=== PATIENT | male | born 1955 | race Caucasian/White ===

== ENCOUNTER 2016-08-09 17:07 | Emergency (ER) | payer OTHER ==
[~2016-08-09] VITALS: Ht 185.4 cm; Wt 161.0 kg
[~2016-08-09 17:07] MED LIST: ASPI1TAB83 PO; B-COTAB18; CLC100X PO; COEN100C2 PO; FERR1TAB23 PO; GLUC10007 PO; MAGN400T24 PO; METO50TA7 PO; MULTTAB PO; POTA99TA PO; PRLSR20 PO; TAMS0.4C59 PO; TRAM-10 PO; WARF-246 PO; WARF-281 PO
[2016-08-09] MEDS ORDERED: SODIUM CHLORIDE 0.9% 1000ML 1,000 ML IV ONE (17:34)
[2016-08-09 17:41] VITALS: Ht 185.4 cm; Wt 161.0 kg
--- NOTE | 2016-08-09 17:43 | EMERGENCY ROOM VISIT NOTE ---
History Report prepared by Eva: Maritza Palmer Under the Supervision of: Dr. Gabriele Mosquera D.O. First contact with patient: 17:23 Chief Complaint: REFERRED BY DOCTOR Stated Complaint: ABNORMAL EKG History of Present Illness The patient is a 61 year old male who presents to the Emergency Room with complaints of persistent fever starting 2 days [place]. The patient states that he has also been feeling chills and sweats and has been feeling very fatigued and body aches. The patient states that he has also had a cough but denies any chest pain, rash, or SOB. The patient states that he has noticed he has had increased urination but states he has been trying to drink more fluids recently. The patient states he went to the [facility] this morning and they did an EKG and told him to come to the ED for an abnormal EKG. The patient states that he has a history of atrial fibrillation for the past 8 years and takes Coumadin and Lopressor. The patient states that over the past 2 days he has been taking ibuprofen due to his fever. Source of History: patient Onset: 2 days [place]EL[place] Position: other (global) Timing: other (persistent) Associated Symptoms: + chills, + cough, + fatigue, + fevers, No chest pain, No rash Note: Associated symptoms: body aches. Review of Systems See HPI for pertinent positives & negatives. A total of 10 systems reviewed and were otherwise negative. Past Medical & Surgical Medical Problems: (1) Atrial fibrillation (2) Diabetes (3) Hypertension Family History Patient reports no known family medical history. Social History Smoking Status: Never Smoker Drug Use: none Marital Status: Occupation Status: employed Current/Historical Medications Scheduled Aspirin (Aspirin), 1 TAB PO DAILY B-Complex Vitamins (Vitamin B Complex), 1 TAB DAILY Coenzyme Q10 (Ubidecarenone) (Coenzyme Q-10), 1 TAB PO BID Docusate Sodium (Colace), 1 CAP PO BID Ferrous Sulfate (Iron), 1 TAB PO DAILY Glucosamine Sulfate (Glucosamine), 2,000 MG PO DAILY Magnesium (Chelated Magnesium), 100 MG PO BID Metoprolol Succ (Toprol Xl) (Toprol-Xl), 50 MG PO DAILY Multivitamins/Minerals (Mvi With Minerals), 1 TAB PO DAILY Omeprazole (Prilosec), 20 MG PO DAILY Oseltamivir (Tamiflu), 75 MG PO BID Potassium (Potassium), 99 MG PO DAILY Tamsulosin HCl (Tamsulosin HCl), 0.4 MG PO HS Warfarin Sodium (Warfarin Sodium), 10 MG PO MWF Warfarin Sodium (Warfarin Sodium), 10 MG PO [id number] Allergies Coded Allergies: Escitalopram (Verified Allergy, Unknown, RASH, 01/09/15) Finasteride (Verified Allergy, Unknown, rash, 01/09/15) Physical Exam Vital Signs Date Time Temp Pulse Resp B/P Pulse Ox O2 Delivery O2 Flow Rate FiO2 08/09/16 18:52 39.0 83 20 102/58 91 Room Air 08/09/16 17:36 94 08/09/16 17:13 37.7 101 24 122/75 95 Room Air Physical Exam GENERAL: Patient is awake, alert, somewhat listless appearing and febrile, not in pain or uncomfortable. EYES: The conjunctivae are clear. The pupils are round and reactive. EARS, NOSE, MOUTH AND THROAT: The nose is without any evidence of any deformity. Mucous membranes are moist tongue is midline NECK: The neck is nontender and supple. RESPIRATORY: Lung sounds diminished at the left base. Rales noted in the right base. Mild conversational dyspnea noted. CARDIOVASCULAR: Tachycardic and irregular rhythm to auscultation. No definite murmur noted. No rubs or gallops normal S1 normal S2 GASTROINTESTINAL: The abdomen is soft. Bowel sounds are present in all quadrants. Abdomen is nontender MUSCULOSKELETAL/EXTREMITIES: There is no evidence of gross deformity full range of motion is noted in the hips and shoulders SKIN: There is no obvious evidence of any rash. There are no petechiae, pallor or cyanosis noted. Pedal edema bilaterally. NEUROLOGIC: Patient is awake alert and oriented x3. Medical Decision & Procedures ER Provider Diagnostic Interpretation: X-ray results as stated below per interpretation by me and the radiologist. CHEST ONE VIEW PORTABLE CLINICAL HISTORY: Sepsis. Abnormal EKG. COMPARISON STUDY: Chest radiograph June 26, 2008. FINDINGS: This exam is compromised by suboptimal penetration and motion artifact. There is pulmonary vascular congestion without overt pulmonary edema. Moderate enlargement of the cardiac silhouette is noted. There is no lobar consolidation. IMPRESSION: 1. Moderate enlargement of the cardiac silhouette. Pulmonary vascular congestion. 2. Study compromised by suboptimal penetration and motion artifact. No lobar consolidation. Electronically signed by: Scaha Le M.D. 08/09/2016 6:33 PM Dictated Date/Time: 08/09/2016 6:31 PM Laboratory Results 08/09/16 18:10 Red Blood Count 4.67, Mean Corpuscular Volume 88.7, Mean Corpuscular Hemoglobin 28.9, Mean Corpuscular Hemoglobin Concent 32.6, Mean Platelet Volume 9.6, Neutrophils (%) (Auto) 81.8, Lymphocytes (%) (Auto) 9.8, Monocytes (%) (Auto) 7.8, Eosinophils (%) (Auto) 0.2, Basophils (%) (Auto) 0.2, Neutrophils # (Auto) 5.32, Lymphocytes # (Auto) 0.64, Monocytes # (Auto) 0.51, Eosinophils # (Auto) 0.01, Basophils # (Auto) 0.01 08/09/16 18:10 Test 08/09/16 17:38 08/09/16 17:40 08/09/16 18:10 08/09/16 18:13 Urine Color YELLOW Urine Appearance CLEAR (CLEAR) Urine pH 5.0 (4.5-7.5) Urine Specific [place] 1.019 (1.000-1.030) Urine Protein NEG (NEG) Urine Glucose (UA) NEG (NEG) Urine Ketones NEG (NEG) Urine Occult Blood NEG (NEG) Urine Nitrite NEG (NEG) Urine Bilirubin NEG (NEG) Urine Urobilinogen NEG (NEG) Urine Leukocyte Esterase NEG (NEG) Urine WBC (Auto) 1-5 /hpf (0-5) Urine RBC (Auto) 0-4 /hpf (0-4) Urine Hyaline Casts (Auto) 0 /lpf (0-5) Urine Epithelial Cells (Auto) 5-10 /lpf (0-5) Urine Bacteria (Auto) NEG (NEG) Influenza Type A Antigen POS for Influ A (NEG) Influenza Type B Antigen Neg for Influ B (NEG) White Blood Count 6.50 K/uL (4.8-10.8) Red Blood Count 4.67 M/uL (4.7-6.1) Hemoglobin 13.5 g/dL (14.0-18.0) Hematocrit 41.4 % (42-52) Mean Corpuscular Volume 88.7 fL (80-100) Mean Corpuscular Hemoglobin 28.9 pg (25-34) Mean Corpuscular Hemoglobin Concent 32.6 g/dl (32-36) Platelet Count 140 K/uL (130-400) Mean Platelet Volume 9.6 fL (7.4-10.4) Neutrophils (%) (Auto) 81.8 % Lymphocytes (%) (Auto) 9.8 % Monocytes (%) (Auto) 7.8 % Eosinophils (%) (Auto) 0.2 % Basophils (%) (Auto) 0.2 % Neutrophils # (Auto) 5.32 K/uL (1.4-6.5) Lymphocytes # (Auto) 0.64 K/uL (1.2-3.4) Monocytes # (Auto) 0.51 K/uL (0.11-0.59) Eosinophils # (Auto) 0.01 K/uL (0-0.5) Basophils # (Auto) 0.01 K/uL (0-0.2) RDW Standard Deviation 48.0 fL (36.4-46.3) RDW Coefficient of Variation 14.9 % (11.5-14.5) Immature Granulocyte % (Auto) 0.2 % Immature Granulocyte # (Auto) 0.01 K/uL (0.00-0.02) Erythrocyte Sedimentation Rate 27 mm/hr (0-14) Prothrombin Time 19.4 SECONDS (9.0-12.0) Prothromb Time International Ratio 1.8 (0.9-1.1) Activated Partial Thromboplast Time 39.4 SECONDS (21.0-31.0) Partial Thromboplastin Ratio 1.5 Anion Gap 7.0 mmol/L (3-11) Est Creatinine Clear Calc Drug Dose 143.5 ml/min Estimated GFR () 108.7 Estimated GFR (Non- 93.8 BUN/Creatinine Ratio 19.7 (10-20) Calcium Level 8.3 mg/dl (8.5-10.1) Phosphorus Level 2.0 mg/dl (2.5-4.9) Magnesium Level 1.6 mg/dl (1.8-2.4) Total Bilirubin 0.4 mg/dl (0.2-1) Aspartate Amino Transf (AST/SGOT) 31 U/L (15-37) Alanine Aminotransferase (ALT/SGPT) 32 U/L (12-78) Alkaline Phosphatase 90 U/L (45-117) Total Creatine Kinase 101 U/L (39-308) Creatine Kinase MB 0.6 ng/ml (0.5-3.6) Creatine Kinase MB Ratio 0.6 (0-3.0) Troponin I 0.026 ng/ml (0-0.045) C-Reactive Protein 2.27 mg/dl (0-0.29) Pro-B-Type Natriuretic Peptide 1695 pg/ml (0-900) Total Protein 6.9 gm/dl (6.4-8.2) Albumin 3.2 gm/dl (3.4-5.0) Globulin 3.7 gm/dl (2.5-4.0) Albumin/Globulin Ratio 0.9 (0.9-2) Lipase 161 U/L (73-393) Bedside Lactic Acid Venous 0.95 mmol/L (0.90-1.70) Laboratory results per my review. Medications Administered Medications (Trade) Dose Ordered Sig/Radha Route Start Time Stop Time Status Last Admin Dose Admin Sodium Chloride (Nss 1000ml) 1,000 ml @ 999 mls/hr Q1H1M ONCE IV 08/09/16 17:34 08/09/16 18:34 DC 08/09/16 18:11 999 MLS/HR Acetaminophen (Tylenol Tab) 650 mg ONE ONCE PO 08/09/16 17:45 08/09/16 17:46 DC 08/09/16 17:45 650 MG Magnesium Sulfate (Magnesium Sulfate) 1 gm NOW STAT IV 08/09/16 18:42 08/09/16 18:43 DC 08/09/16 18:58 1 GM Oseltamivir Phosphate (Tamiflu Cap) 75 mg NOW STAT PO 08/09/16 18:54 08/09/16 18:55 DC 08/09/16 19:03 75 MG Ibuprofen (Motrin Tab) 600 mg STK-MED ONCE .ROUTE 08/09/16 18:58 08/09/16 19:02 DC 08/09/16 19:04 600 MG Tramadol HCl (Ultram Home Pack) 1 homepack UD ONCE PO 08/09/16 20:00 08/09/16 20:01 DC 08/09/16 20:30 1 HOMEPACK ECG Indication: other (abnormal EKG) Rate (beats per minute): 90 Rhythm: atrial fibrillation Findings: PVC, other (LVH noted by voltage criteria.) Comparison ECG Date: June 25, 2008 Change: no significant change (Atrial fibrillation is new compared to old EKG.) ED Course 1728: The patient was evaluated in room C7. A complete history and physical examination were performed. 173: Ordered NSS 1,000 ml @ 999 mls/hr IV. 1745: Ordered Tylenol Tab 650 mg PO. 184: Ordered Magnesium sulfate 1gm IV. 1853: Ordered Tamiflu Cap 75 mg PO. 1857: Ordered Motrin Tab 600 mg PO. 1919: I discussed the case with Dr. Camacho [facility] Hospitalist so he could help facilitate outpatient follow-up. 1924: Upon reevaluation, the patient is resting comfortably. I discussed the results and treatment plan with him. He verbalized agreement of the treatment plan. The patient was discharged home. 1999: Ordered Tramadol HCl 1 homepack PO. Medical Decision Differential diagnosis: Etiologies such as viral syndrome, otitis, pharyngitis, pneumonia, influenza, meningitis, urinary tract infection, sepsis, bacteremia, as well as others were entertained. Nursing notes reviewed. The patient's previous electronic medical records were reviewed. The patient is a 61-year-old male who presented to the emergency department for an evaluation of fever and difficulty breathing. The patient was seen at the [facility] weekend clinic and was sent to the emergency department for an evaluation of new onset atrial fibrillation. The patient states that he has a history of chronic atrial fibrillation with Coumadin use and is already taking metoprolol. The patient was treated with antipyretics in the emergency department. He was given a small fluid bolus. He was also started on Tamiflu and his magnesium was replaced. I discussed the patient's laboratory radiographic studies with him. The patient's documentation from the weekend clinic stated that he needed to be evaluated for possible inpatient management. At this time I do not feel the patient wishes to stay in the hospital and I think he could be managed as an outpatient for this acute febrile illness. I discussed the patient's condition with the on-call [facility] hospitalist group in order to expedite the patient's follow-up with the primary care physician. The patient was encouraged to schedule a follow-up appointment this week. The patient was also encouraged to return to the emergency department immediately if symptoms change worsen or the need arises. Impression Primary Impression: Fever Additional Impressions: Influenza Atrial fibrillation Hypermagnesemia Scribe Attestation The scribe's documentation has been prepared under my direction and personally reviewed by me in its entirety. I confirm that the note above accurately reflects all work, treatment, procedures, and medical decision making performed by me. Departure Information Dispostion Home / Self-Care Prescriptions Oseltamivir (Tamiflu) 75 Mg Cap 75 MG PO BID, #10 CAP Prov: Gabriele Mosquera, DO 08/09/16 Referrals Mateus Sanders D.O. (PCP) Forms HOME CARE DOCUMENTATION FORM, IMPORTANT VISIT INFORMATION, WORK / SCHOOL INSTRUCTIONS Patient Instructions My [facility] Additional Instructions Call your family in the morning to schedule a follow-up appointment. Continue all medications as prescribed. Drink plenty of liquids. Continue using Motrin and Tylenol as directed for fever and body aches. Problem Qualifiers Primary Impression: Fever Fever type: unspecified Qualified Codes: R50.9 - Fever, unspecified Additional Impressions: Atrial fibrillation Atrial fibrillation type: chronic Qualified Codes: I48.2 - Chronic atrial fibrillation
[2016-08-09] MEDS ORDERED: ACETAMINOPHEN 325 MG TAB PO ONE (17:45)
[2016-08-09] MEDS ORDERED: MAGN1TAB16 PO (17:49)
[2016-08-09] MEDS ORDERED: FLM4 PO (17:49)
[2016-08-09] MEDS ORDERED: DOCU-94 PO (17:49)
[2016-08-09 18:20] LABS: HEMATOCRIT 41.4 % (42-52); MEAN CELL VOLUME 88.7 fL (80-100); MEAN CORPUSCULAR HEMOGLOBIN 28.9 pg (25-34); MEAN CORPUSCULAR HGB CONC 32.6 g/dl (32-36); MEAN PLATELET VOLUME 9.6 fL (7.4-10.4); PLATELET COUNT 140 K/uL (130-400); RED BLOOD COUNT 4.67 M/uL (4.7-6.1)
[2016-08-09 18:31] LABS: INR 1.8 (0.9-1.1); PARTIAL THROMBOPLASTIN RATIO 1.5; PROTHROMBIN TIME (PATIENT) 19.4 SECONDS (9.0-12.0)
--- NOTE | 2016-08-09 18:34 | DIAGNOSTIC IMAGING REPORT ---
CHEST ONE VIEW PORTABLE CLINICAL HISTORY: Sepsis. Abnormal EKG. COMPARISON STUDY: Chest radiograph June 26, 2008. FINDINGS: This exam is compromised by suboptimal penetration and motion artifact. There is pulmonary vascular congestion without overt pulmonary edema. Moderate enlargement of the cardiac silhouette is noted. There is no lobar consolidation. IMPRESSION: 1. Moderate enlargement of the cardiac silhouette. Pulmonary vascular congestion. 2. Study compromised by suboptimal penetration and motion artifact. No lobar consolidation. Electronically signed by: Sacha Le M.D. 08/09/2016 6:33 PM Dictated Date/Time: 08/09/2016 6:31 PM
[2016-08-09 18:36] LABS: BUN/CREATININE RATIO 19.7 (10-20); C-REACTIVE PROTEIN 2.27 mg/dl (0-0.29); CALCIUM 8.3 mg/dl (8.5-10.1); CREATININE 0.87 mg/dl (0.60-1.40); MAGNESIUM 1.6 mg/dl (1.8-2.4); POTASSIUM 4.1 mmol/L (3.5-5.1)
[2016-08-09 18:41] LABS: ALB/GLOB RATIO 0.9 (0.9-2); CKMB/CK RATIO 0.6 (0-3.0)
[2016-08-09] MEDS ORDERED: MAGNESIUM SULFATE 1GM / D5W 1 GM BAG IV STA (18:42)
[2016-08-09 18:44] LABS: URINE APPEARANCE CLEAR (CLEAR); URINE BILIRUBIN NEG (NEG); URINE COLOR YELLOW; URINE NITRITE NEG (NEG); URINE SPECIFIC GRAVITY 1.019 (1.000-1.030); UROBILINOGEN NEG (NEG); ZZUR CULT IF INDIC CLEAN CATCH NO
[2016-08-09 18:54] LABS: MANUAL MICROSCOPIC REQUIRED? NO; REVIEW REQ? NO
[2016-08-09] MEDS ORDERED: OSELTAMIVIR PHOSPHATE 75 MG CAP PO STA (18:54)
[2016-08-09] MEDS ORDERED: IBUPROFEN 600 MG TAB ONE (18:58)
[2016-08-09 19:01] LABS: BASO % 0.2 %; BASO ABS # 0.01 K/uL (0-0.2); COMPLETE YES; EOS % 0.2 %; IG% 0.2 %; LYMPH % 9.8 %; LYMPH ABS # 0.64 K/uL (1.2-3.4); MONO % 7.8 %; NEUT % 81.8 %
[2016-08-09] MEDS ORDERED: OSEL75CA12 PO (19:47)
[2016-08-09] MEDS ORDERED: TRAMADOL HCL 50 MG HOME PACK PO ONE (20:00)
[2016-08-09 20:36] VITALS: BP 109/60; PULSE 78; TEMP 37.3; O2SAT 93
[2017-02-12] MEDS ORDERED: PRED10TA PO (10:24)
[2017-02-12] MEDS ORDERED: BND25 PO (10:24)
== END 2016-08-09 20:37 | disposition home or self-care (01) ==
LOC: C.EDB 17:10 → C.EDC 20:37
DX: I48.91 Unspecified atrial fibrillation (principal); J11.1 Influenza due to unidentified influenza virus with other respiratory manifestations; E83.42 Hypomagnesemia; E11.9 Type 2 diabetes mellitus without complications; I10 Essential (primary) hypertension; Z79.01 Long term (current) use of anticoagulants; Z79.82 Long term (current) use of aspirin; Z79.84 Long term (current) use of oral hypoglycemic drugs; Z79.899 Other long term (current) drug therapy; Z88.8 Allergy status to other drugs, medicaments and biological substances

== ENCOUNTER 2017-02-02 06:26 | Observation (INO) | payer OTHER ==
[~2017-02-02] VITALS: Ht 185.4 cm; Wt 138.1 kg
[2017-02-02] VITALS (7 sets, daily range): BP systolic 99–111; BP diastolic 65–73; PULSE 50–70; TEMP 36.5–37; O2SAT 95–98; Ht 185.4 cm; Wt 138.1 kg
[~2017-02-02 06:26] MED LIST changes: +CEFAZOLIN 1000MG/55 ML D5W IV SCH; +CEFAZOLIN 3000 MG/65 ML D5W 65 ML IV SCH; -CLC100X PO; +DOCU-94 PO; +FLM4 PO; +LACTATED RINGER'S 1000ML 1,000 ML IV SCH; +MAGN1TAB16 PO; -MAGN400T24 PO; +OSEL75CA12 PO; -TAMS0.4C59 PO; -TRAM-10 PO
[2017-02-02] MEDS ORDERED: CYAN10005 PO (06:59)
[2017-02-02] MEDS ORDERED: LISI-729 PO (06:59)
[2017-02-02] MEDS ORDERED: MAGN400T6 PO (07:03)
[2017-02-02] MEDS ORDERED: TRAM-10 PO (07:04)
[2017-02-02] MEDS ORDERED: LIDOCAINE HCL 1% 20 ML VIAL ONE (07:09)
[2017-02-02] MEDS ORDERED: BUPIVACAINE 0.5 % 5 MG/1 ML MPF 30ML VIAL ONE (07:10)
[2017-02-02] MEDS ORDERED: BACITRACIN 50000 UNIT VIAL ONE (07:10)
--- NOTE | 2017-02-02 08:15 | History & Physical Bridge Note ---
H&P Re-Evaluation Bridge Note: I have examined the patient, reviewed the History & Physical and in the interval since the performance of the History & Physical I have noted the following changes of clinical significance: No changes noted
--- NOTE | 2017-02-02 08:16 | Procedure Note ---
Pre-Mod Sedation Assessment General Date of Moderate Sedation: Feb 02, 2017. Vital Signs: Vital Signs Past 12 Hours Date Time Temp Pulse Resp B/P (MAP) Pulse Ox O2 Delivery O2 Flow Rate FiO2 02/02/17 06:50 36.7 70 20 104/69 (81) 98 Room Air Review Cardiovascular: regular rate, rhythm Abdomen: soft Lungs: lungs clear Airway Class: III Pre-Sedation Airway Assessment Oral Cavity: Dental Abnormalities Short Thick Neck: Yes Hx of Sleep Apnea: Yes Smoking Status: Never Smoker Mallampati Classification: Class III ASA Classification: Class III Procedure Planning Contraindications-for Mod Sed: None Yes Notes The planned sedation has been discussed with the patient and consent obtained. I have identified the patient, determined the appropriateness of sedation and have assessed the patient immediately prior to the procedure. All medicine(s) and interventions are by my order.
[2017-02-02] MEDS ORDERED: FENTANYL CITRATE INJ 50 MCG/1 ML 2 ML VIAL ONE ×2 (08:32→09:09)
[2017-02-02] MEDS ORDERED: MIDAZOLAM HCL 5 MG/ML 1 ML VIAL ONE (08:32)
--- NOTE | 2017-02-02 09:38 | Procedure Note ---
Post-Mod Sedation Assessment General Date of Moderate Sedation Feb 02, 2017. Vital Signs: Vital Signs Past 12 Hours Date Time Temp Pulse Resp B/P (MAP) Pulse Ox O2 Delivery O2 Flow Rate FiO2 02/02/17 09:30 52 20 103/69 (80) 99 Mask 3 02/02/17 06:50 36.7 70 20 104/69 (81) 98 Room Air Review - Discharge Criteria Vital Signs Stable: Yes Alert/Oriented/Conversant: Yes Returned to Baseline Mental St: Yes Nausea Absent/Minimal: Yes Pain/Discomfort/Absent/Minimal: Yes Normal/Baseline Respirations: Yes Active Bleeding?: No Pt Received D/C Instructions: N/A Prescriptions Given: None Specific Proced. D/C Criteria Distal Pulses Present (Cardiac: N/A Groin site assessed-Card Cath: N/A Voided Prior To Discharge: N/A Discharged Patients Adult Escort/Transportation: N/A
--- NOTE | 2017-02-02 09:38 | [facility] Post Operative Brief Note ---
Immediate Operative Summary Operative Date Feb 02, 2017. Pre-Operative Diagnosis nicm Post-Operative Diagnosis same Procedure(s) Performed single chamber rate responsive ICD under fluroscopic guidance Surgeon mehul batista Superintendent Institution Surgeon(s) none Estimated Blood Loss <5cc Findings see official report Fluids (cc crystalloids) 250cc Specimens none Drains none Anesthesia 5mg versed and 125mcg fentatnyl Complication(s) None Disposition PCU
--- NOTE | 2017-02-02 09:40 | Discharge Instructions ---
Discharge Instructions Date of Service Feb 02, 2017. Admission Reason for Admission: Non-Ischemic Cardiomyopathy Discharge Discharge Diagnosis / Problem: nicm Discharge Goals Goal(s): Improve function Activity Recommendations Activity Limitations: as noted below Lifting Limitations: no more than 10 pounds (do not lift more than 10 pounds with right arm for 2 weeks and do not lift the right elbow over the right shoulder for 1 month) Shower/Bathe: tomorrow Driving or Machine Use: resume 1 day after discharge . Instructions / Follow-Up Instructions / Follow-Up ACTIVITY RECOMMENDATIONS: * Do not raise affected arm over head for 4 weeks. SPECIAL CARE INSTRUCTIONS: * If bleeding occurs, apply direct pressure to area for 5 minutes. * Call your doctor if you have severe pain, fever, drainage or bleeding at site. * Keep dry for 24 hours. * Keep any scheduled doctor's appointment. * Implant Card - hand held device with website information given. SKIN IRRITATION: * You may experience some redness and/or swelling in the area where radiation was administered. If any skin irritation occurs, please contact your family physician. FOLLOW UP VISIT: Keep any scheduled doctor appointments. Current Hospital Diet Patient's current hospital diet: AHA Diet (Heart Healthy), Low Sodium Diet (2gm Na) Discharge Diet Recommended Diet: AHA Diet (Heart Healthy), Low Sodium Diet (2gm Na) Fluid Restriction: 2000 ml (8 cups) Procedures Procedures Performed: single chamber rate responsive ICD under fluroscopic guidance Pending Studies Studies pending at discharge: no Medical Emergencies . Who to Call and When: Medical Emergencies: If at any time you feel your situation is an emergency, please call 911 immediately. . Non-Emergent Contact Non-Emergency issues call your: Field Applications Specialist . . "Provider Documentation" section prepared by Helen Rubio. . VTE Core Measure Inpt VTE Proph given/why not?: Warfarin (Coumadin)
--- NOTE | 2017-02-02 09:44 | Discharge Summary ---
Discharge Summary Date of Service Feb 02, 2017. Discharge Summary Admission Date: Discharge Date: Feb 03, 2017 Discharge Disposition: Home Principal Diagnosis: NICM EF 30% Secondary Diagnoses/Problems: Permanent AF on coumadin NSVT previously on amiodarone Pulmonary HTN H/o PE and DVT CAD non-obstructive disease by cath in 2010 Varicose veins RAH non-compliant with CPAP GERD BPH Iron deficiency anemia Procedures: single chamber rate responsive ICD under fluoroscopy with peripheral venogram Medication Reconciliation Continued Medications: Aspirin (Aspirin) 81 Mg Tab 1 TAB PO DAILY Coenzyme Q10 (Ubidecarenone) (Coenzyme Q-10) 100 Mg Cap 1 TAB PO BID Cyanocobalamin (Vitamin B-12) 1,000 Mcg Tab 1000 MCG PO DAILY, TAB Docusate Sodium (Colace) 100 Mg Cap 1 CAP PO BID for 30 Days, #60 CAP Ferrous Sulfate (Iron) 325 Mg Tab 1 TAB PO DAILY Glucosamine Sulfate (Glucosamine) 1,000 Mg Tab 2000 MG PO DAILY, TAB Lisinopril (Prinivil) 5 Mg Tab 5 MG PO DAILY, TAB Magnesium Oxide (Mag-Ox) 400 Mg Tab 400 MG PO BID, TAB Metoprolol Succ (Toprol Xl) (Toprol-Xl) 50 Mg Tabcr 50 MG PO DAILY, #30 TAB Multivitamins/Minerals (Mvi With Minerals) Tab 1 TAB PO DAILY, TAB Omeprazole (Prilosec) 20 Mg Capcr 20 MG PO BID PRN for Dyspepsia, CAP Tamsulosin HCl (Tamsulosin HCl) 0.4 Mg Cap 0.4 MG PO HS, #30 Tramadol (Ultram) 50 Mg Tab 50 MG PO Q8H PRN for Pain, TAB Warfarin Sodium (Warfarin Sodium) 5 Mg Tab 2.5 MG PO DAILY Admission Information Physical Exam (per Admitting): aaox3, NAD NC/AT, EOMI Supple, No JVD Irregular S1/S2, no murmur CTA b/l No w/r/r soft NT/ND No edema No focal deficits Skin intact Hospital Course Pt admitted for elective ICD implant due to NICM. Pt underwent procedure without any complications; monitored overnight. Discharged home following day. Total time spent on discharge = 30 minutes This includes examination of the patient, discharge planning, medication reconciliation, and communication with other providers. Discharge Instructions ACTIVITY RECOMMENDATIONS: * Do not raise affected arm over head for 4 weeks. SPECIAL CARE INSTRUCTIONS: * If bleeding occurs, apply direct pressure to area for 5 minutes. * Call your doctor if you have severe pain, fever, drainage or bleeding at site. * Keep dry for 24 hours. * Keep any scheduled doctor's appointment. * Implant Card - hand held device with website information given. SKIN IRRITATION: * You may experience some redness and/or swelling in the area where radiation was administered. If any skin irritation occurs, please contact your family physician. FOLLOW UP VISIT: Keep any scheduled doctor appointments.
[2017-02-02] MEDS ORDERED: OXYCODONE/ACETAMINOPHEN 5-325 TAB PO PRN (09:45)
[2017-02-02] MEDS ORDERED: TRAMADOL HCL 50 MG TAB PO PRN (09:45)
[2017-02-02] MEDS ORDERED: ACETAMINOPHEN 325 MG TAB PO PRN (09:45)
[2017-02-02 11:13] LABS: INR 1.6 (0.9-1.1); PROTHROMBIN TIME (PATIENT) 17.3 SECONDS (9.0-12.0)
[2017-02-02] MEDS ORDERED: IV FLUIDS COMPLETED PRN (11:45)
--- NOTE | 2017-02-02 19:27 | OPERATIVE REPORT ---
DATE OF OPERATION: 02/02/2017 PROCEDURE: Single chamber rate responsive implantable cardiac defibrillator implant under fluoroscopic guidance along with a peripheral venogram. PREOPERATIVE DIAGNOSES: Nonischemic cardiomyopathy. POSTOPERATIVE DIAGNOSIS: Same SURGEON: Helen Rubio DO. EMERY WHEEL WORKER: None. ANESTHESIA: Monitored conscious sedation was administered under my supervision. ADMINISTERING NURSE: Francesco Huang. Start time 8:39. End time 9:30. A total of 5 mg of Versed and 125 mcg of fentanyl. INTRAVENOUS FLUIDS: 250 mL ESTIMATED BLOOD LOSS: Less than 5 mL. CONTRAST: 10 mL. URINE OUTPUT: Not applicable. SPECIMENS: None. FINDINGS: See below. INDICATIONS: This is a 62-year-old gentleman who has a past medical history for nonischemic cardiomyopathy, ejection fraction of 30-35%, thought to be secondary due to pulmonary hypertension and possibly also permanent atrial fibrillation and nonsustained VT. He was previously on amiodarone, but is now off it. A history of pulmonary emboli and DVT. He is on Coumadin. Coronary artery disease with nonobstructive by cath in 2010. History of varicose veins with right vein stripping in the past. Obstructive sleep apnea, noncompliant with CPAP, BPH, GERD and iron deficiency anemia. Due to his nonischemic cardiomyopathy, the patient was recommended to a single chamber defibrillator. CONSENT: Consent was obtained prior to the patient going into the electrophysiology lab. The patient was informed of risks, benefits, and alternatives to the procedure. Risks include, but not limited to sudden cardiac , cardiac arrhythmias, cerebrovascular accident, myocardial infarction, injury to the blood vessels, chamber of the heart, lungs, bleeding and infection. The patient understood these risks and agreed to the procedure as planned. Informed consent was obtained. DESCRIPTION OF THE PROCEDURE: The patient was brought into the electrophysiology lab in a fasting state. He was connected to continuous cardiac monitoring. A timeout was performed to ensure the patient's identity and procedure correctly. The patient was prepped and draped over the right infraclavicular space in normal standard fashion. Monitored conscious sedation was given throughout the procedure for the patient's comfort level under my supervision. He received prophylactic antibiotics prior to incision. [place] precautions were maintained throughout the procedure. 15 mL of 1% lidocaine, bupivacaine mixture were given in the right deltopectoral groove. Incision was made in the right deltopectoral groove, where initially blunt dissection was performed to try to identify the cephalic vein; however, due to the patient's body habitus, it was really hard to find one. So I did a peripheral venogram using 10 mL of IV contrast diluted in 10 mL of saline followed by 20 mL flush to identify the axillary vein. Venous access was obtained through an axillary venous stick without any complications. The guidewire was inserted without any resistance. The 9.5-Mosotho sheath was then inserted over the guidewire without any resistance. The guidewire and dilator were removed. The right ventricular defibrillator lead was then advanced into the right ventricle and positioned into the right ventricular apex under fluoroscopic guidance. There was adequate pacing and sensing thresholds and no diaphragmatic stimulation with high output pacing. The 9.5-Mosotho sheath was peeled away and the lead was fixated to the pectoralis muscle using 0 silk suture. An additional 5 mL of 1% lidocaine, bupivacaine mixture were given in the pectoralis fascia and then using blunt dissection within the fascia over the pectoralis muscle, a defibrillator pocket was created. The pocket was flushed with copious amounts of bacitracin saline wash and inspected for hemostasis. The defibrillator was then attached to the lead making sure that the pins were in appropriate position, passed the set screws and the set screws were all tightened. The defibrillator was then placed in the pocket making sure that the leads were lying flat beneath the device. Rola stat was placed in the pocket as the patient is going back on Coumadin. The incision was then closed in 4-layer fashion using a 2-0 Vicryl interrupted suture followed by another 2-0 Vicryl interrupted suture, followed by a 3-0 Vicryl interrupted suture followed by a 4-0 Monocryl running stitch and Dermabond was applied. EQUIPMENT: 1. The generator is a [employer]- MRI VR SureScan, model number [id number], serial number [id number]. 2. Right ventricular lead is a Medtronic 6935M-62 cm, serial number [id number]. INTRAOPERATIVE TESTING: R-wave is 6.6 millivolts, impedance 480 ohms, threshold 0.4 volts at 0.7 milliamps. FINAL MEASUREMENTS THROUGH THE DEVICE: R-wave is 7.9 millivolts, impedance 380 ohms, threshold 0.5 volts at 0.4 milliseconds. The RV coil is 82 ohms. FINAL PARAMETERS: VVI 40, right ventricular amplitude 3.5 volts, pulse width 0.4 milliseconds, sensitivity 0.3 millivolts, a VF zone of 188 beats per minute, 30/40 detection intervals. A VT zone at 167 beats per minute, 16 detection intervals and a VT monitor zone 140 beats per minute, 32 detection intervals. IMPRESSION: Successful implantation of a single chamber right-sided implantable cardiac defibrillator under fluoroscopic guidance along with peripheral venogram opted to do no threshold defibrillator testing due to inability to completely sedate the patient. PLAN: Monitor the patient overnight, a 12-lead ECG, chest x-ray. He is not allowed to lift the right elbow over the right shoulder for 1 month and cannot lift more than 10 pounds with the right arm for 2 weeks. He can shower tomorrow, let water run over the incision, do not scrub it. He can restart his home medications including his Coumadin. 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 I attest to the content of the Intraoperative Record and any orders documented therein. Any exceptions are noted below. LOWELL
[2017-02-02] MEDS ORDERED: TAMSULOSIN HCL 0.4 MG CAP PO SCH (21:00)
[2017-02-02] MEDS ORDERED: COENZYME Q10 PO SCH (21:00)
[2017-02-02] MEDS: DOCUSATE SODIUM 100 MG CAP PO SCH (21:14)
[2017-02-02] MEDS: MAGNESIUM OXIDE 400 MG TAB PO SCH (21:15)
[2017-02-03 00:06] VITALS: BP 120/76; PULSE 73; TEMP 36.9; O2SAT 96
[2017-02-03 04:09] VITALS: BP 97/59; PULSE 71; TEMP 36.6; O2SAT 97
--- NOTE | 2017-02-03 06:56 | DIAGNOSTIC IMAGING REPORT ---
CHEST 2 VIEWS ROUTINE CLINICAL HISTORY: EXACT TIME ORDERED Evaluate for pneumothorax and lead placement COMPARISON STUDY: 07/20/2016 FINDINGS: Placement of a unipolar cardiac pacemaker/fibrillator. Lead is in good position. No evidence of pneumothorax. IMPRESSION: Pacemaker/fibrillator lead in good position. No evidence pneumothorax. The above report was generated using voice recognition software. It may contain grammatical, syntax or spelling errors. Electronically signed by: Jose A Tran M.D. 02/03/2017 6:55 AM Dictated Date/Time: 02/03/2017 6:55 AM
[2017-02-03 07:31] VITALS: BP 104/74; PULSE 67; TEMP 37; O2SAT 95
[2017-02-03] MEDS: MAGNESIUM OXIDE 400 MG TAB PO SCH (07:33)
[2017-02-03] MEDS: DOCUSATE SODIUM 100 MG CAP PO SCH (07:33)
[2017-02-03 07:37] LABS: INR 1.5 (0.9-1.1); PROTHROMBIN TIME (PATIENT) 16.3 SECONDS (9.0-12.0)
[2017-02-03 08:53] VITALS: BP 104/74; PULSE 67; TEMP 37; O2SAT 95
--- NOTE | 2017-02-03 08:57 | Cardiology Follow-Up ---
Subjective Subjective Date of Service: Feb 03, 2017. Pt evaluation today including: conversation w/ patient, physical exam, chart review, review of studies Pain: minimal at the incision site Problem List Medical Problems: (1) Atrial fibrillation Status: Chronic (2) Fever Status: Acute (3) Hypermagnesemia Status: Acute (4) Influenza Status: Acute Review of Systems Constitutional: No fatigue Respiratory: No shortness of breath, No dyspnea on exertion Cardiac: No chest pain, No edema, No palpitations Abdomen: No nausea Endo: No fatigue Objective Vital Signs Last Vital Signs Documentation Date Time Temp Pulse Resp B/P (MAP) Pulse Ox O2 Delivery O2 Flow Rate FiO2 02/03/17 08:00 Room Air 02/03/17 07:31 37.0 67 20 104/74 (84) 95 02/02/17 09:30 3 Physical Exam: General Appearance: WD/WN, no apparent distress Eyes: bilateral eyes PERRL, bilateral eyes EOMI Neck: supple, no JVD Respiratory/Chest: lungs clear, normal breath sounds Cardiovascular: no edema, no murmur, + irregularly irregular Abdomen: soft Neurologic/Psychiatric: no motor/sensory deficits, oriented x 3 Skin: warm/dry (right pectoral incision intact no hematoma and mild ecchymosis) Assessment and Plan Plan: 1. NICM EF 20% s/p VVI ICD 02/02/2017 2. Pulmonary HTN 3. NSVT 4. Permanent AF on Coumadin 5. H/O PE and DVT on Coumadin 6. CAD non-obstructive disease in 2010 7. RAH non-compliant CPAP 8. BPH 9. GERD 10. Iron deficiency anemia Plan: -Ok for discharge home today -Continue home medications -Do not lift the right elbow over the right shoulder for 1 month-do not lift more than 10 pounds with the right arm for 2 weeks -Device and wound check in 7-10 days in our [facility] [employer] [facility] office Discharge planning: home Medications: Medications Administered Medications (Trade) Dose Ordered Sig/Radha Route Start Time Stop Time Status Last Admin Dose Admin Lactated Ringer's 1,000 ml @ 15 mls/hr Q24H IV 02/02/17 06:00 02/02/17 18:00 DC 02/02/17 07:20 15 MLS/HR Cefazolin Sodium 65 ml @ 100 mls/hr PREOP IV 02/02/17 06:00 02/03/17 05:59 DC 02/02/17 08:22 100 MLS/HR Fentanyl Citrate (Fentanyl Inj) 100 mcg STK-MED ONCE .ROUTE 02/02/17 08:32 02/02/17 08:33 DC 02/02/17 08:32 100 MCG Midazolam HCl (Versed Inj) 5 mg STK-MED ONCE .ROUTE 02/02/17 08:32 02/02/17 08:33 DC 02/02/17 08:32 5 MG Fentanyl Citrate (Fentanyl Inj) 100 mcg STK-MED ONCE .ROUTE 02/02/17 09:09 02/02/17 09:10 DC 02/02/17 09:09 25 MCG Aspirin (Ecotrin Tab) 81 mg DAILY PO 02/03/17 09:00 03/05/17 08:59 02/03/17 07:33 81 MG Cyanocobalamin (Vitamin B-12 Tab) 1,000 mcg DAILY PO 02/03/17 09:00 03/05/17 08:59 02/03/17 07:32 1,000 MCG Docusate Sodium (coLACE CAP) 100 mg BID PO 02/02/17 21:00 03/04/17 20:59 02/03/17 07:33 100 MG Magnesium Oxide (Mag-Ox Tab) 400 mg BID PO 02/02/17 21:00 03/04/17 20:59 02/03/17 07:33 400 MG Multivitamins/ Minerals (Multivitamin W/ Minerals Tab) 1 tab DAILY PO 02/03/17 09:00 03/05/17 08:59 02/03/17 07:32 1 TAB Tamsulosin HCl (Flomax Cap) 0.4 mg HS PO 02/02/17 21:00 03/04/17 20:59 02/02/17 21:15 0.4 MG Ferrous Sulfate (Feosol Tab) 325 mg DAILY PO 02/03/17 09:00 03/05/17 08:59 02/03/17 07:33 325 MG Glucosamine Sulfate (Glucosamine Cap) 2,000 mg DAILY PO 02/03/17 09:00 03/05/17 08:59 02/03/17 07:33 2,000 MG Lab Results: Telemetry: AF with occasional STEAM FITTER ECG: AF with occasional STEAM FITTER CXR: No PTX RV lead in position PPM Interrogation Today: Stable lead testing and wnl since implant Last 24 Hours Test 02/02/17 10:55 02/03/17 07:19 Prothrombin Time 17.3 SECONDS 16.3 SECONDS Prothromb Time International Ratio 1.6 1.5
[2017-02-03] MEDS ORDERED: METOPROLOL SUCC 50MG EXT REL TAB PO SCH (09:00)
[2017-02-03] MEDS ORDERED: CYANOCOBALAMIN 500 MCG TAB (VIT B-12) PO SCH (09:00)
[2017-02-03] MEDS ORDERED: ASPIRIN 81 MG ECTAB PO SCH (09:00)
[2017-02-03] MEDS ORDERED: CEROVITE ADV FORMULA TAB PO SCH (09:00)
[2017-02-03] MEDS ORDERED: GLUCOSAMINE SULFATE 500 MG CAP PO SCH (09:00)
[2017-02-03] MEDS ORDERED: PANTOprazole SOD 40 MG TAB PO PRN (09:00)
[2017-02-03] MEDS ORDERED: LISINOPRIL 5 MG TAB PO SCH (09:00)
[2017-02-03] MEDS ORDERED: FERROUS SULFATE 325 MG TAB PO SCH (09:00)
[2017-02-03] MEDS ORDERED: WARFARIN SOD 2.5 MG TAB PO SCH (16:00)
[2017-02-12] MEDS ORDERED: BND25 PO (10:24)
[2017-02-12] MEDS ORDERED: PRED10TA PO (10:24)
[2017-02-24] MEDS ORDERED: PROC1TAB5 PO (09:26)
[2017-02-24] MEDS ORDERED: ONDA8TAB6 PO (09:26)
[2017-02-24] MEDS ORDERED: DXM/4 PO (09:26)
== END 2017-02-03 10:45 | disposition home or self-care (01) ==
LOC: C.ACU 06:26 → C.MED 09:36 → ENRESERV 09:56
PROVIDERS: ADMIT Internal Medicine; ATTEND Internal Medicine
DX: I42.9 Cardiomyopathy, unspecified (principal); I25.10 Atherosclerotic heart disease of native coronary artery without angina pectoris; I48.2 Chronic atrial fibrillation; I27.2 Other secondary pulmonary hypertension; I87.2 Venous insufficiency (chronic) (peripheral); N40.0 Benign prostatic hyperplasia without lower urinary tract symptoms; K21.9 Gastro-esophageal reflux disease without esophagitis; G47.33 Obstructive sleep apnea (adult) (pediatric); E53.8 Deficiency of other specified B group vitamins; I50.22 Chronic systolic (congestive) heart failure; Z79.899 Other long term (current) drug therapy; Z79.01 Long term (current) use of anticoagulants; Z79.82 Long term (current) use of aspirin

== ENCOUNTER 2017-02-05 22:07 | Inpatient (IN) | payer OTHER ==
[~2017-02-05] VITALS: Ht 185.4 cm; Wt 140.5 kg
[~2017-02-05 22:07] MED LIST changes: -B-COTAB18; -CEFAZOLIN 1000MG/55 ML D5W IV SCH; -CEFAZOLIN 3000 MG/65 ML D5W 65 ML IV SCH; +CYAN10005 PO; -LACTATED RINGER'S 1000ML 1,000 ML IV SCH; +LISI-729 PO; -MAGN1TAB16 PO; +MAGN400T6 PO; -OSEL75CA12 PO; -POTA99TA PO; +TRAM-10 PO; -WARF-281 PO
[2017-02-05] MEDS ORDERED: OPTIRAY 320 IV PRN (22:45)
--- NOTE | 2017-02-05 22:55 | EMERGENCY ROOM VISIT NOTE ---
History Report prepared by Eva: Dalton Conrad Under the Supervision of: Joel AgustinO. First contact with patient: 22:14 Chief Complaint: RASH Stated Complaint: RASH ON LEGS AND INCISION History of Present Illness The patient is a 62 year old male who presents to the Emergency Room with complaints of a worsening rash on both lower legs starting last night. The patient states that he had a pacemaker and defibrillator put in three days ago for arrhythmia, and he thinks that he has a blood infection. He states that he tried to shower last night, and he noticed the rash. He additionally states that he was put on Coumadin two days ago. He had stopped it for the procedure. The patient states that he has been having a fever, and he denies any nausea or chest pain. No SOB. The patient additionally states that he has a filter in his groin for a history of blood clots. Pt states hx of low blood pressure, being followed by cardiology. Review of the EMR reveals that the patient had an ICD placement for a history of an EF of 20%, A-Fib, and on the his INR was 1.5. The patient got pre-op cefazolin. Source of History: patient Onset: last night Position: leg (bilateral) Quality: other (rash) Timing: worsening Associated Symptoms: + fevers, No nausea Review of Systems See HPI for pertinent positives & negatives. A total of 10 systems reviewed and were otherwise negative. Past Medical & Surgical Medical Problems: (1) Anticoagulated on warfarin (2) Atrial fibrillation (3) BPH (benign prostatic hypertrophy) (4) Cardiomyopathy, nonischemic (5) Chronic atrial fibrillation (6) Coronary artery disease (7) Diabetes (8) Diabetes mellitus, type 2 (9) GERD (gastroesophageal reflux disease) (10) History of pulmonary embolism (11) Hypertension (12) Obesity (BMI 30-39.9) (13) Paroxysmal ventricular tachycardia (14) Pulmonary hypertension (15) Sleep apnea (16) Venous insufficiency Surgical Problems: (1) History of exploratory laparotomy (2) Status post appendectomy (3) Status post implantation of automatic cardioverter/defibrillator (AICD) (4) Status post insertion of inferior vena caval filter Family History Patient reports no known family medical history. Social History Smoking Status: Never Smoker Drug Use: none Marital Status: Occupation Status: employed Current/Historical Medications Scheduled Aspirin (Aspirin), 1 TAB PO DAILY Coenzyme Q10 (Ubidecarenone) (Coenzyme Q-10), 1 TAB PO BID Cyanocobalamin (Vitamin B-12), 1,000 MCG PO DAILY Docusate Sodium (Colace), 100 MG PO BID Ferrous Sulfate (Iron), 1 TAB PO DAILY Glucosamine Sulfate (Glucosamine), 2,000 MG PO DAILY Lisinopril (Prinivil), 5 MG PO DAILY Magnesium Oxide (Mag-Ox), 400 MG PO BID Metoprolol Succ (Toprol Xl) (Toprol-Xl), 50 MG PO DAILY Multivitamins/Minerals (Mvi With Minerals), 1 TAB PO DAILY Tamsulosin HCl (Tamsulosin HCl), 0.4 MG PO HS Warfarin Sodium (Warfarin Sodium), 2.5 MG PO DAILY Scheduled PRN Omeprazole (Prilosec), 20 MG PO BID PRN for Dyspepsia Tramadol (Ultram), 50 MG PO Q8H PRN for Pain Allergies Coded Allergies: Escitalopram (Verified Allergy, Unknown, RASH, 02/05/17) Finasteride (Verified Allergy, Unknown, rash, 02/05/17) Physical Exam Vital Signs Date Time Temp Pulse Resp B/P (MAP) Pulse Ox O2 Delivery O2 Flow Rate FiO2 02/06/17 01:41 36.8 53 18 117/70 98 Room Air 02/06/17 00:27 56 18 90/63 98 Room Air 02/05/17 22:11 36.9 82 20 141/82 96 Room Air Physical Exam GENERAL: Morbidly obese. Alert, well appearing, well nourished, no distress, non -toxic EYE EXAM: normal conjunctiva, PERRL and EOM's grossly intact OROPHARYNX: no exudate, no erythema, lips, buccal mucosa, and tongue normal and mucous membranes are moist NECK: supple, no nuchal rigidity, no adenopathy, non-tender LUNGS: Lung sounds diminished. No wheezes rhonchi or rales HEART: Irregular heart beat CHEST: Fresh appearing incision in the right anterior superior chest wall consistent with recent ICD placement. Steri strips intact. Mild surrounding erythema. ABDOMEN: abdomen soft, non-tender, normo-active bowel sounds, no masses, no rebound or guarding. BACK: Back is symmetrical on inspection and there is no deformity, no midline tenderness, no CVA tenderness. SKIN: Appearance or yeast-like rash under bilateral axilla and bilateral inferior aspect of breasts. UPPER EXTREMITIES: upper extremities are grossly normal. LOWER EXTREMITIES: Venous stasis changes bilateral anterior distal lower extremity. Surrounding erythema blanches and confluent. No petechia. No vesicles. Non-tender to palpation. Slightly increased warmth. Normal pulses. No other distal edema. NEURO EXAM: Normal sensorium, cranial nerves II-XII grossly intact, normal speech, no gross weakness of arms, no gross weakness of legs. Gross sensation intact. Medical Decision & Procedures Laboratory Results Test 02/05/17 23:00 02/05/17 23:04 Total Bilirubin 0.4 mg/dl (0.2-1) Aspartate Amino Transf (AST/SGOT) 18 U/L (15-37) Alanine Aminotransferase (ALT/SGPT) 27 U/L (12-78) Alkaline Phosphatase 92 U/L (45-117) Total Protein 6.6 gm/dl (6.4-8.2) Albumin 2.8 gm/dl (3.4-5.0) Globulin 3.8 gm/dl (2.5-4.0) Albumin/Globulin Ratio 0.7 (0.9-2) Bedside Lactic Acid Venous 1.40 mmol/L (0.90-1.70) Laboratory results per my review. Medications Administered Medications (Trade) Dose Ordered Sig/Radha Route Start Time Stop Time Status Last Admin Dose Admin Cefazolin Sodium (Ancef 1000mg/55 ml D5W) 1,000 mg NOW STAT IV 02/05/17 23:59 02/06/17 00:00 DC 02/06/17 00:22 1,000 MG Warfarin Sodium (Coumadin Tab) 5 mg STK-MED ONCE .ROUTE 02/06/17 02:21 02/06/17 02:22 DC 02/06/17 02:24 2.5 MG ECG Indication: other (rash) Rate (beats per minute): 73 Rhythm: atrial fibrillation Findings: no acute ischemic change, other (Normal QRS and QTc. Normal [place]) ED Course 2224: The patient was evaluated in room B9. A complete history and physical exam was performed. 2359: Cefazolin Sodium 1000mg IV 0046: I reevaluated the patient, and there has been no change. 0136: Awaiting CT read. Discussed with Dr. Camacho. He will wait on CT read and then evaluate the patient at bedside. Pt to be signed out to Dr. Freeman to follow-up recommendations by Dr. Camacho. Medical Decision Differential diagnosis: Etiologies such as cellulitis, abscess, MRSA infection, DVT, necrotizing fasciitis, dermatitis, drug eruption, as well as others were entertained. Despite reassuring labs, concern for evolving cellulitis around patient's incision of the chest as well as bilateral extremities. Patient with no history of MRSA, although he is a diabetic. Patient has resumed his Coumadin although he is not yet therapeutic today, however doubt lower extremity DVT. Patient with no other chest pain or shortness of breath to suggest a proximal thrombus. Patient with borderline to low blood pressure, which she states is chronic and he feels related to his "weak heart". Cultures drawn with initial labs, and I asked medicine to evaluate the patient given concern for his appearance as well as potential risks in this patient despite reassuring labs. No evidence for nec fasc, doubt bacteremia/sepsis. Patient initially given IV Ancef here in the emergency room, and discussed additional antibiotics with hospitalist, they will evaluate first and decide on additional antibiotic coverage. Patient was signed out to follow-up CT report and re-discuss with medicine. Medication Reconcilliation Current Medication List: was personally reviewed by me Impression Primary Impression: Cellulitis Additional Impressions: Cardiomyopathy, nonischemic Status post implantation of automatic cardioverter/defibrillator (AICD) Scribe Attestation The scribe's documentation has been prepared under my direction and personally reviewed by me in its entirety. I confirm that the note above accurately reflects all work, treatment, procedures, and medical decision making performed by me. Departure Information Referrals Mateus Sanders D.O. (PCP) Patient Instructions My [facility] Problem Qualifiers Primary Impression: Cellulitis Site of cellulitis: extremity Site of cellulitis of extremity: lower extremity Laterality: unspecified laterality Qualified Codes: L03.119 - Cellulitis of unspecified part of limb
[2017-02-05 23:23] LABS: BASO % 0.1 %; BASO ABS # 0.01 K/uL (0-0.2); COMPLETE YES; EOS % 6.7 %; HEMATOCRIT 36.3 % (42-52); IG% 0.3 %; LYMPH % 9.8 %; LYMPH ABS # 0.75 K/uL (1.2-3.4); MEAN CELL VOLUME 86.2 fL (80-100); MEAN CORPUSCULAR HEMOGLOBIN 25.9 pg (25-34); MEAN PLATELET VOLUME 9.8 fL (7.4-10.4); MONO % 9.8 %; NEUT % 73.3 %; PLATELET COUNT 252 K/uL (130-400); RED BLOOD COUNT 4.21 M/uL (4.7-6.1); WHITE BLOOD COUNT 7.62 K/uL (4.8-10.8)
[2017-02-05 23:32] LABS: INR 1.6 (0.9-1.1); PROTHROMBIN TIME (PATIENT) 17.1 SECONDS (9.0-12.0)
[2017-02-05] MEDS ORDERED: CEFAZOLIN SOD 1000MG/55 ML D5W IV STA (23:59)
[2017-02-06] VITALS (8 sets, daily range): BP systolic 96–126; BP diastolic 57–70; PULSE 57–123; TEMP 36.4–38.2; O2SAT 95–98; Ht 185.4 cm; Wt 140.5 kg
[2017-02-06 00:20] LABS: BUN/CREATININE RATIO 20.4 (10-20); CALCIUM 8.4 mg/dl (8.5-10.1); CREATININE 0.81 mg/dl (0.60-1.40)
[2017-02-06 00:22] LABS: ALB/GLOB RATIO 0.7 (0.9-2)
[2017-02-06] MEDS ORDERED: CEPH500C PO (01:47)
[2017-02-06] MEDS ORDERED: WARFARIN SOD 2.5 MG TAB PO STA (01:50)
[2017-02-06] MEDS ORDERED: WARFARIN SOD 5 MG TAB ONE (02:21)
--- NOTE | 2017-02-06 03:07 | History and Physical ---
History & Physical Date & Time of Service: Feb 06, 2017 at 03:07 . Chief Complaint: redness around defibrillator site and legs . Primary Care Physician: Mateus Sanders D.O. . History of Present Illness Source: patient, clinic records, hospital records 62 YO male followed by Dr. Sanders for Internal Medicine. History of nonischemic cardiomyopathy, chronic atrial fibrillation, and other problems noted below. ICD placed by Dr. Rubio on 02/02/17. Warfarin was held for the procedure. Patient noted some erythema around ICD site about 24 hours prior to admission. No drainage from the incision. Also noted new erythema of both lower extremities. He has chronic venous stasis changes, but erythema is definitely new. Experienced sweats and possible low grade temp. Cardiac status is stable. No discharges of ICD. . Past Medical/Surgical History Chronic and Resolved Medical Problems: (1) Anticoagulated on warfarin Status: Chronic (2) Atrial fibrillation Status: Chronic (3) BPH (benign prostatic hypertrophy) Status: Chronic (4) Cardiomyopathy, nonischemic Status: Chronic (5) Chronic atrial fibrillation Status: Chronic (6) Coronary artery disease Status: Chronic (8) Diabetes mellitus, type 2 Permanent Comment: diet controlled Status: Chronic (9) GERD (gastroesophageal reflux disease) Status: Chronic (10) History of pulmonary embolism Status: Chronic (11) Hypertension Status: Chronic (12) Obesity (BMI 30-39.9) Status: Chronic (13) Paroxysmal ventricular tachycardia Status: Chronic (14) Pulmonary hypertension Status: Chronic (15) Sleep apnea Status: Chronic (16) Venous insufficiency Status: Chronic Surgical Problems: (1) History of exploratory laparotomy Permanent Comment: 2008 Status: Chronic (2) Status post appendectomy Status: Chronic (3) Status post implantation of automatic cardioverter/defibrillator (AICD) Permanent Comment: 02/02/17 Dr. Rubio [facility] Status: Chronic (4) Status post insertion of inferior vena caval filter Permanent Comment: 2008 Status: Chronic . Family History FATHER Prostate cancer Hypertension MOTHER Diabetes mellitus SISTER Stroke Social History Smoking Status: Never Smoker Smokeless Tobacco Use: Yes Alcohol Use: none Drug Use: none Marital Status: Occupational Status: employed Immunizations History of Influenza Vaccine: Yes History of Tetanus Vaccine?: AUGUST 2003 History of Pneumococcal: Yes History of Hepatitis B Vaccine: No Multi-Drug Resistant Organisms History of MDRO: No Allergies Coded Allergies: Escitalopram (Verified Allergy, Unknown, RASH, 02/05/17) Finasteride (Verified Allergy, Unknown, rash, 02/05/17) Home Medications Scheduled Aspirin (Aspirin), 1 TAB PO DAILY Coenzyme Q10 (Ubidecarenone) (Coenzyme Q-10), 1 TAB PO BID Cyanocobalamin (Vitamin B-12), 1,000 MCG PO DAILY Docusate Sodium (Colace), 100 MG PO BID Ferrous Sulfate (Iron), 1 TAB PO DAILY Glucosamine Sulfate (Glucosamine), 2,000 MG PO DAILY Lisinopril (Prinivil), 5 MG PO DAILY Magnesium Oxide (Mag-Ox), 400 MG PO BID Metoprolol Succ (Toprol Xl) (Toprol-Xl), 50 MG PO DAILY Multivitamins/Minerals (Mvi With Minerals), 1 TAB PO DAILY Tamsulosin HCl (Tamsulosin HCl), 0.4 MG PO HS Warfarin Sodium (Warfarin Sodium), 2.5 MG PO DAILY Scheduled PRN Omeprazole (Prilosec), 20 MG PO BID PRN for Dyspepsia Tramadol (Ultram), 50 MG PO Q8H PRN for Pain Review of Systems Constitutional: + fever, + weight loss (65 lb wt loss over last 6 months) Eyes: No worsening of vision, No diplopia ENT: No nasal symptoms, No sore throat Respiratory: + cough (occasional, chronic), + dyspnea on exertion (chronic) Cardiovascular: No chest pain Abdomen: + problem reported (reflux symptoms, occasional dysphagia to solids), No pain, No vomiting, No GI bleeding Musculoskeletal: + joint pain Genitourinary - Male: No hematuria, No dysuria Neurologic: + problem reported (headache last week- resolved) Endocrine: + fatigue, No excessive thirst, No excessive urination Hematologic / Lymphatic: + abnormal bleeding/bruising Integumentary: + problem reported (as per HPI) Physical Exam Vital Signs Date Time Temp Pulse Resp B/P (MAP) Pulse Ox O2 Delivery O2 Flow Rate FiO2 02/06/17 01:41 36.8 53 18 117/70 98 Room Air 02/06/17 00:27 56 18 90/63 98 Room Air 02/05/17 22:11 36.9 82 20 141/82 96 Room Air General Appearance: no apparent distress, + obese Head: normocephalic, atraumatic Eyes: normal inspection, PERRL, EOMI, sclerae normal, + pertinent finding ( conjunctivae pink) ENT: hearing grossly normal, pharynx normal Neck: supple, no adenopathy, thyroid normal, trachea midline Respiratory/Chest: lungs clear, no respiratory distress, no accessory muscle use Cardiovascular: no gallop, no murmur, + irregularly irregular, + pertinent finding (ACD site right upper thorax with some erythema surrounding incision, no drainage; + JVD; trace pretibial edema) Abdomen/GI: normal bowel sounds, non tender, soft, no organomegaly, no pulsatile mass, + pertinent finding (obese) Extremities/Musculoskelatal: no calf tenderness, normal capillary refill (2 sec ), + pertinent finding (venous insufficiency, trace pretibial and pedal edema) 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 (PERRL, EOMI, no facial palsy, no dysarthria), no motor/sensory deficits (motor strength grossly intact), alert, normal mood/affect, normal reflexes, oriented x 3 Skin: warm/dry, + pertinent finding (chronic venous stasis changes bilateral lower extremities; intense erythema and warmth bilat legs proximal to venous stasis changes) Diagnostics Laboratory Results Results Past 24 Hours Test 02/05/17 23:00 02/05/17 23:04 Range/Units White Blood Count 7.62 4.8-10.8 K/uL Red Blood Count 4.21 4.7-6.1 M/uL Hemoglobin 10.9 14.0-18.0 g/dL Hematocrit 36.3 42-52 % Mean Corpuscular Volume 86.2 80-100 fL Mean Corpuscular Hemoglobin 25.9 25-34 pg Mean Corpuscular Hemoglobin Concent 30.0 32-36 g/dl Platelet Count 252 130-400 K/uL Mean Platelet Volume 9.8 7.4-10.4 fL Neutrophils (%) (Auto) 73.3 % Lymphocytes (%) (Auto) 9.8 % Monocytes (%) (Auto) 9.8 % Eosinophils (%) (Auto) 6.7 % Basophils (%) (Auto) 0.1 % Neutrophils # (Auto) 5.58 1.4-6.5 K/uL Lymphocytes # (Auto) 0.75 1.2-3.4 K/uL Monocytes # (Auto) 0.75 0.11-0.59 K/uL Eosinophils # (Auto) 0.51 0-0.5 K/uL Basophils # (Auto) 0.01 0-0.2 K/uL RDW Standard Deviation 49.3 36.4-46.3 fL RDW Coefficient of Variation 15.7 11.5-14.5 % Immature Granulocyte % (Auto) 0.3 % Immature Granulocyte # (Auto) 0.02 0.00-0.02 K/uL Prothrombin Time 17.1 9.0-12.0 SECONDS Prothromb Time International Ratio 1.6 0.9-1.1 Sodium Level 138 136-145 mmol/L Potassium Level 4.0 3.5-5.1 mmol/L Chloride Level 105 98-107 mmol/L Carbon Dioxide Level 27 21-32 mmol/L Anion Gap 6.0 3-11 mmol/L Blood Urea Nitrogen 17 7-18 mg/dl Creatinine 0.81 0.60-1.40 mg/dl Est Creatinine Clear Calc Drug Dose 141.3 ml/min Estimated GFR () 111.2 Estimated GFR (Non- 95.9 BUN/Creatinine Ratio 20.4 10-20 Random Glucose 145 70-99 mg/dl Calcium Level 8.4 8.5-10.1 mg/dl Total Bilirubin 0.4 0.2-1 mg/dl Aspartate Amino Transf (AST/SGOT) 18 15-37 U/L Alanine Aminotransferase (ALT/SGPT) 27 12-78 U/L Alkaline Phosphatase 92 45-117 U/L Total Protein 6.6 6.4-8.2 gm/dl Albumin 2.8 3.4-5.0 gm/dl Globulin 3.8 2.5-4.0 gm/dl Albumin/Globulin Ratio 0.7 0.9-2 Bedside Lactic Acid Venous 1.40 0.90-1.70 mmol/L Microbiology Results 02/05/17 Blood Culture, Received Pending 02/05/17 Blood Culture, Received Pending Diagnostic Radiology CHEST CT WITH CONTRAST FINDINGS: There is a right-sided single lead pacemaker. Mild fat stranding surrounding the pacemaker. However, no loculated fluid collections to suggest an abscess. No pneumothorax. No pleural effusions. No focal lung consolidations to suggest pneumonia. No mediastinal or hilar lymphadenopathy. Normal caliber thoracic aorta. The central pulmonary arteries are patent. Moderate hiatus hernia. There is thickening at the hernia sac. The visualized liver, spleen, and adrenal glands are unremarkable. Questionable enlarged lymph node within the left upper abdomen on image 66. This is only partially visualized on this study. This measures 2.5 cm. There may also be an enlarged upper right abdominal lymph node measuring 1.2 cm. IMPRESSION: 1. No evidence for chest wall abscess. 2. Mild fat stranding surrounding the right-sided pacemaker. 3. Moderate hiatus hernia with thickening of the hernia sac. Endoscopy is recommended for further evaluation to exclude a mass. 4. Possible upper abdominal lymphadenopathy. This is only partially visualized on this study. Follow-up abdominal CT can be used for confirmation. Electronically signed by: Jacob Cook M.D. 02/06/2017 6:32 AM Dictated Date/Time: 02/06/2017 6:25 AM . EKG EKG performed at 22:44 reviewed and demonstrated AF at 70 / minute, PVC's, lateral T-wave flattening. . Impression Assessment and Plan ERYTHEMA ACD SITE CT did not show evidence of abscess, but did show some fat stranding around the device. ? low grade temps and sweats at home, afebrile in ED. WBC normal. Check ESR and CRP. Blood cultures obtained in ED. Rx with IV vancomycin and ceftriaxone pending culture results and further consultation. Consult ID. Discuss with Cardiology. ERYTHEMA BILATERAL LEGS Chronic venous stasis changes, but new onset erythema and warmth over past 24 hours. ID management as discussed above. STATUS POST ACD IMPLANTATION No discharges. NONISCHEMIC CARDIOMYOPATHY Compensated. Continue lisinopril. CORONARY ARTERY DISEASE No anginal symptoms. Continue metoprolol. Hold ASA due to GI symptoms and possible EGD. CHRONIC AF Rate controlled on metoprolol. Warfarin held for ACD placement, then restarted. INR 1.6. Will hold warfarin in case EGD is performed during this hospital stay. WEIGHT LOSS Patient reports 65 pound weight loss over past 6 months which he attributes to GI symptoms (anorexia, indigestion, dysphagia to solids). CT demonstrates thickening of distal esophagus and possible upper abdominal adenopathy. Further evaluation warranted, perhaps EGD. Continue PPI. Consult GI. DM TYPE 2 Recently diet-controlled. Hgb A1C 6.0 in clinic on 11/03/16. Follow. BPH Continue tamsulosin. VTE PROPHYLAXIS History pulmonary embolism. Usually takes warfarin for chronic AF. Holding warfarin for possible EGD. SQ heparin- hold prior to EGD or other invasive procedures. Ambulate. RESUSCITATION STATUS Discussed with patient. He has a living will. He would like resuscitation attempted in the event of a cardiopulmonary arrest if there is a reasonable chance of a meaningful recovery, but does not want prolonged extraordinary measures if prognosis is poor. Therefore, code status = "Level 1" (full resuscitation). DISPOSITION Admit to Med-Surg Unit. Expected discharge to home. Internal Medicine follow-up with Dr. Sanders. Cardiology follow-up with Dr. Mendez. . VTE Prophylaxis Given or contraindicated: Unfractionated heparin SQ Additional Copies To Gideon Mendez, DO; Helen Rubio D.O.
[2017-02-06] MEDS ORDERED: VANCOMYCIN INJ 2,750 MG in SODIUM CHLORIDE 0.9% 500ML 500 ML IV SCH (03:30)
[2017-02-06] MEDS ORDERED: VANCOMYCIN INJ 2,500 MG in SODIUM CHLORIDE 0.9% 500ML 500 ML IV SCH (04:30)
[2017-02-06] MEDS ORDERED: VANCOMYCIN CONSULT ACTIVE PRN (04:30)
[2017-02-06] MEDS ORDERED: INFLUENZA ADMINISTRATION CHARGE ONE (05:45)
[2017-02-06] MEDS ORDERED: INFLUENZA VIRUS QUAD VACCINE 0.5 ML SYR IM. ONE (05:45)
[2017-02-06] MEDS ORDERED: CEFTRIAXONE SOD INJ 2,000 MG in DEXTROSE 5% 50ML 50 ML IV SCH ×2 (06:00→08:00)
--- NOTE | 2017-02-06 06:34 | DIAGNOSTIC IMAGING REPORT ---
CHEST CT WITH CONTRAST CT DOSE: 1158.79 mGy.cm HISTORY: recent device placement, ?abscess. Redness at incision site. TECHNIQUE: Multiaxial CT images of the chest were performed following the intravenous administration of contrast. A dose lowering technique was utilized adhering to the principles of ALARA. COMPARISON: Chest CT 06/19/2008. FINDINGS: There is a right-sided single lead pacemaker. Mild fat stranding surrounding the pacemaker. However, no loculated fluid collections to suggest an abscess. No pneumothorax. No pleural effusions. No focal lung consolidations to suggest pneumonia. No mediastinal or hilar lymphadenopathy. Normal caliber thoracic aorta. The central pulmonary arteries are patent. Moderate hiatus hernia. There is thickening at the hernia sac. The visualized liver, spleen, and adrenal glands are unremarkable. Questionable enlarged lymph node within the left upper abdomen on image 66. This is only partially visualized on this study. This measures 2.5 cm. There may also be an enlarged upper right abdominal lymph node measuring 1.2 cm. IMPRESSION: 1. No evidence for chest wall abscess. 2. Mild fat stranding surrounding the right-sided pacemaker. 3. Moderate hiatus hernia with thickening of the hernia sac. Endoscopy is recommended for further evaluation to exclude a mass. 4. Possible upper abdominal lymphadenopathy. This is only partially visualized on this study. Follow-up abdominal CT can be used for confirmation. Electronically signed by: Jacob Cook M.D. 02/06/2017 6:32 AM Dictated Date/Time: 02/06/2017 6:25 AM
[2017-02-06 08:42] LABS: INR 1.5 (0.9-1.1); PROTHROMBIN TIME (PATIENT) 16.6 SECONDS (9.0-12.0)
[2017-02-06 08:50] LABS: BUN/CREATININE RATIO 17.1 (10-20); C-REACTIVE PROTEIN 2.97 mg/dl (0-0.29); CALCIUM 8.8 mg/dl (8.5-10.1); CREATININE 0.72 mg/dl (0.60-1.40)
[2017-02-06] MEDS ORDERED: ASPIRIN 81 MG ECTAB PO ONE (09:24)
[2017-02-06] MEDS ORDERED: TRAMADOL HCL 50 MG TAB PO PRN (09:30)
[2017-02-06] MEDS: ACETAMINOPHEN 325 MG TAB PO PRN ×2 (10:04→15:54)
[2017-02-06] MEDS ORDERED: LISINOPRIL 5 MG TAB PO ONE (10:30)
[2017-02-06] MEDS ORDERED: PANTOprazole SOD 40 MG TAB PO ONE (10:30)
[2017-02-06] MEDS ORDERED: METOPROLOL SUCC 50MG EXT REL TAB PO ONE (10:30)
[2017-02-06] MEDS ORDERED: MAGNESIUM OXIDE 400 MG TAB PO ONE (10:30)
[2017-02-06] MEDS: VANCOMYCIN INJ 1,500 MG in SODIUM CHLORIDE 0.9% 500ML 500 ML IV SCH ×2 (11:51→20:19)
[2017-02-06] MEDS ORDERED: PIPERACILL/TAZOBAC IV 3.375 GM in DEXTROSE 5% 100ML 100 ML IV SCH (12:00)
[2017-02-06] MEDS ORDERED: PIPERACILL/TAZOBAC IV 4.5 GM in DEXTROSE 5% 100ML IV ONE (12:45)
[2017-02-06] MEDS ORDERED: PIPERACILL/TAZOBAC CONSULT ACTIVE PRN (12:45)
--- NOTE | 2017-02-06 12:45 | Pharmacy Progress Note ---
Pharmacy Antibiotic Consult Date of Service: Feb 06, 2017. Pharmacy Dosing Scope Pharmacy is consulted to initiate vancomycin and zosyn IV dosing therapy, order appropriate labs and adjust drug dose/frequency. Subjective The patient is a 62 year old male admitted on Feb 06, 2017 at 03:08. Objective Height (Feet): 6 Height (Inches): 1.00 Weight (Kilograms): 136.700 Lab Results (24hrs): Test 02/05/17 23:00 02/05/17 23:04 02/06/17 07:39 White Blood Count 7.62 K/uL (4.8-10.8) Red Blood Count 4.21 M/uL (4.7-6.1) Hemoglobin 10.9 g/dL (14.0-18.0) Hematocrit 36.3 % (42-52) Mean Corpuscular Volume 86.2 fL (80-100) Mean Corpuscular Hemoglobin 25.9 pg (25-34) Mean Corpuscular Hemoglobin Concent 30.0 g/dl (32-36) Platelet Count 252 K/uL (130-400) Mean Platelet Volume 9.8 fL (7.4-10.4) Neutrophils (%) (Auto) 73.3 % Lymphocytes (%) (Auto) 9.8 % Monocytes (%) (Auto) 9.8 % Eosinophils (%) (Auto) 6.7 % Basophils (%) (Auto) 0.1 % Neutrophils # (Auto) 5.58 K/uL (1.4-6.5) Lymphocytes # (Auto) 0.75 K/uL (1.2-3.4) Monocytes # (Auto) 0.75 K/uL (0.11-0.59) Eosinophils # (Auto) 0.51 K/uL (0-0.5) Basophils # (Auto) 0.01 K/uL (0-0.2) RDW Standard Deviation 49.3 fL (36.4-46.3) RDW Coefficient of Variation 15.7 % (11.5-14.5) Immature Granulocyte % (Auto) 0.3 % Immature Granulocyte # (Auto) 0.02 K/uL (0.00-0.02) Prothrombin Time 17.1 SECONDS (9.0-12.0) 16.6 SECONDS (9.0-12.0) Prothromb Time International Ratio 1.6 (0.9-1.1) 1.5 (0.9-1.1) Sodium Level 138 mmol/L (136-145) 139 mmol/L (136-145) Potassium Level 4.0 mmol/L (3.5-5.1) 4.0 mmol/L (3.5-5.1) Chloride Level 105 mmol/L (98-107) 104 mmol/L (98-107) Carbon Dioxide Level 27 mmol/L (21-32) 27 mmol/L (21-32) Anion Gap 6.0 mmol/L (3-11) 8.0 mmol/L (3-11) Blood Urea Nitrogen 17 mg/dl (7-18) 12 mg/dl (7-18) Creatinine 0.81 mg/dl (0.60-1.40) 0.72 mg/dl (0.60-1.40) Est Creatinine Clear Calc Drug Dose 141.3 ml/min 156.4 ml/min Estimated GFR () 111.2 116.7 Estimated GFR (Non- 95.9 100.7 BUN/Creatinine Ratio 20.4 (10-20) 17.1 (10-20) Random Glucose 145 mg/dl (70-99) 105 mg/dl (70-99) Calcium Level 8.4 mg/dl (8.5-10.1) 8.8 mg/dl (8.5-10.1) Total Bilirubin 0.4 mg/dl (0.2-1) Aspartate Amino Transf (AST/SGOT) 18 U/L (15-37) Alanine Aminotransferase (ALT/SGPT) 27 U/L (12-78) Alkaline Phosphatase 92 U/L (45-117) Total Protein 6.6 gm/dl (6.4-8.2) Albumin 2.8 gm/dl (3.4-5.0) Globulin 3.8 gm/dl (2.5-4.0) Albumin/Globulin Ratio 0.7 (0.9-2) Bedside Lactic Acid Venous 1.40 mmol/L (0.90-1.70) Erythrocyte Sedimentation Rate 40 mm/hr (0-14) C-Reactive Protein 2.97 mg/dl (0-0.29) Procalcitonin < 0.05 ng/ml (0-0.5) Micro Results: Item Value Date Time Blood Culture Received 02/05/172307 Blood Pending Blood Culture Received 02/05/172299 Blood Pending Assessment & Plan Patient started on vancomycin and zosyn after presenting with erythema around ICD site that was recently placed. ID is consulted Vancomycin: * Pt received LD of vancomycin 2300 mg (~18 mg/kg) x 1 this am * Started MD of vancomycin 1500 mg (11 mg/kg) iv q 8 hrs to achieve an estimated trough ~15-20 mcg/ml; was less aggressive with dose (mg/kg) due to elevated BMI >35 kg/m2 and risk of drug accumulation * Estimated kinetics: ke~0.1 hr-1, t1/2~7 hrs, CrCl >100 ml/min (kinetics based upon estimated CrCl ~120 ml/min) * Will obtain a trough prior to the 1200 dose on 02/07 to ensure therapeutic Zosyn: 4.5 gm iv q 8 hrs (appropriate for CrCl >20,BMI>35 kg/m2); no change Pharmacy will continue to follow and will adjust dose/frequency as necessary. Thank you
[2017-02-06] MEDS: HEPARIN SOD 5000 UNIT/0.5 ML CARP SQ SCH ×2 (13:31→20:26)
[2017-02-06] MEDS ORDERED: ALUMINUM/MAGNESIUM/SIMETH (MAALOX MAX) 30 ML UDC PO PRN (16:30)
--- NOTE | 2017-02-06 17:10 | GASTROINTESTINAL CONSULTATION ---
DATE OF CONSULTATION: 02/06/2017 REFERRED BY: Dr. Camacho. HISTORY OF PRESENT ILLNESS: I was asked by Dr. Camacho to consult on this gentleman for evaluation of weight loss and abnormal upper GI imaging. The patient is a 62-year-old who presents with cellulitis and redness around his defibrillator site. However, he describes weight loss. He describes chronic regurgitation, heartburn and on imaging of his chest, he was seen to have a hiatal hernia and questioning thickening of the distal esophagus. He does get some occasional heartburn. He denies any true food sticking but he states that he gets some regurgitation, gas and bloating. He denies ever having an upper endoscopy. He does chew tobacco as well. He has not had any significant vomiting. PAST MEDICAL HISTORY: I reviewed his medical records and past medical history and his past medical history is significant for atrial fibrillation, BPH, cardiomyopathy, on chronic anticoagulation, AFib, coronary artery disease, diabetes, hypertension, obesity, pulmonary hypertension, sleep apnea. PAST SURGICAL HISTORY: Significant for having a bowel resection which sounds like a small intestinal resection about 10 years ago for what he describes as "a twisted bowel." FAMILY HISTORY: Negative for gastrointestinal disease. SOCIAL HISTORY: Significant for being a user of chewing tobacco but no significant alcohol use. DRUG ALLERGIES: INCLUDE ESCITALOPRAM AND FINASTERIDE. OUTPATIENT MEDICATIONS: Include aspirin, Colace, iron, Prinivil, warfarin, Toprol, and Prilosec. REVIEW OF SYSTEMS: As above, otherwise he denies any change in vision or hearing. He has had a cough but this is not productive. He does have dyspnea on exertion and has very limited exercise reserves. He denies any seizure activity. He denies any jaundice, pruritus or icterus. He denies any dysuria. He has had some bruising but this has been felt related to his Coumadin use. He is fatigued and this is chronic. He does have some chronic joint pains, but no new joint pains. He denies any excessive thirst or heat or cold intolerance. PHYSICAL EXAMINATION: GENERAL: Reveals a gentleman lying in bed. VITAL SIGNS: Most recent temperature is 38.2. Pulse is 57, blood pressure is 103/70. SKIN: Anicteric. HEENT: Eyes show anicteric sclerae. Mouth is clear of lesions. NECK: Supple. CHEST: There is redness at his defibrillator site in his chest. He has some scattered rhonchi. HEART: Regular. ABDOMEN: Soft, benign. There are no masses or rebound tenderness. He does have a large midline scar from his prior surgery that is well healed. EXTREMITIES: Warm with fair distal pulses and he has obvious redness concerning for lower extremity cellulitis. NEUROLOGIC: He is alert and oriented x3 and neurologically grossly intact. Imaging again is as above. LABORATORY DATA: Show a hemoglobin of 10.9, a platelet count of 252,000 and normal liver enzymes. IMPRESSION: A 62-year-old gentleman with multiple medical problems but from a GI perspective, some heartburn symptoms, hiatal hernia, regurgitation and abnormal imaging. Certainly this warrants an upper endoscopy; however, given his comorbid disease, he is at high risk and also he is actively infected. I think I would continue to treat his cellulitis and he could be reevaluated in a few days to determine if he is an appropriate candidate for endoscopy. I do not think this is emergent by any means, but certainly needs to be investigated. I would keep him on a PPI daily. I have discussed this with him and he is agreeable with this plan. LOWELL
[2017-02-06] MEDS: PIPERACILL/TAZOBAC IV 4.5 GM in DEXTROSE 5% 100ML IV SCH (17:54)
--- NOTE | 2017-02-06 18:34 | Progress Note ---
Progress Note Date of Service Feb 06, 2017. Progress Note Pt admitted earlier today please see H&P for detail 62 yo recently had AICD placement on 02/02/17 discharged home re admission due to fever and chills , bilateral lower ext cellulitis CT chest shows -concerned for fat stranding around AICD -possible infection ? blood culture ordered on broad spectrum Abx with Vancomycin and Zosyn ID eval requested
[2017-02-06] MEDS: DOCUSATE SODIUM 100 MG CAP PO SCH (20:20)
[2017-02-06] MEDS: TAMSULOSIN HCL 0.4 MG CAP PO SCH (20:21)
[2017-02-06] MEDS: MAGNESIUM OXIDE 400 MG TAB PO SCH (20:22)
[2017-02-06] MEDS: PANTOprazole SOD 40 MG TAB PO SCH (20:23)
[2017-02-07] VITALS (7 sets, daily range): BP systolic 90–116; BP diastolic 51–63; PULSE 64–96; TEMP 36.8–38.4; O2SAT 94–98
[2017-02-07] MEDS: ACETAMINOPHEN 325 MG TAB PO PRN ×2 (00:45→19:52)
[2017-02-07] MEDS: PIPERACILL/TAZOBAC IV 4.5 GM in DEXTROSE 5% 100ML IV SCH ×3 (01:34→17:45)
[2017-02-07] MEDS: VANCOMYCIN INJ 1,500 MG in SODIUM CHLORIDE 0.9% 500ML 500 ML IV SCH ×2 (03:33→11:53)
[2017-02-07] MEDS: HEPARIN SOD 5000 UNIT/0.5 ML CARP SQ SCH (05:35)
[2017-02-07 07:32] LABS: INR 2.3 (0.9-1.1)
[2017-02-07] MEDS: MAGNESIUM OXIDE 400 MG TAB PO SCH ×2 (07:45→21:27)
[2017-02-07] MEDS: PANTOprazole SOD 40 MG TAB PO SCH ×2 (07:45→21:27)
[2017-02-07] MEDS: METOPROLOL SUCC 50MG EXT REL TAB PO SCH (07:45)
[2017-02-07] MEDS: CEROVITE ADV FORMULA TAB PO SCH (07:45)
[2017-02-07] MEDS: DOCUSATE SODIUM 100 MG CAP PO SCH ×2 (07:45→21:26)
[2017-02-07] MEDS: CYANOCOBALAMIN 500 MCG TAB (VIT B-12) PO SCH (07:45)
[2017-02-07 07:51] LABS: BUN/CREATININE RATIO 12.9 (10-20); CALCIUM 8.1 mg/dl (8.5-10.1); CREATININE 0.99 mg/dl (0.60-1.40); POTASSIUM 3.7 mmol/L (3.5-5.1)
[2017-02-07 08:18] LABS: BASO % 0.1 %; BASO ABS # 0.01 K/uL (0-0.2); EOS % 6.1 %; HEMATOCRIT 38.2 % (42-52); IG% 0.4 %; LYMPH % 4.2 %; LYMPH ABS # 0.46 K/uL (1.2-3.4); MEAN CELL VOLUME 85.3 fL (80-100); MEAN CORPUSCULAR HEMOGLOBIN 26.6 pg (25-34); MEAN PLATELET VOLUME 9.9 fL (7.4-10.4); MONO % 5.2 %; PLATELET COUNT 197 K/uL (130-400); RED BLOOD COUNT 4.48 M/uL (4.7-6.1); WHITE BLOOD COUNT 10.99 K/uL (4.8-10.8)
[2017-02-07 08:24] LABS: COMPLETE YES; MEAN CORPUSCULAR HGB CONC 31.2 g/dl (32-36)
[2017-02-07] MEDS ORDERED: ASPIRIN 81 MG ECTAB PO SCH (09:00)
[2017-02-07] MEDS ORDERED: LISINOPRIL 5 MG TAB PO SCH (09:00)
--- NOTE | 2017-02-07 11:12 | Progress Note ---
Progress Note Date of Service Feb 07, 2017. Progress Note ID Consult Dictated #[id number] A/P: 1. ACD Cellulitis 2. B/L LE cellultiis -Continue abx, follow cultures -surgery following as well -thank you
[2017-02-07] MEDS ORDERED: VANCOMYCIN TROUGH ONE (11:30)
--- NOTE | 2017-02-07 11:53 | INFECT. DISEASE CONSULTATION ---
DATE OF CONSULTATION: 02/07/2017 REQUESTING PHYSICIAN: Dr. De Oliveira. HISTORY OF PRESENT ILLNESS: This is a 62-year-old gentleman who recently had a pacemaker placed here on February 02. He states that immediately after his procedure, he noticed erythema around the pacemaker site. This worsened throughout the week and eventually he came to the hospital on Wednesday morning when he had subjective fevers and chills and bilateral lower extremity erythema as well. He states that the area around the pacemaker site is warm and itchy. He feels that the erythema is spreading. He denies any wound dehiscence. He denies any bleeding or drainage from the wound. He continues to have subjective fevers and chills. His T-max overnight was 38.4. He was placed empirically on vancomycin and Zosyn and he is tolerating his antibiotics well. He denies any nausea, vomiting, diarrhea or abdominal pain. He denies any chest pain, cough, shortness of breath. He does admit to pain and itching around the pacemaker site. He also has chronic vascular stasis changes of his lower extremities, but has noticed increasing warmth and erythema in both legs bilaterally. He denies any trauma to the area. He did have blood cultures in the Emergency Room and those are negative to date. His white blood cell count today is 10.9. His sed rate was slightly elevated at 40. He did undergo a CAT scan of the chest, which showed a fat stranding around the site, but no fluid collection. REVIEW OF SYSTEMS: All remaining review of systems was reviewed and is unremarkable except for noted. PAST MEDICAL HISTORY: Significant for aFib on Coumadin, BPH, cardiomyopathy, coronary artery disease, type 2 diabetes, GERD, hiatal hernia, history of PE, hypertension, obesity, pulmonary hypertension, sleep apnea, and venous insufficiency. PAST SURGICAL HISTORY: Significant for exploratory laparotomy, appendectomy, AICD placed on February 02 and an IVC filter. FAMILY HISTORY: Noncontributory. SOCIAL HISTORY: Negative for tobacco use, alcohol use or drug use. ALLERGIES: FINASTERIDE. CURRENT MEDICATIONS: Include vitamin B12, lisinopril, Toprol-XL, multivitamins, Colace, magnesium, Flomax, Protonix, Zosyn, Maalox, vancomycin, Ultram and Tylenol. PHYSICAL EXAMINATION: VITAL SIGNS: T-max is 38.4, current temperature is 36.8, pulse 96, respiratory rate 20, blood pressure 105/59, oxygen saturation is 94% on room air. GENERAL: He is awake, alert and oriented x3. He is in no acute distress. HEENT: Mucous membranes are moist. Extraocular muscles are intact. HEART: Regular. LUNGS: Clear bilaterally. ABDOMEN: Soft and nondistended. EXTREMITIES: There is significant lower extremity edema bilaterally which both legs are warm to touch to the mid calves. There is bilateral edema as well. Examination of the pacemaker site reveals significant erythema that is spreading into the axilla and all the proximal upper extremity. The incision itself is clean, dry and intact with no tenderness, purulence or bleeding. There is no wound dehiscence. This is warm and tender to palpation. LABORATORY STUDIES: CBC today reveals a white count of 10.9, hemoglobin 11.9, and platelets are 197. Sed rate was 40. Chemistry panel reveals a sodium of 135, potassium 3.7, chloride 102, bicarb 23, BUN 13, creatinine 0.9, glucose is 107. CRP was 2.9. Blood cultures are no growth to date from the 22nd x 2 sets. IMAGING DATA: A CAT scan of the chest is reviewed previously. ASSESSMENT AND PLAN: 1. Bilateral lower extremity cellulitis. 2. Cellulitis at pacer site without evidence of abscess on CAT scan, leukocytosis and fever. He will be continued on empiric antibiotics. We will follow the results of blood cultures. There is no purulent drainage from either of the lower extremities or the pacemaker site itself for culture. If he does have any dehiscence of the wound culture should be obtained. He may ultimately require device removal. We will follow his response to intravenous antibiotics. Thank you for this consultation.
--- NOTE | 2017-02-07 11:54 | CARDIOLOGY CONSULTATION ---
DATE OF CONSULTATION: 02/07/2017 REFERRING PHYSICIAN: Dr. Manisha De Oliveira. REASON FOR CONSULTATION: Possible ICD infection. HISTORY OF PRESENT ILLNESS: Mr. Babb is a 62-year-old gentleman who had ICD implanted by Dr. Rubio on 02/02/2017. After implantation, he returned home and was asymptomatic for approximately 3 days. On Wednesday, the patient began to notice an area of erythema around his ICD implantation site. He was noting some low grade temperatures as well. He was admitted for possible pocket infection. His lower extremities also demonstrate significant erythema. He has been treated with intravenous Zosyn and vancomycin overnight. He continues to smoke temperature of 38.[address] A chest CT was performed, negative for abscess with mild fat stranding surrounding the ICD. This morning, the patient continues to note worsening erythema of his ICD implant site extending into his right axilla. There is also erythema in his abdominal folds. His erythematous pretibial regions are somewhat more prominent bilaterally according to the patient. He denies chest pain or shortness of breath. No palpitations. He is currently not monitored on telemetry. Offers no other complaints at this time. REVIEW OF SYSTEMS: The pertinent positives noted above. A comprehensive 10-system review is otherwise negative. PAST MEDICAL HISTORY: 1. Nonobstructive coronary artery disease. 2. Nonischemic cardiomyopathy, status post recent ICD implantation. 3. Nonsustained ventricular tachycardia. 4. Chronic atrial fibrillation, on chronic anticoagulation. 5. Recurrent DVT, status post IVC filter placement. 6. Dyslipidemia. 7. Pulmonary hypertension. 8. Morbid obesity. 9. Obstructive sleep apnea with intolerance to CPAP. 10. GERD. 11. History of pulmonary embolus. PAST SURGICAL HISTORY: 1. Cardiac catheterization. 2. Appendectomy. 3. Exploratory laparotomy. 4. ICD implantation on 02/02/2017. 5. IVC filter implant in 2008. FAMILY HISTORY: Negative for premature CAD or sudden cardiac . SOCIAL HISTORY: Lifelong nonsmoker. ALLERGIES: ESCITALOPRAM AND FINASTERIDE. HOME MEDICATIONS: 1. Aspirin 81 mg daily. 2. Coenzyme Q10 daily. 3. Colace 100 mg twice daily. 4. Ferrous sulfate daily. 5. Lisinopril 5 mg daily. 6. Magnesium oxide 400 mg twice daily. 7. Toprol-XL 50 mg daily. 8. Flomax 0.4 mg at bedtime. 9. Coumadin 2.5 mg daily as directed by the anticoagulation clinic. 10. Omeprazole 20 mg twice daily as needed. 11. Tramadol 50 mg every 8 hours as needed. LABORATORY DATA: Blood cultures negative x24 hours. MRSA surveillance is negative. INR is 2.3. White blood cell count is 10.99, hemoglobin is 11.9, and platelet count is 197. Sodium 135, potassium 3.7, chloride 102, CO2 of 23, BUN is 13, and creatinine 0.99. PHYSICAL EXAMINATION: VITAL SIGNS: T-max overnight 38.4 degrees centigrade, current temperature is 36.8 degrees centigrade, pulse is 89 beats per minute and irregular, respiratory rate 20 breaths per minute, blood pressure 105/59 and SaO2 is 94% on room air. GENERAL: NAD, awake, alert and oriented x3. HEENT: His mucous membranes are moist. No scleral icterus. Conjunctivae are pink. NECK: Supple without JVD or HJR. No carotid bruits. HEART: Irregular with a normal S1 and S2. Heart sounds are distant. CHEST: The chest wall demonstrates erythema surrounding his right-sided ICD implant site. There is no drainage. The erythema extends to his right axilla. There is also erythema of his abdominal folds. ABDOMEN: Soft and nontender, obese. No rebound or guarding. LUNGS: Clear without rales, rhonchi or wheeze. EXTREMITIES: Erythematous bilaterally in the pretibial region. They are also warm to palpation. +1 edema. Left-sided varicosities noted. NEUROLOGIC: Demonstrates no focal motor deficit. FINAL IMPRESSION: 1. A 62-year-old male admitted with possible postoperative ICD pocket cellulitis vs. allergic skin reaction. No evidence of abscess on CT. 2. Bilateral lower extremity cellulitis. 3. Nonischemic cardiomyopathy with compensated systolic heart failure. 4. Chronic atrial fibrillation - rate controlled. INR is therapeutic. 5. History of recurrent deep venous thrombosis and pulmonary embolism, on chronic anticoagulation. PLAN AND RECOMMENDATIONS: Agree with continued broad spectrum antibiotics including IV vancomycin and Zosyn. Blood cultures negative x24 hours at this time. Consider infectious disease consultation. Hold warfarin at this time. Repeat INR in the a.m. Continue other cardiovascular medications as noted above. I will discuss the case further with electrophysiology. We will continue to follow closely during hospitalization. LOWELL
--- NOTE | 2017-02-07 16:25 | Pharmacy Progress Note ---
Pharmacy Antibiotic Prog Note Date of Service Feb 07, 2017. Subjective The patient is currently receiving vancomycin and zosyn The patient is currently on day # 2 of IV therapy Objective Height (Feet): 6 Height (Inches): 1.00 Weight (Kilograms): 136.700 Levels: Item Value Date Time Vancomycin Level Trough 20.2 mcg/ml 02/07/17 1133 Lab Results (24hrs): Test 02/07/17 07:06 02/07/17 07:09 02/07/17 11:33 Prothrombin Time 26.0 SECONDS (9.0-12.0) Prothromb Time International Ratio 2.3 (0.9-1.1) White Blood Count 10.99 K/uL (4.8-10.8) Red Blood Count 4.48 M/uL (4.7-6.1) Hemoglobin 11.9 g/dL (14.0-18.0) Hematocrit 38.2 % (42-52) Mean Corpuscular Volume 85.3 fL (80-100) Mean Corpuscular Hemoglobin 26.6 pg (25-34) Mean Corpuscular Hemoglobin Concent 31.2 g/dl (32-36) Platelet Count 197 K/uL (130-400) Mean Platelet Volume 9.9 fL (7.4-10.4) Neutrophils (%) (Auto) 84.0 % Lymphocytes (%) (Auto) 4.2 % Monocytes (%) (Auto) 5.2 % Eosinophils (%) (Auto) 6.1 % Basophils (%) (Auto) 0.1 % Neutrophils # (Auto) 9.24 K/uL (1.4-6.5) Lymphocytes # (Auto) 0.46 K/uL (1.2-3.4) Monocytes # (Auto) 0.57 K/uL (0.11-0.59) Eosinophils # (Auto) 0.67 K/uL (0-0.5) Basophils # (Auto) 0.01 K/uL (0-0.2) RDW Standard Deviation 49.4 fL (36.4-46.3) RDW Coefficient of Variation 15.8 % (11.5-14.5) Immature Granulocyte % (Auto) 0.4 % Immature Granulocyte # (Auto) 0.04 K/uL (0.00-0.02) Sodium Level 135 mmol/L (136-145) Potassium Level 3.7 mmol/L (3.5-5.1) Chloride Level 102 mmol/L (98-107) Carbon Dioxide Level 23 mmol/L (21-32) Anion Gap 10.0 mmol/L (3-11) Blood Urea Nitrogen 13 mg/dl (7-18) Creatinine 0.99 mg/dl (0.60-1.40) Est Creatinine Clear Calc Drug Dose 113.7 ml/min Estimated GFR () 94.9 Estimated GFR (Non- 81.9 BUN/Creatinine Ratio 12.9 (10-20) Random Glucose 107 mg/dl (70-99) Calcium Level 8.1 mg/dl (8.5-10.1) Vancomycin Level Trough 20.2 mcg/ml (SEE COMMENT) Assessment & Plan Patient started on vancomycin and zosyn after presenting with erythema around ICD site that was recently placed. ID is consulted Vancomycin: * Trough level this am was at higher end of therapeutic range at ~20 mcg/ml ( goal 15-20 mcg/ml) * Because of elevated BMI>35 kg/m2, expect patient to further accumulate medication * Will decrease the dose to vancomycin 1250 mg iv q 8 hrs * Cultures negative thus far, will follow and order any levels as needed Zosyn: 4.5 gm iv q 8 hrs (appropriate for CrCl >20,BMI>35 kg/m2); no change Pharmacy will continue to follow and will adjust dose/frequency as necessary. Thank you
--- NOTE | 2017-02-07 17:33 | Progress Note ---
Internal Med Progress Note Date of Service: Feb 07, 2017. Provider Documentation: SUBJECTIVE: having intermittent fever and chills increased erythema around the arm and torso OBJECTIVE: Vital Signs-as noted below Exam: General-pleasant , no apparent sign of distress Eyes-sclera non icteric ENT-NAD Neck-no JVD Lungs-CT A Heart-regular Abdomen-soft non tender Extremities-no lower ext edema Neuro-AAO x3, no focal deficit Lab data as noted below. ASSESSMENT & PLAN: CELLULITIS AT AICD SITE had recent AICD placed on 02/02/17 presented with fever and chills , leukocytosis CT chest was ordered as erythema noted at AICD insertion site : CT chest : 1. No evidence for chest wall abscess. 2. Mild fat stranding surrounding the right-sided pacemaker. ESR and CRP-mild elevated Blood cultures -no growth pt continued with broad spectrum IV ABX with Vancomycin /Zosyn pt continues to spike temp intermittently while on Abx associated with chills and rigor ID consult appreciated Consulted Cardiology , will need to D/W EP cardiology Dr Rubio tomorrow ordered for NPO Past midnight in case for possible procedure in AM BILATERAL LOWER EXT CELLULITIS Chronic venous stasis changes, but new onset erythema and warmth over past 24 hours. ID consulted on broad spectrum IV ABx as above . NONISCHEMIC CARDIOMYOPATHY Compensated. Continue lisinopril. CORONARY ARTERY DISEASE No anginal symptoms. Continue metoprolol. CHRONIC AF Rate controlled on metoprolol. Warfarin held for ACD placement, then restarted. INR 1.6. cont to hold Coumadin WEIGHT LOSS Patient reports 65 pound weight loss over past 6 months which he attributes to GI symptoms (anorexia, indigestion, dysphagia to solids). CT demonstrates thickening of distal esophagus and possible upper abdominal adenopathy. Further evaluation warranted, perhaps EGD. Continue PPI. consulted GI -appreciate input DM TYPE 2 Recently diet-controlled. Hgb A1C 6.0 in clinic on 11/03/16. Follow. BPH Continue tamsulosin. VTE PROPHYLAXIS History pulmonary embolism. Usually takes warfarin for chronic AF. Holding warfarin SQ heparin- Ambulate. RESUSCITATION STATUS Discussed with patient. . , code status = "Level 1" (full resuscitation). DISPOSITION cont to monitor in tele Expected discharge to home when medically stable Internal Medicine follow-up with Dr. Sanders. Cardiology follow-up with Dr. Mendez. . Vital Signs: Date Time Temp Pulse Resp B/P (MAP) Pulse Ox O2 Delivery O2 Flow Rate FiO2 02/07/17 19:48 37.8 82 22 116/51 (72) 94 Room Air 02/07/17 16:02 Room Air 02/07/17 15:46 37.1 64 22 90/63 (72) 98 Room Air 02/07/17 08:00 Room Air 02/07/17 07:24 36.8 96 20 105/59 (74) 94 Room Air 02/07/17 01:39 37.4 02/07/17 00:42 38.4 02/07/17 00:17 37.8 89 20 96/59 (71) 96 Room Air 02/07/17 00:00 Room Air 02/06/17 22:10 Room Air Lab Results: Results Past 24 Hours Test 02/07/17 07:06 02/07/17 07:09 02/07/17 11:33 Range/Units Prothrombin Time 26.0 9.0-12.0 SECONDS Prothromb Time International Ratio 2.3 0.9-1.1 White Blood Count 10.99 4.8-10.8 K/uL Red Blood Count 4.48 4.7-6.1 M/uL Hemoglobin 11.9 14.0-18.0 g/dL Hematocrit 38.2 42-52 % Mean Corpuscular Volume 85.3 80-100 fL Mean Corpuscular Hemoglobin 26.6 25-34 pg Mean Corpuscular Hemoglobin Concent 31.2 32-36 g/dl Platelet Count 197 130-400 K/uL Mean Platelet Volume 9.9 7.4-10.4 fL Neutrophils (%) (Auto) 84.0 % Lymphocytes (%) (Auto) 4.2 % Monocytes (%) (Auto) 5.2 % Eosinophils (%) (Auto) 6.1 % Basophils (%) (Auto) 0.1 % Neutrophils # (Auto) 9.24 1.4-6.5 K/uL Lymphocytes # (Auto) 0.46 1.2-3.4 K/uL Monocytes # (Auto) 0.57 0.11-0.59 K/uL Eosinophils # (Auto) 0.67 0-0.5 K/uL Basophils # (Auto) 0.01 0-0.2 K/uL RDW Standard Deviation 49.4 36.4-46.3 fL RDW Coefficient of Variation 15.8 11.5-14.5 % Immature Granulocyte % (Auto) 0.4 % Immature Granulocyte # (Auto) 0.04 0.00-0.02 K/uL Sodium Level 135 136-145 mmol/L Potassium Level 3.7 3.5-5.1 mmol/L Chloride Level 102 98-107 mmol/L Carbon Dioxide Level 23 21-32 mmol/L Anion Gap 10.0 3-11 mmol/L Blood Urea Nitrogen 13 7-18 mg/dl Creatinine 0.99 0.60-1.40 mg/dl Est Creatinine Clear Calc Drug Dose 113.7 ml/min Estimated GFR () 94.9 Estimated GFR (Non- 81.9 BUN/Creatinine Ratio 12.9 10-20 Random Glucose 107 70-99 mg/dl Calcium Level 8.1 8.5-10.1 mg/dl Vancomycin Level Trough 20.2 SEE COMMENT mcg/ml
[2017-02-07] MEDS: TAMSULOSIN HCL 0.4 MG CAP PO SCH (21:26)
[2017-02-07] MEDS ORDERED: DiphenhydrAMINE HCL 50 MG/ML VIAL IV STA (21:27)
--- NOTE | 2017-02-07 21:34 | Progress Note ---
Progress Note Date of Service Feb 07, 2017. Progress Note ADDENDUM : pt developed diffuse erythematous rash all over face and bilateral cheeks / torso/shoulder /abdomen /bilateral legs no itching concern for drug reaction -will D/C vancomycin /and Zosyn ( pt mentions he is allergic to amoxicillin -not listed as his allergy ) ordered for IV Solu Medrol /Benadryl and Pepcid change ABx to Daptomycin and Azactam will add Amoxicillin to his allergic list
[2017-02-07] MEDS ORDERED: METHYLPREDNISOLONE 40 MG in SYRINGE 0 ML IV STA (21:40)
[2017-02-07] MEDS ORDERED: VANCOMYCIN INJ 1,250 MG in SODIUM CHLORIDE 0.9% 250ML 250 ML IV SCH (22:00)
[2017-02-07] MEDS: DAPTOmycin IV 550 MG in SODIUM CHLORIDE 0.9% 50ML 50 ML IV SCH (22:22)
[2017-02-07] MEDS: FAMOTIDINE IV INJ 20 MG in DEXTROSE 5% 100ML 100 ML IV SCH (22:22)
[2017-02-08] VITALS (9 sets, daily range): BP systolic 94–124; BP diastolic 57–76; PULSE 61–84; TEMP 36.5–36.8; O2SAT 92–99
[2017-02-08 06:29] LABS: BASO % 0.2 %; BASO ABS # 0.02 K/uL (0-0.2); COMPLETE YES; EOS % 0.5 %; HEMATOCRIT 35.6 % (42-52); IG% 0.3 %; LYMPH % 5.3 %; LYMPH ABS # 0.47 K/uL (1.2-3.4); MEAN CELL VOLUME 84.4 fL (80-100); MEAN CORPUSCULAR HEMOGLOBIN 27.5 pg (25-34); MEAN CORPUSCULAR HGB CONC 32.6 g/dl (32-36); MEAN PLATELET VOLUME 9.7 fL (7.4-10.4); MONO % 3.4 %; NEUT % 90.3 %; PLATELET COUNT 159 K/uL (130-400); RED BLOOD COUNT 4.22 M/uL (4.7-6.1); WHITE BLOOD COUNT 8.81 K/uL (4.8-10.8)
[2017-02-08 06:37] LABS: PROTHROMBIN TIME (PATIENT) 21.8 SECONDS (9.0-12.0)
[2017-02-08 07:07] LABS: BUN/CREATININE RATIO 16.6 (10-20); CALCIUM 8.3 mg/dl (8.5-10.1); CREATININE 0.75 mg/dl (0.60-1.40)
[2017-02-08] MEDS: AZTREONAM IV 1,000 MG in DEXTROSE 5% 100ML 100 ML IV SCH ×5 (07:52→23:42)
[2017-02-08] MEDS: MAGNESIUM OXIDE 400 MG TAB PO SCH ×2 (08:53→21:27)
[2017-02-08] MEDS: DOCUSATE SODIUM 100 MG CAP PO SCH ×2 (08:53→21:25)
[2017-02-08] MEDS: CEROVITE ADV FORMULA TAB PO SCH (08:54)
[2017-02-08] MEDS: PANTOprazole SOD 40 MG TAB PO SCH ×2 (08:55→21:26)
[2017-02-08] MEDS: CYANOCOBALAMIN 500 MCG TAB (VIT B-12) PO SCH (08:55)
[2017-02-08] MEDS: LISINOPRIL 2.5 MG TAB PO SCH (08:56)
[2017-02-08] MEDS: METOPROLOL SUCC 50MG EXT REL TAB PO SCH (08:57)
[2017-02-08] MEDS: FAMOTIDINE IV INJ 20 MG in DEXTROSE 5% 100ML 100 ML IV SCH ×2 (09:54→22:02)
--- NOTE | 2017-02-08 10:24 | CARDIOLOGY PROGRESS NOTE ---
DATE: 02/08/2017 CARDIOLOGY FOLLOWUP/PROGRESS NOTE The patient is seen and examined at the bedside. He was transferred to telemetry overnight. Internal medicine evaluated the patient in the evening due to worsening erythematous rash spreading to his torso and face. He was treated with Benadryl, Solu-Medrol, and Pepcid. The patient's rash has improved over the past 12 hours. Denies any pruritus. Lower extremity erythema is unchanged; notes some worsening edema of his lower extremities. Fluid balance is positive nearly 4 liters since admission. Currently, patient is resting comfortably. Denies any discomfort near his ICD site. No orthopnea or PND. No chest discomfort. REVIEW OF SYSTEMS: The pertinent positives are noted above. Four-system review including cardiology, gastroenterologic, pulmonary, and endocrinologic systems otherwise negative. LABORATORY DATA: Sodium 137, potassium 4.0, chloride 107, CO2 is 24, BUN is 12, creatinine is 0.75. CRP 2.97 on 02/06. White blood cell count 8.81, hemoglobin is 11.6, platelet count is 159. INR is 2.0. PHYSICAL EXAMINATION: VITAL SIGNS: Temperature T-max last evening at 37.8 degrees centigrade, current temperature is 36.7 degrees centigrade, pulse is 80 beats per minute and regular, respiratory rate is 16 breaths per minute, blood pressure currently 94/57, intermittent hypotensive blood pressures noted since admission. GENERAL: NAD, obese, awake, alert and oriented x3, mild erythematous skin changes of his cheeks bilaterally. NECK: Supple without JVD or HJR. No carotid bruit. HEART: Irregular, normal S1, S2, distant heart sounds. No murmur appreciated. LUNGS: Clear without rales, rhonchi or wheeze. ABDOMEN: Obese and nontender. No rebound or guarding. EXTREMITIES: Demonstrate 2+ pretibial edema with bilateral pretibial erythema. Skin demonstrates erythematous skin changes throughout his torso, abdominal skin folds, and surrounding his ICD site. NEUROLOGIC: Demonstrates no focal deficit. FINAL IMPRESSION: 1. Diffuse rash concerning for drug reaction. Agree with discontinuation of amoxicillin, vancomycin at this time. 2. Lower extremity cellulitis with possible ICD pocket infection, nonischemic cardiomyopathy -- patient compensated with mild edema related to IV therapies. 3. Chronic rate controlled atrial fibrillation with therapeutic INR. Warfarin has been on hold. 4. History of deep venous thrombosis on chronic anticoagulation. PLAN/RECOMMENDATIONS: The patient will be given 20 mg of IV Lasix due to worsening edema, positive fluid balance related to IV therapies. Agree with broad-spectrum antibiotics with discontinuation of Zosyn at this time. The patient reports an allergy to amoxicillin, which was not previously documented. Continue current antibiotics. Follow cultures. Agree with corticosteroid therapy and Benadryl at this time as well. We will continue to follow during hospitalization.
[2017-02-08] MEDS ORDERED: FUROSEMIDE INJ 20 MG in SYRINGE 0 ML IV ONE (10:45)
--- NOTE | 2017-02-08 11:07 | Gastroenterology Progress Note ---
Progress Note Date of Service: Feb 08, 2017 Subjective Pt evaluation today including: conversation w/ patient, physical exam, chart review, lab review, review of inpatient medication list Pt developed worsening rash on torso and chest overnight, ? drug allergy towards Vancomycin, Zosyn. These meds DC'd, he was given Pepcid, Benadryl, Solumedrol. Currently on Daptomycin and Aztreonam for the cellulitis. He reports appetite is improving also noticed less regurgitation, belching, nausea. Denies any epigastric pain. Tolerating solid meals. Review of Systems Constitutional: No fever, No chills Respiratory: No cough, No shortness of breath Cardiac: No chest pain Abdomen: No pain, No nausea, No vomiting Skin: + see HPI, + rash Medications Current Inpatient Medications Medications (Trade) Dose Ordered Sig/Radha Route Start Time Stop Time Status Last Admin Dose Admin Ioversol (Optiray 320) 100 ml UD PRN IV 02/05/17 22:45 02/09/17 22:44 Acetaminophen (Tylenol Tab) 650 mg Q4H PRN PO 02/06/17 03:15 03/08/17 03:14 02/07/17 19:52 650 MG Cyanocobalamin (Vitamin B-12 Tab) 1,000 mcg DAILY PO 02/07/17 09:00 03/09/17 08:59 02/08/17 08:55 1,000 MCG Docusate Sodium (coLACE CAP) 100 mg BID PO 02/06/17 21:00 03/08/17 20:59 02/08/17 08:53 100 MG Magnesium Oxide (Mag-Ox Tab) 400 mg BID PO 02/06/17 21:00 03/08/17 20:59 02/08/17 08:53 400 MG Metoprolol Succinate (Toprol Xl Tab) 50 mg DAILY PO 02/07/17 09:00 03/09/17 08:59 02/07/17 07:45 50 MG Multivitamins/ Minerals (Multivitamin W/ Minerals Tab) 1 tab DAILY PO 02/07/17 09:00 03/09/17 08:59 02/08/17 08:54 1 TAB Tamsulosin HCl (Flomax Cap) 0.4 mg HS PO 02/06/17 21:00 03/08/17 20:59 02/07/17 21:26 0.4 MG Tramadol HCl (Ultram Tab) 50 mg Q8H PRN PO 02/06/17 09:30 03/08/17 09:29 Pantoprazole Sodium (Protonix Tab) 40 mg BID PO 02/06/17 21:00 03/08/17 20:59 02/08/17 08:55 40 MG Heparin Sodium (Porcine) (Heparin Sq 5000 Unit/0.5ml) 5,000 unit Q8 SQ 02/06/17 14:00 03/08/17 13:59 Future Hold 02/07/17 05:35 5,000 UNIT Al Hydrox/Mg Hydrox/Simethicone (Maalox Max Susp) 15 ml Q6H PRN PO 02/06/17 16:30 03/08/17 16:29 02/06/17 16:34 15 ML Famotidine 20 mg/ Dextrose 102 ml @ 200 mls/hr Q12H IV 02/07/17 22:00 03/09/17 21:59 02/08/17 09:54 200 MLS/HR Prednisone (PredniSONE TAB) 40 mg DAILY PO 02/08/17 09:00 03/10/17 08:59 02/08/17 08:54 40 MG Diphenhydramine HCl (Benadryl Cap) 25 mg Q8 PO 02/08/17 08:00 03/10/17 07:59 02/08/17 07:52 25 MG Daptomycin 550 mg/ Sodium Chloride 61 ml @ 100 mls/hr DAILY@2200 IV 02/07/17 22:00 02/17/17 21:59 02/07/17 22:22 100 MLS/HR Aztreonam 1000 mg/ Dextrose 110 ml @ 100 mls/hr Q8H IV 02/08/17 00:00 02/18/17 00:00 02/08/17 07:52 100 MLS/HR Lisinopril (Zestril Tab) 2.5 mg QAM PO 02/08/17 09:00 03/10/17 08:59 02/08/17 08:56 2.5 MG Objective Vital Signs Date Time Temp Pulse Resp B/P (MAP) Pulse Ox O2 Delivery O2 Flow Rate FiO2 02/08/17 09:32 Room Air 02/08/17 07:45 Room Air 02/08/17 07:22 36.7 80 16 94/57 (69) 94 Room Air 02/08/17 04:02 94 Room Air 02/08/17 04:00 36.6 61 22 110/62 (78) 97 Room Air 02/08/17 00:31 94 Room Air 02/08/17 00:24 36.8 77 22 104/63 (77) 96 Room Air 02/07/17 20:24 94 Room Air 02/07/17 19:48 37.8 82 22 116/51 (72) 94 Room Air 02/07/17 16:02 Room Air 02/07/17 15:46 37.1 64 22 90/63 (72) 98 Room Air Physical Exam General Appearance: WD/WN, no apparent distress, + obese Eyes: normal inspection, PERRL, EOMI Neck: supple, no JVD, trachea midline Respiratory/Chest: normal breath sounds, no respiratory distress, no accessory muscle use Cardiovascular: regular rate, rhythm, no gallop, no murmur Abdomen: normal bowel sounds, non tender, soft Extremities: + swelling Neurologic/Psych: alert, normal mood/affect, oriented x 3 Skin: + rash Laboratory Results Last 24 Hours Test 02/07/17 11:33 02/08/17 06:12 Vancomycin Level Trough 20.2 mcg/ml White Blood Count 8.81 K/uL Red Blood Count 4.22 M/uL Hemoglobin 11.6 g/dL Hematocrit 35.6 % Mean Corpuscular Volume 84.4 fL Mean Corpuscular Hemoglobin 27.5 pg Mean Corpuscular Hemoglobin Concent 32.6 g/dl Platelet Count 159 K/uL Mean Platelet Volume 9.7 fL Neutrophils (%) (Auto) 90.3 % Lymphocytes (%) (Auto) 5.3 % Monocytes (%) (Auto) 3.4 % Eosinophils (%) (Auto) 0.5 % Basophils (%) (Auto) 0.2 % Neutrophils # (Auto) 7.95 K/uL Lymphocytes # (Auto) 0.47 K/uL Monocytes # (Auto) 0.30 K/uL Eosinophils # (Auto) 0.04 K/uL Basophils # (Auto) 0.02 K/uL RDW Standard Deviation 48.3 fL RDW Coefficient of Variation 15.7 % Immature Granulocyte % (Auto) 0.3 % Immature Granulocyte # (Auto) 0.03 K/uL Prothrombin Time 21.8 SECONDS Prothromb Time International Ratio 2.0 Sodium Level 137 mmol/L Potassium Level 4.0 mmol/L Chloride Level 107 mmol/L Carbon Dioxide Level 24 mmol/L Anion Gap 6.0 mmol/L Blood Urea Nitrogen 12 mg/dl Creatinine 0.75 mg/dl Est Creatinine Clear Calc Drug Dose 131.6 ml/min Estimated GFR () 114.8 Estimated GFR (Non- 99.0 BUN/Creatinine Ratio 16.6 Random Glucose 160 mg/dl Calcium Level 8.3 mg/dl Assessment and Plan Pt is a 62 y/o male admitted for cellulitis after ICD placement on 02/02. He is seen for c/o regurgitation, belching, weight loss (65 lbs in [address] chest on admission showed moderate hiatus hernia w thickening of hernia sac. He chews tobacco. Pt reports his symptoms mainly the regurgitations are already improved since he increased his Prilosec to 20mg BID prior to his current admission. He denies any dysphagia, odynophagia. He is currently on Protonix 40mg BID, and eating solids well. He is leaning towards having EGD eval in outpt setting. - Defer cellulitis management to primary team. - Keep Protonix 40mg BID. - Plan for outpt EGD eval. Attg addendum: I interviewed and examined pt, reviewed chart and labs. Pt with improvement in symptoms. Plan EGD as inpt or outpt.
--- NOTE | 2017-02-08 11:13 | Progress Note ---
Subjective Date of Service: Feb 08, 2017. Subjective Pt evaluation today including: conversation w/ patient, physical exam, chart review, lab review pt with drug eruption overnight. has allergy to amox which was not previously disclosed, zosyn and vanco stopped. now with diffuse rash. itching resolved. no f/c. no pain at pacer site. blood cultures remain negative. denies drainage from wound. All remaining ros reveiwed and are negative. Problem List Medical Problems: (1) Atrial fibrillation Status: Chronic (2) Cellulitis Status: Acute (3) Fever Status: Acute (4) Hypermagnesemia Status: Acute (5) Influenza Status: Acute Objective Vital Signs Date Time Temp Pulse Resp B/P (MAP) Pulse Ox O2 Delivery O2 Flow Rate FiO2 02/08/17 09:32 Room Air 02/08/17 07:45 Room Air 02/08/17 07:22 36.7 80 16 94/57 (69) 94 Room Air 02/08/17 04:02 94 Room Air 02/08/17 04:00 36.6 61 22 110/62 (78) 97 Room Air 02/08/17 00:31 94 Room Air 02/08/17 00:24 36.8 77 22 104/63 (77) 96 Room Air 02/07/17 20:24 94 Room Air 02/07/17 19:48 37.8 82 22 116/51 (72) 94 Room Air 02/07/17 16:02 Room Air 02/07/17 15:46 37.1 64 22 90/63 (72) 98 Room Air Physical Exam General Appearance: WD/WN, no apparent distress Eyes: normal inspection, EOMI Neck: supple Respiratory/Chest: lungs clear, normal breath sounds, no respiratory distress Cardiovascular: regular rate, rhythm, no edema Abdomen: non tender, soft Extremities: non-tender, no pedal edema Neurologic/Psychiatric: alert, oriented x 3 Skin: + rash Comments: diffuse rash involving trunk and chest, new from yesterday pacer site with essentially unchanged erythema. no warmth, no drainage. le erythema unchanged Laboratory Results Item Value Date Time Blood Culture - Preliminary Resulted 02/05/17 2300 Blood NO GROWTH TO DATE. Blood Culture - Preliminary Resulted 02/05/17 2308 Blood NO GROWTH TO DATE. Last 24 Hours Test 02/07/17 11:33 9/25/17 06:12 Vancomycin Level Trough 20.2 mcg/ml White Blood Count 8.81 K/uL Red Blood Count 4.22 M/uL Hemoglobin 11.6 g/dL Hematocrit 35.6 % Mean Corpuscular Volume 84.4 fL Mean Corpuscular Hemoglobin 27.5 pg Mean Corpuscular Hemoglobin Concent 32.6 g/dl Platelet Count 159 K/uL Mean Platelet Volume 9.7 fL Neutrophils (%) (Auto) 90.3 % Lymphocytes (%) (Auto) 5.3 % Monocytes (%) (Auto) 3.4 % Eosinophils (%) (Auto) 0.5 % Basophils (%) (Auto) 0.2 % Neutrophils # (Auto) 7.95 K/uL Lymphocytes # (Auto) 0.47 K/uL Monocytes # (Auto) 0.30 K/uL Eosinophils # (Auto) 0.04 K/uL Basophils # (Auto) 0.02 K/uL RDW Standard Deviation 48.3 fL RDW Coefficient of Variation 15.7 % Immature Granulocyte % (Auto) 0.3 % Immature Granulocyte # (Auto) 0.03 K/uL Prothrombin Time 21.8 SECONDS Prothromb Time International Ratio 2.0 Sodium Level 137 mmol/L Potassium Level 4.0 mmol/L Chloride Level 107 mmol/L Carbon Dioxide Level 24 mmol/L Anion Gap 6.0 mmol/L Blood Urea Nitrogen 12 mg/dl Creatinine 0.75 mg/dl Est Creatinine Clear Calc Drug Dose 131.6 ml/min Estimated GFR () 114.8 Estimated GFR (Non- 99.0 BUN/Creatinine Ratio 16.6 Random Glucose 160 mg/dl Calcium Level 8.3 mg/dl Assessment and Plan (1) Cellulitis Assessment & Plan: continue abx, events noted. follow cultures (2) Drug eruption Problem Qualifiers (1) Cellulitis: Site of cellulitis: extremity Site of cellulitis of extremity: lower extremity Laterality: unspecified laterality Qualified Codes: L03.119 - Cellulitis of unspecified part of limb
--- NOTE | 2017-02-08 12:27 | Clinical Documentation Query ---
CLINICAL DOCUMENTATION QUERY 62-y/o male who states a 65lbs weight loss over last 6 months. In your clinical opinion is this patient being managed for: ( x ) Moderate protein-calorie malnutrition ( ) Severe protein-calorie malnutrition ( ) Not Agree ( ) Other explanation of clinical findings (Please Explain) ( ) Unable to determine (Please Define) ( ) Need to Discuss The medical record reflects the following clinical findings, treatment, and risk factors. Clinical Indicators: 53lbs weightloss over 6 months. >10% in 6 months. Treatment: RD consult, AHA diet Risk Factors: Age, GERD, hiatal hernia, Please clarify and document your clinical opinion in the progress notes and discharge summary. Terms such as "probable", "suspected", "likely", "questionable", "possible", or "still to be ruled out" are acceptable. IF IN AGREEMENT, YOU MUST DOCUMENT ABOVE DIAGNOSTIC STATEMENT IN DAILY PROGRESS NOTES AND DISCHARGE SUMMARY. This document is not part of the patient's record. Malnutrition Characteristics (2 of 6) in Acute Illness/Injury CHARACTERISTICS MODERATE MALNUTRITION SEVERE MALNUTRITION ENERGY INTAKE <75% of estimated energyrequirement for >7 days <50% of estimated energyrequirement for >5 days WEIGHT LOSS 1-2%/1 week 5%/1 month 7.5%/3 months >1-2%/1 week >5%/1 month >7.5%/3 months BODY FAT*loss of SQ fat from the orbits,triceps, or fat overlying the ribs MILD MODERATE MUSCLE MASS*muscle wasting at the temples,clavicles, shoulders, interosseousspaces,scapula, thigh, calf MILD MODERATE FLUID ACCUMULATION*localized or generalized edemaof the extremities, vulva, scrotumweight loss may be masked byedema MILD MODERATE-SEVERE WHITE GOODS APPLIANCE TECH STRENGTH N/A measurably decreased perthe device's standards Malnutrition Characteristics (2 of 6) in Chronic Illness CHARACTERISTICS MODERATE MALNUTRITION SEVERE MALNUTRITION ENERGY INTAKE <75% of estimated energyrequirement for >1 month <75% of estimated energyrequirement for >1 month WEIGHT LOSS 5%/1 month 7.5%/3 months 10%/6 months 20%/1 year > 5%/1 month >7.5%/3 months >10%/6 months >20%/1 year BODY FAT*loss of SQ fat from the orbits,triceps, or fat overlying the ribs MILD SEVERE MUSCLE MASS*muscle wasting at the temples,clavicles, shoulders, interosseousspaces,scapula, thigh, calf MILD SEVERE FLUID ACCUMULATION*localized or generalized edemaof the extremities, vulva, scrotumweight loss may be masked byedema MILD SEVERE WHITE GOODS APPLIANCE TECH STRENGTH N/A measurably decreased perthe device's standards Thank You, Dinesh Stinson, RN [phone]
--- NOTE | 2017-02-08 18:13 | Progress Note ---
Progress Note Date of Service Feb 08, 2017. Progress Note Pt scheduled for EGD tomorrow. Pt with multiple comorbidities including recent AICD placement due to non ischemic cardiomyopathy, chronic AFib. Risks/benefits explained to patient. All questions answered regarding the anesthesia plan. Consent obtained.
[2017-02-08] MEDS: TAMSULOSIN HCL 0.4 MG CAP PO SCH (22:02)
[2017-02-08] MEDS: DAPTOmycin IV 550 MG in SODIUM CHLORIDE 0.9% 50ML 50 ML IV SCH (22:02)
[2017-02-08] MEDS: FLUTICASONE PROPIONATE NA SPR 16 GM BTL SCH (22:30)
--- NOTE | 2017-02-08 22:44 | Progress Note ---
Internal Med Progress Note Date of Service: Feb 08, 2017. Provider Documentation: SUBJECTIVE: generalized rash has much improved worried that lower ext redness and swelling still the same afebrile no complain of chest pain or SOB scheduled to have EGD tomorrow by GI OBJECTIVE: Vital Signs-as noted below Exam: General-pleasant , no apparent sign of distress Eyes-sclera non icteric ENT-NAD Neck-no JVD Lungs-CT A Heart-regular Abdomen-soft non tender Extremities-bilateral lower marked erythema , chronic venosus stasis change, improved erythema of face and torso Neuro-AAO x3, no focal deficit Lab data as noted below. ASSESSMENT & PLAN: CELLULITIS AT AICD SITE had recent AICD placed on 02/02/17 presented with fever and chills , leukocytosis CT chest was ordered as erythema noted at AICD insertion site : CT chest : 1. No evidence for chest wall abscess. 2. Mild fat stranding surrounding the right-sided pacemaker. ESR and CRP-mild elevated Blood cultures -no growth Abx changed to Daptomycin and Azactum due to possible allergic reaction to vanco /Zosyn ID consult appreciated Consulted Cardiology -appreciate input BILATERAL LOWER EXT CELLULITIS Chronic venous stasis changes, but new onset erythema and warmth over past 24 hours. ID consulted on broad spectrum IV ABx as above . NONISCHEMIC CARDIOMYOPATHY Compensated. Continue lisinopril. CORONARY ARTERY DISEASE No anginal symptoms. Continue metoprolol. CHRONIC AF Rate controlled on metoprolol. Warfarin held for ACD placement, then restarted. INR 1.6. cont to hold Coumadin WEIGHT LOSS/MODERATE PROTEIN CALORIE MALNUTRITION : Patient reports 65 pound weight loss over past 6 months which he attributes to GI symptoms (anorexia, indigestion, dysphagia to solids). CT demonstrates thickening of distal esophagus and possible upper abdominal adenopathy. Further evaluation warranted, perhaps EGD. Continue PPI. consulted GI -appreciate input -scheduled to have EGD tomorrow DM TYPE 2 Recently diet-controlled. Hgb A1C 6.0 in clinic on 11/03/16. Follow. BPH Continue tamsulosin. VTE PROPHYLAXIS History pulmonary embolism. Usually takes warfarin for chronic AF. Holding warfarin for EGD in AM SQ heparin- Ambulate. RESUSCITATION STATUS Discussed with patient. . , code status = "Level 1" (full resuscitation). DISPOSITION cont to monitor in tele Expected discharge to home when medically stable Internal Medicine follow-up with Dr. Sanders. Cardiology follow-up with Dr. Mendez. . Vital Signs: Date Time Temp Pulse Resp B/P (MAP) Pulse Ox O2 Delivery O2 Flow Rate FiO2 02/08/17 23:50 36.7 72 22 95/58 (70) 99 Room Air 02/08/17 20:09 36.6 82 22 124/76 (92) 98 Room Air 02/08/17 16:00 Room Air 02/08/17 15:28 Room Air 02/08/17 15:22 36.5 82 22 107/64 (78) 92 Room Air 02/08/17 12:10 Room Air 02/08/17 11:20 36.8 84 16 116/69 (85) 97 Room Air 02/08/17 09:32 Room Air 02/08/17 07:45 Room Air 02/08/17 07:22 36.7 80 16 94/57 (69) 94 Room Air 02/08/17 04:02 94 Room Air 02/08/17 04:00 36.6 61 22 110/62 (78) 97 Room Air Lab Results: Results Past 24 Hours Test 02/08/17 06:12 Range/Units White Blood Count 8.81 4.8-10.8 K/uL Red Blood Count 4.22 4.7-6.1 M/uL Hemoglobin 11.6 14.0-18.0 g/dL Hematocrit 35.6 42-52 % Mean Corpuscular Volume 84.4 80-100 fL Mean Corpuscular Hemoglobin 27.5 25-34 pg Mean Corpuscular Hemoglobin Concent 32.6 32-36 g/dl Platelet Count 159 130-400 K/uL Mean Platelet Volume 9.7 7.4-10.4 fL Neutrophils (%) (Auto) 90.3 % Lymphocytes (%) (Auto) 5.3 % Monocytes (%) (Auto) 3.4 % Eosinophils (%) (Auto) 0.5 % Basophils (%) (Auto) 0.2 % Neutrophils # (Auto) 7.95 1.4-6.5 K/uL Lymphocytes # (Auto) 0.47 1.2-3.4 K/uL Monocytes # (Auto) 0.30 0.11-0.59 K/uL Eosinophils # (Auto) 0.04 0-0.5 K/uL Basophils # (Auto) 0.02 0-0.2 K/uL RDW Standard Deviation 48.3 36.4-46.3 fL RDW Coefficient of Variation 15.7 11.5-14.5 % Immature Granulocyte % (Auto) 0.3 % Immature Granulocyte # (Auto) 0.03 0.00-0.02 K/uL Prothrombin Time 21.8 9.0-12.0 SECONDS Prothromb Time International Ratio 2.0 0.9-1.1 Sodium Level 137 136-145 mmol/L Potassium Level 4.0 3.5-5.1 mmol/L Chloride Level 107 98-107 mmol/L Carbon Dioxide Level 24 21-32 mmol/L Anion Gap 6.0 3-11 mmol/L Blood Urea Nitrogen 12 7-18 mg/dl Creatinine 0.75 0.60-1.40 mg/dl Est Creatinine Clear Calc Drug Dose 131.6 ml/min Estimated GFR () 114.8 Estimated GFR (Non- 99.0 BUN/Creatinine Ratio 16.6 10-20 Random Glucose 160 70-99 mg/dl Calcium Level 8.3 8.5-10.1 mg/dl
[2017-02-09] VITALS (9 sets, daily range): BP systolic 90–137; BP diastolic 52–82; PULSE 64–101; TEMP 36.5–37; O2SAT 95–99
[2017-02-09 07:26] LABS: BASO % 0.2 %; BASO ABS # 0.02 K/uL (0-0.2); COMPLETE YES; EOS % 2.7 %; HEMATOCRIT 34.4 % (42-52); IG% 0.3 %; LYMPH % 7.8 %; LYMPH ABS # 0.77 K/uL (1.2-3.4); MEAN CELL VOLUME 84.1 fL (80-100); MEAN CORPUSCULAR HEMOGLOBIN 26.4 pg (25-34); MEAN CORPUSCULAR HGB CONC 31.4 g/dl (32-36); MEAN PLATELET VOLUME 9.5 fL (7.4-10.4); MONO % 6.7 %; NEUT % 82.3 %; PLATELET COUNT 191 K/uL (130-400); RED BLOOD COUNT 4.09 M/uL (4.7-6.1); WHITE BLOOD COUNT 9.84 K/uL (4.8-10.8)
[2017-02-09 07:34] LABS: INR 1.5 (0.9-1.1); PROTHROMBIN TIME (PATIENT) 16.7 SECONDS (9.0-12.0)
[2017-02-09 07:53] LABS: BUN/CREATININE RATIO 21.4 (10-20); CALCIUM 8.4 mg/dl (8.5-10.1); CREATININE 0.61 mg/dl (0.60-1.40); POTASSIUM 3.6 mmol/L (3.5-5.1)
[2017-02-09] MEDS: AZTREONAM IV 1,000 MG in DEXTROSE 5% 100ML 100 ML IV SCH ×2 (08:09→16:58)
[2017-02-09] MEDS: METOPROLOL SUCC 50MG EXT REL TAB PO SCH ×3 (08:09→10:01)
[2017-02-09] MEDS: LISINOPRIL 2.5 MG TAB PO SCH ×2 (08:09→08:20)
[2017-02-09] MEDS: CYANOCOBALAMIN 500 MCG TAB (VIT B-12) PO SCH (08:09)
[2017-02-09] MEDS: CEROVITE ADV FORMULA TAB PO SCH (08:09)
[2017-02-09] MEDS: DOCUSATE SODIUM 100 MG CAP PO SCH ×2 (08:10→20:56)
[2017-02-09] MEDS: PANTOprazole SOD 40 MG TAB PO SCH ×2 (08:10→20:57)
[2017-02-09] MEDS: FLUTICASONE PROPIONATE NA SPR 16 GM BTL SCH (08:10)
[2017-02-09] MEDS: MAGNESIUM OXIDE 400 MG TAB PO SCH ×2 (08:11→20:56)
--- NOTE | 2017-02-09 10:03 | Progress Note ---
Internal Med Progress Note Date of Service: Feb 09, 2017. Provider Documentation: SUBJECTIVE: Seen and examined at bedside Planned for EGD today Denies chest pain/SOB Worried about LE rash Generalized rash is slightly worse per staff Reports itching intermittently Offers no other complaints OBJECTIVE: Vital Signs-as noted below Physical Exam: General Appearance:Obese, no apparent distress Head: normocephalic, Atraumatic Eyes: normal inspection, EOMI, PERRL Neck: supple, Trachea midline Respiratory/Chest: Normal breath sounds, CTA Cardiovascular: Irregularly Irregular, No murmur Abdomen/GI:Soft, Non tender, Bowel sounds present Extremities/Musculoskelatal:normal inspection, Chronic LE edema, venous stasis Neurologic/Psych:grossly no focal neurological deficits Skin: Diffuse erythematous rash Lab data as noted below. ASSESSMENT & PLAN: CELLULITIS AT AICD SITE had recent AICD placed on 02/02/17 Patient presented with fever and chills, leukocytosis, erythema at AICD site CT chest :no evidence of chest wall abscess, mild fat stranding surrounding right sided pacemaker Blood cultures:-no growth Abx changed to Daptomycin and Azactam due to possible allergic reaction to vanco /Zosyn Appreciate ID/Cardiology Input On prednisone taper, Benadryl PRN B/L LE CELLULITIS Chronic venous stasis changes, but new onset erythema and warmth Continue IV antibiotics ID following NONISCHEMIC CARDIOMYOPATHY Compensated Continue lisinopril CORONARY ARTERY DISEASE No anginal symptoms. Continue metoprolol CHRONIC AF Rate controlled on metoprolol. Warfarin currently held for EGD INR 1.5 Plan to resume coumadin when able WEIGHT LOSS/MODERATE PROTEIN CALORIE MALNUTRITION : Patient reports 65 pound weight loss over past 6 months which he attributes to GI symptoms (anorexia, indigestion, dysphagia to solids). CT demonstrates thickening of distal esophagus and possible upper abdominal adenopathy. Planned for EGD today Continue PPI. Appreciate GI Input DM II Recently diet-controlled. Hgb A1C 6.0 in clinic on 11/03/16. Monitor BPH Continue tamsulosin. DVT Px: H/O PE. Usually takes warfarin for chronic AF. Holding warfarin for EGD today SQ heparin for now Ambulate. CODE STATUS: Full Code DISPOSITION cont to monitor in tele Expected discharge to home when medically stable Internal Medicine follow-up with Dr. Sanders. Cardiology follow-up with Dr. Mendez. Vital Signs: Date Time Temp Pulse Resp B/P (MAP) Pulse Ox O2 Delivery O2 Flow Rate FiO2 02/09/17 09:06 36.6 69 18 92/54 96 Room Air 02/09/17 08:29 Room Air 02/09/17 08:19 92/54 (67) 02/09/17 08:00 Room Air 02/09/17 07:45 36.6 69 20 110/82 (91) 96 Room Air 02/09/17 04:00 37.0 74 22 90/52 (65) 95 Room Air 02/09/17 04:00 Room Air 02/09/17 00:00 Room Air 02/08/17 23:50 36.7 72 22 95/58 (70) 99 Room Air 02/08/17 20:09 36.6 82 22 124/76 (92) 98 Room Air 02/08/17 20:00 Room Air 02/08/17 16:00 Room Air 02/08/17 15:28 Room Air 02/08/17 15:22 36.5 82 22 107/64 (78) 92 Room Air 02/08/17 12:10 Room Air 02/08/17 11:20 36.8 84 16 116/69 (85) 97 Room Air Lab Results: Results Past 24 Hours Test 02/09/17 07:05 Range/Units White Blood Count 9.84 4.8-10.8 K/uL Red Blood Count 4.09 4.7-6.1 M/uL Hemoglobin 10.8 14.0-18.0 g/dL Hematocrit 34.4 42-52 % Mean Corpuscular Volume 84.1 80-100 fL Mean Corpuscular Hemoglobin 26.4 25-34 pg Mean Corpuscular Hemoglobin Concent 31.4 32-36 g/dl Platelet Count 191 130-400 K/uL Mean Platelet Volume 9.5 7.4-10.4 fL Neutrophils (%) (Auto) 82.3 % Lymphocytes (%) (Auto) 7.8 % Monocytes (%) (Auto) 6.7 % Eosinophils (%) (Auto) 2.7 % Basophils (%) (Auto) 0.2 % Neutrophils # (Auto) 8.09 1.4-6.5 K/uL Lymphocytes # (Auto) 0.77 1.2-3.4 K/uL Monocytes # (Auto) 0.66 0.11-0.59 K/uL Eosinophils # (Auto) 0.27 0-0.5 K/uL Basophils # (Auto) 0.02 0-0.2 K/uL RDW Standard Deviation 48.5 36.4-46.3 fL RDW Coefficient of Variation 15.8 11.5-14.5 % Immature Granulocyte % (Auto) 0.3 % Immature Granulocyte # (Auto) 0.03 0.00-0.02 K/uL Prothrombin Time 16.7 9.0-12.0 SECONDS Prothromb Time International Ratio 1.5 0.9-1.1 Sodium Level 141 136-145 mmol/L Potassium Level 3.6 3.5-5.1 mmol/L Chloride Level 110 98-107 mmol/L Carbon Dioxide Level 25 21-32 mmol/L Anion Gap 6.0 3-11 mmol/L Blood Urea Nitrogen 13 7-18 mg/dl Creatinine 0.61 0.60-1.40 mg/dl Est Creatinine Clear Calc Drug Dose 186.5 ml/min Estimated GFR () 124.9 Estimated GFR (Non- 107.8 BUN/Creatinine Ratio 21.4 10-20 Random Glucose 100 70-99 mg/dl Calcium Level 8.4 8.5-10.1 mg/dl
--- NOTE | 2017-02-09 10:49 | Progress Note ---
Progress Note Date of Service Feb 09, 2017. Progress Note Pt is a 62 y/o male admitted for cellulitis after ICD placement on 02/02. He is seen for c/o regurgitation, belching, weight loss (65 lbs in [address] chest on admission showed moderate hiatus hernia w thickening of hernia sac. He chews tobacco. Pt reports his symptoms mainly the regurgitations are already improved since he increased his Prilosec to 20mg BID prior to his current admission. He denies any dysphagia, odynophagia. He is currently on Protonix 40mg BID, and eating solids well. Discussed EGD as inpt vs outpt at afternoon rounds again w pt; he is agreeable to inpt evaluation. VS, labs reviewed. No acute events overnight, afebrile. He is having worsening body rash ? drug reaction, primary team aware Exam: AAOx3, in NAD HR regular No signs of respiratory distress Abd soft, non tender. Flat, rashes over trunk, chest, legs. - EGD by Dr. Porfirio Jensen today, GI will give further recs after EGD completed.
[2017-02-09] MEDS ORDERED: PROPOFOL IV EMULSION 10 MG/ML 20 ML VIAL IV ONE ×2 (12:04→12:36)
[2017-02-09] MEDS ORDERED: LIDOCAINE HCL 2% 2 ML VIAL (20MG/ML) ONE ×2 (12:04→12:36)
[2017-02-09] MEDS ORDERED: PHENYLEPHRINE 100MCG/ML 5ML SYR ONE (12:37)
--- NOTE | 2017-02-09 12:42 | GI REPORT ---
Procedure Date: 02/09/2017 12:20 PM Procedure: Upper GI endoscopy Indications: Heartburn, Abnormal CT of the GI tract Medicines: See the Anesthesia note for documentation of the administered medications Complications: No immediate complications. Estimated Blood Loss: Estimated blood loss: none. Procedure: Pre-Anesthesia Assessment: - ASA Grade Assessment: IV - A patient with severe systemic disease that is a constant threat to life. After obtaining informed consent, the endoscope was passed under direct vision. Throughout the procedure, the patient's blood pressure, pulse, and oxygen saturations were monitored continuously. The scope was introduced through the mouth, and advanced to the second part of duodenum. The upper GI endoscopy was accomplished without difficulty. The patient tolerated the procedure well. 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 There was a fungating, friable ashia-circumferential, partial obstructing mass arising the segment of Cheng's, spanning from 35 to 40 cm. This mass was biopsied. This mass was not seen on retroflexion. There was a hiatal hernia. The stomach was normal. The duodenum was normal. Impression: -Distal esophageal cancer. Recommendation: - Discharge patient to floor. Plan for rich-CT, PET scans. Porfirio Jensen M.D. Porfirio Jensen MD 02/09/2017 12:41:33 PM This report has been signed electronically. Note Initiated On: 02/09/2017 12:20 PM I attest to the content of the Intraoperative Record and orders documented therein, exceptions below
--- NOTE | 2017-02-09 13:59 | Progress Note ---
Subjective Date of Service: Feb 09, 2017. Subjective pt at egd. remains on abx. afebrile. blood cultures remain negative. wbc nml. Problem List Medical Problems: (1) Atrial fibrillation Status: Chronic (2) Cellulitis Status: Acute (3) Fever Status: Acute (4) Hypermagnesemia Status: Acute (5) Influenza Status: Acute Medications Item Value Date Time Blood Culture - Preliminary Resulted 02/05/17 2300 Blood NO GROWTH TO DATE. Blood Culture - Preliminary Resulted 02/05/17 2308 Blood NO GROWTH TO DATE. Objective Vital Signs Date Time Temp Pulse Resp B/P (MAP) Pulse Ox O2 Delivery O2 Flow Rate FiO2 02/09/17 13:30 58 18 123/69 (87) 02/09/17 13:15 54 18 120/69 (86) 02/09/17 13:00 55 18 107/66 (80) 02/09/17 12:41 67 12 94/54 (67) 02/09/17 12:00 Room Air 02/09/17 11:42 36.5 58 20 115/62 (79) 02/09/17 11:00 36.6 101 20 112/71 (85) 99 02/09/17 09:06 36.6 69 18 92/54 96 Room Air 02/09/17 08:29 Room Air 02/09/17 08:19 92/54 (67) 02/09/17 08:00 Room Air 02/09/17 07:45 36.6 69 20 110/82 (91) 96 Room Air 02/09/17 04:00 37.0 74 22 90/52 (65) 95 Room Air 02/09/17 04:00 Room Air 02/09/17 00:00 Room Air 02/08/17 23:50 36.7 72 22 95/58 (70) 99 Room Air 02/08/17 20:09 36.6 82 22 124/76 (92) 98 Room Air 02/08/17 20:00 Room Air 02/08/17 16:00 Room Air 02/08/17 15:28 Room Air 02/08/17 15:22 36.5 82 22 107/64 (78) 92 Room Air Laboratory Results Last 24 Hours Test 02/09/17 07:05 White Blood Count 9.84 K/uL Red Blood Count 4.09 M/uL Hemoglobin 10.8 g/dL Hematocrit 34.4 % Mean Corpuscular Volume 84.1 fL Mean Corpuscular Hemoglobin 26.4 pg Mean Corpuscular Hemoglobin Concent 31.4 g/dl Platelet Count 191 K/uL Mean Platelet Volume 9.5 fL Neutrophils (%) (Auto) 82.3 % Lymphocytes (%) (Auto) 7.8 % Monocytes (%) (Auto) 6.7 % Eosinophils (%) (Auto) 2.7 % Basophils (%) (Auto) 0.2 % Neutrophils # (Auto) 8.09 K/uL Lymphocytes # (Auto) 0.77 K/uL Monocytes # (Auto) 0.66 K/uL Eosinophils # (Auto) 0.27 K/uL Basophils # (Auto) 0.02 K/uL RDW Standard Deviation 48.5 fL RDW Coefficient of Variation 15.8 % Immature Granulocyte % (Auto) 0.3 % Immature Granulocyte # (Auto) 0.03 K/uL Prothrombin Time 16.7 SECONDS Prothromb Time International Ratio 1.5 Sodium Level 141 mmol/L Potassium Level 3.6 mmol/L Chloride Level 110 mmol/L Carbon Dioxide Level 25 mmol/L Anion Gap 6.0 mmol/L Blood Urea Nitrogen 13 mg/dl Creatinine 0.61 mg/dl Est Creatinine Clear Calc Drug Dose 186.5 ml/min Estimated GFR () 124.9 Estimated GFR (Non- 107.8 BUN/Creatinine Ratio 21.4 Random Glucose 100 mg/dl Calcium Level 8.4 mg/dl Assessment and Plan (1) Cellulitis Assessment & Plan: continue abx, events noted. follow cultures (2) Drug eruption Problem Qualifiers (1) Cellulitis: Site of cellulitis: extremity Site of cellulitis of extremity: lower extremity Laterality: unspecified laterality Qualified Codes: L03.119 - Cellulitis of unspecified part of limb
--- NOTE | 2017-02-09 14:02 | Anesthesiology Progress Note ---
Anesthesia Post Op Note Date & Time Feb 09, 2017 at 14:02 Vital Signs Pain Intensity: 0 Vital Signs Past 12 Hours Date Time Temp Pulse Resp B/P (MAP) Pulse Ox O2 Delivery O2 Flow Rate FiO2 02/09/17 13:30 58 18 123/69 (87) 02/09/17 13:15 54 18 120/69 (86) 02/09/17 13:00 55 18 107/66 (80) 02/09/17 12:41 67 12 94/54 (67) 02/09/17 12:00 Room Air 02/09/17 11:42 36.5 58 20 115/62 (79) 02/09/17 11:00 36.6 101 20 112/71 (85) 99 02/09/17 09:06 36.6 69 18 92/54 96 Room Air 02/09/17 08:29 Room Air 02/09/17 08:19 92/54 (67) 02/09/17 08:00 Room Air 02/09/17 07:45 36.6 69 20 110/82 (91) 96 Room Air 02/09/17 04:00 37.0 74 22 90/52 (65) 95 Room Air 02/09/17 04:00 Room Air Notes Mental Status: alert / awake / arousable, participated in evaluation Pt Amnestic to Procedure: Yes Nausea / Vomiting: adequately controlled Pain: adequately controlled Airway Patency, RR, SpO2: stable & adequate BP & HR: stable & adequate Hydration State: stable & adequate Anesthetic Complications: no major complications apparent
[2017-02-09] MEDS ORDERED: OPTIRAY 320 IV PRN (14:15)
--- NOTE | 2017-02-09 15:13 | Cardiology Follow-Up ---
Subjective General Date of Service: Feb 09, 2017. Pt evaluation today including: conversation w/ patient, conversation w/ family , physical exam, chart review, lab review, review of studies, review of inpatient medication list History of Present Illness The patient is a 62 year old male seen in follow up. Torso and upper extremity rash has improved. Lower extremity cellulitis unchanged. Lower extremity edema unchanged. No fevers overnight. EGD completed today demonstrating esophageal mass. Pathology pending. Patient complains of bilateral lower extremity edema. Allergies Coded Allergies: Amoxicillin (Verified Allergy, Unknown, RASH, 02/08/17) developed diffuse rash while on Zosyn and vancomycin on 02/07/17 Escitalopram (Verified Allergy, Unknown, RASH, 02/05/17) Finasteride (Verified Allergy, Unknown, rash, 02/05/17) Piperacillin (Verified Allergy, Unknown, RASH, 02/08/17) developed diffuse rash while on vancomycin and Zosyn on 02/07/17 Tazobactam (Verified Allergy, Unknown, RASH, 02/08/17) developed diffuse rash while on vancomycin and Zosyn on 02/07/17 Vancomycin (Verified Allergy, Unknown, RASH, 02/08/17) developed diffuse rash while on vancomycin and zosyn Social History Smoking Status: Unknown if Ever Smoked Hx Tobacco Use In Past Year?: Yes Hx Alcohol Use - Type And Amou: No Hx Substance Use - Type And Am: No Problem List Medical Problems: (1) Atrial fibrillation Status: Chronic (2) Cellulitis Status: Acute (3) Fever Status: Acute (4) Hypermagnesemia Status: Acute (5) Influenza Status: Acute Review of Systems Respiratory: No cough, No sputum, No wheezing, No shortness of breath, No dyspnea on exertion, No dyspnea at rest, No hemoptysis Cardiac: No chest pain, No orthopnea, No edema, No palpitations Physical Exam Vital Signs Last Vital Signs Documentation Date Time Temp Pulse Resp B/P (MAP) Pulse Ox O2 Delivery O2 Flow Rate FiO2 02/09/17 14:40 36.5 18 137/79 (98) 02/09/17 13:30 58 02/09/17 12:00 Room Air 02/09/17 11:00 99 Physical Exam Head: normocephalic, atraumatic Lungs: Auscultation: no wheezing, no rales/crackles, no rhonchi Cardiovascular: Heart Auscultation: normal S1, normal S2, no murmurs, no rubs, no gallops, irregular rate rhythm Abdomen: Bowel Sounds: normal Inspection & Palpation: soft, non-distended, no tenderness, guarding & rebound Extremities: no cyanosis, edema (bilateral lower extremity pretibial edema and erythema), ulcers (superficial skin tear noted on right calf) Assessment and Plan Assessment and Plan FINAL IMPRESSION: 1. Diffuse rash - suspect related to drug reaction. - Improving with corticosteroid therapy 2. Lower extremity cellulitis with possible ICD pocket infection - Patient afebrile over the past 24 hours - Antibiotics adjusted due to possible drug reaction 3. Nonischemic cardiomyopathy -- patient compensated with mild edema related to IV therapies. 4. Chronic rate controlled atrial fibrillation with therapeutic INR. -Warfarin on hold. 5. Esophageal mass - pathology pending 6. History of deep venous thrombosis on chronic anticoagulation. PLAN/RECOMMENDATIONS: Nursing instructed to give dose of prednisone 1 now. I will add oral Lasix 20 mg daily. First dose to be given this afternoon. Other medications will be continued as previously ordered. Patient scheduled for CT of the abdomen and pelvis regarding further evaluation of esophageal mass. Laboratory Results Last 24 Hours Test 02/09/17 07:05 White Blood Count 9.84 K/uL Red Blood Count 4.09 M/uL Hemoglobin 10.8 g/dL Hematocrit 34.4 % Mean Corpuscular Volume 84.1 fL Mean Corpuscular Hemoglobin 26.4 pg Mean Corpuscular Hemoglobin Concent 31.4 g/dl Platelet Count 191 K/uL Mean Platelet Volume 9.5 fL Neutrophils (%) (Auto) 82.3 % Lymphocytes (%) (Auto) 7.8 % Monocytes (%) (Auto) 6.7 % Eosinophils (%) (Auto) 2.7 % Basophils (%) (Auto) 0.2 % Neutrophils # (Auto) 8.09 K/uL Lymphocytes # (Auto) 0.77 K/uL Monocytes # (Auto) 0.66 K/uL Eosinophils # (Auto) 0.27 K/uL Basophils # (Auto) 0.02 K/uL RDW Standard Deviation 48.5 fL RDW Coefficient of Variation 15.8 % Immature Granulocyte % (Auto) 0.3 % Immature Granulocyte # (Auto) 0.03 K/uL Prothrombin Time 16.7 SECONDS Prothromb Time International Ratio 1.5 Sodium Level 141 mmol/L Potassium Level 3.6 mmol/L Chloride Level 110 mmol/L Carbon Dioxide Level 25 mmol/L Anion Gap 6.0 mmol/L Blood Urea Nitrogen 13 mg/dl Creatinine 0.61 mg/dl Est Creatinine Clear Calc Drug Dose 186.5 ml/min Estimated GFR () 124.9 Estimated GFR (Non- 107.8 BUN/Creatinine Ratio 21.4 Random Glucose 100 mg/dl Calcium Level 8.4 mg/dl
[2017-02-09] MEDS ORDERED: FUROSEMIDE 20 MG TAB PO ONE (15:30)
--- NOTE | 2017-02-09 15:35 | Progress Note ---
Progress Note Date of Service Feb 09, 2017. Progress Note Informed pt about likely dx of esophageal cancer. Await staging CT's.
--- NOTE | 2017-02-09 16:49 | DIAGNOSTIC IMAGING REPORT ---
CT ABD/PELVIS IV AND ORAL CONT CLINICAL HISTORY: Esophageal cancer COMPARISON STUDY: 06/19/2008 TECHNIQUE: Following the IV administration of 120 mL of Optiray-320, CT scan of the abdomen and pelvis was performed from the lung bases to the proximal femurs. Images are reviewed in the axial, sagittal, and coronal planes. IV contrast was administered without complication. A dose lowering technique was utilized adhering to the principles of ALARA. CT DOSE: 1206.15 mGycm FINDINGS: Lower chest: The heart is normal in size and configuration, without pericardial effusion. The lung bases and pleural spaces are clear. Liver: The contrast-enhanced liver is normal in size, contour, and attenuation. There is no intrahepatic biliary ductal dilatation. The hepatic veins and portal veins are patent. Gallbladder: Multiple gallstones Spleen: Normal in size and attenuation. Pancreas: Unremarkable. Adrenal glands: Unremarkable. Kidneys: There is symmetric renal cortical enhancement. The kidneys are normal in size without hydronephrosis. Bowel: There are no transition zones indicate bowel obstruction. There is a large ventral hernia containing both colon and small bowel. Also contains a portion of the stomach. There is no current evidence of obstruction. There is no acute diverticulitis. There is no acute appendicitis. There is distal esophageal wall thickening. Peritoneum: There is no intraperitoneal free air or abdominal ascites. Vasculature: There is an indwelling IVC filter there is no evidence of abdominal aortic aneurysm. Adenopathy: There is a 13 mm lymph node in the gastrohepatic ligament. There are enlarged lymph nodes at the level of the celiac measuring 42 x 19 mm in aggregate. There are enlarged retroperitoneal Lymph nodes. The largest is located at the level of the left renal hilum measuring 27 mm. Iliac lymph nodes are the upper limits of normal in diameter. Pelvic viscera: The bladder, and pelvic viscera are unremarkable. Skeletal structures: No destructive osseous lesions are seen. There is heterotopic ossification superior to the greater trochanter the left hip. There is a metallic foreign body within the soft tissues of the left posterior pelvis. IMPRESSION: 1. Distal esophageal thickening. 2. Large ventral hernia containing stomach small bowel and colon 3. Adenopathy within the gastrohepatic ligament, at the level of the celiac axis, as well as within the para-aortic retroperitoneal region 4. No evidence of bowel obstruction. No evidence of free air. Electronically signed by: Reese Lux M.D. 02/09/2017 4:48 PM Dictated Date/Time: 02/09/2017 4:39 PM
[2017-02-09] MEDS: TAMSULOSIN HCL 0.4 MG CAP PO SCH (20:56)
[2017-02-09] MEDS: DAPTOmycin IV 550 MG in SODIUM CHLORIDE 0.9% 50ML 50 ML IV SCH (20:56)
[2017-02-10] VITALS (10 sets, daily range): BP systolic 93–112; BP diastolic 53–70; PULSE 57–77; TEMP 36.5–37; O2SAT 94–97
[2017-02-10] MEDS: AZTREONAM IV 1,000 MG in DEXTROSE 5% 100ML 100 ML IV SCH ×2 (00:27→09:19)
[2017-02-10 06:29] LABS: BASO % 0.4 %; BASO ABS # 0.03 K/uL (0-0.2); COMPLETE YES; EOS % 3.5 %; IG% 0.2 %; LYMPH % 9.5 %; LYMPH ABS # 0.76 K/uL (1.2-3.4); MEAN CELL VOLUME 85.8 fL (80-100); MEAN CORPUSCULAR HEMOGLOBIN 26.4 pg (25-34); MEAN CORPUSCULAR HGB CONC 30.8 g/dl (32-36); MEAN PLATELET VOLUME 9.7 fL (7.4-10.4); MONO % 8.2 %; NEUT % 78.2 %; PLATELET COUNT 185 K/uL (130-400); RED BLOOD COUNT 4.43 M/uL (4.7-6.1); WHITE BLOOD COUNT 8.04 K/uL (4.8-10.8)
[2017-02-10 06:36] LABS: INR 1.4 (0.9-1.1); PROTHROMBIN TIME (PATIENT) 14.9 SECONDS (9.0-12.0)
[2017-02-10 07:01] LABS: BUN/CREATININE RATIO 16.3 (10-20); CALCIUM 8.7 mg/dl (8.5-10.1); CREATININE 0.71 mg/dl (0.60-1.40); MAGNESIUM 1.9 mg/dl (1.8-2.4); POTASSIUM 3.9 mmol/L (3.5-5.1)
[2017-02-10] MEDS: METOPROLOL SUCC 50MG EXT REL TAB PO SCH (09:00)
[2017-02-10] MEDS: FLUTICASONE PROPIONATE NA SPR 16 GM BTL SCH ×2 (09:00→09:27)
[2017-02-10] MEDS: DOCUSATE SODIUM 100 MG CAP PO SCH ×2 (09:28→20:55)
[2017-02-10] MEDS: MAGNESIUM OXIDE 400 MG TAB PO SCH ×2 (09:29→20:57)
[2017-02-10] MEDS: FUROSEMIDE 20 MG TAB PO SCH (09:29)
[2017-02-10] MEDS: CEROVITE ADV FORMULA TAB PO SCH (09:30)
[2017-02-10] MEDS: PANTOprazole SOD 40 MG TAB PO SCH ×2 (09:31→20:55)
[2017-02-10] MEDS: CYANOCOBALAMIN 500 MCG TAB (VIT B-12) PO SCH (09:34)
[2017-02-10] MEDS: LISINOPRIL 2.5 MG TAB PO SCH (09:35)
[2017-02-10] MEDS: FAMOTIDINE IV INJ 20 MG in DEXTROSE 5% 100ML 100 ML IV SCH (10:24)
--- NOTE | 2017-02-10 10:35 | Progress Note ---
Subjective Date of Service: Feb 10, 2017. Subjective Pt evaluation today including: conversation w/ patient, conversation w/ family , physical exam, chart review, lab review pt with worsening rash on trunk and thighs. just received benadryl as rash is itchy and remains on prednisone. would like to stop abx as cultures are negative and rash worse after zosyn. Blood cultures remain negative. afebrile. wbc nml. remain afebrile, clinically stable. no pain at pacer site. no drainage , wound remains closed. states he has tolerated keflex in past. unsure what periop abx he received at time of pacer placement but rash started around 48 hours after. all remaining ros reviewed and are negative. Problem List Medical Problems: (1) Atrial fibrillation Status: Chronic (2) Cellulitis Status: Acute (3) Fever Status: Acute (4) Hypermagnesemia Status: Acute (5) Influenza Status: Acute Objective Vital Signs Date Time Temp Pulse Resp B/P (MAP) Pulse Ox O2 Delivery O2 Flow Rate FiO2 02/10/17 08:06 36.5 101/70 (80) 97 Room Air 02/10/17 07:59 36.5 66 18 95/56 (69) 95 02/10/17 07:30 Room Air 02/10/17 04:32 36.7 57 18 93/53 (66) 96 Room Air 02/10/17 04:15 95 Room Air 02/10/17 00:15 95 Room Air 02/09/17 23:07 36.6 64 19 104/58 (73) 95 Room Air 02/09/17 20:15 99 Room Air 02/09/17 19:29 36.5 74 18 115/55 (75) 99 Room Air 02/09/17 16:00 Room Air 02/09/17 14:40 36.5 18 137/79 (98) 02/09/17 13:30 58 18 123/69 (87) 02/09/17 13:15 54 18 120/69 (86) 02/09/17 13:00 55 18 107/66 (80) 02/09/17 12:41 67 12 94/54 (67) 02/09/17 12:00 Room Air 02/09/17 11:42 36.5 58 20 115/62 (79) 02/09/17 11:00 36.6 101 20 112/71 (10) 99 Physical Exam General Appearance: WD/WN, no apparent distress Eyes: normal inspection, EOMI Neck: supple Respiratory/Chest: lungs clear Cardiovascular: regular rate, rhythm, no edema Abdomen: soft Extremities: non-tender, no pedal edema Neurologic/Psychiatric: alert, oriented x 3 Skin: + rash Comments: diffuse erythema, involving, b/l le, abd, trunck, back, face. itchy and consistent with drug eruption. pacer site c/d/i, no warmth, non tender, no drainage Laboratory Results Item Value Date Time Blood Culture - Preliminary Resulted 02/05/172307 Blood NO GROWTH TO DATE. Blood Culture - Preliminary Resulted 02/05/172299 Blood NO GROWTH TO DATE. Last 24 Hours Test 02/10/17 05:47 White Blood Count 8.04 K/uL Red Blood Count 4.43 M/uL Hemoglobin 11.7 g/dL Hematocrit 38.0 % Mean Corpuscular Volume 85.8 fL Mean Corpuscular Hemoglobin 26.4 pg Mean Corpuscular Hemoglobin Concent 30.8 g/dl Platelet Count 185 K/uL Mean Platelet Volume 9.7 fL Neutrophils (%) (Auto) 78.2 % Lymphocytes (%) (Auto) 9.5 % Monocytes (%) (Auto) 8.2 % Eosinophils (%) (Auto) 3.5 % Basophils (%) (Auto) 0.4 % Neutrophils # (Auto) 6.29 K/uL Lymphocytes # (Auto) 0.76 K/uL Monocytes # (Auto) 0.66 K/uL Eosinophils # (Auto) 0.28 K/uL Basophils # (Auto) 0.03 K/uL RDW Standard Deviation 49.8 fL RDW Coefficient of Variation 15.9 % Immature Granulocyte % (Auto) 0.2 % Immature Granulocyte # (Auto) 0.02 K/uL Prothrombin Time 14.9 SECONDS Prothromb Time International Ratio 1.4 Sodium Level 140 mmol/L Potassium Level 3.9 mmol/L Chloride Level 106 mmol/L Carbon Dioxide Level 25 mmol/L Anion Gap 9.0 mmol/L Blood Urea Nitrogen 12 mg/dl Creatinine 0.71 mg/dl Est Creatinine Clear Calc Drug Dose 161.9 ml/min Estimated GFR () 117.4 Estimated GFR (Non- 101.3 BUN/Creatinine Ratio 16.3 Random Glucose 101 mg/dl Calcium Level 8.7 mg/dl Magnesium Level 1.9 mg/dl Assessment and Plan (1) Drug eruption Assessment & Plan: ? if initial erythema was not due to abx allergy, unsure what he received at time of pacer insertion. He does have a pcn allergy which he did not disclose until after receiving zosyn and having worsening skin findings. cultures are negative and site looks improved. Discussed with pt, he would like to stop all abx at this time and continue meds for drug allergy only. abx infusing at the time of my exam. spoke with nursing, will complete bag hanging and then stop abx. will follow. (2) Cellulitis Problem Qualifiers (1) Cellulitis: Site of cellulitis: extremity Site of cellulitis of extremity: lower extremity Laterality: unspecified laterality Qualified Codes: L03.119 - Cellulitis of unspecified part of limb
[2017-02-10] MEDS ORDERED: ENOXAPARIN 40 MG/0.4 ML SYR SQ ONE (10:45)
--- NOTE | 2017-02-10 10:45 | Progress Note ---
Internal Med Progress Note Date of Service: Feb 10, 2017. Provider Documentation: SUBJECTIVE: Seen and examined at bedside States rash is worse and has itching as well Got EGD yesterday Denies chest pain/SOB Offers no other complaints Eager to get discharged OBJECTIVE: Vital Signs-as noted below Physical Exam: General Appearance:Obese, no apparent distress Head: normocephalic, Atraumatic Eyes: normal inspection, EOMI, PERRL Neck: supple, Trachea midline Respiratory/Chest: Normal breath sounds, CTA Cardiovascular: Irregularly Irregular, No murmur Abdomen/GI:Soft, Non tender, Bowel sounds present Extremities/Musculoskelatal:normal inspection, Chronic LE edema, venous stasis Neurologic/Psych:grossly no focal neurological deficits Skin: Diffuse erythematous rash Lab data as noted below. ASSESSMENT & PLAN: CELLULITIS AT AICD SITE had recent AICD placed on 02/02/17 Patient presented with fever and chills, leukocytosis, erythema at AICD site CT chest :no evidence of chest wall abscess, mild fat stranding surrounding right sided pacemaker Blood cultures:-no growth Abx changed to Daptomycin and Azactam due to possible allergic reaction to vanco /Zosyn Plan to discontinue all ABx for now secondary to worsening rash and also as cultures are negative Appreciate ID/Cardiology Input On prednisone taper, Famotidine, Benadryl PRN B/L LE CELLULITIS Chronic venous stasis changes, but new onset erythema and warmth IV antibiotics discontinued as above ID following NONISCHEMIC CARDIOMYOPATHY Compensated Continue lisinopril CORONARY ARTERY DISEASE No anginal symptoms. Continue metoprolol CHRONIC AF Rate controlled on metoprolol. Warfarin initially held for EGD INR 1.4 Resume coumadin LIKELY ESOPHAGEAL CANCER WEIGHT LOSS/MODERATE PROTEIN CALORIE MALNUTRITION : Patient reports 65 pound weight loss over past 6 months which he attributes to GI symptoms (anorexia, indigestion, dysphagia to solids). CT demonstrates thickening of distal esophagus and possible upper abdominal adenopathy. EGD: evidence of Cheng's esophagus and Esophageal mass Pathology: pending Continue PPI. Appreciate GI Input DM II Recently diet-controlled. Hgb A1C 6.0 in clinic on 11/03/16. Monitor BPH Continue tamsulosin. DVT Px: H/O PE. Usually takes warfarin for chronic AF. Ambulate. CODE STATUS: Full Code DISPOSITION cont to monitor in tele Expected discharge to home when medically stable Internal Medicine follow-up with Dr. Sanders. Cardiology follow-up with Dr. Mendez. Vital Signs: Date Time Temp Pulse Resp B/P (MAP) Pulse Ox O2 Delivery O2 Flow Rate FiO2 02/10/17 08:06 36.5 101/70 (80) 97 Room Air 02/10/17 07:59 36.5 66 18 95/56 (69) 95 02/10/17 07:30 Room Air 02/10/17 04:32 36.7 57 18 93/53 (66) 96 Room Air 02/10/17 04:15 95 Room Air 02/10/17 00:15 95 Room Air 02/09/17 23:07 36.6 64 19 104/58 (73) 95 Room Air 02/09/17 20:15 99 Room Air 02/09/17 19:29 36.5 74 18 115/55 (75) 99 Room Air 02/09/17 16:00 Room Air 02/09/17 14:40 36.5 18 137/79 (98) 02/09/17 13:30 58 18 123/69 (87) 02/09/17 13:15 54 18 120/69 (86) 02/09/17 13:00 55 18 107/66 (80) 02/09/17 12:41 67 12 94/54 (67) 02/09/17 12:00 Room Air 02/09/17 11:42 36.5 58 20 115/62 (79) 02/09/17 11:00 36.6 101 20 112/71 (85) 99 Lab Results: Results Past 24 Hours Test 02/10/17 05:47 Range/Units White Blood Count 8.04 4.8-10.8 K/uL Red Blood Count 4.43 4.7-6.1 M/uL Hemoglobin 11.7 14.0-18.0 g/dL Hematocrit 38.0 42-52 % Mean Corpuscular Volume 85.8 80-100 fL Mean Corpuscular Hemoglobin 26.4 25-34 pg Mean Corpuscular Hemoglobin Concent 30.8 32-36 g/dl Platelet Count 185 130-400 K/uL Mean Platelet Volume 9.7 7.4-10.4 fL Neutrophils (%) (Auto) 78.2 % Lymphocytes (%) (Auto) 9.5 % Monocytes (%) (Auto) 8.2 % Eosinophils (%) (Auto) 3.5 % Basophils (%) (Auto) 0.4 % Neutrophils # (Auto) 6.29 1.4-6.5 K/uL Lymphocytes # (Auto) 0.76 1.2-3.4 K/uL Monocytes # (Auto) 0.66 0.11-0.59 K/uL Eosinophils # (Auto) 0.28 0-0.5 K/uL Basophils # (Auto) 0.03 0-0.2 K/uL RDW Standard Deviation 49.8 36.4-46.3 fL RDW Coefficient of Variation 15.9 11.5-14.5 % Immature Granulocyte % (Auto) 0.2 % Immature Granulocyte # (Auto) 0.02 0.00-0.02 K/uL Prothrombin Time 14.9 9.0-12.0 SECONDS Prothromb Time International Ratio 1.4 0.9-1.1 Sodium Level 140 136-145 mmol/L Potassium Level 3.9 3.5-5.1 mmol/L Chloride Level 106 98-107 mmol/L Carbon Dioxide Level 25 21-32 mmol/L Anion Gap 9.0 3-11 mmol/L Blood Urea Nitrogen 12 7-18 mg/dl Creatinine 0.71 0.60-1.40 mg/dl Est Creatinine Clear Calc Drug Dose 161.9 ml/min Estimated GFR () 117.4 Estimated GFR (Non- 101.3 BUN/Creatinine Ratio 16.3 10-20 Random Glucose 101 70-99 mg/dl Calcium Level 8.7 8.5-10.1 mg/dl Magnesium Level 1.9 1.8-2.4 mg/dl
--- NOTE | 2017-02-10 12:26 | Cardiology Follow-Up ---
Subjective General Date of Service: Feb 10, 2017. Pt evaluation today including: conversation w/ patient, physical exam, chart review, lab review, review of studies, conversation w/ salesforce consultant, review of inpatient medication list History of Present Illness The patient is a 62 year old male seen in follow-up. Pathology of esophageal masses pending although appears to be malignancy. ID notes reviewed. Antibiotics have been discontinued. Currently being treated with steroid taper. Edema improved. No chest discomfort or unusual shortness of breath. Offers no new complaints this time. Allergies Coded Allergies: Amoxicillin (Verified Allergy, Unknown, RASH, 02/08/17) developed diffuse rash while on Zosyn and vancomycin on 02/07/17 Escitalopram (Verified Allergy, Unknown, RASH, 02/05/17) Finasteride (Verified Allergy, Unknown, rash, 02/05/17) Piperacillin (Verified Allergy, Unknown, RASH, 02/08/17) developed diffuse rash while on vancomycin and Zosyn on 02/07/17 Tazobactam (Verified Allergy, Unknown, RASH, 02/08/17) developed diffuse rash while on vancomycin and Zosyn on 02/07/17 Vancomycin (Verified Allergy, Unknown, RASH, 02/08/17) developed diffuse rash while on vancomycin and zosyn Social History Smoking Status: Unknown if Ever Smoked Hx Tobacco Use In Past Year?: Yes Hx Alcohol Use - Type And Amou: No Hx Substance Use - Type And Am: No Problem List Medical Problems: (1) Atrial fibrillation Status: Chronic (2) Cellulitis Status: Acute (3) Fever Status: Acute (4) Hypermagnesemia Status: Acute (5) Influenza Status: Acute Review of Systems Respiratory: + dyspnea on exertion, No cough, No sputum, No wheezing, No shortness of breath, No dyspnea at rest, No hemoptysis Cardiac: + edema, No chest pain, No orthopnea, No PND, No claudication Physical Exam Vital Signs Last Vital Signs Documentation Date Time Temp Pulse Resp B/P (MAP) Pulse Ox O2 Delivery O2 Flow Rate FiO2 02/10/17 11:25 Room Air 02/10/17 11:22 94 02/10/17 11:00 37.0 77 19 104/53 (70) Physical Exam Head: normocephalic, atraumatic Neck: supple, trachea midline Lungs: Auscultation: no wheezing, no rales/crackles, no rhonchi Cardiovascular: Heart Auscultation: normal S1, normal S2, no murmurs, no rubs, no gallops, irregular rate rhythm Abdomen: Bowel Sounds: normal Inspection & Palpation: soft, non-distended, no tenderness, guarding & rebound Extremities: no cyanosis, no edema (patient wearing compression stockings), ulcers (superficial skin tear noted on right calf) Neurologic: Gait & Station: pertinent finding (no focal motor deficit) Cranial Nerves: grossly intact Assessment and Plan Assessment and Plan FINAL IMPRESSION: 1. Diffuse rash - suspect drug reaction. - Improving with corticosteroid therapy 2. Lower extremity cellulitis - Patient afebrile over the past 24 hours - Negative blood cultures - Antibiotics discontinued by infectious disease specialist 3. Nonischemic cardiomyopathy - patient compensated - Edema improved with low-dose diuretic therapy 4. Chronic rate controlled atrial fibrillation with subtherapeutic INR. 5. 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 History of deep venous thrombosis on chronic anticoagulation. PLAN/RECOMMENDATIONS: Restart Coumadin. Continue low dose Lasix 20 mg daily. Antibiotics placed on hold per ID. Continue prednisone taper. Laboratory Results Last 24 Hours Test 02/10/17 05:47 White Blood Count 8.04 K/uL Red Blood Count 4.43 M/uL Hemoglobin 11.7 g/dL Hematocrit 38.0 % Mean Corpuscular Volume 85.8 fL Mean Corpuscular Hemoglobin 26.4 pg Mean Corpuscular Hemoglobin Concent 30.8 g/dl Platelet Count 185 K/uL Mean Platelet Volume 9.7 fL Neutrophils (%) (Auto) 78.2 % Lymphocytes (%) (Auto) 9.5 % Monocytes (%) (Auto) 8.2 % Eosinophils (%) (Auto) 3.5 % Basophils (%) (Auto) 0.4 % Neutrophils # (Auto) 6.29 K/uL Lymphocytes # (Auto) 0.76 K/uL Monocytes # (Auto) 0.66 K/uL Eosinophils # (Auto) 0.28 K/uL Basophils # (Auto) 0.03 K/uL RDW Standard Deviation 49.8 fL RDW Coefficient of Variation 15.9 % Immature Granulocyte % (Auto) 0.2 % Immature Granulocyte # (Auto) 0.02 K/uL Prothrombin Time 14.9 SECONDS Prothromb Time International Ratio 1.4 Sodium Level 140 mmol/L Potassium Level 3.9 mmol/L Chloride Level 106 mmol/L Carbon Dioxide Level 25 mmol/L Anion Gap 9.0 mmol/L Blood Urea Nitrogen 12 mg/dl Creatinine 0.71 mg/dl Est Creatinine Clear Calc Drug Dose 161.9 ml/min Estimated GFR () 117.4 Estimated GFR (Non- 101.3 BUN/Creatinine Ratio 16.3 Random Glucose 101 mg/dl Calcium Level 8.7 mg/dl Magnesium Level 1.9 mg/dl
--- NOTE | 2017-02-10 13:33 | Progress Note ---
Progress Note Date of Service Feb 10, 2017. (Janae Urias CRNP) Progress Note GI quick note: Reviewed CT abd/pelvis results w pt: 1. Distal esophageal thickening. 2. Large ventral hernia containing stomach small bowel and colon 3. Adenopathy within the gastrohepatic ligament, at the level of the celiac axis, as well as within the para-aortic retroperitoneal region 4. No evidence of bowel obstruction. No evidence of free air. VS, Labs reviewed. He is tolerating solids well, w/o n/v, abd pain. He's concerned about his ongoing rash, but wants to go home. No new GI plans at this time, just awaiting EGD bx results before referring him to Heme/Onc for esophageal ca treatment options. PCP also made aware of EGD findings yesterday, will likely need PET scan once DC'd and f/u w Heme/Onc. (Janae Urias CRNP) Attg addendum: I interviewed and examined pt, reviewed chart and labs. pt feels well and reports an improvement in his swallowing compared to yesterday. CT reviewed - he appears to have lcoregional nodes. Would ask primary service to please arrange for PET and oncology apptment; pleease notify us on d/c so we can arrange EUS. WIll sign off. (Porfirio Jensen M.D.)
[2017-02-10] MEDS ORDERED: WARFARIN SOD 5 MG TAB PO SCH (16:00)
[2017-02-10] MEDS: TAMSULOSIN HCL 0.4 MG CAP PO SCH (20:56)
[2017-02-11] VITALS (8 sets, daily range): BP systolic 90–127; BP diastolic 57–86; PULSE 51–91; TEMP 36.4–37; O2SAT 91–99
[2017-02-11 06:28] LABS: INR 1.5 (0.9-1.1)
[2017-02-11 06:42] LABS: BUN/CREATININE RATIO 15.6 (10-20); CALCIUM 8.4 mg/dl (8.5-10.1); CREATININE 0.66 mg/dl (0.60-1.40); POTASSIUM 3.8 mmol/L (3.5-5.1)
--- NOTE | 2017-02-11 08:49 | Progress Note ---
Internal Med Progress Note Date of Service: Feb 11, 2017. Provider Documentation: SUBJECTIVE: Seen and examined at bedside States rash is worse Itching better Got EGD yesterday Denies chest pain/SOB Offers no other complaints Eager to get discharged OBJECTIVE: Vital Signs-as noted below Physical Exam: General Appearance:Obese, no apparent distress Head: normocephalic, Atraumatic Eyes: normal inspection, EOMI, PERRL Neck: supple, Trachea midline Respiratory/Chest: Normal breath sounds, CTA Cardiovascular: Irregularly Irregular, No murmur Abdomen/GI:Soft, Non tender, Bowel sounds present Extremities/Musculoskelatal:normal inspection, Chronic LE edema, venous stasis Neurologic/Psych:grossly no focal neurological deficits Skin: Diffuse erythematous rash Lab data as noted below. ASSESSMENT & PLAN: CELLULITIS AT AICD SITE had recent AICD placed on 02/02/17 Patient presented with fever and chills, leukocytosis, erythema at AICD site CT chest :no evidence of chest wall abscess, mild fat stranding surrounding right sided pacemaker Blood cultures:-no growth Abx changed to Daptomycin and Azactam due to possible allergic reaction to vanco /Zosyn Plan to discontinue all ABx for now secondary to worsening rash and also as cultures are negative Appreciate ID/Cardiology Input DIFFUSE ERYTHEMATOUS RASH ? drug reaction Does have penicillin allergy which he did not disclose until after receiving Zosyn Abx changed to Daptomycin and Azactam due to possible allergic reaction to vanco /Zosyn and later discontinued all antibiotics On prednisone taper, Famotidine, Benadryl PRN Will consult dermatology B/L LE CELLULITIS Chronic venous stasis changes, but new onset erythema and warmth IV antibiotics discontinued as above ID following NONISCHEMIC CARDIOMYOPATHY Compensated Continue lisinopril, Lasix CORONARY ARTERY DISEASE No anginal symptoms. Continue metoprolol CHRONIC AF Rate controlled on metoprolol. Warfarin initially held for EGD Monitor INR: 1.5 Continue Coumadin LIKELY ESOPHAGEAL CANCER WEIGHT LOSS/MODERATE PROTEIN CALORIE MALNUTRITION : Patient reports 65 pound weight loss over past 6 months which he attributes to GI symptoms (anorexia, indigestion, dysphagia to solids). CT demonstrates thickening of distal esophagus and possible upper abdominal adenopathy. EGD: evidence of Cheng's esophagus and Esophageal mass Pathology: pending Continue PPI. Appreciate GI Input Needs EUS, PET scan Heme Onch follow up as outpatient Also needs follow up with GI upon discharge DM II Recently diet-controlled. Hgb A1C 6.0 in clinic on 11/03/16. Monitor BPH Continue tamsulosin. DVT Px: H/O PE. on warfarin for chronic AF, PE. Ambulate. CODE STATUS: Full Code DISPOSITION cont to monitor in tele Expected discharge to home when medically stable Internal Medicine follow-up with Dr. Sanders. Cardiology follow-up with Dr. Mendez. Vital Signs: Date Time Temp Pulse Resp B/P (MAP) Pulse Ox O2 Delivery O2 Flow Rate FiO2 02/11/17 08:32 36.8 80 15 104/69 (81) 95 Room Air 02/11/17 07:30 Room Air 02/11/17 04:05 37.0 51 20 96/59 (71) 99 Room Air 02/11/17 04:00 Room Air 02/11/17 00:03 36.4 61 20 92/64 (73) 96 Room Air 02/10/17 23:59 Room Air 02/10/17 20:07 94 Room Air 02/10/17 19:24 36.5 66 18 112/61 (78) 94 Room Air 02/10/17 16:10 37.0 66 18 107/66 (80) 97 Room Air 02/10/17 16:00 Room Air 02/10/17 11:25 Room Air 02/10/17 11:22 94 Room Air 02/10/17 11:00 37.0 77 19 104/53 (70) 94 Room Air Lab Results: Results Past 24 Hours Test 02/11/17 05:46 Range/Units Prothrombin Time 16.0 9.0-12.0 SECONDS Prothromb Time International Ratio 1.5 0.9-1.1 Sodium Level 142 136-145 mmol/L Potassium Level 3.8 3.5-5.1 mmol/L Chloride Level 108 98-107 mmol/L Carbon Dioxide Level 28 21-32 mmol/L Anion Gap 6.0 3-11 mmol/L Blood Urea Nitrogen 10 7-18 mg/dl Creatinine 0.66 0.60-1.40 mg/dl Est Creatinine Clear Calc Drug Dose 172.8 ml/min Estimated GFR () 120.9 Estimated GFR (Non- 104.3 BUN/Creatinine Ratio 15.6 10-20 Random Glucose 85 70-99 mg/dl Calcium Level 8.4 8.5-10.1 mg/dl
[2017-02-11] MEDS: LISINOPRIL 2.5 MG TAB PO SCH (09:00)
[2017-02-11] MEDS: CYANOCOBALAMIN 500 MCG TAB (VIT B-12) PO SCH (09:00)
[2017-02-11] MEDS: FLUTICASONE PROPIONATE NA SPR 16 GM BTL SCH (09:30)
[2017-02-11] MEDS: DOCUSATE SODIUM 100 MG CAP PO SCH ×2 (09:31→20:57)
[2017-02-11] MEDS: FUROSEMIDE 20 MG TAB PO SCH (09:32)
[2017-02-11] MEDS: CEROVITE ADV FORMULA TAB PO SCH (09:33)
[2017-02-11] MEDS: MAGNESIUM OXIDE 400 MG TAB PO SCH ×2 (09:33→20:55)
[2017-02-11] MEDS: PANTOprazole SOD 40 MG TAB PO SCH ×2 (09:35→20:56)
[2017-02-11] MEDS: METOPROLOL SUCC 50MG EXT REL TAB PO SCH (09:36)
[2017-02-11] MEDS: FAMOTIDINE IV INJ 20 MG in DEXTROSE 5% 100ML 100 ML IV SCH ×2 (09:39→20:58)
--- NOTE | 2017-02-11 14:20 | Progress Note ---
Subjective Date of Service: Feb 11, 2017. Subjective still with rash, still itching. abx stopped. cultures remain negative. afebrile. stable overnight. wbc nml. Problem List Medical Problems: (1) Atrial fibrillation Status: Chronic (2) Cellulitis Status: Acute (3) Fever Status: Acute (4) Hypermagnesemia Status: Acute (5) Influenza Status: Acute Objective Vital Signs Date Time Temp Pulse Resp B/P (MAP) Pulse Ox O2 Delivery O2 Flow Rate FiO2 02/11/17 11:30 Room Air 02/11/17 11:07 36.6 75 16 106/60 (75) 97 Room Air 02/11/17 10:02 Room Air 02/11/17 08:32 36.8 80 15 104/69 (81) 95 Room Air 02/11/17 07:30 Room Air 02/11/17 04:05 37.0 51 20 96/59 (71) 99 Room Air 02/11/17 04:00 Room Air 02/11/17 00:03 36.4 61 20 92/64 (73) 96 Room Air 02/10/17 23:59 Room Air 02/10/17 20:07 94 Room Air 02/10/17 19:24 36.5 66 18 112/61 (78) 94 Room Air 02/10/17 16:10 37.0 66 18 107/66 (80) 97 Room Air 02/10/17 16:00 Room Air Physical Exam General Appearance: WD/WN, no apparent distress Eyes: EOMI Neck: supple Respiratory/Chest: normal breath sounds, no respiratory distress Neurologic/Psychiatric: alert, oriented x 3 Skin: + rash Laboratory Results Item Value Date Time Blood Culture - Final Complete 02/05/172299 Blood NO GROWTH Blood Culture - Final Complete 02/05/172307 Blood NO GROWTH Last 24 Hours Test 02/11/17 05:46 Prothrombin Time 16.0 SECONDS Prothromb Time International Ratio 1.5 Sodium Level 142 mmol/L Potassium Level 3.8 mmol/L Chloride Level 108 mmol/L Carbon Dioxide Level 28 mmol/L Anion Gap 6.0 mmol/L Blood Urea Nitrogen 10 mg/dl Creatinine 0.66 mg/dl Est Creatinine Clear Calc Drug Dose 172.8 ml/min Estimated GFR () 120.9 Estimated GFR (Non- 104.3 BUN/Creatinine Ratio 15.6 Random Glucose 85 mg/dl Calcium Level 8.4 mg/dl Assessment and Plan (1) Drug eruption Assessment & Plan: will continue to follow off of abx, cultures negative. no new ID recs. (2) Cellulitis Problem Qualifiers (1) Cellulitis: Site of cellulitis: extremity Site of cellulitis of extremity: lower extremity Laterality: unspecified laterality Qualified Codes: L03.119 - Cellulitis of unspecified part of limb
--- NOTE | 2017-02-11 14:42 | Cardiology Follow-Up ---
Subjective General Date of Service: Feb 11, 2017. Pt evaluation today including: conversation w/ patient, physical exam, chart review, lab review, review of studies, review of inpatient medication list History of Present Illness The patient is a 62 year old male seen in follow-up. Antibiotics discontinued. No recurrent fevers. Reports intermittent flushing. Rash has improved. Denies chest pain or shortness of breath. Lower extremity edema has resolved. Allergies Coded Allergies: Amoxicillin (Verified Allergy, Unknown, RASH, 02/08/17) developed diffuse rash while on Zosyn and vancomycin on 02/07/17 Escitalopram (Verified Allergy, Unknown, RASH, 02/05/17) Finasteride (Verified Allergy, Unknown, rash, 02/05/17) Piperacillin (Verified Allergy, Unknown, RASH, 02/08/17) developed diffuse rash while on vancomycin and Zosyn on 02/07/17 Tazobactam (Verified Allergy, Unknown, RASH, 02/08/17) developed diffuse rash while on vancomycin and Zosyn on 02/07/17 Vancomycin (Verified Allergy, Unknown, RASH, 02/08/17) developed diffuse rash while on vancomycin and zosyn Social History Smoking Status: Unknown if Ever Smoked Hx Tobacco Use In Past Year?: Yes Hx Alcohol Use - Type And Amou: No Hx Substance Use - Type And Am: No Problem List Medical Problems: (1) Atrial fibrillation Status: Chronic (2) Cellulitis Status: Acute (3) Fever Status: Acute (4) Hypermagnesemia Status: Acute (5) Influenza Status: Acute Review of Systems Respiratory: No cough, No sputum, No wheezing, No shortness of breath, No dyspnea on exertion, No dyspnea at rest, No hemoptysis Cardiac: No chest pain, No orthopnea, No PND, No edema, No claudication Physical Exam Vital Signs Last Vital Signs Documentation Date Time Temp Pulse Resp B/P (MAP) Pulse Ox O2 Delivery O2 Flow Rate FiO2 02/11/17 14:22 96 Room Air 02/11/17 11:07 36.6 75 16 106/60 (75) Physical Exam Head: normocephalic, atraumatic Neck: supple, trachea midline Lungs: Auscultation: no wheezing, no rales/crackles, no rhonchi Cardiovascular: Heart Auscultation: normal S1, normal S2, no murmurs, no rubs, no gallops, irregular rate rhythm Abdomen: Bowel Sounds: normal Inspection & Palpation: soft, non-distended, no tenderness, guarding & rebound Extremities: no cyanosis, no edema (patient wearing compression stockings) Neurologic: Gait & Station: pertinent finding (no focal motor deficit) Cranial Nerves: grossly intact Assessment and Plan Assessment and Plan FINAL IMPRESSION: 1. Diffuse rash - suspect drug reaction. -Resolving with corticosteroid and antihistamine therapy 2. Lower extremity cellulitis - Erythema resolving - Negative blood cultures - Antibiotics discontinued by infectious disease specialist 3. Nonischemic cardiomyopathy - patient compensated; previously noted edema has resolved 4. Chronic rate controlled atrial fibrillation with subtherapeutic INR. 5. Esophageal mass -pathology confirms adenocarcinoma 6. History of deep venous thrombosis on chronic anticoagulation. PLAN/RECOMMENDATIONS: Continue Coumadin for goal INR of 2.0-3.0. Discontinue Lasix. Patient may utilize medication on an as-needed basis in the outpatient setting. Continue prednisone taper. No further testing from a cardiovascular perspective. Laboratory Results Last 24 Hours Test 02/11/17 05:46 Prothrombin Time 16.0 SECONDS Prothromb Time International Ratio 1.5 Sodium Level 142 mmol/L Potassium Level 3.8 mmol/L Chloride Level 108 mmol/L Carbon Dioxide Level 28 mmol/L Anion Gap 6.0 mmol/L Blood Urea Nitrogen 10 mg/dl Creatinine 0.66 mg/dl Est Creatinine Clear Calc Drug Dose 172.8 ml/min Estimated GFR () 120.9 Estimated GFR (Non- 104.3 BUN/Creatinine Ratio 15.6 Random Glucose 85 mg/dl Calcium Level 8.4 mg/dl
[2017-02-11] MEDS ORDERED: WARFARIN SOD 2.5 MG TAB PO SCH (16:00)
[2017-02-11] MEDS: TAMSULOSIN HCL 0.4 MG CAP PO SCH (20:56)
[2017-02-12 00:15] VITALS: BP 86/54; PULSE 49; TEMP 36.7; O2SAT 100
[2017-02-12 04:10] VITALS: BP 101/56; PULSE 57; TEMP 37; O2SAT 95
[2017-02-12 07:15] LABS: HEMATOCRIT 36.8 % (42-52); MEAN CELL VOLUME 84.6 fL (80-100); MEAN CORPUSCULAR HEMOGLOBIN 26.4 pg (25-34); MEAN CORPUSCULAR HGB CONC 31.3 g/dl (32-36); MEAN PLATELET VOLUME 9.8 fL (7.4-10.4); PLATELET COUNT 212 K/uL (130-400); RED BLOOD COUNT 4.35 M/uL (4.7-6.1); WHITE BLOOD COUNT 9.25 K/uL (4.8-10.8)
[2017-02-12 07:25] LABS: INR 1.6 (0.9-1.1); PROTHROMBIN TIME (PATIENT) 16.9 SECONDS (9.0-12.0)
[2017-02-12 07:53] VITALS: BP 109/77; PULSE 88; TEMP 36.9; O2SAT 94
[2017-02-12] MEDS: FLUTICASONE PROPIONATE NA SPR 16 GM BTL SCH (08:50)
[2017-02-12] MEDS: DOCUSATE SODIUM 100 MG CAP PO SCH (08:50)
[2017-02-12] MEDS: CYANOCOBALAMIN 500 MCG TAB (VIT B-12) PO SCH (08:50)
[2017-02-12] MEDS: PANTOprazole SOD 40 MG TAB PO SCH (08:51)
[2017-02-12] MEDS: CEROVITE ADV FORMULA TAB PO SCH (08:51)
[2017-02-12] MEDS: MAGNESIUM OXIDE 400 MG TAB PO SCH (08:51)
[2017-02-12] MEDS: METOPROLOL SUCC 50MG EXT REL TAB PO SCH (08:51)
[2017-02-12] MEDS: LISINOPRIL 2.5 MG TAB PO SCH (08:52)
--- NOTE | 2017-02-12 08:57 | Dermatology Progress Note ---
Dermatology Progress Note Date of Service Feb 12, 2017. Subjective 62 y/o male admitted 02/06 after bilateral leg edema and erythema on the upper body, particularly on axillae and around new ICD placed 02/02, associated low grade fever and sweats at home by hx. Pt trt as inpatient/ICU, given Abx vancomycin and zosyn, then switched to daptomycin and azactam when pt became more red with rash over the trunk. Pt very pruritic now, dermatology was consulted to R/O SJS. Currently also on prednisone, Benadryl, and famotidine; he thinks that tonight, his skin is improving, and he is feeling well. No mucosal symptoms. No evidence of bacteremia. Objective Vital Signs Date Time Temp Pulse Resp B/P (MAP) Pulse Ox O2 Delivery O2 Flow Rate FiO2 02/12/17 07:53 36.9 88 18 109/77 (88) 94 Room Air 02/12/17 04:10 37.0 57 18 101/56 (71) 95 Room Air 02/12/17 04:00 Room Air 02/12/17 00:15 36.7 49 18 86/54 (65) 100 Room Air 02/12/17 00:00 Room Air 02/11/17 20:32 91 Room Air 02/11/17 20:21 36.9 62 18 90/57 (68) 91 Room Air 02/11/17 16:00 Room Air 02/11/17 15:41 36.6 91 20 127/86 (100) 91 Room Air 02/11/17 14:22 96 Room Air 02/11/17 11:30 Room Air 02/11/17 11:07 36.6 75 16 106/60 (75) 97 Room Air 02/11/17 10:02 Room Air Physical Exam Notes: Pt is well-appearing, sitting in bed but quite mobile. Whole body excluding face has fine erythematous pink patches and confluent papules, legs have compression hose, no appreciable pain, no ulceration, or any mucosal findings. Laboratory Results Last 24 Hours Test 02/12/17 06:55 White Blood Count 9.25 K/uL Red Blood Count 4.35 M/uL Hemoglobin 11.5 g/dL Hematocrit 36.8 % Mean Corpuscular Volume 84.6 fL Mean Corpuscular Hemoglobin 26.4 pg Mean Corpuscular Hemoglobin Concent 31.3 g/dl RDW Standard Deviation 49.3 fL RDW Coefficient of Variation 16.0 % Platelet Count 212 K/uL Mean Platelet Volume 9.8 fL Prothrombin Time 16.9 SECONDS Prothromb Time International Ratio 1.6 Assessment and Plan Pt has drug reaction, likely skin was worsening b/c of allergy to one of the antibiotics on admission. His legs were likely a stasis flare, there is not evidence of active infection, so antibiotics will likely not further be necessary, at least for his skin findings. Pt can leave on 60 mg taper of prednisone over 2 weeks, benadryl 25-50 mg as need every 4-6 hours (no need for famotidine), vaseline to skin, Dove sensitive cleanser. Stasis measures, continue compression hose daily. If any worsening rash or musocal symptoms, we will re-evaluate. No evidence of Dobson Marcel Thank you for involving me in his care. Malaika Bowser MD [phone] [facility] Dermatology
[2017-02-12] MEDS: FAMOTIDINE IV INJ 20 MG in DEXTROSE 5% 100ML 100 ML IV SCH (08:58)
--- NOTE | 2017-02-12 09:52 | Progress Note ---
Internal Med Progress Note Date of Service: Feb 12, 2017. Provider Documentation: SUBJECTIVE: Seen and examined at bedside Feels well today Rash is clearing Itching better Denies chest pain/SOB/Dysphagia Offers no other complaints Eager to get discharged Prefers to follow up with Oncology as outpatient OBJECTIVE: Vital Signs-as noted below Physical Exam: General Appearance:Obese, no apparent distress Head: normocephalic, Atraumatic Eyes: normal inspection, EOMI, PERRL Neck: supple, Trachea midline Respiratory/Chest: Normal breath sounds, CTA Cardiovascular: Irregularly Irregular, No murmur Abdomen/GI:Soft, Non tender, Bowel sounds present Extremities/Musculoskelatal:normal inspection, Chronic LE edema, venous stasis Neurologic/Psych:grossly no focal neurological deficits Skin: Diffuse erythematous rash improving Lab data as noted below. ASSESSMENT & PLAN: CELLULITIS AT AICD SITE had recent AICD placed on 02/02/17 Patient presented with fever and chills, leukocytosis, erythema at AICD site CT chest :no evidence of chest wall abscess, mild fat stranding surrounding right sided pacemaker Blood cultures:-no growth Abx changed to Daptomycin and Azactam due to possible allergic reaction to vanco /Zosyn Discontinued all ABx secondary to worsening rash for drug reaction and also as cultures are negative Appreciate ID/Cardiology Input DIFFUSE ERYTHEMATOUS RASH Likely drug reaction Rash improving Does have penicillin allergy which he did not disclose until after receiving Zosyn Abx changed to Daptomycin and Azactam due to possible allergic reaction to vanco /Zosyn and later discontinued all antibiotics On prednisone taper, Famotidine, Benadryl PRN Appreciate Dermatology Input B/L LE CELLULITIS: Unlikely Likely Venous stasis Chronic venous stasis changes, but new onset erythema and warmth IV antibiotics discontinued as above Appreciate ID Input Continue compression stockings NONISCHEMIC CARDIOMYOPATHY Compensated Continue lisinopril Lasix discontinued CORONARY ARTERY DISEASE No anginal symptoms. Continue metoprolol CHRONIC AF Rate controlled on metoprolol. Warfarin initially held for EGD Monitor INR: 1.6 Continue Coumadin LIKELY ESOPHAGEAL CANCER WEIGHT LOSS/MODERATE PROTEIN CALORIE MALNUTRITION : Patient reports 65 pound weight loss over past 6 months which he attributes to GI symptoms (anorexia, indigestion, dysphagia to solids). CT demonstrates thickening of distal esophagus and possible upper abdominal adenopathy. EGD: evidence of Cheng's esophagus and Esophageal mass Pathology: MODERATELY DIFFERENTIATED ADENOCARCINOMA Continue PPI. Appreciate GI Input Needs EUS, PET scan Heme Onch follow up as outpatient Also needs follow up with GI upon discharge Patient prefers to follow up with Oncology as outpatient. Informed about patient. DM II Recently diet-controlled. Hgb A1C 6.0 in clinic on 11/03/16. Monitor BPH Continue tamsulosin. DVT Px: H/O PE. on warfarin for chronic AF, PE. Ambulate. 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 [employer] [facility] in 2 weeks as advised (Office will call for your appointment) Follow up with your [employer] Production Technician as advised Follow up for your Pacemaker check on 02/16/17 at 10:30AM Follow up with your coumadin clinic for INR monitoring and coumadin dosing Complete the prednisone taper course as prescribed Start taking 40mg for 3 days, then 30mg for 3 days, 20mg for 3 days, 10mg for 3 days and stop Seek immediate medical attention if your symptoms reoccur or worsen Vital Signs: Date Time Temp Pulse Resp B/P (MAP) Pulse Ox O2 Delivery O2 Flow Rate FiO2 02/12/17 07:53 36.9 88 18 109/77 (88) 94 Room Air 02/12/17 04:10 37.0 57 18 101/56 (71) 95 Room Air 02/12/17 04:00 Room Air 02/12/17 00:15 36.7 49 18 86/54 (65) 100 Room Air 02/12/17 00:00 Room Air 02/11/17 20:32 91 Room Air 02/11/17 20:21 36.9 62 18 90/57 (68) 91 Room Air 02/11/17 16:00 Room Air 02/11/17 15:41 36.6 91 20 127/86 (100) 91 Room Air 02/11/17 14:22 96 Room Air 02/11/17 11:30 Room Air 02/11/17 11:07 36.6 75 16 106/60 (75) 97 Room Air Lab Results: Results Past 24 Hours Test 02/12/17 06:55 Range/Units White Blood Count 9.25 4.8-10.8 K/uL Red Blood Count 4.35 4.7-6.1 M/uL Hemoglobin 11.5 14.0-18.0 g/dL Hematocrit 36.8 42-52 % Mean Corpuscular Volume 84.6 80-100 fL Mean Corpuscular Hemoglobin 26.4 25-34 pg Mean Corpuscular Hemoglobin Concent 31.3 32-36 g/dl RDW Standard Deviation 49.3 36.4-46.3 fL RDW Coefficient of Variation 16.0 11.5-14.5 % Platelet Count 212 130-400 K/uL Mean Platelet Volume 9.8 7.4-10.4 fL Prothrombin Time 16.9 9.0-12.0 SECONDS Prothromb Time International Ratio 1.6 0.9-1.1
--- NOTE | 2017-02-12 10:22 | Progress Note ---
Subjective Date of Service: Feb 12, 2017. Subjective Pt evaluation today including: conversation w/ patient, physical exam, chart review, lab review pt feeling much better, remains stable off of abx. rash resolving. no itching, no f/c. no drainage from pacer site. states he is being /c today. no complaints. all remaining ros reviewed and are negative. Problem List Medical Problems: (1) Atrial fibrillation Status: Chronic (2) Cellulitis Status: Acute (3) Fever Status: Acute (4) Hypermagnesemia Status: Acute (5) Influenza Status: Acute Objective Vital Signs Date Time Temp Pulse Resp B/P (MAP) Pulse Ox O2 Delivery O2 Flow Rate FiO2 02/12/17 07:53 36.9 88 18 109/77 (88) 94 Room Air 02/12/17 04:10 37.0 57 18 101/56 (71) 95 Room Air 02/12/17 04:00 Room Air 02/12/17 00:15 36.7 49 18 86/54 (65) 100 Room Air 02/12/17 00:00 Room Air 02/11/17 20:32 91 Room Air 02/11/17 20:21 36.9 62 18 90/57 (68) 91 Room Air 02/11/17 16:00 Room Air 02/11/17 15:41 36.6 91 20 127/86 (100) 91 Room Air 02/11/17 14:22 96 Room Air 02/11/17 11:30 Room Air 02/11/17 11:07 36.6 75 16 106/60 (75) 97 Room Air Physical Exam General Appearance: WD/WN, no apparent distress Eyes: normal inspection, EOMI Neck: supple Respiratory/Chest: normal breath sounds, no respiratory distress Cardiovascular: no edema Abdomen: soft Extremities: non-tender, normal inspection Neurologic/Psychiatric: alert, oriented x 3 Skin: normal color, + rash Comments: significantly improved rash Laboratory Results Item Value Date Time Blood Culture - Final Complete 02/05/172307 Blood NO GROWTH Blood Culture - Final Complete 02/05/172299 Blood NO GROWTH Last 24 Hours Test 02/12/17 06:55 White Blood Count 9.25 K/uL Red Blood Count 4.35 M/uL Hemoglobin 11.5 g/dL Hematocrit 36.8 % Mean Corpuscular Volume 84.6 fL Mean Corpuscular Hemoglobin 26.4 pg Mean Corpuscular Hemoglobin Concent 31.3 g/dl RDW Standard Deviation 49.3 fL RDW Coefficient of Variation 16.0 % Platelet Count 212 K/uL Mean Platelet Volume 9.8 fL Prothrombin Time 16.9 SECONDS Prothromb Time International Ratio 1.6 Assessment and Plan (1) Drug eruption Assessment & Plan: will continue to follow off of abx, cultures negative. no new ID recs. (2) Cellulitis Problem Qualifiers (1) Cellulitis: Site of cellulitis: extremity Site of cellulitis of extremity: lower extremity Laterality: unspecified laterality Qualified Codes: L03.119 - Cellulitis of unspecified part of limb
[2017-02-12] MEDS ORDERED: BND25 PO (10:24)
[2017-02-12] MEDS ORDERED: PRED10TA PO (10:24)
--- NOTE | 2017-02-12 10:26 | Discharge Summary ---
Discharge Summary Date of Service Feb 12, 2017. Discharge Summary Admission Date: Feb 06, 2017 at 03:08 Discharge Date: Feb 12, 2017 Discharge Disposition: Home Principal Diagnosis: Esophageal Cancer, Drug reaction Procedures: CT ABD: 1. Distal esophageal thickening. 2. Large ventral hernia containing stomach small bowel and colon 3. Adenopathy within the gastrohepatic ligament, at the level of the celiac axis, as well as within the para-aortic retroperitoneal region 4. No evidence of bowel obstruction. No evidence of free air. CT chest: 1. No evidence for chest wall abscess. 2. Mild fat stranding surrounding the right-sided pacemaker. 3. Moderate hiatus hernia with thickening of the hernia sac. Endoscopy is recommended for further evaluation to exclude a mass. 4. Possible upper abdominal lymphadenopathy. This is only partially visualized on this study. Follow-up abdominal CT can be used for confirmation. 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 There was a fungating, friable ashia-circumferential, partial obstructing mass arising the segment of Cheng's, spanning from 35 to 40 cm. This mass was biopsied. This mass was not seen on retroflexion. There was a hiatal hernia. The stomach was normal. The duodenum was normal. Impression: -Distal esophageal cancer. Recommendation: - Discharge patient to floor. Plan for rich-CT, PET scans. Consultations: ID, GI, Dermatology, Cardiology Pending Studies/Follow-Up: Follow up with your PCP on 02/17/17 at 11:00AM Follow up with Oncology Dr.Nilesh Jordan in 1 week as advised (Please call [phone] for appointment if you do not hear from 's Office) Follow up with your Test Engineering Technician in 2 weeks as advised (Office will call for your appointment) Follow up with your Circular Gang Saw Operator as advised Follow up for your Pacemaker check on 02/16/17 at 10:30AM Follow up with your coumadin clinic for INR monitoring and coumadin dosing Complete the prednisone taper course as prescribed Start taking 40mg for 3 days, then 30mg for 3 days, 20mg for 3 days, 10mg for 3 days and stop Seek immediate medical attention if your symptoms reoccur or worsen Medication Reconciliation New Medications: Prednisone Tab (Prednisone) 10 Mg Tab 10 MG PO UD for 12 Days, #30 TAB Start taking 40mg for 3 days, then 30mg for 3 days, 20mg for 3 days, 10mg for 3 days and stop Diphenhydramine Hcl (Benadryl) 25 Mg Cap 25 MG PO Q6 PRN for Itching for 7 Days, #28 CAP Continued Medications: Aspirin (Aspirin) 81 Mg Tab 1 TAB PO DAILY Coenzyme Q10 (Ubidecarenone) (Coenzyme Q-10) 100 Mg Cap 1 TAB PO BID Cyanocobalamin (Vitamin B-12) 1,000 Mcg Tab 1000 MCG PO DAILY, TAB Docusate Sodium (Colace) 100 Mg Cap 100 MG PO BID Ferrous Sulfate (Iron) 325 Mg Tab 1 TAB PO DAILY Glucosamine Sulfate (Glucosamine) 1,000 Mg Tab 2000 MG PO DAILY, TAB Lisinopril (Prinivil) 5 Mg Tab 5 MG PO DAILY, TAB Magnesium Oxide (Mag-Ox) 400 Mg Tab 400 MG PO BID, TAB Metoprolol Succ (Toprol Xl) (Toprol-Xl) 50 Mg Tabcr 50 MG PO DAILY Multivitamins/Minerals (Mvi With Minerals) Tab 1 TAB PO DAILY, TAB Omeprazole (Prilosec) 20 Mg Capcr 20 MG PO BID PRN for Dyspepsia Tamsulosin HCl (Tamsulosin HCl) 0.4 Mg Cap 0.4 MG PO HS Tramadol (Ultram) 50 Mg Tab 50 MG PO Q8H PRN for Pain, TAB Warfarin Sodium (Warfarin Sodium) 5 Mg Tab 2.5 MG PO DAILY Admission Information HPI (per Admitting provider): 62 YO male followed by Dr. Sanders for Internal Medicine. History of nonischemic cardiomyopathy, chronic atrial fibrillation, and other problems noted below. ICD placed by Dr. Rubio on 02/02/17. Warfarin was held for the procedure. Patient noted some erythema around ICD site about 24 hours prior to admission. No drainage from the incision. Also noted new erythema of both lower extremities. He has chronic venous stasis changes, but erythema is definitely new. Experienced sweats and possible low grade temp. Cardiac status is stable. No discharges of ICD. . Physical Exam (per Admitting): General Appearance: no apparent distress, + obese Head: normocephalic, atraumatic Eyes: normal inspection, PERRL, EOMI, sclerae normal, + pertinent finding ( conjunctivae pink) ENT: hearing grossly normal, pharynx normal Neck: supple, no adenopathy, thyroid normal, trachea midline Respiratory/Chest: lungs clear, no respiratory distress, no accessory muscle use Cardiovascular: no gallop, no murmur, + irregularly irregular, + pertinent finding (ACD site right upper thorax with some erythema surrounding incision, no drainage; + JVD; trace pretibial edema) Abdomen/GI: normal bowel sounds, non tender, soft, no organomegaly, no pulsatile mass, + pertinent finding (obese) Extremities/Musculoskelatal: no calf tenderness, normal capillary refill (2 sec), + pertinent finding (venous insufficiency, trace pretibial and pedal edema ) Neurologic/Psych: aligner barrel and receiver II-XII nml as tested (PERRL, EOMI, no facial palsy, no dysarthria), no motor/sensory deficits (motor strength grossly intact), alert , normal mood/affect, normal reflexes, oriented x 3 Skin: warm/dry, + pertinent finding (chronic venous stasis changes bilateral lower extremities; intense erythema and warmth bilat legs proximal to venous stasis changes) Hospital Course CELLULITIS AT AICD SITE had recent AICD placed on 02/02/17 Patient presented with fever and chills, leukocytosis, erythema at AICD site CT chest :no evidence of chest wall abscess, mild fat stranding surrounding right sided pacemaker Blood cultures:-no growth Abx changed to Daptomycin and Azactam due to possible allergic reaction to vanco /Zosyn Discontinued all ABx secondary to worsening rash for drug reaction and also as cultures are negative Appreciate ID/Cardiology Input DIFFUSE ERYTHEMATOUS RASH Likely drug reaction Rash improving Does have penicillin allergy which he did not disclose until after receiving Zosyn Abx changed to Daptomycin and Azactam due to possible allergic reaction to vanco /Zosyn and later discontinued all antibiotics On prednisone taper, Famotidine, Benadryl PRN Appreciate Dermatology Input B/L LE CELLULITIS: Unlikely Likely Venous stasis Chronic venous stasis changes, but new onset erythema and warmth IV antibiotics discontinued as above Appreciate ID Input Continue compression stockings NONISCHEMIC CARDIOMYOPATHY Compensated Continue lisinopril Lasix discontinued CORONARY ARTERY DISEASE No anginal symptoms. Continue metoprolol CHRONIC AF Rate controlled on metoprolol. Warfarin initially held for EGD Monitor INR: 1.6 Continue Coumadin LIKELY ESOPHAGEAL CANCER WEIGHT LOSS/MODERATE PROTEIN CALORIE MALNUTRITION : Patient reports 65 pound weight loss over past 6 months which he attributes to GI symptoms (anorexia, indigestion, dysphagia to solids). CT demonstrates thickening of distal esophagus and possible upper abdominal adenopathy. EGD: evidence of Cheng's esophagus and Esophageal mass Pathology: MODERATELY DIFFERENTIATED ADENOCARCINOMA Continue PPI. Appreciate GI Input Needs EUS, PET scan Heme Onch follow up as outpatient Also needs follow up with GI upon discharge Patient prefers to follow up with Oncology as outpatient. Informed about patient. DM II Recently diet-controlled. Hgb A1C 6.0 in clinic on 11/03/16. Monitor BPH Continue tamsulosin. DVT Px: H/O PE. on warfarin for chronic AF, PE. Ambulate. CODE STATUS: Full Code DISPOSITION Plan to discharge home today Follow up with your PCP on 02/17/17 at 11:00AM Follow up with Oncology Dr.Nilesh oJrdan in 1 week as advised (Please call [phone] for appointment if you do not hear from 's Office) Follow up with your Test Engineering Technician in 2 weeks as advised (Office will call for your appointment) Follow up with your Circular Gang Saw Operator as advised Follow up for your Pacemaker check on 02/16/17 at 10:30AM Follow up with your coumadin clinic for INR monitoring and coumadin dosing Complete the prednisone taper course as prescribed Start taking 40mg for 3 days, then 30mg for 3 days, 20mg for 3 days, 10mg for 3 days and stop Seek immediate medical attention if your symptoms reoccur or worsen Total time spent on discharge = 35 minutes This includes examination of the patient, discharge planning, medication reconciliation, and communication with other providers. Discharge Instructions Discharge Instructions Date of Service Feb 12, 2017. Admission Reason for Admission: Cellulitis Discharge Discharge Diagnosis / Problem: Esophageal Cancer, Drug reaction Discharge Goals Goal(s): Decrease discomfort, Improve function Activity Recommendations Activity Limitations: resume your previous activity Exercise/Sports Limitations: as tolerated . Instructions / Follow-Up Instructions / Follow-Up Follow up with your PCP on 02/17/17 at 11:00AM Follow up with Oncology Dr.Nilesh Jordan in 1 week as advised (Please call [phone] for appointment if you do not hear from 's Office) Follow up with your Test Engineering Technician in 2 weeks as advised (Office will call for your appointment) Follow up with your Circular Gang Saw Operator as advised Follow up for your Pacemaker check on 02/16/17 at 10:30AM Follow up with your coumadin clinic for INR monitoring and coumadin dosing Complete the prednisone taper course as prescribed Start taking 40mg for 3 days, then 30mg for 3 days, 20mg for 3 days, 10mg for 3 days and stop Seek immediate medical attention if your symptoms reoccur or worsen Current Hospital Diet Patient's current hospital diet: AHA Diet (Heart Healthy) Discharge Diet Recommended Diet: AHA Diet (Heart Healthy) Procedures Procedures Performed: BX EG JUNCTION Pending Studies Studies pending at discharge: no Medical Emergencies . Who to Call and When: Medical Emergencies: If at any time you feel your situation is an emergency, please call 911 immediately. . Non-Emergent Contact Non-Emergency issues call your: Primary Care Provider, Test Engineering Technician, Oncologist Call Non-Emergent contact if: you have a fever, your pain is not controlled, your pain is worsening, your pain is unusual for you, your pain is concerning you, you have any medication questions . . "Provider Documentation" section prepared by Junaid Hagan. . VTE Core Measure Inpt VTE Proph given/why not?: Unfractionated heparin SQ
[2017-02-12 11:03] VITALS: BP 109/77; PULSE 88; TEMP 36.9; O2SAT 94
== END 2017-02-12 11:55 | disposition home or self-care (01) | DRG 603 ==
LOC: C.EDB 22:09 → C.MED 02-06 03:08 → EDBEDREQTM 02-06 03:23 → EDBEDREQSVC 02-06 03:23 → ENRESERV 02-06 03:28 → C.2E 02-07 13:36
PROVIDERS: ADMIT Hospitalist; ATTEND Internal Medicine
PROC: 0DB48ZX Excision of Esophagogastric Junction, Via Natural or Artificial Opening Endoscopic, Diagnostic (ICD-10-PCS; principal; 2017-02-09 11:39)
DX: L03.313 Cellulitis of chest wall (principal); I42.9 Cardiomyopathy, unspecified; L03.115 Cellulitis of right lower limb; I50.20 Unspecified systolic (congestive) heart failure; E44.0 Moderate protein-calorie malnutrition; C15.9 Malignant neoplasm of esophagus, unspecified; L03.116 Cellulitis of left lower limb; I87.8 Other specified disorders of veins; I48.2 Chronic atrial fibrillation; N40.0 Benign prostatic hyperplasia without lower urinary tract symptoms; E11.9 Type 2 diabetes mellitus without complications; I25.10 Atherosclerotic heart disease of native coronary artery without angina pectoris; K21.9 Gastro-esophageal reflux disease without esophagitis; I11.0 Hypertensive heart disease with heart failure; R21 Rash and other nonspecific skin eruption; T36.0X5A Adverse effect of penicillins, initial encounter; K44.9 Diaphragmatic hernia without obstruction or gangrene; G47.33 Obstructive sleep apnea (adult) (pediatric); E66.01 Morbid (severe) obesity due to excess calories; Z79.01 Long term (current) use of anticoagulants; Z79.82 Long term (current) use of aspirin; Z79.899 Other long term (current) drug therapy; Z95.810 Presence of automatic (implantable) cardiac defibrillator; Z86.718 Personal history of other venous thrombosis and embolism; Z86.711 Personal history of pulmonary embolism; F17.220 Nicotine dependence, chewing tobacco, uncomplicated; Z88.0 Allergy status to penicillin

== ENCOUNTER → 2017-02-24 | Outpatient (CLI) | payer OTHER ==
[~2017-02-24] MED LIST changes: +BND25 PO; +DXM/4 PO; +ONDA8TAB6 PO; +PRED10TA PO; +PROC1TAB5 PO
--- NOTE | 2017-02-24 10:28 | DIAGNOSTIC IMAGING REPORT ---
PET/CT SKULL-THIGH CLINICAL HISTORY: 62 years-old Male presenting with ESOPHAGEAL CANCER, distal esophageal thickening, upper abdominal lymphadenopathy. TECHNIQUE: PET/CT was performed from the base of the skull through the proximal thighs following the intravenous administration of 12.354 mCi of F18-FDG. Blood glucose level 109 mg/dL. The injection was performed at 6:53 AM and imaging began at 7:[address] was performed for attenuation correction purposes and anatomic localization. COMPARISON: Chest CT from 02/06/[address] of the abdomen and pelvis from 02/09/2017. CT DOSE (mGy.cm): The estimated cumulative dose is 1156.30. FINDINGS: Head and neck: No FDG avid lymphadenopathy in the cervical region. Mild mucosal thickening in the maxillary sinuses. Limited intracranial evaluation within normal limits. Chest: Mild FDG avidity noted associated with the right abdominal wall pacer could be artifactual secondary to limitations in attenuation correction. No fluid collection associated with the pacer. Focal FDG avidity at the site of entry of the lead into the right subclavian vein, likely reactive change/granulation tissue. Single lead pacer with the lead terminating at the right ventricular apex. Atherosclerosis of the aortic arch. Multichamber enlargement of the heart. No FDG avid or enlarged mediastinal lymph nodes. FDG avid distal esophageal mass with associated esophageal wall thickening (max SUV 12.0). Abdomen and pelvis: FDG avid upper abdominal and retroperitoneal lymph nodes extensively noted at the gastrohepatic region (max SUV 8.1) as well as left periaortic (max SUV 8.8) and aortocaval regions (max SUV 6.4). Otherwise expected distribution of radiotracer within the viscera and excretion into the urinary collecting system. Large ventral hernia containing small and large bowel. No bowel obstruction. IVC filter noted. Musculoskeletal: Degenerative changes of the spine. No focal destructive or FDG avid osseous lesion. IMPRESSION: 1. Initial PET/CT demonstrates FDG avid primary distal esophageal mass with upper abdominal and retroperitoneal metabolically active lymphadenopathy. No other sites of metastatic disease. 2. Cardiomegaly. Electronically signed by: Garth Dukes M.D. 02/24/2017 10:27 AM Dictated Date/Time: 02/24/2017 9:13 AM
== END | disposition home or self-care (01) ==
LOC: C.PET 06:25
PROVIDERS: ATTEND Internal Medicine Hematology
DX: C15.5 Malignant neoplasm of lower third of esophagus (principal); I51.7 Cardiomegaly

== ENCOUNTER 2017-03-12 05:10 | Day surgery (SDC) | payer OTHER ==
[2017-03-10 08:58] VITALS: BMI 41.0
--- NOTE | 2017-03-10 09:31 | PAT Medication Instructions ---
Service Date Mar 10, 2017. Current Home Medication List Ascorbic Acid (Vitamin C), 1,000 MG PO TID Aspirin (Aspirin), 1 TAB PO QAM Coenzyme Q10 (Ubidecarenone) (Coenzyme Q-10), 1 TAB PO BID Cyanocobalamin (Vitamin B-12), 2,000 MCG PO QAM Docusate Sodium (Colace), 100 MG PO BID Enoxaparin (Lovenox), 150 MG SQ Q12H Ferrous Sulfate (Iron), 1 TAB PO QAM Lisinopril (Prinivil), 5 MG PO QAM Magnesium Oxide (Mag-Ox), 400 MG PO BID Metoprolol Succ (Toprol Xl) (Toprol-Xl), 50 MG PO HS Multivitamins/Minerals (Mvi With Minerals), 1 TAB PO QAM Omeprazole (Prilosec), 20 MG PO TIDM Ondansetron Hcl (Zofran), 8 MG PO TID PRN for Nausea Prochlorperazine Maleate (Compazine), 1 TAB PO Q6 PRN for PRN Tamsulosin HCl (Tamsulosin HCl), 0.4 MG PO HS Tramadol (Ultram), 50 MG PO Q8H PRN for Pain Warfarin Sodium (Warfarin Sodium), 2.5 MG PO DAILY Medication Instructions For Your Scheduled Surgery - Already stopped in anticipation for surgery: Warfarin Sodium (Warfarin Sodium), 2.5 MG PO DAILY *on Lovenox bridge* - Hold the following medications as of 03/10/17: Coenzyme Q10 (Ubidecarenone) (Coenzyme Q-10), 1 TAB PO BID - Hold the following medications the morning of surgery: Ascorbic Acid (Vitamin C), 1,000 MG PO TID Ferrous Sulfate (Iron), 1 TAB PO QAM Lisinopril (Prinivil), 5 MG PO QAM Docusate Sodium (Colace), 100 MG PO BID Magnesium Oxide (Mag-Ox), 400 MG PO BID Cyanocobalamin (Vitamin B-12), 2,000 MCG PO QAM Multivitamins/Minerals (Mvi With Minerals), 1 TAB PO QAM - Take the following medications the morning of surgery with a sip of water OTHERWISE NOTHING TO EAT OR DRINK AFTER MIDNIGHT: Omeprazole (Prilosec), 20 MG PO TIDM Tramadol (Ultram), 50 MG PO Q8H PRN for Pain (may take if needed up to 4 hours prior to surgery) Ondansetron Hcl (Zofran), 8 MG PO TID PRN for Nausea Aspirin (Aspirin), 1 TAB PO QAM Prochlorperazine Maleate (Compazine), 1 TAB PO Q6 PRN for PRN - Take the following medications as scheduled the night before surgery: Omeprazole (Prilosec), 20 MG PO TIDM Tramadol (Ultram), 50 MG PO Q8H PRN for Pain Ondansetron Hcl (Zofran), 8 MG PO TID PRN for Nausea Ascorbic Acid (Vitamin C), 1,000 MG PO TID Docusate Sodium (Colace), 100 MG PO BID Magnesium Oxide (Mag-Ox), 400 MG PO BID Tamsulosin HCl (Tamsulosin HCl), 0.4 MG PO HS Metoprolol Succ (Toprol Xl) (Toprol-Xl), 50 MG PO HS Prochlorperazine Maleate (Compazine), 1 TAB PO Q6 PRN for PRN If you have any questions please call us at [phone] or [phone] or [phone]
[~2017-03-12] VITALS: Ht 180.3 cm; Wt 134.8 kg
[~2017-03-12 05:10] MED LIST changes: +ASCO10003 PO; -BND25 PO; -DXM/4 PO; +ENOX120I SQ; +GENERAL ORDER PROBLEM SCH; -GLUC10007 PO; -PRED10TA PO
[2017-03-12 05:34] VITALS: Ht 180.3 cm; Wt 134.8 kg
[2017-03-12 05:39] VITALS: BP 99/61; PULSE 74; TEMP 36.9; O2SAT 96
[2017-03-12] MEDS ORDERED: LACTATED RINGER'S 1000ML 1,000 ML IV SCH (06:00)
[2017-03-12] MEDS ORDERED: FENTANYL CITRATE INJ 50 MCG/1 ML 2 ML VIAL ONE (06:12)
[2017-03-12] MEDS ORDERED: MIDAZOLAM HCL 1 MG/ML 2ML VIAL ONE ×2 (06:12→07:42)
[2017-03-12] MEDS ORDERED: ONDANSETRON INJ 2 MG/ML 2 ML VIAL ONE (06:20)
[2017-03-12] MEDS ORDERED: PROPOFOL IV EMULSION 10 MG/ML 20 ML VIAL IV ONE ×2 (06:26→08:11)
[2017-03-12] MEDS ORDERED: LIDOCAINE HCL 1% 20 ML VIAL ONE (06:39)
[2017-03-12 06:44] LABS: INR 1.1 (0.9-1.1); PARTIAL THROMBOPLASTIN RATIO 1.3
[2017-03-12] MEDS ORDERED: ALBUMIN HUMAN 5% 12.5 GM/250 ML VIAL IV ONE (06:57)
--- NOTE | 2017-03-12 08:51 | Anesthesiology Progress Note ---
Anesthesia Post Op Note Date & Time Mar 12, 2017 at 08:51 Vital Signs Pain Intensity: 0 Vital Signs Past 12 Hours Date Time Temp Pulse Resp B/P (MAP) Pulse Ox O2 Delivery O2 Flow Rate FiO2 03/12/17 05:39 36.9 74 20 99/61 (74) 96 Room Air Notes Mental Status: alert / awake / arousable, participated in evaluation Pt Amnestic to Procedure: Yes Nausea / Vomiting: adequately controlled Pain: adequately controlled Airway Patency, RR, SpO2: stable & adequate BP & HR: stable & adequate Hydration State: stable & adequate Anesthetic Complications: no major complications apparent
--- NOTE | 2017-03-12 08:58 | [facility] Operative Report ---
Operative Report Operative Date Mar 12, 2017. Pre-Operative Diagnosis Need for IV access Post-Operative Diagnosis Same Procedure(s) Performed Aport insertion left subclavian vein Surgeon Kadi Mendez MD Estimated Blood Loss 5ml Findings Left subclavian accessed easily after 2 puncture attempts, good venous blood flow, wire passed easily Fluids 500cc Specimens None Anesthesia Monitored local anesthetic, 9ml 1% Lidocaine Complication(s) None Disposition Recovery Room / PACU Indications Fritz Babb is a 62 year old man with esophageal cancer who needs a venous infusion port for administration of chemotherapy. Indications, risks, benefits and potential complications of central venous port insertion discussed with the patient in detail. All questions answered to apparent satisfaction. Patient agrees to proceed with operation and freely signed the consent form. Description of Procedure Patient was brought to the operating room and identified as Fritz Babb, 57. He was placed on the operating table in supine position. A shoulder roll was placed behind his shoulders to open the left anterior chest anatomy. Anesthesia was induced without difficulty. A time out was held, confirming correct patient, procedure, site, and pre op antibiotics and SCDs. Local anesthetic was injected in the skin over the left anterior chest. An introducer needle was inserted and passed just deep to the clavicle. The left subclavian vein was accessed after two puncture attempts. Good venous blood flow as appreciated. A guide wire was passed through the needle, and the needle was removed. The wire was confirmed to be proceeding to the atriocaval junction by fluoroscopy. A shani was made in the skin at the insertion point. next, a 3cm incision was made approximately 2cm inferior to the puncture site. A pocket was made subcutaneously to accommodate the infusaport. The infusaport was placed in the pocket. Next, the dilator sheath was passed over the wire, and the wire was removed. The catheter was placed through the sheath, and the outer sheath was removed. The catheter was confirmed to be in good position by fluoroscopy. A tunnel was made subcutaneously from the puncture site to the port pocket. The catheter was tunneled through to the port pocket. Fluoroscopy was again used to confirm placement of the catheter, and the catheter was withdrawn slightly so the tip was located at the atriocaval junction. The catheter was then cut to size and attached to the infusaport. The port was found to draw back easily, and was flushed with 5cc of heparinized saline. The port was secured in the pocket using prolene sutures. At the end of the procedure, all sponge and instrument counts were verified to be correct x 2 by the nurse in charge. Deep tissue was closed over the port using 2-0 vicryl. Dermis was reapproximated using 3-0 vicryl in interrupted fashion. Skin was closed using 4 -0 Monocryl in running fashion. A sterile dressing was applied. Patient was then awakened from anesthesia and taken to PACU, having suffered no untoward events. A Chest X-ray was ordered to be obtained in PACU to assess for pneumothorax. I attest to the content of the Intraoperative Record and any orders documented therein. Any exceptions are noted below.
[2017-03-12] MEDS ORDERED: OXYC-57 PO (09:00)
[2017-03-12] MEDS ORDERED: ATROPINE SULFATE 0.1 MG/ML 5ML SYR IV PRN (09:00)
[2017-03-12] MEDS ORDERED: EpHEDrine SULFATE INJ 50 MG/ML AMP IV PRN (09:00)
[2017-03-12] MEDS ORDERED: ONDANSETRON INJ 2 MG/ML 2 ML VIAL IV PRN (09:00)
[2017-03-12] MEDS ORDERED: FENTANYL CITRATE INJ 50 MCG/1 ML 2 ML VIAL IV PRN (09:00)
--- NOTE | 2017-03-12 09:05 | Discharge Instructions ---
Discharge Instructions Date of Service Mar 12, 2017. Admission Reason for Admission: Malignant Neoplasm Esophagus Discharge Discharge Diagnosis / Problem: Malignant neoplasm esophagus, need for central venous access port Discharge Goals Goal(s): Decrease discomfort, Improve function Activity Recommendations Activity Limitations: per Instructions/Follow-up section . Instructions / Follow-Up Instructions / Follow-Up -Please keep the outer dressing in place for 48 hours following surgery. You may shower with the dressing in place, but try to keep it on - do not scrub. -Once outer dressing is removed after 48 hours, please leave the small white band-aids (steri strips) over the incisions in place. These will fall off on their own over time. You may shower with these in place; just allow warm, soapy water to wash over the incisions, do not scrub. Do not soak, as in a bathtub or swimming pool. -You may resume all usual activities. The port may be used starting immediately when needed by Oncology. -You do not need to schedule a follow up appointment with Dr. Menedz, however you may call at any time with concerns or questions - . An appointment can be made if needed. -You may have some bruising at the area over the days following surgery. This will improve with time. -You were given a prescription for Percocet; you may take 1 to 2 tabs as needed for pain that is not controlled with Tylenol or Ibuprofen. -Resume your coumadin per instructions from the coumadin clinic. Current Hospital Diet Patient's current hospital diet: Discharge Diet Recommended Diet: Regular Diet Procedures Procedures Performed: Aport insertion left subclavian vein Pending Studies Studies pending at discharge: no Medical Emergencies . Who to Call and When: Medical Emergencies: If at any time you feel your situation is an emergency, please call 911 immediately. . Non-Emergent Contact Non-Emergency issues call your: Primary Care Provider, Surgeon Call Non-Emergent contact if: temperature is above 100.5, your pain is not controlled, your pain is worsening, wound has increased drainage, wound has increased redness, wound has increased pain . "Provider Documentation" section prepared by Kadi Mendez. . VTE Core Measure Inpt VTE Proph given/why not?: Enoxaparin (Lovenox)SQ, SCD's
[2017-03-12 09:15] VITALS: BP 98/72; PULSE 48; TEMP 36.4; O2SAT 94
--- NOTE | 2017-03-12 09:30 | DIAGNOSTIC IMAGING REPORT ---
CHEST ONE VIEW PORTABLE HISTORY: 62 years-old Male eval for pneumothorax status post placement of a left subclavian Nmmktm-v-Wbth catheter COMPARISON: Chest radiograph 02/03/2017 TECHNIQUE: Portable upright AP view of the chest FINDINGS: Cardiac silhouette is moderately enlarged. Left subclavian Ehcghc-i-Rwss catheter is noted with distal tip terminating to the right of midline within the region of the mid SVC. No postprocedural pneumothorax. Right-sided pacer/AICD is noted with single lead overlying the region of the right ventricle. Mild pulmonary vascular congestion without overt pulmonary edema. Atherosclerosis of the aorta. No pleural effusion or focal airspace consolidation. IMPRESSION: Status post placement of a left subclavian Mkyvcy-l-Ggbq catheter with distal tip terminating in the region of the mid SVC. There is no postprocedural pneumothorax. The above report was generated using voice recognition software. It may contain grammatical, syntax or spelling errors. Electronically signed by: Mega Polanco M.D. 03/12/2017 9:28 AM Dictated Date/Time: 03/12/2017 9:22 AM
[2017-03-12 09:45] VITALS: BP 107/68; PULSE 61; TEMP 36.4; O2SAT 99
== END 2017-03-12 10:05 | disposition home or self-care (01) ==
LOC: C.ACU 05:10
PROVIDERS: ATTEND Student in an Organized Health Care Education/Training Program
DX: C15.9 Malignant neoplasm of esophagus, unspecified (principal); I25.10 Atherosclerotic heart disease of native coronary artery without angina pectoris; I47.2 Ventricular tachycardia; K21.9 Gastro-esophageal reflux disease without esophagitis; R91.8 Other nonspecific abnormal finding of lung field; Z95.810 Presence of automatic (implantable) cardiac defibrillator; I27.20 Pulmonary hypertension, unspecified; I87.2 Venous insufficiency (chronic) (peripheral); Z79.899 Other long term (current) drug therapy; Z79.01 Long term (current) use of anticoagulants; Z79.82 Long term (current) use of aspirin

== ENCOUNTER → 2017-04-28 | Outpatient (CLI) | payer OTHER ==
[~2017-04-28] MED LIST changes: +ASCO125C3 PO; -GENERAL ORDER PROBLEM SCH; -METO50TA7 PO; +METO50TA8 PO; +ONDA-170 PO; -ONDA8TAB6 PO; +OXYC-57 PO; +PROC10TA PO; -PROC1TAB5 PO; +coumadin PO
[2017-04-28 12:53] VITALS: BP 100/69; PULSE 54; TEMP 36.7; O2SAT 94
--- NOTE | 2017-04-28 14:36 | Radiation Oncology Follow-Up ---
Radiation Oncology Follow-Up Date of Visit Apr 28, 2017. Reason For Visit One-month follow-up Radiation Completion Date finished 03-25-2017 Diagnosis (1) Esophageal cancer Status: Acute Onset Date: 02/09/2017 Histology Subtype: adenocarcinoma Stage: IV Permanent Comment: Admission for cellulitis at the pacemaker site Weight loss of 65 pounds in [address] with incidental finding of an esophageal mass Status post upper GI endoscopy and biopsy Moderately differentiated adenocarcinoma Status post PET/CT 02/24/2017 Esophageal cancer as well as retroperitoneal lymph nodes are noted Stage IV Status post completion of palliative radiation 03/25/2017. He received 3750 cGy Last Edited By: Danielle Easley on Apr 02, 2017 09:11 History of Present Illness Mr. Babb is a 62-year-old gentleman who was recently moved to the hospital for evaluation for cellulitis after an AICD procedure. During his hospitalization, he complained of dysphagia and significant weight loss. He underwent a CT of the thorax on 02/05/2017 which revealed: "IMPRESSION: 1. No evidence for chest wall abscess. 2. Mild fat stranding surrounding the right- sided pacemaker. 3. Moderate hiatus hernia with thickening of the hernia sac. Endoscopy is recommended for further evaluation to exclude a mass. 4. Possible upper abdominal lymphadenopathy. This is only partially visualized on this study. Follow-up abdominal CT can be used for confirmation." He then had a CT of the abdomen/pelvis on 02/09/2017 which revealed: "IMPRESSION: 1. Distal esophageal thickening.2. Large ventral hernia containing stomach small bowel and colon 3. Adenopathy within the gastrohepatic ligament, at the level of the celiac axis, as well as within the para-aortic retroperitoneal region 4. No evidence of bowel obstruction. No evidence of free air." The patient was seen by Dr. Jensen who recommended an upper endoscopy which was performed on which revealed: "a fungating, friable ashia-circumferential, partial obstructing mass arising the segment of Cheng's, spanning from 35 to 40 cm." The mass was biopsied which confirmed moderately differentiated adenocarcinoma that was positive for HER-2/dora. The patient was then discharged from the hospital and then seen by Dr. Bruno Jordan from medical oncology. Dr. Jordan recommended a completion of the staging workup which included a PET/CT and a EUS by gastroenterology. Dr. Jordan also recommended the patient be evaluated for potential combined chemotherapy and radiation therapy. We are now seeing the patient in consultation discussed with radiation therapy. At this point, the patient continues to have some difficulty with swallowing. He is able to tolerate solid foods however he needs to cut them up and make them smaller. He denies any hematemesis or bleeding at this point. He underwent a PET scan which revealed the esophageal carcinoma as well as retroperitoneal lymphadenopathy. His case was reviewed with Dr. Jordan and medical oncology. Decision was to treat palliatively. Treatment was completed 03/25/2017. Treatment was initially started with radiation alone and then concurrent treatment began the second week of radiation. Interim History He continues with chemotherapy. He does have associated fatigue. There is nausea. Denies vomiting. He has had a problem with phlegm in the throat. He has a cough which is productive of a yellow-colored sputum. Today he was seen by a primary care provider and started on an antibiotic. He had radiation esophagitis towards the end of treatment. This improved but of late he seems to be having some difficulty with swallowing once again. He relates it to the amount of phlegm he hasn't his throat. He is careful to cut his food into small pieces and chew it very well before swallowing. He has issues with meat and also bread. He has started using a supplement just recently. His appetite is fair. He has lost 2 pounds over the past month. He also has been having a lot of sinus drainage. He has discussed the difficulty with swallowing with Dr. Jordan. He'll be seeing him again in 2 weeks and he may schedule him for a upper GI endoscopy. Allergies Coded Allergies: Amoxicillin (Verified Allergy, Unknown, RASH, 03/12/17) developed diffuse rash while on Zosyn and vancomycin on 02/07/17 Escitalopram (Verified Allergy, Unknown, RASH, 03/12/17) Finasteride (Verified Allergy, Unknown, rash, 03/12/17) Penicillins (Verified Allergy, Unknown, RASH, 03/12/17) Piperacillin (Verified Allergy, Unknown, RASH, 03/12/17) developed diffuse rash while on vancomycin and Zosyn on 02/07/17 Tazobactam (Verified Allergy, Unknown, RASH, 03/12/17) developed diffuse rash while on vancomycin and Zosyn on 02/07/17 Vancomycin (Verified Allergy, Unknown, RASH, 03/12/17) developed diffuse rash while on vancomycin and zosyn Home Medications Scheduled Ascorbic Acid (Vitamin C Gummies), 2 TABS PO DAILY Aspirin (Aspirin), 1 TAB PO QAM Coenzyme Q10 (Ubidecarenone) (Coenzyme Q-10), 1 TAB PO BID Cyanocobalamin (Vitamin B-12), 2,000 MCG PO QAM Docusate Sodium (Colace), 100 MG PO BID Ferrous Sulfate (Iron), 1 TAB PO QAM Metoprolol Succ (Toprol Xl) (Toprol-Xl), 50 MG PO BID Multivitamins/Minerals (Mvi With Minerals), 1 TAB PO QAM Omeprazole (Prilosec), 20 MG PO TIDM Tamsulosin HCl (Tamsulosin HCl), 0.4 MG PO HS Warfarin Sodium (Warfarin Sodium), 2.5 MG PO MWF [coumadin ], 5 MG PO UD Scheduled PRN Ondansetron Hcl (Zofran), 8 MG PO TID PRN for Nausea Prochlorperazine Maleate (Compazine), 1 TAB PO Q6 PRN for PRN Tramadol (Ultram), 50 MG PO Q8H PRN for Pain Review of Systems Gastrointestinal: GI Comments: " food gets stuck and then I have to puke it up " Oral: Other Oral Symptoms: " diffiulty swallowing " Respiratory: Symptoms: SOB With Exertion, Productive Cough Sputum Character: yellow Other Respiratory: " lots of sinus drainage " Urinary: Symptoms: Nocturia Comments: nocturia every hr when gets chemo, normal every 2 - 3 hrs Skin: Symptoms: No Problems Physical Exam Vital Signs Date Time Temp Pulse Resp B/P (MAP) Pulse Ox O2 Delivery O2 Flow Rate FiO2 04/28/17 12:53 36.7 54 20 100/69 94 General Appearance: + obese Eyes: normal inspection, EOMI ENT: normal ENT inspection, hearing grossly normal Neck: no adenopathy, thyroid normal Respiratory/Chest: no respiratory distress, no accessory muscle use, + rhonchi (at bases) Cardiovascular: regular rate, rhythm, no gallop, no murmur Abdomen: non tender, soft, no organomegaly Extremities: no pedal edema Neurologic/Psychiatric: no motor/sensory deficits, alert, normal mood/affect Skin: warm/dry Pain Management Patient Reports Pain: Yes Side: Bilateral Patient Preferred Pain Scale: 0 - 10 Initial Pain Intensity: 2 Pain Management Plan The discomfort he has is with swallowing. He is going to restart Manuka honey. Laboratory Laboratory Results: not applicable Pathology Pathology Results: not applicable Imaging Imaging Studies: not applicable Assessment & Plan Plan: Continue regular follow-up with Dr. Jordan and his primary care provider. He was given an antibiotic today for the cough, chest congestion, and sputum. The discomfort he is having may be related to the amount of coughing he is having. His hope that with the antibiotic he will have improvement. He'll continue the supplement therapy. I've asked him to use boost twice a day. He and Dr. Jordan have discussed possible referral back to Dr. Jensen for recheck of her GI endoscopy. A follow-up appointment with our office was not given. He make return if directed by Dr. Jordan. The patient did want to decrease the number of office visits. He may call our office if he has any questions or concerns that he feels is related to radiation therapy. Total Time In Follow-Up I spent 20 minutes speaking to the patient performing examination. I spent 15 minutes reviewing information in completing this note. Copy To Porfirio Jensen M.D.; Bruno Jordan M.D.; Mateus Sanders D.O. Problem Qualifiers (1) Esophageal cancer: Malignant neoplasm of esophagus location: lower third Qualified Codes: C15.5 - Malignant neoplasm of lower third of esophagus
== END | disposition home or self-care (01) ==
LOC: C.ONC 12:49
PROVIDERS: ATTEND Physician Assistant Medical
DX: Z08 Encounter for follow-up examination after completed treatment for malignant neoplasm (principal); Z92.3 Personal history of irradiation; Z85.01 Personal history of malignant neoplasm of esophagus

== ENCOUNTER → 2017-06-07 | Outpatient (CLI) | payer OTHER ==
[~2017-06-07] MED LIST changes: -ASCO10003 PO; -ENOX120I SQ; -LISI-729 PO; -MAGN400T6 PO; +METO50TA7 PO; -METO50TA8 PO; -ONDA-170 PO; +ONDA8TAB6 PO; -OXYC-57 PO; -PROC10TA PO; +PROC1TAB5 PO
--- NOTE | 2017-06-07 13:15 | DIAGNOSTIC IMAGING REPORT ---
PET/CT HISTORY: ESOPHAGEAL CANCER TECHNIQUE: PET/CT was performed from the base of the skull through the pelvis following the intravenous administration of 14 mCi of F18-FDG. Non-contrast CT imaging was performed over the same range without breath-hold for attenuation correction of PET images and anatomic correlation, but not for primary interpretation as it is not of standard diagnostic quality. CT DOSE: 1011.63 mGycm COMPARISON: Head CT 02/24/2017. FINDINGS: HEAD AND NECK: There is no FDG-avid disease or significant lymphadenopathy in the imaged portions of the head and the neck. CHEST: The distal esophageal wall thickening/mass has slightly improved. The FDG uptake at this mass has significantly improved. The SUV max currently measures 3, previous measuring up to 12. No FDG avid or enlarged mediastinal or hilar lymph nodes. Right-sided pacemaker is present. Left subclavian Port-A-Cath terminates at the SVC. No suspicious or FDG avid pulmonary nodules. ABDOMEN/PELVIS: No FDG avid hepatic or splenic masses. No adrenal gland masses. Cholelithiasis. An IVC filter present. Ventral hernia, unchanged. The upper abdominal and retroperitoneal lymphadenopathy has essentially resolved in the interval. A few of the residual subcentimeter retroperitoneal lymph nodes demonstrate mild FDG uptake with an SUV max of 1.7. Dominant retroperitoneal lymph node measures 8 x 6 mm. MUSCULOSKELETAL: There is no FDG-avid or destructive bone lesion. IMPRESSION: 1. Significant improvement in the FDG uptake within the distal esophageal mass. 2. Decrease in size of the retroperitoneal lymphadenopathy with only mild FDG uptake remaining. This is also improved. 3. No new sites of FDG avid disease identified. Electronically signed by: Jacob Cook M.D. 06/07/2017 1:14 PM Dictated Date/Time: 06/07/2017 1:06 PM
== END | disposition home or self-care (01) ==
LOC: C.PET 08:37
PROVIDERS: ATTEND Physician Assistant
DX: C15.5 Malignant neoplasm of lower third of esophagus (principal)

== ENCOUNTER → 2017-08-30 | Outpatient (CLI) | payer OTHER ==
[~2017-08-30] MED LIST changes: -METO50TA7 PO; +METO50TA8 PO; +ONDA-170 PO; -ONDA8TAB6 PO
--- NOTE | 2017-08-30 13:09 | DIAGNOSTIC IMAGING REPORT ---
PET/CT HISTORY: ESOPHAGEAL CANCER TECHNIQUE: PET/CT was performed from the base of the skull through the pelvis following the intravenous administration of mCi of F18-FDG. Non-contrast CT imaging was performed over the same range without breath-hold for attenuation correction of PET images and anatomic correlation, but not for primary interpretation as it is not of standard diagnostic quality. CT DOSE: 932.45 mGycm COMPARISON: PET CT 06/07/2017. FINDINGS: HEAD AND NECK: There is no FDG-avid disease or significant lymphadenopathy in the imaged portions of the head and the neck. CHEST: Possible 1 cm nodule within the superior segment of the left lower lobe on image 88. However, this favors motion artifact associated with the normal pulmonary vessels. No abnormal FDG uptake. There is a new irregular focal 2.5 cm opacity within the right lower lobe medially adjacent to the mediastinum. This demonstrates mild FDG uptake with an SUV max of 2.5. Mild thickening of the distal esophagus and mild FDG uptake with an SUV max of 3.4. This is similar to the prior study. ABDOMEN/PELVIS: Below the diaphragm, tracer is distributed physiologically in the gastrointestinal and genitourinary tracts. There is no significant lymphadenopathy and no FDG-avid disease. Cholelithiasis. There is an IVC filter. Increase in size in the ventral hernia containing a few loops of bowel. No evidence for bowel obstruction. MUSCULOSKELETAL: There is no FDG-avid or destructive bone lesion. IMPRESSION: 1. Mild thickening of the distal esophagus with mild FDG uptake. This is not significantly changed compared the prior study. 2. Interval development of a 2.5 cm opacity within the medial right lower lobe adjacent to the mediastinum/esophagus. This demonstrates mild FDG uptake and may represent post radiation change. Follow-up chest CT in 3 months is recommended to ensure resolution. 3. No retroperitoneal lymphadenopathy. 4. Question of a 1 segment nodule within the left lower lobe which is likely due to motion artifact from the normal pulmonary vessels. This also requires [address] follow up to ensure resolution. Electronically signed by: Jacob Cook M.D. 08/30/2017 1:08 PM Dictated Date/Time: 08/30/2017 12:48 PM
== END | disposition home or self-care (01) ==
LOC: C.PET 08:45
PROVIDERS: ATTEND Internal Medicine Hematology
DX: C15.5 Malignant neoplasm of lower third of esophagus (principal); C77.2 Secondary and unspecified malignant neoplasm of intra-abdominal lymph nodes

== ENCOUNTER → 2017-12-01 | Outpatient (CLI) | payer OTHER ==
[~2017-12-01] MED LIST changes: +PROC10TA PO; -PROC1TAB5 PO
--- NOTE | 2017-12-01 12:22 | DIAGNOSTIC IMAGING REPORT ---
PET/CT SKULL-THIGH CLINICAL HISTORY: 62 years-old Male presenting with ESOPHAGEAL CANCER of the lower third of the esophagus, retroperitoneal metastatic lymphadenopathy, follow-up, diagnosed February 2017, last chemotherapy in November of this year, last radiation March 2017, history of tobacco. TECHNIQUE: PET/CT was performed from the skull base through the proximal thighs following the intravenous administration of 11.612 mCi of F18-FDG. Blood glucose level 116 mg/dL. The injection was performed at 9:35 AM and imaging began at 10:[address] was performed for attenuation correction purposes and anatomic localization. COMPARISON: 08/30/2017. CT DOSE (mGy.cm): The estimated cumulative dose is 1156.30. FINDINGS: Head and neck: No FDG-avid mass in the visualized portion of the head or neck. No FDG avid or enlarged lymph nodes in the neck. Chest: Normal thyroid. Left subclavian Mediport terminates in the SVC. Right subclavian implanted cardiac device with single lead to the right ventricular apex. No FDG avid axillary, supraclavicular, hilar or mediastinal lymphadenopathy. Evaluation of the sameer on anatomic imaging limited without intravenous contrast. Normal aorta. Multichamber enlargement of the heart. Coronary artery calcification. FDG avidity of the right heart suggests elevated right heart pressure. Small left pleural effusion new from prior. Trace hiatal hernia may be present versus minimal thickening of the distal esophagus. No focal FDG avidity of the esophagus. The previously noted sites of paramediastinal opacity now demonstrate extensive paramediastinal peribronchovascular bilateral lower lobes (series 2 image 97). This is greater in the left lower lobe. This is mildly FDG avid in comparison to uninvolved lung parenchyma (max SUV 3.0 in comparison to uninvolved lung max SUV 0.76). Abdomen and pelvis: Normal physiologic distribution of radiotracer in the gastrointestinal and genitourinary tracts. No FDG avid lymphadenopathy or mass lesion. Cholelithiasis. IVC filter in place. Large ventral hernia containing large and small bowel, which are unobstructed. Circumferential bladder wall thickening may suggest chronic bladder outlet obstruction. Moderate stool burden. No free fluid or gas. Atherosclerosis of the normal caliber abdominal aorta. Musculoskeletal: Degenerative changes of the spine. No FDG avid or destructive osseous lesion. Posttraumatic deformity of the parasymphyseal right inferior pubic ramus, unchanged. IMPRESSION: 1. Follow-up PET/CT demonstrates interval increase in suspected radiation pneumonitis involving the paramediastinal lower lobes. This is mildly FDG avid, which is not unexpected. Attention on follow-up. No evidence of local recurrent esophageal cancer, lymphadenopathy, or distant metastases. 2. Chronic findings as above Electronically signed by: Garth Dukes M.D. 12/01/2017 12:20 PM Dictated Date/Time: 12/01/2017 12:01 PM
== END | disposition home or self-care (01) ==
LOC: C.PET 08:49
PROVIDERS: ATTEND Physician Assistant
DX: C15.5 Malignant neoplasm of lower third of esophagus (principal); C77.2 Secondary and unspecified malignant neoplasm of intra-abdominal lymph nodes; R91.1 Solitary pulmonary nodule

== ENCOUNTER 2018-12-23 08:50 | Inpatient (IN) ==
[2018-12-23] MEDS ORDERED: SODIUM CHLORIDE 0.9% 500 ML IV SCH (10:00)
--- NOTE | 2018-12-23 10:11 | XRay Report ---
XR chest 1V portable HISTORY: 63 years-old Male Dyspnea acute shortness of breath COMPARISON: Chest radiograph 09/16/2018 TECHNIQUE: Portable AP view of the chest FINDINGS: Cardiac silhouette is enlarged, unchanged. Stable positioning of the left subclavian Jqravs-c-[id number] ca theter. Calcified plaque of the thoracic aortic arch. Unchanged right subclavian pacer/AICD. No pneum othorax or overt pulmonary edema. Suggestion of a trace left pleural effusion with mild degree of ill -defined left basilar opacities. IMPRESSION: 1. Trace left pleural effusion with left lung base opacities suggestive of atelectasis or pneumonitis . 2. Cardiomegaly without overt pulmonary edema. The above report was generated using voice recognition software. It may contain grammatical, syntax o r spelling errors. Electronically signed by: Mega Polanco M.D. 12/23/2018 10:10 AM
[2018-12-23 10:51] LABS: INR 2.9 (0.9-1.1); Partial Thromboplastin Ratio > 5.1; Prothrombin Time 27.5 Seconds (9.0-12.0)
[2018-12-23 11:12] LABS: Partial Thromboplastin Time > 139.0 Seconds (21.0-31.0)
[2018-12-23] MEDS ORDERED: ONDANSETRON INJ 2 MG/ML 2 ML VIAL IV PRN (14:06)
[2018-12-23] MEDS ORDERED: NITROGLYCERIN SL 0.4 MG/TAB TAB SL PRN (14:06)
[2018-12-23] MEDS ORDERED: POLYETHYLENE (MIRALAX) 17 GM PACK PO PRN (14:06)
[2018-12-23] MEDS ORDERED: ACETAMINOPHEN 325 MG TAB PO PRN (14:06)
--- NOTE | 2018-12-23 14:10 | History & Physical Report ---
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 Today Outpatient labs 12/23/2018 H/H 11.9 and 36.6, W BC 9.07, platelet 226 Sodium 131, K4.6, chloride 98, CO2 19, BUN 29, creatinine 2.5, glucose 130, AG 14 TSH 3.62 Urine: Lachelle color, trace ketone, specific gravity 1.020, negative blood, protein 100, negative nitrate, negative esterase, bacteria 2650, WBC 35, uric acid crystals 1-4, granular casts 1-[address] [facility] for new onset DORIS with worsening renal function despite 1L IVF, ? if pre renal given poor po intake, vs ATN secondary to chemo vs post obstructive continue gentle IVF given hx if S CHF 60cc/hr -monitor volume status closely consult nephrology urine na, osm, protein/cr, serum osm, UA C and S ordered, urine cytology lactic acid and procalcitonin pending US bladder/retroperitoneal repeat labs in a.m. (3) Pleural effusion: per CXR, pt with LEIGH but not lashonda PNA symptoms Procalcitonin and lactate pending MRSA swab ordered will order cefepime and azithromycin until PNA ruled out give pt immunocompromised incentive spirometry nebs (4) Esophageal cancer: Stage IV esophageal adenoCA with liver mets and retroperitoneal lymph node mets follows dr de la o chemo q2 weeks Paclitaxel, cyramza, last dose 2 weeks ago - was scheduled today but did not receive He is not neutropenic today (5) Coronary artery disease: No chest pain/SOB, troponin WNL Continue ASA, metoprolol, Coumadin (6) Systolic CHF, chronic: Last echocardiogram 10/03/2018 revealed EF 35 to 45%, grade 1 diastolic dysfunction, global hypokinesis of LV, severely dilated left atrium, mildly dilated right atrium Currently euvolemic, monitor volume status closely Continue metoprolol Daily weights, strict I's and O's Heart healthy diet (7) Chronic atrial fibrillation: Continue metoprolol for rate control Anticoagulant on warfarin, INR 2.9 today Continue home regimen of warfarin 2.5 mg Wednesday/Wednesday/, 5 mg all other days INR in a.m, and daily given concurrent antibiotic use (8) Chronic bronchitis with COPD (chronic obstructive pulmonary disease): No acute exacerbation Follows Dr. 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 Sanders upon discharge Full code Patient was seen and examined in collaboration with Dr. Chester, please see addendum History of Present Illness Chief Complaint: Referred by hematology/oncologist Dr. 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 Patient was seen in heme/onc office today and was to undergo chemotherapy, but this was canceled secondary to abnormal labs. Patient was seen by PCP on 12/22 which he was noted he was to have a elevated creatinine at 2.1. He received 1 L IVF. He had a repeat blood work today which revealed elevated creatinine 2.5 and therefore he was referred to ED. Patient complains of LEIGH that has been ongoing for the past 2 to 3 months. He also elicits decreased appetite, decreased oral intake, decreased urinary output, dark urine appearance, intermittent dry cough. He denies any fever, chills, sweats, lightheadedness, dizziness, fall, chest pain, shortness breath at rest, palpitations, hemoptysis, nausea, vomiting, diarrhea, abdominal pain, dysuria, increased urgency or frequency with urination, hematuria, melena, hematochezia. States his last chemo was approximately 2 weeks ago. He denies any significant weight change, weight 257 today. Of significance patient is currently on a every 2 week regimen of Cyramza and Paclitaxel q 2 weeks, dose reduced 08/2018 due to chemotherapy-induced neuropathy. Recent PET/CT on 12/21/2018 revealed interval increase in size and FDG avidity of the left retroperitoneum lymph node, new right para-aortic lymph node, focus of intense activity noted posterior aspect of the bladder without definite CT correlate, heterogenous liver but no definite liver lesion identified, distal esophageal thickening. Lastly, he had bronchoscopy 09/[address] Gonsales which he was diagnosed with bronchial pneumonia, per patient was not treated with any antibiotics. Pulmonary MAC patient respiratory epithelial cells present, acute inflammatory cells, no malignant cells seen. Allergies Allergy/AdvReac Type Severity Reaction Status Date / Time amoxicillin Allergy Unknown RASH Verified 12/23/18 09:42 escitalopram Allergy Unknown RASH Verified 12/23/18 09:42 finasteride Allergy Unknown rash Verified 12/23/18 09:42 Penicillins Allergy Unknown RASH Verified 12/23/18 09:42 piperacillin Allergy Unknown RASH Verified 12/23/18 09:42 tazobactam Allergy Unknown RASH Verified 12/23/18 09:42 vancomycin Allergy Unknown RASH Verified 12/23/18 09:42 adhesive tape Allergy Rash Verified 12/23/18 09:42 Home Medications Home Medications Medication Instructions Recorded Confirmed Type aspirin 81 mg PO QA 04/13/18 12/23/18 History ferrous sulfate 324 mg PO 04/13/18 12/23/18 History lorazepam [Ativan] 0.5 mg PO BID PRN 04/13/18 12/23/18 History metoprolol succinate 50 mg PO BID 04/13/18 12/23/18 History multivitamin 1 tab PO 04/13/18 12/23/18 History omeprazole 20 mg PO 04/13/18 12/23/18 History ondansetron 8 mg PO TID PRN 04/13/18 12/23/18 History tamsulosin 0.4 mg PO 04/13/18 12/23/18 History tramadol 50 mg PO Q8H PRN 04/13/18 12/23/18 History warfarin 2.5 mg PO SUTUTH 04/13/18 12/23/18 History warfarin 5 mg PO MOWEFRSA 04/13/18 12/23/18 History Vitamin C 250 mg PO HS 05/14/18 12/23/18 History acetaminophen [Acetaminophen Extra 1,000 mg PO TID PRN 05/14/18 12/23/18 History Strength] cyanocobalamin (vitamin B-12) 1,000 mcg PO HS 05/14/18 12/23/18 History [Vitamin B-12] lidocaine HCl 1 appln TOP TID PRN #30 ml 05/14/18 12/23/18 Rx albuterol sulfate 2 puff INHALATION Q4H PRN 12/23/18 12/23/18 History cetirizine 10 mg PO HS 12/23/18 12/23/18 History docusate sodium [Colace] 100 mg PO BID 12/23/18 12/23/18 History gabapentin 100 mg PO BID 12/23/18 12/23/18 History tiotropium bromide [Spiriva with 18 mcg INHALATION HS 12/23/18 12/23/18 History HandiHaler] Past Med/Surg History Medical History Liver cancer (Chronic) Hypertension (Chronic) Cardiomyopathy, nonischemic (Chronic) Venous insufficiency (Chronic) Anticoagulated on warfarin (Chronic) Paroxysmal ventricular tachycardia (Chronic) BPH (benign prostatic hypertrophy) (Chronic) GERD (gastroesophageal reflux disease) (Chronic) History of pulmonary embolism (Chronic) Pulmonary hypertension (Chronic) Weight loss (Resolved) Dysphagia Diabetes mellitus, type 2 (Chronic) "diet controlled" Sleep apnea (Chronic) Obesity (BMI 30-39.9) (Resolved) Chronic atrial fibrillation (Chronic) Coronary artery disease (Chronic) Drug eruption Esophageal cancer (Resolved 02/09/17) "Admission for cellulitis at the pacemaker site Weight loss of 65 pounds in [address] with incidental finding of an esophageal mass Status post upper GI endoscopy and biopsy Moderately differentiated adenocarcinoma Status post PET/CT 02/24/2017 Esophageal cancer as well as retroperitoneal lymph nodes are noted Stage IV Status post completion of palliative radiation 03/25/2017. He received 3750 cGy" On 02/24/17 10:59 Danielle Easley wrote "Admission for cellulitis at the pacemaker site Weight loss of 65 pounds in [address] with incidental finding of an esophageal mass Status post upper GI endoscopy and biopsy Moderately differentiated adenocarcinoma Status post PET/CT 02/24/2017" On 02/24/17 10:52 Danielle Easley wrote "Admission for cellulitis at the pacemaker site Status post CT with incidental finding of an esophageal mass Status post upper GI endoscopy and biopsy Moderately differentiated adenocarcinoma Status post PET/CT 02/24/2017" Surgical History History of exploratory laparotomy (Chronic) "2008" Status post appendectomy (Chronic) Status post insertion of inferior vena caval filter (Chronic) "2008" Status post implantation of automatic cardioverter/defibrillator (AICD) (Chronic) "02/02/17 Dr. 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 Physical Exam Physical Exam: Gen: Chronically ill-appearing, male, sitting up in bed, NAD, pleasant, conversing easily and answers questions appropriately Head: Normocephalic, Atraumatic Eyes: Sclera normal, no conjunctival injection, PERRLA, EOMI ENT: Gross hearing intact, normal pharynx, mucous membranes dry Neck: supple, no adenopathy, No JVD, no bruit, Resp: Clear to auscultation b/l with exception of left lower lung base decreased breath sounds, no wheeze, rales, rhonchi. Normal insp/exp effort, no accessory muscle use, saturating well on room air CV: Bradycardic rate, irregular rhythm no murmur, rub, gallop, or ectopy Abd: +BS x 4, soft, nontender, nondistended Musculoskeletal: moves extremities active rom x 4, strength intact, good sandwich hand strength Extremities: No edema bilaterally, compression stockings in place Skin: warm, moist, no rash, mild turgor, cap refill < 2sec Neuro: Alert and oriented x 3, speech normal, good mood/affect, cran nerve 2-12 intact grossly : deferred Results & Data Vital Signs (Past 12 Hours) Vital Signs Temp Pulse Pulse Resp BP BP Pulse Ox 12/23/18 12:45 63 17 117/78 93 12/23/18 11:30 107/76 99 12/23/18 11:01 112/85 98 12/23/18 11:00 98 12/23/18 10:31 64 21 119/87 97 12/23/18 10:30 66 19 94 12/23/18 10:01 67 14 117/79 12/23/18 10:00 64 18 12/23/18 09:55 99 12/23/18 09:30 61 18 97/66 L 97 12/23/18 09:29 69 22 106/86 89 L 12/23/18 09:23 94 12/23/18 09:12 73 16 92 12/23/18 09:10 65 14 106/86 12/23/18 08:55 36.5 C 81 16 112/76 98 Laboratory Results Cardiac Enzymes 12/23/18 Range/Units 09:55 Troponin I < 0.015 (0-0.045) ng/ml Outpatient labs 12/22/2018 INR 2.38 H/H 11.0 and 33.8, WBC 7, platelet 236 Sodium 132, K4.3, chloride 99, CO2 21, BUN 24, creatinine 2.1 Outpatient labs 12/23/2018 H/H 11.9 and 36.6, W BC 9.07, platelet 226 Sodium 131, K4.6, chloride 98, CO2 19, BUN 29, creatinine 2.5, glucose 130 TSH 3.62 Urine: Lachelle color, trace ketone, specific gravity 1.020, negative blood, protein 100, negative nitrate, negative esterase, bacteria 2650, WBC 35, uric acid crystals 1-4, granular casts 1-4 Diagnostic Findings CXR: IMPRESSION: 1. Trace left pleural effusion with left lung base opacities suggestive of atelectasis or pneumonitis. 2. Cardiomegaly without overt pulmonary edema. Medications Administered Discontinued Medications Sodium Chloride (Nss) 500 mls @ 999 mls/hr IV .Q31M ALEXANDER Stop: 12/23/18 10:30 Last Infusion: 12/23/18 10:31 Dose: 30 mls/hr Documented by: [id number] Admin: 12/23/18 10:00 Dose: 999 mls/hr Documented by: [id number] ECG Rate (beats per minute): 63 Rhythm: atrial fibrillation Code Status & VTE Plan Code Status Full Code VTE Prophylaxis Plan VTE Prophylaxis will be ordered: Yes Supervising Physician Co-Signing Physician Notes Attending addendum: The patient was seen and examined in the emergency room He was admitted with DORIS likely secondary to dehydration and could be contributed by use of chemotherapeutic agent Denies any significant symptoms except weakness On examination No apparent distress at rest Hemodynamically stable Chest-left basilar crackles Heart-S1-S2 regular Abdomen-benign, huge ventral hernia without obstructive features Extremities-less edema bilaterally Admission labs and imaging studies reviewed Has DORIS likely secondary to dehydration Shortness of breath seems to be chronic without any evidence of CHF and/or fluid overload Ultrasound renal system to rule out obstruction IV fluids and increase oral intake I agree with assessment and plan as outlined above by SIN Bhatti Dr
[2018-12-23] MEDS ORDERED: AZITHROMYCIN 500 MG in DEXTROSE 5% 250 ML IV STA (14:21)
[2018-12-23] MEDS ORDERED: CEFEPIME CONSULT ACTIVE PRN (14:23)
[2018-12-23] MEDS ORDERED: [UNRECOGNIZED DRUG - REMARK] PRN (14:24)
[2018-12-23] MEDS ORDERED: CEFEPIME 2,000 MG in SYRINGE 7.5 ML IV STA (14:25)
[2018-12-23] MEDS ORDERED: ALBUT/IPRATROP 3MG/0.5MG NEB 3 ML VIAL NEB PRN (14:30)
[2018-12-23 14:48] LABS: Est GFR (African American) 34.5; Est GFR (Non-African American) 29.8; Magnesium 1.9 mg/dl (1.8-2.4); Phosphorus 4.6 mg/dl (2.5-4.9)
[2018-12-23] MEDS: SODIUM CHLORIDE 0.9% 1000ML 1,000 ML IV SCH (15:07)
[2018-12-23] MEDS: WARFARIN SOD 5 MG TAB PO SCH (15:09)
[2018-12-23 15:50] LABS: Appearance Urine Cloudy (Clear); Bacteria Urine Automated Negative (Negative); Blood Urine Negative (Negative); Color Urine Dark Yellow; Epithelial Cell Urine Auto >30 /lpf (0-5); Glucose Urine UA Negative (Negative); Ketones Urine Trace (Negative); Leukocyte Esterase Urine Trace (Negative); Nitrite Urine Negative (Negative); Protein Urine 2+ (Negative); Specific Gravity Urine 1.022 (1.000-1.030); Urobilinogen Urine Negative (Negative)
[2018-12-23 16:07] LABS: Bilirubin Urine Negative (Negative); Ictotest Urine Negative (Negative)
--- NOTE | 2018-12-23 16:19 | Ultrasound Report ---
ULTRASOUND KIDNEYS AND BLADDER CLINICAL HISTORY: Acute renal insufficiency. COMPARISON STUDY: Abdominal CT dated 02/09/2017. TECHNIQUE: Real-time, grayscale, and color flow sonography of the kidneys and bladder is performed. I mages are reviewed in the transverse and longitudinal planes. FINDINGS: Kidneys: The kidneys are normal in size and echotexture. The right kidney measures 11.9 cm in length and the left kidney measures 13.2 cm in length. There is no hydronephrosis. No shadowing renal calcul i are identified. There is no sonographic evidence of contour deforming renal mass lesion. No perinep hric fluid is identified. Bladder: The bladder is normal in appearance. Ureteral jets were not seen. IMPRESSION: 1. The kidneys are normal in size and without hydronephrosis. 2. The bladder was normal as imaged. Electronically signed by: Denton Mason M.D. 12/23/2018 4:17 PM
[2018-12-23 16:40] LABS: Protein Creatinine Ratio Urine 0.4 (0-0.2); Total Protein Urine Random 157.9 mg/dl (0-11.9)
--- NOTE | 2018-12-23 16:48 | Emergency Department Note ---
Entered by Daniela Hoffman acting as a scribe for Gideon Rosen MD History of Present Illness General Chief complaint: Shortness of Breath/Dyspnea Stated complaint: ABNORMAL KIDNEY FUNCTION,CHEMO PT Source: patient Mode of arrival: wheelchair Limitations: no limitations History of Present Illness Onset (ago): week(s) 3 Location: chest Radiation: non-radiation Pain Consistency: + constant Relieved By: + none Exacerbated By: + movement and + other (exertion) Associated symptoms: + cough and + other (+fatigue); no chest pain Treatments prior to arrival: none The patient is a 63 year old male who presents to the ED with complaints of shortness of breath for the past 2 to [address] Jordan from Internal Medicine at [facility] referred him here today for a BUN of 29 and Creatinine of 2.5. He follows with Dr. Jordan for a history of liver cancer. His last chemotherapy was "a few weeks ago". He does not wear oxygen at home. He denies any chest pain but complains of increased fatigue. Walking and any exertion worsens his breathing. He does complain of a dry cough. He denies any pain or swelling in the legs. He does take Coumadin for a history of atrial fibrillation. The patient denies any history of COPD or emphysema. He has been urinating. Home Medications Home Medications Medication Instructions Recorded Confirmed Type aspirin 81 mg PO QAM 04/13/18 12/23/18 History ferrous sulfate 324 mg PO HS 04/13/18 12/23/18 History lorazepam [Ativan] 0.5 mg PO BID PRN 04/13/18 12/23/18 History metoprolol succinate 50 mg PO BID 04/13/18 12/23/18 History multivitamin 1 tab PO HS 04/13/18 12/23/18 History omeprazole 20 mg PO HS 04/13/18 12/23/18 History ondansetron 8 mg PO TID PRN 04/13/18 12/23/18 History tamsulosin 0.4 mg PO HS 04/13/18 12/23/18 History tramadol 50 mg PO Q8H PRN 04/13/18 12/23/18 History warfarin 2.5 mg PO SUTUTH 04/13/18 12/23/18 History warfarin 5 mg PO [id number] 04/13/18 12/23/18 History Vitamin C 250 mg PO HS 05/14/18 12/23/18 History acetaminophen [Acetaminophen Extra 1,000 mg PO TID PRN 05/14/18 12/23/18 History Strength] cyanocobalamin (vitamin B-12) 1,000 mcg PO HS 05/14/18 12/23/18 History [Vitamin B-12] lidocaine HCl 1 appln TOP TID PRN #30 ml 05/14/18 12/23/18 Rx albuterol sulfate 2 puff INHALATION Q4H PRN 12/23/18 12/23/18 History cetirizine 10 mg PO HS 12/23/18 12/23/18 History docusate sodium [Colace] 100 mg PO BID 12/23/18 12/23/18 History gabapentin 100 mg PO BID 12/23/18 12/23/18 History tiotropium bromide [Spiriva with 18 mcg INHALATION HS 12/23/18 12/23/18 History HandiHaler] Allergies Allergy/AdvReac Type Severity Reaction Status Date / Time amoxicillin Allergy Unknown RASH Verified 12/23/18 09:42 escitalopram Allergy Unknown RASH Verified 12/23/18 09:42 finasteride Allergy Unknown rash Verified 12/23/18 09:42 Penicillins Allergy Unknown RASH Verified 12/23/18 09:42 piperacillin Allergy Unknown RASH Verified 12/23/18 09:42 tazobactam Allergy Unknown RASH Verified 12/23/18 09:42 vancomycin Allergy Unknown RASH Verified 12/23/18 09:42 adhesive tape Allergy Rash Verified 12/23/18 09:42 Past Med/Surg History Medical History Liver cancer (Chronic) Hypertension (Chronic) Cardiomyopathy, nonischemic (Chronic) Venous insufficiency (Chronic) Anticoagulated on warfarin (Chronic) Paroxysmal ventricular tachycardia (Chronic) BPH (benign prostatic hypertrophy) (Chronic) GERD (gastroesophageal reflux disease) (Chronic) History of pulmonary embolism (Chronic) Pulmonary hypertension (Chronic) Weight loss (Resolved) Dysphagia Diabetes mellitus, type 2 (Chronic) "diet controlled" Sleep apnea (Chronic) Obesity (BMI 30-39.9) (Resolved) Chronic atrial fibrillation (Chronic) Coronary artery disease (Chronic) Drug eruption Esophageal cancer (Resolved 02/09/17) "Admission for cellulitis at the pacemaker site Weight loss of 65 pounds in [address] with incidental finding of an esophageal mass Status post upper GI endoscopy and biopsy Moderately differentiated adenocarcinoma Status post PET/CT 02/24/2017 Esophageal cancer as well as retroperitoneal lymph nodes are noted Stage IV Status post completion of palliative radiation 03/25/2017. He received 3750 cGy" On 02/24/17 10:59 Danielle Easley wrote "Admission for cellulitis at the pacemaker site Weight loss of 65 pounds in [address] with incidental finding of an esophageal mass Status post upper GI endoscopy and biopsy Moderately differentiated adenocarcinoma Status post PET/CT 02/24/2017" On 02/24/17 10:52 Danielle Easley wrote "Admission for cellulitis at the pacemaker site Status post CT with incidental finding of an esophageal mass Status post upper GI endoscopy and biopsy Moderately differentiated adenocarcinoma Status post PET/CT 02/24/2017" Surgical History History of exploratory laparotomy (Chronic) "2008" Status post appendectomy (Chronic) Status post insertion of inferior vena caval filter (Chronic) "2008" Status post implantation of automatic cardioverter/defibrillator (AICD) (Chronic) "02/02/17 Dr. Rubio [facility]" Family History Sister Stroke Mother Diabetes 1.5, managed as type 2 Social History Preferred Language: [place] Communication Ability: Effective Visual Impairment: No Limitations Hearing Ability: Normal Warranty Administrator Required: No Beliefs That Will Affect Care: None marital status: Current Living Situation: Spouse Other Information That Helps Us Care for You: No Feels Safe at Home: Yes Safety Concerns: Feels Safe At This Time Smoking Status: Current every day smoker Tobacco Type: smokeless tobacco ; Do You Dip or Chew Tobacco: No ; Second Hand Exposure: No ; Tobacco Cessation Education Requested by Patient: No Hx Alcohol Use: No Hx Substance Use: No Review of Systems See HPI for pertinent positives & negatives. and A total of 10 systems reviewed and were otherwise negative Physical Exam Vital Signs Vital Signs - 24 hr 12/23/18 08:55 12/23/18 09:10 12/23/18 09:12 Temperature 36.5 C Temperature Source Oral Sepsis Recent Fever Within 48 Hours No Sepsis Action Taken by Nursing No Action Required Pulse Rate 81 65 73 Pulse Rate [Apical] Pulse Rate from SpO2 Sensor 63 Pulse Rhythm [Apical] Respiratory Rate 16 14 16 Respiratory Effort / Characteristics Respiratory Depth Respiratory Pattern Blood Pressure 112/76 106/86 Blood Pressure [Right Arm] Blood Pressure Mean 88 92 Blood Pressure Mean [Right Arm] Blood Pressure Position [Right Arm] Pulse Oximetry 98 92 Oxygen Delivery Method Oxygen Flow Rate 12/23/18 09:23 12/23/18 09:29 12/23/18 09:30 Temperature Temperature Source Sepsis Recent Fever Within 48 Hours Sepsis Action Taken by Nursing Pulse Rate 61 Pulse Rate [Apical] 69 Pulse Rate from SpO2 Sensor 57 L Pulse Rhythm [Apical] Irregular Respiratory Rate 22 18 Respiratory Effort / Characteristics Non-Labored Respiratory Depth Normal Respiratory Pattern Regular Blood Pressure 97/66 L Blood Pressure [Right Arm] 106/86 Blood Pressure Mean 76 Blood Pressure Mean [Right Arm] 92 Blood Pressure Position [Right Arm] Sitting Pulse Oximetry 94 89 L 97 Oxygen Delivery Method Room Air Room Air Oxygen Flow Rate 0 12/23/18 09:55 12/23/18 10:00 12/23/18 10:01 Temperature Temperature Source Sepsis Recent Fever Within 48 Hours Sepsis Action Taken by Nursing Pulse Rate 64 67 Pulse Rate [Apical] Pulse Rate from SpO2 Sensor Pulse Rhythm [Apical] Respiratory Rate 18 14 Respiratory Effort / Characteristics Respiratory Depth Respiratory Pattern Blood Pressure 117/79 Blood Pressure [Right Arm] Blood Pressure Mean 91 Blood Pressure Mean [Right Arm] Blood Pressure Position [Right Arm] Pulse Oximetry 99 Oxygen Delivery Method Room Air Oxygen Flow Rate 12/23/18 10:30 12/23/18 10:31 12/23/18 11:00 Temperature Temperature Source Sepsis Recent Fever Within 48 Hours Sepsis Action Taken by Nursing Pulse Rate 66 64 Pulse Rate [Apical] Pulse Rate from SpO2 Sensor 60 67 63 Pulse Rhythm [Apical] Respiratory Rate 19 21 Respiratory Effort / Characteristics Respiratory Depth Respiratory Pattern Blood Pressure 119/87 Blood Pressure [Right Arm] Blood Pressure Mean 97 Blood Pressure Mean [Right Arm] Blood Pressure Position [Right Arm] Pulse Oximetry 94 97 98 Oxygen Delivery Method Oxygen Flow Rate 12/23/18 11:01 12/23/18 11:30 12/23/18 12:00 Temperature Temperature Source Sepsis Recent Fever Within 48 Hours Sepsis Action Taken by Nursing Pulse Rate 64 Pulse Rate [Apical] Pulse Rate from SpO2 Sensor 67 61 56 L Pulse Rhythm [Apical] Respiratory Rate 21 Respiratory Effort / Characteristics Respiratory Depth Respiratory Pattern Blood Pressure 112/85 107/76 Blood Pressure [Right Arm] Blood Pressure Mean 94 86 Blood Pressure Mean [Right Arm] Blood Pressure Position [Right Arm] Pulse Oximetry 98 99 93 Oxygen Delivery Method Oxygen Flow Rate 12/23/18 12:01 12/23/18 12:30 12/23/18 12:44 Temperature Temperature Source Sepsis Recent Fever Within 48 Hours Sepsis Action Taken by Nursing Pulse Rate 72 55 L 64 Pulse Rate [Apical] Pulse Rate from SpO2 Sensor 61 56 L 61 Pulse Rhythm [Apical] Respiratory Rate 17 22 18 Respiratory Effort / Characteristics Respiratory Depth Respiratory Pattern Blood Pressure 106/68 117/78 117/78 Blood Pressure [Right Arm] Blood Pressure Mean 80 91 91 Blood Pressure Mean [Right Arm] Blood Pressure Position [Right Arm] Pulse Oximetry 98 97 97 Oxygen Delivery Method Oxygen Flow Rate 12/23/18 12:45 12/23/18 13:00 Temperature Temperature Source Sepsis Recent Fever Within 48 Hours Sepsis Action Taken by Nursing Pulse Rate 65 Pulse Rate [Apical] 63 Pulse Rate from SpO2 Sensor 58 L Pulse Rhythm [Apical] Respiratory Rate 17 16 Respiratory Effort / Characteristics Respiratory Depth Respiratory Pattern Blood Pressure 113/74 Blood Pressure [Right Arm] 117/78 Blood Pressure Mean 87 Blood Pressure Mean [Right Arm] 91 Blood Pressure Position [Right Arm] Sitting Pulse Oximetry 93 96 Oxygen Delivery Method Room Air Oxygen Flow Rate Constitutional: Vital signs reviewed. The patients O2 saturation is 97% on room air, no respiratory distress Eyes: Pupils are equal round reactive to light. Conjunctiva are noninjected. ENT: Pharynx is clear without erythema or exudate. Mucous membranes are moist. Neck supple without meningeal signs. Respiratory: Clear to auscultation bilaterally. Breath sounds are equal bilaterally. Cardiovascular: Irregularly irregular rhythm, normal rate. No rubs or gallops. GI: Soft, nondistended and nontender. Bowel sounds are present. Musculoskeletal: No peripheral edema. No lower extremity tenderness. Integumentary: No cyanosis. Neurological: The patient is awake and alert. No focal deficits. Psychiatric: Normal affect. Course 0941: The patient was evaluated in room [facility] and a complete history and physical were performed. 1200: I discussed the patients case with TOSHA Ac [facility] Hospitalist. The patient will be further evaluated. 1230: I reevaluated the patient. He is resting comfortably. I discussed his results and my recommendation he remain in the hospital for further evaluation and management and he verbalized complete understanding and agreement. Consultations Consultation #1: I discussed the patients case with TOSHA [facility] Hospitalist. The patient will be further evaluated. Time: 12:00 Administered Medications Sodium Chloride (Nss 1000ml) 1,000 mls @ 60 mls/hr IV .[id number] ALEXANDER Stop: 01/22/19 14:05 Last Admin: 12/23/18 15:07 Dose: 60 mls/hr Documented by: [id number] Warfarin Sodium (Coumadin) 5 mg PO [id number] ALEXANDER Stop: 01/22/19 15:59 Last Admin: 12/23/18 15:09 Dose: 5 mg Documented by: [id number] Discontinued Medications Sodium Chloride (Nss) 500 mls @ 999 mls/hr IV .Q31M ALEXANDER Stop: 12/23/18 10:30 Last Infusion: 12/23/18 10:31 Dose: 30 mls/hr Documented by: [id number] Admin: 12/23/18 10:00 Dose: 999 mls/hr Documented by: [id number] Azithromycin 500 mg/ Dextrose 255 mls @ 127.5 mls/hr IV NOW STA Stop: 12/23/18 16:20 Last Admin: 12/23/18 15:08 Dose: 127.5 mls/hr Documented by: [id number] Cefepime HCl 2,000 mg/ Syringe 20 mls @ 5 mls/min IV NOW STA Stop: 12/23/18 14:28 Last Admin: 12/23/18 15:08 Dose: 5 mls/min Documented by: [id number] Medical Decision Making Differential Diagnosis Differential diagnoses considered include DORIS, dehydration, pneumonia, pleural effusion and neutropenia. Medical Records Attestation: I reviewed the patient's medical records. I did perform a limited focused review of portions of the patient's old chart on the electronic medical record. The patient underwent a bronchoscopy in September due to dyspnea. Cytology showed inflammation and no malignant cells. Home Medications Current Medication List: was personally reviewed by me Laboratory Data Attestation: I reviewed the patient's lab results. Result diagrams: 12/23/18 14:20 Lab Results 12/23/18 12/23/18 12/23/18 Range/Units 09:55 09:55 09:55 PT 27.5 H (9.0-12.0) Seconds INR 2.9 H (0.9-1.1) APTT > 139.0 H* (21.0-31.0) Seconds PTT Ratio > 5.1 Osmolality 271 L (280-300) mOsm/kg Troponin I < 0.015 (0-0.045) ng/ml Procalcitonin (0-0.5) ng/ml 12/23/18 Range/Units 09:55 PT (9.0-12.0) Seconds INR (0.9-1.1) APTT (21.0-31.0) Seconds PTT Ratio Osmolality (280-300) mOsm/kg Troponin I (0-0.045) ng/ml Procalcitonin 0.52 H (0-0.5) ng/ml Imaging Data Radiologist's Impression: Radiology results as stated below per my review and the radiologist's interpretation: XR chest 1V portable HISTORY: 63 years-old Male Dyspnea acute shortness of breath COMPARISON: Chest radiograph 09/16/2018 TECHNIQUE: Portable AP view of the chest FINDINGS: Cardiac silhouette is enlarged, unchanged. Stable positioning of the left subclavian [id number] catheter. Calcified plaque of the thoracic aortic arch. Unchanged right subclavian pacer/AICD. No pneumothorax or overt pulmonary edema. Suggestion of a trace left pleural effusion with mild degree of ill-defined left basilar opacities. IMPRESSION: 1. Trace left pleural effusion with left lung base opacities suggestive of atelectasis or pneumonitis. 2. Cardiomegaly without overt pulmonary edema. The above report was generated using voice recognition software. It may contain grammatical, syntax or spelling errors. Electronically signed by: Mega Polanco M.D. 12/23/2018 10:10 AM ECG Data Attestation: I personally reviewed and interpreted this ECG as follows: Indication: SOB/dyspnea Rate (beats per minute): 63 Rhythm: atrial fibrillation Findings: no PVC and no ST elevation Blood Pressure Blood Pressure Findings: Normal blood pressure Blood Pressure Disposition: did not require urgent referral MDM Narrative I did evaluate the patient as noted above. Patient was sent here for an el evated creatinine. His creatinine today was 2.5 with an elevated BUN. IV access was established. The patient was placed on a continuous school lunch monitor. I did order and personally review the patient's 12-lead EKG as described above. He has no acute ischemia. I did order and personally reviewed the images of the patient's chest x-ray as described above. There is no evidence of pneumonia. I did order a urine analysis. I did order and review the patient's blood work as noted in the electronic medical record. Troponin is negative. Her INR is 2.9 which is therapeutic. I did discuss the case with the hospitalist and case assembler. She was given normal saline IV. Impression & Plan DORIS (acute kidney injury), Liver cancer, Atrial fibrillation, Anticoagulated on Coumadin, Dyspnea on exertion Discharge Plan Visit Data *Final* Discharge Date/Time: 12/23/18 14:00 Chief Complaint: Shortness of Breath/Dyspnea Stated Complaint: ABNORMAL KIDNEY FUNCTION,CHEMO PT ED Provider: Gideon Rosen Discharge Problem: DORIS (acute kidney injury), Liver cancer, Atrial fibrillation, Anticoagulated on Coumadin, Dyspnea on exertion Patient Disposition: Admitted As Inpatient Discharge Instructions Interventions: ED Discharge Assessment Last Done: 12/23/18 14:00 The scribe's documentation has been prepared under my direction and personally reviewed by me in its entirety. I confirm that the note above accurately reflects all work, treatment, procedures, and medical decision making performed by me.
[2018-12-23] MEDS: CYANOCOBALAMIN 500 MCG TABLET (VITAMIN B-12) PO SCH (20:25)
[2018-12-23] MEDS: ASCORBIC ACID 500 MG TAB PO SCH (20:26)
[2018-12-23] MEDS: GABAPENTIN 100 MG CAP PO SCH (20:26)
[2018-12-23] MEDS: CETIRIZINE HCL 10 MG TABLET PO SCH (20:26)
[2018-12-23] MEDS: TIOTROPIUM BROMIDE 5 PUFF/90 MCG INH INH SCH (20:26)
[2018-12-23] MEDS: METOPROLOL SUCC 50MG EXT REL TAB PO SCH (20:26)
[2018-12-23] MEDS: MULTIVITAMIN TAB PO SCH (20:27)
[2018-12-23] MEDS: PANTOprazole 40 MG TAB PO SCH (20:27)
[2018-12-23] MEDS: TAMSULOSIN HCL 0.4 MG CAP PO SCH (20:27)
[2018-12-23] MEDS: DOCUSATE SODIUM 100 MG CAP PO SCH (20:27)
[2018-12-23] MEDS: FERROUS SULFATE 325 MG TAB PO SCH (20:27)
[2018-12-24] MEDS: CEFEPIME 2,000 MG in SYRINGE 7.5 ML IV SCH ×2 (01:18→14:25)
[2018-12-24 08:23] LABS: Hematocrit (blood only) 36.3 % (42-52); Mean Corpuscular Hgb Conc 33.1 g/dL (32-36); Mean Corpuscular Volume 91.4 fL (80-100); Mean Platelet Volume 10.3 fL (7.4-10.4); Platelet Count 184 K/uL (130-400); RDW Coefficient of Variation 18.3 % (11.5-14.5); Red Blood Count 3.97 M/uL (4.7-6.1); White Blood Count 10.28 K/uL (4.8-10.8)
[2018-12-24 08:39] LABS: INR 3.9 (0.9-1.1); Prothrombin Time 36.3 Seconds (9.0-12.0)
[2018-12-24 08:50] LABS: BUN Creatinine Ratio 15.7 (10-20); Calcium 7.8 mg/dl (8.5-10.1); Est GFR (African American) 34.4; Est GFR (Non-African American) 29.6; Potassium 4.4 mmol/L (3.5-5.1)
[2018-12-24] MEDS ORDERED: ASCORBIC ACID 500 MG TAB PO SCH (09:00)
[2018-12-24 09:03] LABS: Basophils # (auto) 0.01 K/uL (0-0.2); Basophils % (auto) 0.1 %; Echinocytes 1+; Eosinophils # (auto) 0.01 K/uL (0-0.5); Eosinophils % (auto) 0.1 %; Immature Granulocytes # (auto) 0.11 K/uL (0.00-0.02); Immature Granulocytes % (auto) 1.1 %; Lymphocytes # (auto) 0.58 K/uL (1.2-3.4); Lymphocytes % (auto) 5.6 %; Monocytes % (auto) 7.8 %; Neutrophils # (auto) 8.77 K/uL (1.4-6.5); Neutrophils % (auto) 85.3 %
[2018-12-24] MEDS: METOPROLOL SUCC 50MG EXT REL TAB PO SCH ×2 (09:08→20:20)
[2018-12-24] MEDS: GABAPENTIN 100 MG CAP PO SCH ×2 (09:08→20:19)
[2018-12-24] MEDS: ASPIRIN 81 MG ECTAB PO SCH (09:08)
[2018-12-24] MEDS: SODIUM CHLORIDE 0.9% 1000ML 1,000 ML IV SCH ×2 (09:15→19:04)
[2018-12-24] MEDS: DOCUSATE SODIUM 100 MG CAP PO SCH ×2 (10:01→20:20)
[2018-12-24] MEDS: AZITHROMYCIN 250 MG in DEXTROSE 5% 250 ML IV SCH (14:24)
--- NOTE | 2018-12-24 16:30 | Hospitalist Progress Note ---
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 ED secondary to referral by outpatient provider due to elevated creatinine 2.5. Today Outpatient labs 12/23/2018 H/H 11.9 and 36.6, W BC 9.07, platelet 226 Sodium 131, K4.6, chloride 98, CO2 19, BUN 29, creatinine 2.5, glucose 130, AG 14 TSH 3.62 Urine: Lachelle color, trace ketone, specific gravity 1.020, negative blood, protein 100, negative nitrate, negative esterase, bacteria 2650, WBC 35, uric acid crystals 1-4, granular casts 1-4 Admit to [facility] for new onset DORIS with worsening renal function despite 1L IVF, ? if pre renal given poor po intake, vs ATN secondary to chemo vs post obstructive Intravenous normal saline has been started consult nephrology-appreciate input and recommendation Renal ultrasound did not show an obstruction No improvement of renal function as of today Clinically stable We will continue IV fluid and increase oral intake (3) Pleural effusion: per CXR, pt with LEIGH but not lashonda PNA symptoms Procalcitonin and lactate-normal MRSA swab ordered-negative will order cefepime and azithromycin until PNA ruled out give pt immunocompromised incentive spirometry Bronchodilators as needed We will continue IV antibiotic for now (4) Esophageal cancer: Stage IV esophageal adenoCA with liver mets and retroperitoneal lymph node mets follows dr de la o chemo q2 weeks Paclitaxel, cyramza, last dose 2 weeks ago - was scheduled today but did not receive He is not neutropenic today We will discuss with him on Wednesday (5) Coronary artery disease: No chest pain/SOB, troponin WNL Continue ASA, metoprolol, Coumadin (6) Systolic CHF, chronic: Last echocardiogram 10/03/2018 revealed EF 35 to 45%, grade 1 diastolic dysfunction, global hypokinesis of LV, severely dilated left atrium, mildly dilated right atrium Currently euvolemic, monitor volume status closely Continue metoprolol Daily weights, strict I's and O's Heart healthy diet No signs and/or symptoms of fluid overload (7) Chronic atrial fibrillation: Continue metoprolol for rate control Anticoagulant on warfarin, INR 2.9 today Continue home regimen of warfarin 2.5 mg Wednesday/Wednesday/, 5 mg all other days INR in a.m, and daily given concurrent antibiotic use INR 3.9 today (8) Chronic bronchitis with COPD (chronic obstructive pulmonary disease): No acute exacerbation Follows Dr. 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 Sanders upon discharge Full code Patient was seen and examined in collaboration with Dr. Chester, please see addendum Subjective The patient was seen and examined in the emergency room on the day of admission He was admitted with DORIS likely secondary to dehydration and could be contributed by use of chemotherapeutic agent Denies any significant symptoms except weakness 12/24 Patient was seen and examined in medical unit With complaints of generalized weakness but denies any other symptoms Denies any shortness of breath and/or palpitation and no bloating Review of Systems Review of Systems: All systems reviewed and are unremarkable except as noted below Respiratory: + dyspnea (Complaint of dyspnea on exertion which has been ongoing) Cardiovascular: no chest pain Gastrointestinal: no abdominal pain and no bloating Physical Exam Physical Exam: Lying in bed comfortably Constitutional: well developed and well nourished; no acute distress Eyes: PERRL, conjunctivae normal, anicteric sclerae ENMT: external ear and nose normal, oropharynx normal Neck: trachea midline, no thyromegaly Respiratory: normal respiratory effort Auscultation: + diminished lung sounds and + crackles (Left lung base) Cardiovascular: Rate/Rhythm: regular rate and regular rhythm Gastrointestinal (Abdomen): Inspection/Auscultation: abdomen normal to inspection Percussion/Palpation: abdomen soft Musculoskeletal: No acute arthritis in any joints Neurologic: moves all extremities Alert, awake and oriented x3 Lymphatic: no cervical or axillary lymphadenopathy Results & Data Vital Signs (Past 12 Hours) Vital Signs Temp Pulse Resp BP Pulse Ox 12/24/18 12:18 36.6 C 68 19 134/94 98 12/24/18 06:52 36.7 C 70 18 105/67 94 Laboratory Results Short CBC 12/24/18 Range/Units 08:00 WBC 10.28 (4.8-10.8) K/uL Hgb 12.0 L (14.0-18.0) g/dL Hct 36.3 L (42-52) % Plt Count 184 (130-400) K/uL BMP 12/24/18 08:00 Sodium 133 L Potassium 4.4 Chloride 102 Carbon Dioxide 20 L BUN 36 H Creatinine 2.28 H Glucose 93 Calcium 7.8 L Medications Administered Current Inpatient Medications Acetaminophen (Tylenol) 650 mg PO Q4H PRN PRN Reason: Pain or Fever Stop: 01/22/19 14:05 Albuterol (Duoneb) 3 ml NEB Q2H PRN PRN Reason: Shortness Of Breath Or Wheezing Stop: 01/22/19 14:29 Ascorbic Acid (Vitamin C) 250 mg PO [facility] Stop: 01/22/19 20:59 Last Admin: 12/23/18 20:26 Dose: 250 mg Documented by: Aspirin (Ecotrin Ectab) 81 mg PO [facility] Stop: 01/23/19 08:59 Last Admin: 12/24/18 09:08 Dose: 81 mg Documented by: Cetirizine HCl (Zyrtec) 10 mg PO [facility] Stop: 01/22/19 20:59 Last Admin: 12/23/18 20:26 Dose: 10 mg Documented by: Cyanocobalamin (Vitamin B-12) 1,000 mcg PO [facility] Stop: 01/22/19 20:59 Last Admin: 12/23/18 20:25 Dose: 1,000 mcg Documented by: Docusate Sodium (Colace) 100 mg PO BID [facility] Stop: 01/22/19 20:59 Last Admin: 12/24/18 10:01 Dose: 100 mg Documented by: Ferrous Sulfate (Feosol) 325 mg PO [facility] Stop: 01/22/19 20:59 Last Admin: 12/23/18 20:27 Dose: 325 mg Documented by: Gabapentin (Neurontin) 100 mg PO BID [facility] Stop: 01/22/19 20:59 Last Admin: 12/24/18 09:08 Dose: 100 mg Documented by: Sodium Chloride (Nss 1000ml) 1,000 mls @ 60 mls/hr IV .[id number] [facility] Stop: 01/22/19 14:05 Last Admin: 12/24/18 09:15 Dose: 60 mls/hr Documented by: Azithromycin 250 mg/ Dextrose 252.5 mls @ 126.25 mls/hr IV Q24H [facility] Stop: 12/30/18 13:59 Last Admin: 12/24/18 14:24 Dose: 126.3 mls/hr Documented by: Cefepime HCl 2,000 mg/ Syringe 20 mls @ 5 mls/min IV Q12H [facility]; Protocol Stop: 12/31/18 01:59 Last Admin: 12/24/18 14:25 Dose: 5 mls/min Documented by: Lorazepam (Ativan) 0.5 mg PO BID PRN PRN Reason: Anxiety Stop: 01/22/19 14:05 Metoprolol Succinate (Toprol Xl) 50 mg PO BID [facility] Stop: 01/22/19 20:59 Last Admin: 12/24/18 09:08 Dose: 50 mg Documented by: Miscellaneous Information (Cefepime Consult Active) 1 ea N/A UD PRN PRN Reason: Consult Stop: 01/22/19 14:22 Miscellaneous Information (Pharmacy Consult) 1 ea N/A UD PRN PRN Reason: Consult Stop: 01/22/19 14:23 Multivitamins (Multivitamin Tab) 1 tab PO [facility] Stop: 01/22/19 20:59 Last Admin: 12/23/18 20:27 Dose: 1 tab Documented by: Nitroglycerin (Nitrostat) 0.4 mg SL UD PRN PRN Reason: Chest Pain Stop: 01/22/19 14:05 Ondansetron HCl (Zofran) 4 mg IV Q6H PRN PRN Reason: Nausea Stop: 01/22/19 14:05 Pantoprazole Sodium (Protonix) 40 mg PO HS [facility]; Protocol Stop: 01/22/19 20:59 Last Admin: 12/23/18 20:27 Dose: 40 mg Documented by: Polyethylene Glycol (Miralax Powder Packet) 17 gm PO DAILY PRN PRN Reason: Constipation Stop: 01/22/19 14:05 Tamsulosin HCl (Flomax) 0.4 mg PO [facility] Stop: 01/22/19 20:59 Last Admin: 12/23/18 20:27 Dose: 0.4 mg Documented by: Tiotropium [place] (Spiriva) 1 puffs INH [facility] Stop: 01/22/19 20:59 Last Admin: 12/23/18 20:26 Dose: 1 puffs Documented by: Tramadol HCl (Ultram) 50 mg PO Q8H PRN PRN Reason: Pain Stop: 01/22/19 14:05 Warfarin Sodium (Coumadin) 2.5 mg PO SuTuTh@1600 [facility] Stop: 01/24/19 15:59 Warfarin Sodium (Coumadin) 5 mg PO MoWeFrSa@1600 [facility] Stop: 01/22/19 15:59 Last Admin: 12/23/18 15:09 Dose: 5 mg Documented by:
--- NOTE | 2018-12-24 17:20 | Nephrology Consultation ---
Date of Consultation December 24, 2018 Assessment & Plan (1) DORIS (acute kidney injury): Patient with DORIS likely due to ischemic ATN from intravascular volume depletion and chemo. Patient was not eating or drinking for a week. Cr stable at 2.2. He remains oliguric. No obstructive uropathy on ultrasound. No need for HD -Agree with iv fluids. -Daily BMP to monitor RF -Monitor input/output -No contrast unless lifesaving (2) Iron deficiency anemia: He has mild anemia likely due to the cancer. Monitor and transfuse as needed History of Present Illness Reason for Consultation: DORIS Requesting Physician: Manisha De Oliveira MD Attending Physician: Mars Chester MD History of Present Illness This is a 63-year-old male who is being seen for DORIS. HE was admitted on 12/23/18 with cr of 2.3 from a normal baseline cr of 0.6 in August. 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 He has been getting a taxel based chemo regimen q every other week. Last chemo round was 3 weeks ago. after getting the last round of chemo, he became very weak and was not eating or drinking well due to poor appetite. he was sleeping all day for a whole week. prior to that he had been making hay in the hot sun for several days. No vomiting or diarrhoea and no nsaids. he feels tired. No SOB. Urine output still minimal. Allergies Allergy/AdvReac Type Severity Reaction Status Date / Time amoxicillin Allergy Unknown RASH Verified 12/23/18 09:42 escitalopram Allergy Unknown RASH Verified 12/23/18 09:42 finasteride Allergy Unknown rash Verified 12/23/18 09:42 Penicillins Allergy Unknown RASH Verified 12/23/18 09:42 piperacillin Allergy Unknown RASH Verified 12/23/18 09:42 tazobactam Allergy Unknown RASH Verified 12/23/18 09:42 vancomycin Allergy Unknown RASH Verified 12/23/18 09:42 adhesive tape Allergy Rash Verified 12/23/18 09:42 Home Medications Home Medications Medication Instructions Recorded Confirmed Type aspirin 81 mg PO QAM 04/13/18 12/23/18 History ferrous sulfate 324 mg PO HS 04/13/18 12/23/18 History lorazepam [Ativan] 0.5 mg PO BID PRN 04/13/18 12/23/18 History metoprolol succinate 50 mg PO BID 04/13/18 12/23/18 History multivitamin 1 tab PO HS 04/13/18 12/23/18 History omeprazole 20 mg PO HS 04/13/18 12/23/18 History ondansetron 8 mg PO TID PRN 04/13/18 12/23/18 History tamsulosin 0.4 mg PO HS 04/13/18 12/23/18 History tramadol 50 mg PO Q8H PRN 04/13/18 12/23/18 History warfarin 2.5 mg PO SUTUTH 04/13/18 12/23/18 History warfarin 5 mg PO MOWEFRSA 04/13/18 12/23/18 History Vitamin C 250 mg PO HS 05/14/18 12/23/18 History acetaminophen [Acetaminophen Extra 1,000 mg PO TID PRN 05/14/18 12/23/18 History Strength] cyanocobalamin (vitamin B-12) 1,000 mcg PO HS 05/14/18 12/23/18 History [Vitamin B-12] lidocaine HCl 1 appln TOP TID PRN #30 ml 05/14/18 12/23/18 Rx albuterol sulfate 2 puff INHALATION Q4H PRN 12/23/18 12/23/18 History cetirizine 10 mg PO HS 12/23/18 12/23/18 History docusate sodium [Colace] 100 mg PO BID 12/23/18 12/23/18 History gabapentin 100 mg PO BID 12/23/18 12/23/18 History tiotropium bromide [Spiriva with 18 mcg INHALATION HS 12/23/18 12/23/18 History HandiHaler] Patient History Medical History Liver cancer (Chronic) Hypertension (Chronic) Cardiomyopathy, nonischemic (Chronic) Venous insufficiency (Chronic) Anticoagulated on warfarin (Chronic) Paroxysmal ventricular tachycardia (Chronic) BPH (benign prostatic hypertrophy) (Chronic) GERD (gastroesophageal reflux disease) (Chronic) History of pulmonary embolism (Chronic) Pulmonary hypertension (Chronic) Weight loss (Resolved) Dysphagia Diabetes mellitus, type 2 (Chronic) "diet controlled" Sleep apnea (Chronic) Obesity (BMI 30-39.9) (Resolved) Chronic atrial fibrillation (Chronic) Coronary artery disease (Chronic) Drug eruption Esophageal cancer (Resolved 02/09/17) "Admission for cellulitis at the pacemaker site Weight loss of 65 pounds in [address] with incidental finding of an esophageal mass Status post upper GI endoscopy and biopsy Moderately differentiated adenocarcinoma Status post PET/CT 02/24/2017 Esophageal cancer as well as retroperitoneal lymph nodes are noted Stage IV Status post completion of palliative radiation 03/25/2017. He received 3750 cGy" On 02/24/17 10:59 Danielle Easley wrote "Admission for cellulitis at the pacemaker site Weight loss of 65 pounds in [address] with incidental finding of an esophageal mass Status post upper GI endoscopy and biopsy Moderately differentiated adenocarcinoma Status post PET/CT 02/24/2017" On 02/24/17 10:52 Danielle Easley wrote "Admission for cellulitis at the pacemaker site Status post CT with incidental finding of an esophageal mass Status post upper GI endoscopy and biopsy Moderately differentiated adenocarcinoma Status post PET/CT 02/24/2017" Surgical History History of exploratory laparotomy (Chronic) "2008" Status post appendectomy (Chronic) Status post insertion of inferior vena caval filter (Chronic) "2008" Status post implantation of automatic cardioverter/defibrillator (AICD) (Chronic) "02/02/17 Dr. Rubio [facility]" Family History Sister Stroke Mother Diabetes 1.5, managed as type 2 Social History Preferred Language: Stateless Communication Ability: Effective Visual Impairment: No Limitations Hearing Ability: Normal First Aid Nurse Required: No Beliefs That Will Affect Care: None marital status: Current Living Situation: Spouse Other Information That Helps Us Care for You: No Feels Safe at Home: Yes Safety Concerns: Feels Safe At This Time Smoking Status: Current every day smoker Tobacco Type: smokeless tobacco ; Do You Dip or Chew Tobacco: No ; Second Hand Exposure: No ; Tobacco Cessation Education Requested by Patient: No Hx Alcohol Use: No Hx Substance Use: No Review of Systems Review of Systems: All systems reviewed & are unremarkable except as noted in HPI & below Physical Exam Physical Exam: General exam: Appears comfortable, no acute distress HEENT: Pupils are equal and reactive to light Neck: No JVD, neck is supple trachea is midline Respiratory system: Clear breath sounds bilaterally. Gastrointestinal: Abdomen is soft, non distended, non tender, bowel sounds are present CVS: Regular rate and rhythm. No murmurs, rubs or gallops Musculoskeletal: No joint or muscle tenderness Extremities: Non tender, no edema, peripheral pulses are present Neuro: Oriented, no tremors, no focal neurological deficits Skin: No rashes Results & Data Vital Signs (Past 12 Hours) Vital Signs Temp Pulse Resp BP Pulse Ox 12/24/18 12:18 36.6 C 68 19 134/94 98 12/24/18 06:52 36.7 C 70 18 105/67 94 Laboratory Results Laboratory Results - last 24 hr 12/24/18 12/24/18 12/24/18 08:00 08:00 08:00 WBC 10.28 RBC 3.97 L Hgb 12.0 L Hct 36.3 L MCV 91.4 MCH 30.2 MCHC 33.1 RDW Std Deviation 61.0 H RDW Coeff of Charis 18.3 H Plt Count 184 MPV 10.3 Immature Gran % (Auto) 1.1 Neut % (Auto) 85.3 Lymph % (Auto) 5.6 [place] % (Auto) 7.8 Eos % (Auto) 0.1 Baso % (Auto) 0.1 Immature Gran # (Auto) 0.11 H Neut # (Auto) 8.77 H Lymph # (Auto) 0.58 L [place] # (Auto) 0.80 H Eos # (Auto) 0.01 Baso # (Auto) 0.01 Echinocytes 1+ PT 36.3 H INR 3.9 H Sodium 133 L Potassium 4.4 Chloride 102 Carbon Dioxide 20 L Anion Gap 11.0 BUN 36 H Creatinine 2.28 H Est Cr Clr Drug Dosing 43.0 Est GFR ( Amer) 34.4 Est GFR (Non-Af Amer) 29.6 BUN/Creatinine Ratio 15.7 Glucose 93 Calcium 7.8 L
[2018-12-24] MEDS: TIOTROPIUM BROMIDE 5 PUFF/90 MCG INH INH SCH (20:19)
[2018-12-24] MEDS: FERROUS SULFATE 325 MG TAB PO SCH (20:19)
[2018-12-24] MEDS: TAMSULOSIN HCL 0.4 MG CAP PO SCH (20:19)
[2018-12-24] MEDS: PANTOprazole 40 MG TAB PO SCH (20:19)
[2018-12-24] MEDS: CETIRIZINE HCL 10 MG TABLET PO SCH (20:20)
[2018-12-24] MEDS: MULTIVITAMIN TAB PO SCH (20:21)
[2018-12-24] MEDS: CYANOCOBALAMIN 500 MCG TABLET (VITAMIN B-12) PO SCH (20:21)
[2018-12-24] MEDS: ASCORBIC ACID 500 MG TAB PO SCH (20:22)
[2018-12-25] MEDS ORDERED: HEPARIN 100 UNIT/ML 5ML FLUSH FLUSH PRN (01:37)
[2018-12-25] MEDS: CEFEPIME 2,000 MG in SYRINGE 7.5 ML IV SCH ×2 (01:54→14:08)
[2018-12-25] MEDS: SODIUM CHLORIDE 0.9% 1000ML 1,000 ML IV SCH ×3 (01:54→18:47)
[2018-12-25 06:06] LABS: INR 3.3 (0.9-1.1); Prothrombin Time 30.8 Seconds (9.0-12.0)
[2018-12-25 06:07] LABS: Creatinine Clr Calc Pharmacy 46.5 ml/min; Est GFR (African American) 37.7; Est GFR (Non-African American) 32.6
[2018-12-25] MEDS: METOPROLOL SUCC 50MG EXT REL TAB PO SCH ×2 (08:44→20:44)
[2018-12-25] MEDS: GABAPENTIN 100 MG CAP PO SCH ×2 (08:44→20:40)
[2018-12-25] MEDS: ASPIRIN 81 MG ECTAB PO SCH (08:44)
[2018-12-25] MEDS: DOCUSATE SODIUM 100 MG CAP PO SCH ×2 (08:44→20:42)
[2018-12-25] MEDS: TRAMADOL HCL 50 MG TABLET PO PRN (10:42)
[2018-12-25] MEDS: PRIMIDONE 50 MG TAB PO SCH (12:21)
--- NOTE | 2018-12-25 13:50 | Hospitalist Progress Note ---
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 Today Outpatient labs 12/23/2018 H/H 11.9 and 36.6, W BC 9.07, platelet 226 Sodium 131, K4.6, chloride 98, CO2 19, BUN 29, creatinine 2.5, glucose 130, AG 14 TSH 3.62 Urine: Lachelle color, trace ketone, specific gravity 1.020, negative blood, protein 100, negative nitrate, negative esterase, bacteria 2650, WBC 35, uric acid crystals 1-4, granular casts 1-4 [facility]mit to [facility] for new onset DORIS with worsening renal function despite 1L IVF, ? if pre renal given poor po intake, vs ATN secondary to chemo vs post obstructive Intravenous normal saline has been started consult nephrology-appreciate input and recommendation Renal ultrasound did not show an obstruction Renal functions remained static with a creatinine of 2.1 today We will continue IV fluid and increase oral intake May need catheterization to monitor intake output precisely (3) Pleural effusion: per CXR, pt with LEIGH but not lashonda PNA symptoms Procalcitonin and lactate-normal MRSA swab ordered-negative will order cefepime and azithromycin until PNA ruled out give pt immunocompromised incentive spirometry Bronchodilators as needed We will continue IV antibiotic for now (4) Esophageal cancer: Stage IV esophageal adenoCA with liver mets and retroperitoneal lymph node mets follows dr de la o chemo q2 weeks Paclitaxel, cyramza, last dose 2 weeks ago - was scheduled today but did not receive He is not neutropenic today We will discuss with him on Wednesday (5) Jerking movements of extremities: Noted to have occasional jerks involving the extremities earlier since last night Has some bilateral tremors of the upper extremities with activity No resting tremor Seems to be secondary to benign essential tremor and complicated by comorbid illness Will try primidone for now (6) Coronary artery disease: No chest pain/SOB, troponin WNL Continue ASA, metoprolol, Coumadin (7) Systolic CHF, chronic: Last echocardiogram 10/03/2018 revealed EF 35 to 45%, grade 1 diastolic dysfunction, global hypokinesis of LV, severely dilated left atrium, mildly dilated right atrium Currently euvolemic, monitor volume status closely Continue metoprolol Daily weights, strict I's and O's Heart healthy diet No signs and/or symptoms of fluid overload (8) Chronic atrial fibrillation: Continue metoprolol for rate control Anticoagulant on warfarin, INR 2.9 today Continue home regimen of warfarin 2.5 mg Wednesday/Wednesday/, 5 mg all other days INR in a.m, and daily given concurrent antibiotic use INR 3.9 today 12/24 We will monitor INR-3./ (9) Chronic bronchitis with COPD (chronic obstructive pulmonary disease): No acute exacerbation Follows Dr. 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 Sanders upon discharge Full code Patient was seen and examined in collaboration with Dr. Chester, please see addendum Subjective 12/23The patient was seen and examined in the emergency room on the day of admission He was admitted with DORIS likely secondary to dehydration and could be contributed by use of chemotherapeutic agent Denies any significant symptoms except weakness 12/24 Patient was seen and examined in medical unit With complaints of generalized weakness but denies any other symptoms Denies any shortness of breath and/or palpitation and no bloating 12/25 The patient was seen and examined in medical telemetry unit He has been complaining of occasional shakes of the extremities which get worse with intentional movement no rest tremor Remains generally weak and lethargic Review of Systems Review of Systems: All systems reviewed and are unremarkable except as noted below Respiratory: + dyspnea on exertion (Which has been chronic) Genitourinary: + difficulty urinating and + decreased urination (Does not want any Nuñez catheter at this time) Musculoskeletal: No acute arthritis in any of the joints Neurologic: + generalized weakness and + tremor(s) (Seems to be intentional and getting worse) Physical Exam Physical Exam: Minimal distress at rest and very anxious Constitutional: well developed, well nourished and + acute distress (Anxiety with occasional jerks of the extremities and intentional tremor) Eyes: PERRL, conjunctivae normal, anicteric sclerae ENMT: external ear and nose normal, oropharynx normal Neck: trachea midline, no thyromegaly Respiratory: normal respiratory effort Auscultation: + diminished lung sounds and + crackles (Left lung base) Cardiovascular: Rate/Rhythm: regular rate and regular rhythm Gastrointestinal (Abdomen): Inspection/Auscultation: abdomen normal to inspection Percussion/Palpation: abdomen soft Musculoskeletal: No acute arthritis in any of the joints Neurologic: moves all extremities Psychiatric: Affect: + depressed affect and + anxious affect Lymphatic: no cervical or axillary lymphadenopathy Results & Data Vital Signs (Past 12 Hours) Vital Signs Temp Pulse Resp BP BP Pulse Ox 12/25/18 13:11 37.1 C 85 20 150/68 H 92 12/25/18 11:30 36.7 C 64 20 104/77 95 12/25/18 08:00 36.5 C 74 16 115/80 97 12/25/18 03:07 37.3 C 96 H 20 109/74 93 Laboratory Results [facility] 12/25/18 05:15 Creatinine 2.11 H Medications Administered Current Inpatient Medications Acetaminophen (Tylenol) 650 mg PO Q4H PRN PRN Reason: Pain or Fever Stop: 01/22/19 14:05 Albuterol (Duoneb) 3 ml NEB Q2H PRN PRN Reason: Shortness Of Breath Or Wheezing Stop: 01/22/19 14:29 Ascorbic Acid (Vitamin C) 250 mg PO [facility] Stop: 01/22/19 20:59 Last Admin: 12/24/18 20:22 Dose: 250 mg Documented by: Aspirin (Ecotrin Ectab) 81 mg PO [facility] Stop: 01/23/19 08:59 Last Admin: 12/25/18 08:44 Dose: 81 mg Documented by: Cetirizine HCl (Zyrtec) 10 mg PO [facility] Stop: 01/22/19 20:59 Last Admin: 08/10/19 20:20 Dose: 10 mg Documented by: Cyanocobalamin (Vitamin B-12) 1,000 mcg PO HS [facility] Stop: 01/22/19 20:59 Last Admin: 12/24/18 20:21 Dose: 1,000 mcg Documented by: Docusate Sodium (Colace) 100 mg PO BID [facility] Stop: 01/22/19 20:59 Last Admin: 12/25/18 08:44 Dose: 100 mg Documented by: Ferrous Sulfate (Feosol) 325 mg PO HS [facility] Stop: 01/22/19 20:59 Last Admin: 12/24/18 20:19 Dose: 325 mg Documented by: Gabapentin (Neurontin) 100 mg PO BID [facility] Stop: 01/22/19 20:59 Last Admin: 12/25/18 08:44 Dose: 100 mg Documented by: Heparin Sodium (Porcine) (Heparin Sod 100 Unit/Ml Flush) 5 ml FLUSH PRN PRN PRN Reason: Flush Stop: 01/24/19 01:44 Azithromycin 250 mg/ Dextrose 252.5 mls @ 126.25 mls/hr IV Q24H [facility] Stop: 12/30/18 13:59 Last Infusion: 12/24/18 17:09 Dose: Infused Documented by: Cefepime HCl 2,000 mg/ Syringe 20 mls @ 5 mls/min IV Q12H [facility]; Protocol Stop: 12/31/18 01:59 Last Admin: 12/25/18 01:54 Dose: 5 mls/min Documented by: Sodium Chloride (Nss 1000ml) 1,000 mls @ 125 mls/hr IV .Q8H [facility] Stop: 01/24/19 10:29 Last Admin: 12/25/18 10:34 Dose: 125 mls/hr Documented by: Lorazepam (Ativan) 0.5 mg PO BID PRN PRN Reason: Anxiety Stop: 01/22/19 14:05 Metoprolol Succinate (Toprol Xl) 50 mg PO BID [facility] Stop: 01/22/19 20:59 Last Admin: 12/25/18 08:44 Dose: 50 mg Documented by: Miscellaneous Information (Cefepime Consult Active) 1 ea N/A UD PRN PRN Reason: Consult Stop: 01/22/19 14:22 Miscellaneous Information (Pharmacy Consult) 1 ea N/A UD PRN PRN Reason: Consult Stop: 01/22/19 14:23 Multivitamins (Multivitamin Tab) 1 tab PO [facility] Stop: 01/22/19 20:59 Last Admin: 12/24/18 20:21 Dose: 1 tab Documented by: Nitroglycerin (Nitrostat) 0.4 mg SL UD PRN PRN Reason: Chest Pain Stop: 01/22/19 14:05 Ondansetron HCl (Zofran) 4 mg IV Q6H PRN PRN Reason: Nausea Stop: 01/22/19 14:05 Last Admin: 12/25/18 05:30 Dose: 4 mg Documented by: Pantoprazole Sodium (Protonix) 40 mg PO [facility]; Protocol Stop: 01/22/19 20:59 Last Admin: 12/24/18 20:19 Dose: 40 mg Documented by: Polyethylene Glycol (Miralax Powder Packet) 17 gm PO DAILY PRN PRN Reason: Constipation Stop: 01/22/19 14:05 Primidone (Primidone) 50 mg PO DAILY [facility] Stop: 01/24/19 11:14 Last Admin: 12/25/18 12:21 Dose: 50 mg Documented by: Tamsulosin HCl (Flomax) 0.4 mg PO [facility] Stop: 01/22/19 20:59 Last Admin: 12/24/18 20:19 Dose: 0.4 mg Documented by: Tiotropium [place] (Spiriva) 1 puffs INH [facility] Stop: 01/22/19 20:59 Last Admin: 12/24/18 20:19 Dose: 1 puffs Documented by: Tramadol HCl (Ultram) 50 mg PO Q8H PRN PRN Reason: Pain Stop: 01/22/19 14:05 Last Admin: 12/25/18 10:42 Dose: 50 mg Documented by: Warfarin Sodium (Coumadin) 2.5 mg PO SuTuTh@1600 [facility] Stop: 01/24/19 15:59 Warfarin Sodium (Coumadin) 5 mg PO MoWeFrSa@1600 [facility] Stop: 01/22/19 15:59 Last Admin: 12/23/18 15:09 Dose: 5 mg Documented by:
[2018-12-25] MEDS: AZITHROMYCIN 250 MG in DEXTROSE 5% 250 ML IV SCH (14:07)
[2018-12-25] MEDS: WARFARIN SOD 2.5 MG TAB PO SCH (16:05)
--- NOTE | 2018-12-25 16:43 | Nephrology Progress Note ---
Date of Service December 25, 2018 Assessment & Plan (1) DORIS (acute kidney injury): Patient with DORIS likely due to ischemic ATN from intravascular volume depletion and chemo. Patient was not eating or drinking for a week. Cr stable at 2.1 form 2.2 yesterday. He remains oliguric. No obstructive uropathy on ultrasound. No need for HD -Agree with iv fluids. Post void bladder scan and if retaining, put gilman -Daily BMP to monitor RF -Monitor input/output -No contrast unless lifesaving (2) Iron deficiency anemia: He has mild anemia likely due to the cancer. Monitor and transfuse as needed Subjective Seen during morning rounds for DORIS. He is complaining of fatigue. No SOB. Cr about the same. Still oliguric Review of Systems Review of Systems: All systems reviewed & are unremarkable except as noted in HPI & below Physical Exam Physical Exam: General exam: Appears comfortable, no acute distress HEENT: Pupils are equal and reactive to light Neck: No JVD, neck is supple trachea is midline Respiratory system: Clear breath sounds bilaterally. Gastrointestinal: Abdomen is soft, non distended, non tender, bowel sounds are present CVS: Regular rate and rhythm. No murmurs, rubs or gallops Musculoskeletal: No joint or muscle tenderness Extremities: Non tender, no edema, peripheral pulses are present Neuro: Oriented, no tremors, no focal neurological deficits Skin: No rashes Results & Data Vital Signs (Past 12 Hours) Vital Signs Temp Pulse Resp BP Pulse Ox 12/25/18 13:11 37.1 C 85 20 150/68 H 92 12/25/18 11:30 36.7 C 64 20 104/77 95 12/25/18 08:00 36.5 C 74 16 115/80 97 Laboratory Results Laboratory Results - last 24 hr 12/25/18 12/25/18 05:15 05:15 PT 30.8 H INR 3.3 H Creatinine 2.11 H Est Cr Clr Drug Dosing 46.5 Est GFR ( Amer) 37.7 Est GFR (Non-Af Amer) 32.6
[2018-12-25] MEDS: TIOTROPIUM BROMIDE 5 PUFF/90 MCG INH INH SCH (20:38)
[2018-12-25] MEDS: TAMSULOSIN HCL 0.4 MG CAP PO SCH (20:40)
[2018-12-25] MEDS: ASCORBIC ACID 500 MG TAB PO SCH (20:40)
[2018-12-25] MEDS: FERROUS SULFATE 325 MG TAB PO SCH (20:40)
[2018-12-25] MEDS: PANTOprazole 40 MG TAB PO SCH (20:41)
[2018-12-25] MEDS: MULTIVITAMIN TAB PO SCH (20:42)
[2018-12-25] MEDS: CETIRIZINE HCL 10 MG TABLET PO SCH (20:42)
[2018-12-25] MEDS: CYANOCOBALAMIN 500 MCG TABLET (VITAMIN B-12) PO SCH (20:42)
[2018-12-26] MEDS: SODIUM CHLORIDE 0.9% 1000ML 1,000 ML IV SCH ×4 (01:17→18:40)
[2018-12-26] MEDS: CEFEPIME 2,000 MG in SYRINGE 7.5 ML IV SCH ×2 (01:17→14:14)
[2018-12-26 06:28] LABS: INR 3.2 (0.9-1.1); Prothrombin Time 29.8 Seconds (9.0-12.0)
[2018-12-26 06:36] LABS: Creatinine Clr Calc Pharmacy 39.3 ml/min; Est GFR (African American) 29.5; Est GFR (Non-African American) 25.4
[2018-12-26] MEDS: DOCUSATE SODIUM 100 MG CAP PO SCH ×2 (08:02→22:22)
[2018-12-26] MEDS: GABAPENTIN 100 MG CAP PO SCH ×2 (08:02→22:23)
[2018-12-26] MEDS: ASPIRIN 81 MG ECTAB PO SCH (08:02)
[2018-12-26] MEDS: PRIMIDONE 50 MG TAB PO SCH (08:02)
[2018-12-26] MEDS: METOPROLOL SUCC 50MG EXT REL TAB PO SCH ×2 (09:07→22:23)
[2018-12-26 09:28] LABS: BUN Creatinine Ratio 19.5 (10-20); Calcium 7.7 mg/dl (8.5-10.1); Creatinine Clr Calc Pharmacy 39.7 ml/min; Est GFR (African American) 29.9; Est GFR (Non-African American) 25.8; Potassium 5.2 mmol/L (3.5-5.1)
--- NOTE | 2018-12-26 09:36 | CT Scan Report ---
CT head/brain wo con CT DOSE: 614.27 mGy.cm HISTORY: Mental status change acute confusion, Esophageal cancer TECHNIQUE: Multiaxial CT images of the head were performed without the use of intravenous contrast. A dose lowering technique was utilized adhering to the principles of ALARA. Comparison: None. Findings: The paranasal sinuses and mastoid air cells are clear. The calvarium and skull base are int act. The ventricles and sulci are within normal limits. There is no mass, hematoma, midline shift, or acute infarct. Age-related atrophy and chronic small vessel change. Impression: No acute intracranial abnormality. The above report was generated using voice recognition software. It may contain grammatical, syntax or spelling errors. Electronically signed by: Jose A Tran M.D. 12/26/2018 9:35 AM
[2018-12-26 10:19] LABS: Albumin Level 1.6 gm/dl (3.4-5.0); Bilirubin Direct 0.2 mg/dl (0-0.2); Bilirubin,Total 0.5 mg/dl (0.2-1); Magnesium 1.5 mg/dl (1.8-2.4); Phosphorus 5.6 mg/dl (2.5-4.9); Total Protein 4.9 gm/dl (6.4-8.2)
--- NOTE | 2018-12-26 11:13 | Palliative Care Consultation ---
Date of Consultation December 26, 2018 Assessment & Plan (1) Goals of care, counseling/discussion: -63 year old male patient with PMH stage IV esophageal cancer, CHF with EF 35-40%, afib on warfarin, mets to liver and retroperitoneal lymph nodes, chemo- induced neuropathy, DVT with chuy fileter, GARDENIA, and others, presented to the hospital from outpatient heme/onc office for DORIS with creatinine 2.5. He was seen on 12/21 for scheduled appointment to received his chemotherapy. Labs revealed creatinine of 2.1, he was given IVF and asked to return the next day. Next day on 12/22, creatinine malik to 2.5, so he was asked to go to the ED. Nephrology is consulted. Creatinine today is 2.59 and patient is oliguric. Patient has also been experiencing "jerking movements" of the upper extremities and was started on primidone. He is on NSS infusion for poor PO intake and large GI losses of fluid. His albumin is 1.6. Is somewhat lethargic. Palliative care is consulted to discuss goals of care. -Met with patient in room 257. He is drowsy, falls asleep frequently during conversation. patient is oriented but stated, "I feel delirious, I'm all confused today." -Patient seems to have limited insight into complex medical situation, but is able to make his own decisions. Patient stated, "I'm not ready to . I want everything done for me." He wants to remain a FULL CODE. He also states he would want dialysis if it is indicated, although I think he would be a poor candidate. -Patient's goal is to return home with his and continue treatment. However, he did recognize that he feels like he's getting worse instead of better. He gave me permission to call his , Reta. -Attempted to call Reta x2, no answer and no voicemail. -Dr. Chester does plan to speak with patient's oncologist regarding possible paraneoplastic syndrome. -patient denies any pain at this time. Has not received Tramadol since 12/25. -Palliative care will continue to follow. Prognosis is uncertain at this time. Low albumin is usually very poor prognostic sign. Will wait for oncology's input. -PPS 40%. (2) Esophageal cancer: (3) DORIS (acute kidney injury): (4) Jerking movements of extremities: Supervising Physician Co-Signing Physician Notes Chart reviewed, pt seen and examined - no family or friends at bedside. Pt c/o GONZALEZ PE: NAD HEENT: EOMI, KLETSEL DEHE WINT[place] Resp: unlabored CV: RR, no edema Abd: not distended Neuro: alert, oriented, poor insight Agree with above note, assessment and plan as per TOSHA Melissa - will cont to follow and assist pt and family with medical decision making History of Present Illness Reason for Consultation: Goals of care Requesting Physician: Dr. Chester Attending Physician: Mars Chester MD History of Present Illness This 63 year old male patient with PMH stage IV esophageal cancer, CHF with EF 35-40%, afib on warfarin, mets to liver and retroperitoneal lymph nodes, chemo- induced neuropathy, DVT with chuy fileter, GARDENIA, and others, presented to the hospital from outpatient heme/onc office for DORIS with creatinine 2.5. He was seen on 12/21 for scheduled appointment to received his chemotherapy. Labs revealed creatinine of 2.1, he was given IVF and asked to return the next day. Next day on 12/22, creatinine malik to 2.5, so he was asked to go to the ED. Nephrology is consulted. Creatinine today is 2.59 and patient is oliguric. Patient has also been experiencing "jerking movements" of the upper extremities and was started on primidone. He is on NSS infusion for poor PO intake and large GI losses of fluid. His albumin is 1.6. Is somewhat lethargic. Palliative care is consulted to discuss goals of care. Thank you kindly for this consult. I will follow as needed. Allergies Allergy/AdvReac Type Severity Reaction Status Date / Time amoxicillin Allergy Unknown RASH Verified 12/23/18 09:42 escitalopram Allergy Unknown RASH Verified 12/23/18 09:42 finasteride Allergy Unknown rash Verified 12/23/18 09:42 Penicillins Allergy Unknown RASH Verified 12/23/18 09:42 piperacillin Allergy Unknown RASH Verified 12/23/18 09:42 tazobactam Allergy Unknown RASH Verified 12/23/18 09:42 vancomycin Allergy Unknown RASH Verified 12/23/18 09:42 adhesive tape Allergy Rash Verified 12/23/18 09:42 Home Medications Home Medications Medication Instructions Recorded Confirmed Type aspirin 81 mg PO QAM 04/13/18 12/23/18 History ferrous sulfate 324 mg PO HS 04/13/18 12/23/18 History lorazepam [Ativan] 0.5 mg PO BID PRN 04/13/18 12/23/18 History metoprolol succinate 50 mg PO BID 04/13/18 12/23/18 History multivitamin 1 tab PO HS 04/13/18 12/23/18 History omeprazole 20 mg PO HS 04/13/18 12/23/18 History ondansetron 8 mg PO TID PRN 04/13/18 12/23/18 History tamsulosin 0.4 mg PO HS 04/13/18 12/23/18 History tramadol 50 mg PO Q8H PRN 04/13/18 12/23/18 History warfarin 2.5 mg PO SUTUTH 04/13/18 12/23/18 History warfarin 5 mg PO MOWEFRSA 04/13/18 12/23/18 History Vitamin C 250 mg PO HS 05/14/18 12/23/18 History acetaminophen [Acetaminophen Extra 1,000 mg PO TID PRN 05/14/18 12/23/18 History Strength] cyanocobalamin (vitamin B-12) 1,000 mcg PO HS 05/14/18 12/23/18 History [Vitamin B-12] lidocaine HCl 1 appln TOP TID PRN #30 ml 05/14/18 12/23/18 Rx albuterol sulfate 2 puff INHALATION Q4H PRN 12/23/18 12/23/18 History cetirizine 10 mg PO HS 12/23/18 12/23/18 History docusate sodium [Colace] 100 mg PO BID 12/23/18 12/23/18 History gabapentin 100 mg PO BID 12/23/18 12/23/18 History tiotropium bromide [Spiriva with 18 mcg INHALATION HS 12/23/18 12/23/18 History HandiHaler] Patient History Medical History Liver cancer (Chronic) Hypertension (Chronic) Cardiomyopathy, nonischemic (Chronic) Venous insufficiency (Chronic) Anticoagulated on warfarin (Chronic) Paroxysmal ventricular tachycardia (Chronic) BPH (benign prostatic hypertrophy) (Chronic) GERD (gastroesophageal reflux disease) (Chronic) History of pulmonary embolism (Chronic) Pulmonary hypertension (Chronic) Weight loss (Resolved) Dysphagia Diabetes mellitus, type 2 (Chronic) "diet controlled" Sleep apnea (Chronic) Obesity (BMI 30-39.9) (Resolved) Chronic atrial fibrillation (Chronic) Coronary artery disease (Chronic) Drug eruption Esophageal cancer (Resolved 02/09/17) Surgical History History of exploratory laparotomy (Chronic) "2008" Status post appendectomy (Chronic) Status post insertion of inferior vena caval filter (Chronic) "2008" Status post implantation of automatic cardioverter/defibrillator (AICD) (Chronic) "02/02/17 Dr. Rubio [facility]" Family History Sister Stroke Mother Diabetes 1.5, managed as type 2 Social History Preferred Language: Emirati Communication Ability: Effective Visual Impairment: No Limitations Hearing Ability: Normal Director Asset Required: No Beliefs That Will Affect Care: None marital status: Current Living Situation: Spouse Other Information That Helps Us Care for You: No Feels Safe at Home: Yes Safety Concerns: Feels Safe At This Time Smoking Status: Current every day smoker Tobacco Type: smokeless tobacco ; Do You Dip or Chew Tobacco: No ; Second Hand Exposure: No ; Tobacco Cessation Education Requested by Patient: No Hx Alcohol Use: No Hx Substance Use: No Review of Systems Constitutional: + weakness Respiratory: no cough and no dyspnea Cardiovascular: no chest pain Gastrointestinal: no abdominal pain and no nausea Neurologic: + confusion Physical Exam Constitutional: + ill appearing and + overweight ENMT: Mouth: + poor dentition Neck: normal visual inspection Respiratory: normal respiratory effort, lungs clear to auscultation Auscultation: + diminished lung sounds Cardiovascular: RRR, no murmur, no edema Gastrointestinal (Abdomen): Inspection/Auscultation: abdomen normal to inspection and normal bowel sounds; abdomen not distended Neurologic: moves all extremities and awake Motor/Sensory: + tremor (BUE) Psychiatric: Orientation: oriented x 3 Results & Data Vital Signs (Past 12 Hours) Vital Signs Temp Pulse Resp BP BP Pulse Ox 12/26/18 07:15 36.9 C 75 16 105/65 97 12/26/18 04:06 36.7 C 109 H 18 121/79 94 12/25/18 23:32 37.5 C 82 18 120/85 99 PG Care Time/CCT Total # of Minutes Spent Total Time Spent with Patient: Total time spent is greater than 50% in coordin ation of care (as documented) at patient's floor/unit and/or counseling patient: Time Spent Midlevel 70 minutes with >50% of the time spent at bedside with patient and attending physician discussing condition and GOC.
--- NOTE | 2018-12-26 12:23 | Nephrology Progress Note ---
Date of Service December 26, 2018 Assessment & Plan (1) DORIS (acute kidney injury): DORIS likely due to ischemic ATN from intravascular volume depletion and chemo. Patient was not eating or drinking for a week. Cr slightly improved today to 1.8. He remains oliguric and is having large stool losses. No obstructive uropathy on ultrasound. No need for HD -Agree with iv fluids. Post void bladder scan and if retaining, put gilman -Daily BMP to monitor RF -Monitor input/output -No contrast unless lifesaving (2) Iron deficiency anemia: He has mild anemia likely due to the cancer. Monitor and transfuse as needed Subjective renal function slightly better. no c/o except that he wants me to readjust his wound boots (already on). denies pain, denies sob, denies n Review of Systems Review of Systems: All systems reviewed & are unremarkable except as noted in HPI & below ROS limited by cognitive status Physical Exam Constitutional: well developed and + thin on RA, [place], does not reply much for orientation Eyes: EOM intact bilaterally ENMT: Ears: no external ear abnormality Nose: no external nose abnormality Mouth: + dry oral mucous membranes [place] Neck: no nuchal rigidity Respiratory: normal respiratory effort Auscultation: + diminished lung sounds (anterior exam) Cardiovascular: Rate/Rhythm: regular rate and regular rhythm Extremities: no edema Gastrointestinal (Abdomen): Inspection/Auscultation: + abdomen distended (slight; somewhat firm) and normal bowel sounds Percussion/Palpation: abdomen nontender has rectal tube w/ copious output Musculoskeletal: generalized weakness Skin: no rashes, warm and dry wounds not examined >> in wound boots Neurologic: ding but hardly, fluent speech, no tremor, [place] Psychiatric: Orientation: alert and oriented to person Eye Contact: + fair eye contact Speech: + loud speech Affect: + anxious affect Mood: + anxious mood Insight: + limited insight Judgement: + limited judgement Genitourinary: gilman w/ sediment and some azam urine Results & Data Vital Signs (Past 12 Hours) Vital Signs Temp Pulse Resp BP Pulse Ox 12/26/18 11:22 36.7 C 79 18 110/71 98 12/26/18 07:15 36.9 C 75 16 105/65 97 12/26/18 04:06 36.7 C 109 H 18 121/79 94 Laboratory Results Abnormal lab results 12/26/18 12/26/18 12/26/18 Range/Units 05:24 05:25 05:25 PT 29.8 H (9.0-12.0) Seconds INR 3.2 H (0.9-1.1) Sodium 130 L (136-145) mmol/L Potassium 5.2 H D (3.5-5.1) mmol/L Carbon Dioxide 15 L (21-32) mmol/L Anion Gap 12.0 H (3-11) BUN 50 H (7-18) mg/dl Creatinine 2.56 H D 2.59 H (0.6-1.4) mg/dl Glucose 118 H (70-99) mg/dl Calcium 7.7 L (8.5-10.1) mg/dl Phosphorus (2.5-4.9) mg/dl Magnesium (1.8-2.4) mg/dl Total Protein (6.4-8.2) gm/dl Albumin (3.4-5.0) gm/dl 12/26/18 Range/Units 09:40 PT (9.0-12.0) Seconds INR (0.9-1.1) Sodium (136-145) mmol/L Potassium (3.5-5.1) mmol/L Carbon Dioxide (21-32) mmol/L Anion Gap (3-11) BUN (7-18) mg/dl Creatinine (0.6-1.4) mg/dl Glucose (70-99) mg/dl Calcium (8.5-10.1) mg/dl Phosphorus 5.6 H (2.5-4.9) mg/dl Magnesium 1.5 L (1.8-2.4) mg/dl Total Protein 4.9 L (6.4-8.2) gm/dl Albumin 1.6 L (3.4-5.0) gm/dl
--- NOTE | 2018-12-26 12:34 | Nephrology Progress Note ---
Date of Service December 26, 2018 Assessment & Plan (1) DORIS (acute kidney injury): DORIS likely due to ischemic ATN from intravascular volume depletion and chemo. Patient was not eating or drinking for a week; seems to be eating better now. creatinine worsened today for no clear reason ? retention, ? tremor related << whatever is driving that. He remains oliguric and is having large stool losses. No obstructive uropathy on ultrasound. No need for HD -continue NS current rate. -added full chem panel and recommend mag, phos today -needs Daily BMP -Monitor input/output -No contrast unless lifesaving (2) Iron deficiency anemia: He has mild anemia likely due to the cancer. Monitor and transfuse as needed > no checked today and would do today Subjective got tremors yesterday and ongoing/worse today. hospitalist to evaluate. some cramping pain w/moving his leg. had bladder scan yesterday for 400 but only 200 [address] str cath >> had no obstruction on admission imaging creat worse today Review of Systems Review of Systems: All systems reviewed & are unremarkable except as noted in HPI & below Physical Exam Constitutional: well developed, well nourished and + morbidly obese on RA, sitting on side of bed eating banana; hunched over/tired; Eyes: EOM intact bilaterally looks past me when talking >> ? mild R gaze pref ENMT: Ears: no external ear abnormality Nose: no external nose abnormality Mouth: + dry oral mucous membranes Neck: no nuchal rigidity Respiratory: normal respiratory effort Auscultation: + diminished lung sounds Cardiovascular: Rate/Rhythm: regular rate and regular rhythm Extremities: + edema (trace BLE and some painfulness to touch) Gastrointestinal (Abdomen): Inspection/Auscultation: normal bowel sounds Percussion/Palpation: abdomen soft; abdomen nontender Musculoskeletal: Extremities: strength 5/5 throughout some leg cramps/ tender to palpation Skin: no rashes, warm and dry chronic venous stasis changes BLE Neurologic: axial tremor and limb tremor Psychiatric: Orientation: alert, oriented to person and oriented to place Eye Contact: + fair eye contact Speech: normal rate/rhythm/volume of speech Affect: + irritable affect Results & Data Vital Signs (Past 12 Hours) Vital Signs Temp Pulse Resp BP Pulse Ox 12/26/18 11:22 36.7 C 79 18 110/71 98 12/26/18 07:15 36.9 C 75 16 105/65 97 12/26/18 04:06 36.7 C 109 H 18 121/79 94 Laboratory Results Abnormal lab results 12/26/18 12/26/18 12/26/18 Range/Units 05:24 05:25 05:25 PT 29.8 H (9.0-12.0) Seconds INR 3.2 H (0.9-1.1) Sodium 130 L (136-145) mmol/L Potassium 5.2 H D (3.5-5.1) mmol/L Carbon Dioxide 15 L (21-32) mmol/L Anion Gap 12.0 H (3-11) BUN 50 H (7-18) mg/dl Creatinine 2.56 H D 2.59 H (0.6-1.4) mg/dl Glucose 118 H (70-99) mg/dl Calcium 7.7 L (8.5-10.1) mg/dl Phosphorus (2.5-4.9) mg/dl Magnesium (1.8-2.4) mg/dl Total Protein (6.4-8.2) gm/dl Albumin (3.4-5.0) gm/dl 12/26/18 Range/Units 09:40 PT (9.0-12.0) Seconds INR (0.9-1.1) Sodium (136-145) mmol/L Potassium (3.5-5.1) mmol/L Carbon Dioxide (21-32) mmol/L Anion Gap (3-11) BUN (7-18) mg/dl Creatinine (0.6-1.4) mg/dl Glucose (70-99) mg/dl Calcium (8.5-10.1) mg/dl Phosphorus 5.6 H (2.5-4.9) mg/dl Magnesium 1.5 L (1.8-2.4) mg/dl Total Protein 4.9 L (6.4-8.2) gm/dl Albumin 1.6 L (3.4-5.0) gm/dl
[2018-12-26] MEDS: AZITHROMYCIN 250 MG in DEXTROSE 5% 250 ML IV SCH (13:40)
--- NOTE | 2018-12-26 16:14 | Hospitalist Progress Note ---
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 Today Outpatient labs 12/23/2018 H/H 11.9 and 36.6, W BC 9.07, platelet 226 Sodium 131, K4.6, chloride 98, CO2 19, BUN 29, creatinine 2.5, glucose 130, AG 14 TSH 3.62 Urine: Lachelle color, trace ketone, specific gravity 1.020, negative blood, protein 100, negative nitrate, negative esterase, bacteria 2650, WBC 35, uric acid crystals 1-4, granular casts 1-4 Admit to [facility] for new onset DORIS with worsening renal function despite 1L IVF, ? if pre renal given poor po intake, vs ATN secondary to chemo vs post obstructive Intravenous normal saline has been started consult nephrology-appreciate input and recommendation Renal ultrasound did not show an obstruction Renal functions remained static with a creatinine of 2.1 today We will continue IV fluid and increase oral intake May need catheterization to monitor intake output precisely Renal function has not improved yet We will continue current infusion rate for normal saline (3) Pleural effusion: per CXR, pt with LEIGH but not lashonda PNA symptoms Procalcitonin and lactate-normal MRSA swab ordered-negative will order cefepime and azithromycin until PNA ruled out give pt immunocompromised incentive spirometry Bronchodilators as needed We will continue IV antibiotic for now (4) Esophageal cancer: Stage IV esophageal adenoCA with liver mets and retroperitoneal lymph node mets follows dr de la o chemo q2 weeks Paclitaxel, cyramza, last dose 2 weeks ago - was scheduled today but did not receive He is not neutropenic today We will discuss with him on Wednesday (5) Jerking movements of extremities: Noted to have occasional jerks involving the extremities earlier since last night Has some bilateral tremors of the upper extremities with activity No resting tremor Seems to be secondary to benign essential tremor and complicated by comorbid illness Will try primidone for now Metabolic encephalopathy The patient has been pleasantly confused with occasional jerking movement involving the upper extremities Apparent blood test including LFTs, electrolytes and ammonia are unremarkable CT scan of the head has been unremarkable Discussed with oncologist-not a candidate for any further chemotherapy Palliative care consult Will discuss with family members especially the (6) Coronary artery disease: No chest pain/SOB, troponin WNL Continue ASA, metoprolol, Coumadin (7) Systolic CHF, chronic: Last echocardiogram 10/03/2018 revealed EF 35 to 45%, grade 1 diastolic dysfunction, global hypokinesis of LV, severely dilated left atrium, mildly dilated right atrium Currently euvolemic, monitor volume status closely Continue metoprolol Daily weights, strict I's and O's Heart healthy diet No signs and/or symptoms of fluid overload (8) Chronic atrial fibrillation: Continue metoprolol for rate control Anticoagulant on warfarin, INR 2.9 today Continue home regimen of warfarin 2.5 mg Wednesday/Wednesday/, 5 mg all other days INR in a.m, and daily given concurrent antibiotic use INR 3.9 today 12/24 We will monitor INR-3.318/ (9) Chronic bronchitis with COPD (chronic obstructive pulmonary disease): No acute exacerbation Follows Dr. 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 Sanders upon discharge Full code Subjective 12/23The patient was seen and examined in the emergency room on the day of admission He was admitted with DORIS likely secondary to dehydration and could be contributed by use of chemotherapeutic agent Denies any significant symptoms except weakness 12/24 Patient was seen and examined in medical unit With complaints of generalized weakness but denies any other symptoms Denies any shortness of breath and/or palpitation and no bloating 12/25 The patient was seen and examined in medical telemetry unit He has been complaining of occasional shakes of the extremities which get worse with intentional movement no rest tremor Remains generally weak and lethargic 12/26 The patient was seen and examined in medical telemetry unit He has been generally weak and lethargic Still complains to have occasional jerks involving the upper extremities Otherwise mentally seems to be clear Review of Systems Review of Systems: All systems reviewed and are unremarkable except as noted below Constitutional: + fatigue and + weakness Respiratory: + dyspnea on exertion (Which has been chronic) Cardiovascular: no chest pain Genitourinary: + difficulty urinating and + decreased urination (Does not want any Nuñez catheter at this time) Musculoskeletal: No acute arthritis in any of the joints Neurologic: + generalized weakness, + tremor(s) (Seems to be intentional and getting worse) and + confusion (Pleasantly confused) Extremely weak and immediately going to sleep after a short conversation Physical Exam Physical Exam: No apparent distress at rest Constitutional: well developed, well nourished, + acute distress (Anxiety with occasional jerks of the extremities and intentional tremor) and + ill appearing Eyes: PERRL, conjunctivae normal, anicteric sclerae ENMT: external ear and nose normal, oropharynx normal Neck: trachea midline, no thyromegaly Respiratory: normal respiratory effort Auscultation: + diminished lung sounds and + crackles (Left lung base) Cardiovascular: Rate/Rhythm: regular rate and regular rhythm Gastrointestinal (Abdomen): Inspection/Auscultation: abdomen normal to inspection Percussion/Palpation: abdomen soft Neurologic: moves all extremities Has occasional abnormal jerks involving the upper extremities with occasional exacerbation and mostly with intention Psychiatric: Affect: + depressed affect and + anxious affect Lymphatic: no cervical or axillary lymphadenopathy Results & Data Vital Signs (Past 12 Hours) Vital Signs Temp Pulse Resp BP BP Pulse Ox 12/26/18 15:12 36.9 C 84 17 192/135 H 93 12/26/18 11:22 36.7 C 79 18 110/71 98 12/26/18 07:15 36.9 C 75 16 105/[address] [facility] 12/26/18 12/26/18 05:24 05:25 Sodium 130 L Potassium 5.2 H D Chloride 104 Carbon Dioxide 15 L BUN 50 H Creatinine 2.56 H D 2.59 H Glucose 118 H Calcium 7.7 L Liver Function 12/26/18 Range/Units 09:40 Total Bilirubin 0.5 (0.2-1) mg/dl Direct Bilirubin 0.2 (0-0.2) mg/dl AST 16 (15-37) U/L ALT 12 (12-78) U/L Alkaline Phosphatase 71 (45-117) U/L Albumin 1.6 L (3.4-5.0) gm/dl Medications Administered Current Inpatient Medications Acetaminophen (Tylenol) 650 mg PO Q4H PRN PRN Reason: Pain or Fever Stop: 01/22/19 14:05 Albuterol (Duoneb) 3 ml NEB Q2H PRN PRN Reason: Shortness Of Breath Or Wheezing Stop: 01/22/19 14:29 Ascorbic Acid (Vitamin C) 250 mg PO [facility] Stop: 01/22/19 20:59 Last Admin: 12/25/18 20:40 Dose: 250 mg Documented by: Aspirin (Ecotrin Ectab) 81 mg PO [facility] Stop: 01/23/19 08:59 Last Admin: 12/26/18 08:02 Dose: 81 mg Documented by: Azithromycin (Zithromax) 250 mg PO DAILY [facility] Stop: 12/29/18 23:59 Cetirizine HCl (Zyrtec) 10 mg PO [facility] Stop: 01/22/19 20:59 Last Admin: 12/25/18 20:42 Dose: 10 mg Documented by: Cyanocobalamin (Vitamin B-12) 1,000 mcg PO [facility] Stop: 01/22/19 20:59 Last Admin: 12/25/18 20:42 Dose: 1,000 mcg Documented by: Docusate Sodium (Colace) 100 mg PO BID [facility] Stop: 01/22/19 20:59 Last Admin: 12/26/18 08:02 Dose: 100 mg Documented by: Ferrous Sulfate (Feosol) 325 mg PO [facility] Stop: 01/22/19 20:59 Last Admin: 12/25/18 20:40 Dose: 325 mg Documented by: Gabapentin (Neurontin) 100 mg PO BID [facility] Stop: 01/22/19 20:59 Last Admin: 12/26/18 08:02 Dose: 100 mg Documented by: Heparin Sodium (Porcine) (Heparin Sod 100 Unit/Ml Flush) 5 ml FLUSH PRN PRN PRN Reason: Flush Stop: 01/24/19 01:44 Cefepime HCl 2,000 mg/ Syringe 20 mls @ 5 mls/min IV Q12H [facility]; Protocol Stop: 12/31/18 01:59 Last Admin: 12/26/18 14:14 Dose: 5 mls/min Documented by: Sodium Chloride (Nss 1000ml) 1,000 mls @ 125 mls/hr IV .Q8H [facility] Stop: 01/24/19 10:29 Last Admin: 12/26/18 09:40 Dose: 125 mls/hr Documented by: Lorazepam (Ativan) 0.5 mg PO BID PRN PRN Reason: Anxiety Stop: 01/22/19 14:05 Metoprolol Succinate (Toprol Xl) 50 mg PO BID [facility] Stop: 01/22/19 20:59 Last Admin: 12/26/18 09:07 Dose: 50 mg Documented by: Miscellaneous Information (Cefepime Consult Active) 1 ea N/A UD PRN PRN Reason: Consult Stop: 01/22/19 14:22 Miscellaneous Information (Pharmacy Consult) 1 ea N/A UD PRN PRN Reason: Consult Stop: 01/22/19 14:23 Multivitamins (Multivitamin Tab) 1 tab PO [facility] Stop: 01/22/19 20:59 Last Admin: 12/25/18 20:42 Dose: 1 tab Documented by: Nitroglycerin (Nitrostat) 0.4 mg SL UD PRN PRN Reason: Chest Pain Stop: 01/22/19 14:05 Ondansetron HCl (Zofran) 4 mg IV Q6H PRN PRN Reason: Nausea Stop: 01/22/19 14:05 Last Admin: 12/25/18 05:30 Dose: 4 mg Documented by: Pantoprazole Sodium (Protonix) 40 mg PO [facility]; Protocol Stop: 01/22/19 20:59 Last Admin: 12/25/18 20:41 Dose: 40 mg Documented by: Polyethylene Glycol (Miralax Powder Packet) 17 gm PO DAILY PRN PRN Reason: Constipation Stop: 01/22/19 14:05 Primidone (Primidone) 50 mg PO DAILY [facility] Stop: 01/24/19 11:14 Last Admin: 12/26/18 08:02 Dose: 50 mg Documented by: Tamsulosin HCl (Flomax) 0.4 mg PO [facility] Stop: 01/22/19 20:59 Last Admin: 12/25/18 20:40 Dose: 0.4 mg Documented by: Tiotropium [place] (Spiriva) 1 puffs INH HS [facility] Stop: 01/22/19 20:59 Last Admin: 12/25/18 20:38 Dose: 1 puffs Documented by: Tramadol HCl (Ultram) 50 mg PO Q8H PRN PRN Reason: Pain Stop: 01/22/19 14:05 Last Admin: 12/25/18 10:42 Dose: 50 mg Documented by: Warfarin Sodium (Coumadin) 2.5 mg PO [id number]@1600 [facility] Stop: 01/24/19 15:59 Last Admin: 12/25/18 16:05 Dose: 2.5 mg Documented by: Warfarin Sodium (Coumadin) 5 mg PO [id number]@1600 [facility] Stop: 01/22/19 15:59 Last Admin: 12/23/18 15:09 Dose: 5 mg Documented by:
[2018-12-26] MEDS: TRAMADOL HCL 50 MG TABLET PO PRN (16:32)
[2018-12-26] MEDS: WARFARIN SOD 5 MG TAB PO SCH (16:35)
--- NOTE | 2018-12-26 18:20 | XRay Report ---
XR chest 1V portable CLINICAL HISTORY: 63 years-old Male presenting with markedly positive fluid status w/ new tremor. TECHNIQUE: Portable upright AP view of the chest was obtained. COMPARISON: 12/23/2018. FINDINGS: Image quality is limited by the degree of patient kyphosis. Left subclavian Mediport terminates in the upper SVC. Right subclavian implanted cardiac defibrillato r terminates at the right ventricular apex. Cardiac silhouette enlarged as on prior exam. Mildly low lung volumes with elevation of the hemidiaphragms. This is significantly worse on the right and only partially explained by patient positioning. Hypoventilatory changes with increased bibasilar opacity and mild prominence of pulmonary vasculature. No large effusion or pneumothorax. Osseous structures n ormal. Several external leads overlie the upper abdomen. Hyperdensity in the region of the left adnex a is new from prior and indeterminate. IMPRESSION: Image quality is limited by the degree of patient kyphosis. 1. Hyperdensity in the left adnexa is new from prior and indeterminate. This may potentially be exte rnal to the patient. Correlate clinically. 2. Low lung volumes with hypoventilatory changes and increased bibasilar atelectasis. 3. Cardiomegaly with volume overload. No lashonda pulmonary edema at this time. Electronically signed by: Garth Dukes M.D. 12/26/2018 6:18 PM
[2018-12-26 21:33] LABS: Hematocrit (blood only) 30.4 % (42-52); Hemoglobin 10.5 g/dL (14.0-18.0); Mean Corpuscular Volume 88.6 fL (80-100); Mean Platelet Volume 9.4 fL (7.4-10.4); Platelet Count 132 K/uL (130-400); RDW Coefficient of Variation 18.2 % (11.5-14.5); Red Blood Count 3.43 M/uL (4.7-6.1)
[2018-12-26 21:34] LABS: Mean Corpuscular Hgb Conc 34.5 g/dL (32-36)
[2018-12-26 21:38] LABS: Allen Test Pos (Pos); Base Excess ABG -10.5 mEq/L (-9-1.8); HCO3 ABG 13 mmol/L (19-24); Oxygen Saturation ABG 97.2 % (90-95); PCO2 ABG 22 mmHg (35-46); PO2 ABG 92 mm/Hg (80-95); pH ABG 7.39 (7.35-7.45)
[2018-12-26 21:52] LABS: Basophils # (auto) 0.02 K/uL (0-0.2); Basophils % (auto) 0.1 %; Echinocytes 2+; Eosinophils # (auto) 0.02 K/uL (0-0.5); Eosinophils % (auto) 0.1 %; Immature Granulocytes # (auto) 0.06 K/uL (0.00-0.02); Immature Granulocytes % (auto) 0.4 %; Lymphocytes % (auto) 4.5 %; Monocytes # (auto) 0.98 K/uL (0.11-0.59); Monocytes % (auto) 6.4 %; Neutrophils # (auto) 13.62 K/uL (1.4-6.5); Neutrophils % (auto) 88.5 %
--- NOTE | 2018-12-26 22:16 | CT Scan Report ---
HEAD CT NONCONTRAST CT DOSE: 3437.01 mGycm HISTORY: Altered mental status. TECHNIQUE: Multiaxial CT images of the head were performed without the use of intravenous contrast. A utomated exposure control was utilized for this study. A dose lowering technique was utilized adheri ng to the principles of ALARA. Comparison: Head CT 12/26/2018. Findings: Suboptimal evaluation due to the motion artifact. Mild mucosal thickening within the maxill [place] sinuses and right ethmoid air cells. The mastoid air cells are clear. The calvarium and skull bas e are intact. The ventricles and sulci are within normal limits. There is no mass, hematoma, midline shift, or acute infarct. Impression: Motion artifact. No definite acute intracranial abnormality. Electronically signed by: Jacob Cook M.D. 12/26/2018 10:15 PM
[2018-12-26] MEDS: FERROUS SULFATE 325 MG TAB PO SCH (22:22)
[2018-12-26] MEDS: TAMSULOSIN HCL 0.4 MG CAP PO SCH (22:22)
[2018-12-26] MEDS: ASCORBIC ACID 500 MG TAB PO SCH (22:23)
[2018-12-26] MEDS: TIOTROPIUM BROMIDE 5 PUFF/90 MCG INH INH SCH (22:23)
[2018-12-26] MEDS: PANTOprazole 40 MG TAB PO SCH (22:23)
[2018-12-26] MEDS: CYANOCOBALAMIN 500 MCG TABLET (VITAMIN B-12) PO SCH (22:23)
[2018-12-26] MEDS: CETIRIZINE HCL 10 MG TABLET PO SCH (22:23)
[2018-12-26] MEDS: MULTIVITAMIN TAB PO SCH (22:23)
[2018-12-27] MEDS: SODIUM CHLORIDE 0.9% 1000ML 1,000 ML IV SCH ×2 (01:34→07:27)
[2018-12-27] MEDS: CEFEPIME 2,000 MG in SYRINGE 7.5 ML IV SCH ×2 (01:51→14:36)
[2018-12-27 06:37] LABS: Hematocrit (blood only) 28.2 % (42-52); Hemoglobin 9.6 g/dL (14.0-18.0); Platelet Count 120 K/uL (130-400); RDW Coefficient of Variation 18.3 % (11.5-14.5); RDW Standard Deviation 59.5 fL (36.4-46.3); Red Blood Count 3.17 M/uL (4.7-6.1); White Blood Count 15.69 K/uL (4.8-10.8)
[2018-12-27 07:09] LABS: BUN Creatinine Ratio 20.8 (10-20); Calcium 7.5 mg/dl (8.5-10.1); Creatinine Clr Calc Pharmacy 38.5 ml/min; Est GFR (African American) 28.1; Est GFR (Non-African American) 24.3; Phosphorus 5.7 mg/dl (2.5-4.9); Potassium 5.4 mmol/L (3.5-5.1)
[2018-12-27 07:45] LABS: Basophils # (auto) 0.01 K/uL (0-0.2); Basophils % (auto) 0.1 %; Echinocytes 1+; Eosinophils # (auto) 0.01 K/uL (0-0.5); Eosinophils % (auto) 0.1 %; Immature Granulocytes # (auto) 0.06 K/uL (0.00-0.02); Immature Granulocytes % (auto) 0.4 %; Lymphocytes # (auto) 0.56 K/uL (1.2-3.4); Lymphocytes % (auto) 3.6 %; Monocytes # (auto) 0.83 K/uL (0.11-0.59); Monocytes % (auto) 5.3 %; Neutrophils # (auto) 14.22 K/uL (1.4-6.5); Neutrophils % (auto) 90.5 %
[2018-12-27] MEDS: DOCUSATE SODIUM 100 MG CAP PO SCH ×2 (08:28→20:23)
[2018-12-27] MEDS: GABAPENTIN 100 MG CAP PO SCH ×2 (08:28→20:14)
[2018-12-27] MEDS: ASPIRIN 81 MG ECTAB PO SCH (08:28)
[2018-12-27] MEDS: PRIMIDONE 50 MG TAB PO SCH (08:29)
[2018-12-27] MEDS: METOPROLOL SUCC 50MG EXT REL TAB PO SCH ×2 (08:29→20:14)
[2018-12-27] MEDS ORDERED: AZITHROMYCIN 250 MG TAB PO SCH (09:00)
--- NOTE | 2018-12-27 12:57 | Nephrology Progress Note ---
Date of Service December 27, 2018 Assessment & Plan (1) DORIS (acute kidney injury): DORIS attributed initially to ischemic ATN from intravascular volume depletion and chemo. Patient was not eating or drinking for a week; then on 12/26 w/ sudden creatinine worsening for no clear reason ? retention, ? tremor related/change in cognitive status << whatever is driving that. He remains oliguric and is having urinary retention > now w/ gilman. No obstructive uropathy on ultrasound. poor HD candidate and would not offer at this time. mild hyperkalemia and marked acidosis on labs this am -changed NS to bicarb gtt at 150 mL/hr -repeat bmp, ck cpk at 1800 ordered -ordered low K diet -needs Daily BMP -Monitor input/output -No contrast unless lifesaving (2) Iron deficiency anemia: He has mild anemia likely due to the cancer. Monitor and transfuse as needed Subjective seen on rounds this am; tremors markedly worse, remains anuric; challenging for him to follow commands/ ROS Review of Systems Review of Systems: Unobtainable due to cognitive status Physical Exam Constitutional: well developed, well nourished and + morbidly obese on RA marked generalized tremor Eyes: EOM intact bilaterally ENMT: Ears: no external ear abnormality Nose: no external nose abnormality Mouth: + dry oral mucous membranes Neck: no nuchal rigidity Respiratory: normal respiratory effort Auscultation: + diminished lung soun ds (difficult to maneuver him for post exam) Cardiovascular: Rate/Rhythm: regular rate and regular rhythm Extremities: + edema (trace BLE and some painfulness to touch) Gastrointestinal (Abdomen): Inspection/Auscultation: normal bowel sounds Percussion/Palpation: abdomen soft; abdomen nontender Musculoskeletal: Extremities: strength 5/5 throughout Skin: no rashes, warm and dry Neurologic: + hyperesthesias Psychiatric: Orientation: alert, oriented to person and oriented to place Eye Contact: + fair eye contact Speech: normal rate/rhythm/volume of speech Affect: + irritable affect Results & Data Vital Signs (Past 12 Hours) Vital Signs Temp Pulse Resp BP BP Pulse Ox Pulse Ox 12/27/18 12:15 36.7 C 53 L 20 92/60 L 96 12/27/18 09:34 96 12/27/18 07:37 36.8 C 74 18 113/68 98 12/27/18 04:00 36.8 C 67 20 112/66 96 Laboratory Results Abnormal lab results 12/26/18 12/26/18 12/27/18 Range/Units 21:20 21:20 06:22 WBC 15.40 H (4.8-10.8) K/uL RBC 3.43 L (4.7-6.1) M/uL Hgb 10.5 L (14.0-18.0) g/dL Hct 30.4 L (42-52) % RDW Std Deviation 59.0 H (36.4-46.3) fL RDW Coeff of Charis 18.2 H (11.5-14.5) % Plt Count (130-400) K/uL Immature Gran # (Auto) 0.06 H (0.00-0.02) K/uL Neut # (Auto) 13.62 H (1.4-6.5) K/uL Lymph # (Auto) 0.70 L (1.2-3.4) K/uL [place] # (Auto) 0.98 H (0.11-0.59) K/uL ABG pCO2 22 L (35-46) mmHg ABG HCO3 13 L (19-24) mmol/L ABG O2 Saturation 97.2 H (90-95) % ABG Base Excess -10.5 L (-9-1.8) mEq/L Sodium 131 L (136-145) mmol/L Potassium 5.4 H (3.5-5.1) mmol/L Carbon Dioxide 14 L (21-32) mmol/L Anion Gap 12.0 H (3-11) BUN 56 H (7-18) mg/dl Creatinine 2.69 H (0.6-1.4) mg/dl BUN/Creatinine Ratio 20.8 H (10-20) Calcium 7.5 L (8.5-10.1) mg/dl Phosphorus 5.7 H (2.5-4.9) mg/dl 12/27/18 Range/Units 06:22 WBC 15.69 H (4.8-10.8) K/uL RBC 3.17 L (4.7-6.1) M/uL Hgb 9.6 L (14.0-18.0) g/dL Hct 28.2 L (42-52) % RDW Std Deviation 59.5 H (36.4-46.3) fL RDW Coeff of Charis 18.3 H (11.5-14.5) % Plt Count 120 L (130-400) K/uL Immature Gran # (Auto) 0.06 H (0.00-0.02) K/uL Neut # (Auto) 14.22 H (1.4-6.5) K/uL Lymph # (Auto) 0.56 L (1.2-3.4) K/uL [place] # (Auto) 0.83 H (0.11-0.59) K/uL ABG pCO2 (35-46) mmHg ABG HCO3 (19-24) mmol/L ABG O2 Saturation (90-95) % ABG Base Excess (-9-1.8) mEq/L Sodium (136-145) mmol/L Potassium (3.5-5.1) mmol/L Carbon Dioxide (21-32) mmol/L Anion Gap (3-11) BUN (7-18) mg/dl Creatinine (0.6-1.4) mg/dl BUN/Creatinine Ratio (10-20) Calcium (8.5-10.1) mg/dl Phosphorus (2.5-4.9) mg/dl
[2018-12-27] MEDS: SODIUM BICARBONATE 8.4% 150 MEQ in DEXTROSE 5% 1,000 ML IV SCH ×2 (14:35→22:17)
--- NOTE | 2018-12-27 16:26 | Palliative Care Progress Note ---
Date of Service December 27, 2018 Assessment & Plan (1) Goals of care, counseling/discussion: -Creatinine is worse today at 2.69 (2.59 yesterday). -Spoke with Dr. Cabral today-- plan is to continue to monitor urine output and creatinine. Hoping that with IVF kidney function may improve. -Spoke with Dr. Chester-- plan to place Nuñez catheter today. Dr. Chester spoke with oncologist-- no plans for further chemo at this time. -Prognosis guarded at this time. Mental status seems to be worsening. 2 CT heads negative yesterday. Lab work negative. -Dr. Chester is going to talk to patient's niece today. Will engage with patient's when she is available. -PPS 40%. (2) Esophageal cancer: (3) DORIS (acute kidney injury): (4) Jerking movements of extremities: Subjective Patient's confusion worsened throughout the course of the day yesterday. Two CT scans of the head were negative for anything acute. Review of Systems Review of Systems: Patient states "I don't know" to every question. Physical Exam Constitutional: + ill appearing and + overweight ENMT: Mouth: + poor dentition Neck: normal visual inspection Respiratory: normal respiratory effort, lungs clear to auscultation Auscultation: + diminished lung sounds Cardiovascular: RRR, no murmur, no edema Gastrointestinal (Abdomen): Inspection/Auscultation: abdomen normal to inspection and normal bowel sounds; abdomen not distended Neurologic: moves all extremities and awake Motor/Sensory: + tremor (BUE) Psychiatric: Orientation: oriented to person; + not alert (more drowsy today), + not oriented to place and + not oriented to time Results & Data Vital Signs (Past 12 Hours) Vital Signs Temp Pulse Resp BP Pulse Ox Pulse Ox 12/27/18 14:55 37.6 C H 109 H 16 104/64 96 12/27/18 12:15 36.7 C 53 L 20 92/60 L 96 12/27/18 09:34 96 12/27/18 07:37 36.8 C 74 18 113/68 98 PG Care Time/CCT Total # of Minutes Spent Total Time Spent with Patient: Total time spent is greater than 50% in coordination of care (as documented) at patient's floor/unit and/or counseling patient: Time Spent Midlevel 25 minutes with >50% of the time spent at bedside with patient, nursing staff and attending physician discussing condition and GOC.
[2018-12-27] MEDS: WARFARIN SOD 2.5 MG TAB PO SCH (16:42)
--- NOTE | 2018-12-27 16:51 | Hospitalist Progress Note ---
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 She is quite understanding and will relate to the He is likely going to multiorgan failure and the prognosis remains poor Appreciate palliative care input and recommendation (3) Jerking movements of extremities: Noted to have occasional jerks involving the extremities earlier since last night Has some bilateral tremors of the upper extremities with activity No resting tremor Seems to be secondary to benign essential tremor and complicated by comorbid illness Will try primidone for now Metabolic encephalopathy The patient has been pleasantly confused with occasional jerking movement inv olving the upper extremities Apparent blood test including LFTs, electrolytes and ammonia are unremarkable CT scan of the head has been unremarkable Discussed with oncologist-not a candidate for any further chemotherapy Palliative care consult-appreciate input and recommendation Discussed with Moni as above (4) Electrolyte abnormality: This is a 63-year-old male who has a significant PMH of CAD, chronic systolic CHF EF 35 to 40%, chronic atrial fibrillation on warfarin, current stage IV esophageal adenocarcinoma with liver mets and retroperitoneal lymph nodes, 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 Today Outpatient labs 12/23/2018 H/H 11.9 and 36.6, W BC 9.07, platelet 226 Sodium 131, K4.6, chloride 98, CO2 19, BUN 29, creatinine 2.5, glucose 130, AG 14 TSH 3.62 Urine: Lachelle color, trace ketone, specific gravity 1.020, negative blood, protein 100, negative nitrate, negative esterase, bacteria 2650, WBC 35, uric acid crystals 1-4, granular casts 1-4 Admit to [facility] for new onset DORIS with worsening renal function despite 1L IVF, ? if pre renal given poor po intake, vs ATN secondary to chemo vs post obstructive Intravenous normal saline has been started consult nephrology-appreciate input and recommendation Renal ultrasound did not show an obstruction Renal functions remained static with a creatinine of 2.1 today We will continue IV fluid and increase oral intake May need catheterization to monitor intake output precisely Renal function has not improved yet We will continue current infusion rate for normal saline (5) Pleural effusion: per CXR, pt with LEIGH but not lashonda PNA symptoms Procalcitonin and lactate-normal MRSA swab ordered-negative will order cefepime and azithromycin until PNA ruled out give pt immunocompromised incentive spirometry Bronchodilators as needed We will continue IV antibiotic for now dut discontinue Azithromycin (6) Coronary artery disease: No chest pain/SOB, troponin WNL Continue ASA, metoprolol, Coumadin (7) Systolic CHF, chronic: Last echocardiogram 10/03/2018 revealed EF 35 to 45%, grade 1 diastolic dysfunction, global hypokinesis of LV, severely dilated left atrium, mildly dilated right atrium Currently euvolemic, monitor volume status closely Continue metoprolol Daily weights, strict I's and O's Heart healthy diet No signs and/or symptoms of fluid overload (8) Chronic atrial fibrillation: Continue metoprolol for rate control Anticoagulant on warfarin, INR 2.9 today Continue home regimen of warfarin 2.5 mg Wednesday/Wednesday/, 5 mg all other days INR in a.m, and daily given concurrent antibiotic use INR 3.9 today 12/24 We will monitor INR-3.318/11 (9) Chronic bronchitis with COPD (chronic obstructive pulmonary disease): No acute exacerbation Follows Dr. 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 Sanders upon discharge Full code Subjective 12/23The patient was seen and examined in the emergency room on the day of admission He was admitted with DORIS likely secondary to dehydration and could be contributed by use of chemotherapeutic agent Denies any significant symptoms except weakness 12/24 Patient was seen and examined in medical unit With complaints of generalized weakness but denies any other symptoms Denies any shortness of breath and/or palpitation and no bloating 12/25 The patient was seen and examined in medical telemetry unit He has been complaining of occasional shakes of the extremities which get worse with intentional movement no rest tremor Remains generally weak and lethargic 12/26 The patient was seen and examined in medical telemetry unit He has been generally weak and lethargic Still complains to have occasional jerks involving the upper extremities Otherwise mentally seems to be clear 12/27 The patient was seen and examined in medical telemetry unit This condition has been deteriorating with increasing confusion and drowsiness Abnormal movements of the upper extremities and the body have been worsening to Kidney function is getting worse as well with less urine output Discussed with Niece and she is very understanding Review of Systems Review of Systems: All systems reviewed and are unremarkable except as noted below Constitutional: + fatigue and + weakness Respiratory: + dyspnea on exertion (Which has been chronic) Genitourinary: + difficulty urinating and + decreased urination (Does not want any Nuñez catheter at this time) Musculoskeletal: No acute arthritis in any of the joints Neurologic: + generalized weakness, + tremor(s) (Seems to be intentional and getting worse) and + confusion (Pleasantly confused) Extremely weak and immediately going to sleep after a short conversation Physical Exam Physical Exam: Moderate distress at rest due to jerking movement involving the upper extremities Constitutional: well developed, well nourished, + acute distress (Anxiety with occasional jerks of the extremities and intentional tremor) and + ill appearing Eyes: PERRL, conjunctivae normal, anicteric sclerae ENMT: external ear and nose normal, oropharynx normal Neck: trachea midline, no thyromegaly Respiratory: normal respiratory effort Auscultation: + diminished lung sounds and + crackles (Left lung base) Cardiovascular: Rate/Rhythm: regular rate and regular rhythm Gastrointestinal (Abdomen): Inspection/Auscultation: abdomen normal to in spection Percussion/Palpation: abdomen soft Neurologic: moves all extremities Speech / Cognition: + abnormal speech (Due to drowsiness) Motor/Sensory: + tremor (Excessive tremor involving the upper extremities) Psychiatric: Affect: + depressed affect and + anxious affect Lymphatic: no cervical or axillary lymphadenopathy Results & Data Vital Signs (Past 12 Hours) Vital Signs Temp Pulse Resp BP Pulse Ox Pulse Ox 12/27/18 14:55 37.6 C H 109 H 16 104/64 96 12/27/18 12:15 36.7 C 53 L 20 92/60 L 96 12/27/18 09:34 96 12/27/18 07:37 36.8 C 74 18 113/68 98 Laboratory Results Short CBC 12/26/18 12/27/18 Range/Units 21:20 06:22 WBC 15.40 H 15.69 H (4.8-10.8) K/uL Hgb 10.5 L 9.6 L (14.0-18.0) g/dL Hct 30.4 L 28.2 L (42-52) % Plt Count 132 120 L (130-400) K/uL BMP 12/27/18 06:22 Sodium 131 L Potassium 5.4 H Chloride 105 Carbon Dioxide 14 L BUN 56 H Creatinine 2.69 H Glucose 90 Calcium 7.5 L Cardiac Enzymes 12/26/18 Range/Units 21:20 Troponin I < 0.015 (0-0.045) ng/ml Medications Administered Current Inpatient Medications Acetaminophen (Tylenol) 650 mg PO Q4H PRN PRN Reason: Pain or Fever Stop: 01/22/19 14:05 Albuterol (Duoneb) 3 ml NEB Q2H PRN PRN Reason: Shortness Of Breath Or Wheezing Stop: 01/22/19 14:29 Ascorbic Acid (Vitamin C) 250 mg PO [facility] Stop: 01/22/19 20:59 Last Admin: 12/26/18 22:23 Dose: Not Given Documented by: Aspirin (Ecotrin Ectab) [facility] [place]: 01/23/19 08:59 Last Admin: 12/27/18 08:28 Dose: 81 mg Documented by: Azithromycin (Zithromax) 250 mg PO DAILY [facility] Stop: 12/29/18 23:59 Last Admin: 12/27/18 08:30 Dose: 250 mg Documented by: Cetirizine HCl (Zyrtec) 10 mg PO [facility] Stop: 01/22/19 20:59 Last Admin: 12/26/18 22:23 Dose: Not Given Documented by: Cyanocobalamin (Vitamin B-12) 1,000 mcg PO [facility] Stop: 01/22/19 20:59 Last Admin: 12/26/18 22:23 Dose: Not Given Documented by: Docusate Sodium (Colace) 100 mg PO BID [facility] Stop: 01/22/19 20:59 Last Admin: 12/27/18 08:28 Dose: 100 mg Documented by: Ferrous Sulfate (Feosol) 325 mg PO [facility] Stop: 01/22/19 20:59 Last Admin: 12/26/18 22:22 Dose: Not Given Documented by: Gabapentin (Neurontin) 100 mg PO BID [facility] Stop: 01/22/19 20:59 Last Admin: 12/27/18 08:28 Dose: 100 mg Documented by: Heparin Sodium (Porcine) (Heparin Sod 100 Unit/Ml Flush) 5 ml FLUSH PRN PRN PRN Reason: Flush Stop: 01/24/19 01:44 Cefepime HCl 2,000 mg/ Syringe 20 mls @ 5 mls/min IV Q12H [facility]; Protocol Stop: 12/31/18 01:59 Last Admin: 12/27/18 14:36 Dose: 5 mls/min Documented by: Sodium Bicarbonate 150 meq/ (Dextrose) 1,150 mls @ 150 mls/hr IV .Q7H40M [facility] Stop: 01/26/19 13:44 Last Admin: 12/27/18 14:35 Dose: 150 mls/hr Documented by: Lorazepam (Ativan) 0.5 mg PO BID PRN PRN Reason: Anxiety Stop: 01/22/19 14:05 Metoprolol Succinate (Toprol Xl) 50 mg PO BID [facility] Stop: 01/22/19 20:59 Last Admin: 12/27/18 08:29 Dose: 50 mg Documented by: Miscellaneous Information (Cefepime Consult Active) 1 ea N/A UD PRN PRN Reason: Consult Stop: 01/22/19 14:22 Miscellaneous Information (Pharmacy Consult) 1 ea N/A UD PRN PRN Reason: Consult Stop: 01/22/19 14:23 Multivitamins (Multivitamin Tab) 1 tab PO [facility] Stop: 01/22/19 20:59 Last Admin: 12/26/18 22:23 Dose: Not Given Documented by: Nitroglycerin (Nitrostat) 0.4 mg SL UD PRN PRN Reason: Chest Pain Stop: 01/22/19 14:05 Ondansetron HCl (Zofran) 4 mg IV Q6H PRN PRN Reason: Nausea Stop: 01/22/19 14:05 Last Admin: 12/25/18 05:30 Dose: 4 mg Documented by: Pantoprazole Sodium (Protonix) 40 mg PO [facility]; Protocol Stop: 01/22/19 20:59 Last Admin: 12/26/18 22:23 Dose: Not Given Documented by: Polyethylene Glycol (Miralax Powder Packet) 17 gm PO DAILY PRN PRN Reason: Constipation Stop: 01/22/19 14:05 Primidone (Primidone) 50 mg PO DAILY [facility] Stop: 01/24/19 11:14 Last Admin: 12/27/18 08:29 Dose: 50 mg Documented by: Tamsulosin HCl (Flomax) 0.4 mg PO [facility] Stop: 01/22/19 20:59 Last Admin: 12/26/18 22:22 Dose: Not Given Documented by: Tiotropium Rinard (Spiriva) 1 puffs INH [facility] Stop: 01/22/19 20:59 Last Admin: 12/26/18 22:23 Dose: Not Given Documented by: Tramadol HCl (Ultram) 50 mg PO Q8H PRN PRN Reason: Pain Stop: 01/22/19 14:05 Last Admin: 12/26/18 16:32 Dose: 50 mg Documented by: Warfarin Sodium (Coumadin) 2.5 mg PO SuTuTh@1600 [facility] Stop: 01/24/19 15:59 Last Admin: 12/25/18 16:05 Dose: 2.5 mg Documented by: Warfarin Sodium (Coumadin) 5 mg PO MoWeFrSa@1600 [facility] Stop: 01/22/19 15:59 Last Admin: 12/26/18 16:35 Dose: 5 mg Documented by:
[2018-12-27 18:40] LABS: BUN Creatinine Ratio 20.9 (10-20); Calcium 7.9 mg/dl (8.5-10.1); Creatinine Clr Calc Pharmacy 35.1 ml/min; Est GFR (African American) 25.2; Est GFR (Non-African American) 21.7; Potassium 5.8 mmol/L (3.5-5.1)
[2018-12-27] MEDS: TRAMADOL HCL 50 MG TABLET PO PRN (19:01)
[2018-12-27] MEDS: MULTIVITAMIN TAB PO SCH (20:12)
[2018-12-27] MEDS: PANTOprazole 40 MG TAB PO SCH (20:12)
[2018-12-27] MEDS: CETIRIZINE HCL 10 MG TABLET PO SCH (20:13)
[2018-12-27] MEDS: TAMSULOSIN HCL 0.4 MG CAP PO SCH (20:13)
[2018-12-27] MEDS: TIOTROPIUM BROMIDE 5 PUFF/90 MCG INH INH SCH (20:14)
[2018-12-27] MEDS: CYANOCOBALAMIN 500 MCG TABLET (VITAMIN B-12) PO SCH (20:14)
[2018-12-27] MEDS: FERROUS SULFATE 325 MG TAB PO SCH (20:15)
[2018-12-27] MEDS: ASCORBIC ACID 500 MG TAB PO SCH (20:19)
[2018-12-28] MEDS ORDERED: methylPREDNISolone 50 MG in SYRINGE 0 ML IV STA (00:39)
[2018-12-28] MEDS: SODIUM BICARBONATE 8.4% 150 MEQ in DEXTROSE 5% 1,000 ML IV SCH ×3 (05:18→21:28)
[2018-12-28 07:53] LABS: Hematocrit (blood only) 29.5 % (42-52); Hemoglobin 10.1 g/dL (14.0-18.0); Mean Corpuscular Hgb Conc 34.2 g/dL (32-36); Mean Corpuscular Volume 88.3 fL (80-100); Platelet Count 107 K/uL (130-400); RDW Coefficient of Variation 18.6 % (11.5-14.5); RDW Standard Deviation 59.7 fL (36.4-46.3); Red Blood Count 3.34 M/uL (4.7-6.1); White Blood Count 18.75 K/uL (4.8-10.8)
[2018-12-28 08:12] LABS: Acanthocytes 1+; Basophils # (auto) 0.01 K/uL (0-0.2); Basophils % (auto) 0.1 %; Echinocytes 1+; Immature Granulocytes # (auto) 0.06 K/uL (0.00-0.02); Immature Granulocytes % (auto) 0.3 %; Lymphocytes # (auto) 0.29 K/uL (1.2-3.4); Lymphocytes % (auto) 1.5 %; Monocytes # (auto) 0.44 K/uL (0.11-0.59); Monocytes % (auto) 2.3 %; Neutrophils # (auto) 17.95 K/uL (1.4-6.5); Neutrophils % (auto) 95.8 %
[2018-12-28 08:24] LABS: BUN Creatinine Ratio 20.3 (10-20); Creatinine Clr Calc Pharmacy 33.4 ml/min; Est GFR (African American) 23.3; Est GFR (Non-African American) 20.1; Potassium 5.2 mmol/L (3.5-5.1)
[2018-12-28 08:43] LABS: Prothrombin Time > 90.0 Seconds (9.0-12.0)
[2018-12-28 08:45] LABS: INR > 10.4 (0.9-1.1)
[2018-12-28] MEDS: ASPIRIN 81 MG ECTAB PO SCH (08:50)
[2018-12-28] MEDS: DOCUSATE SODIUM 100 MG CAP PO SCH ×2 (09:02→20:22)
[2018-12-28] MEDS: PRIMIDONE 50 MG TAB PO SCH (09:02)
[2018-12-28] MEDS: METOPROLOL SUCC 50MG EXT REL TAB PO SCH ×2 (09:02→20:23)
[2018-12-28] MEDS: GABAPENTIN 100 MG CAP PO SCH (09:02)
[2018-12-28 09:31] LABS: Prothrombin Time > 90.0 Seconds (9.0-12.0)
[2018-12-28 09:36] LABS: INR > 10.4 (0.9-1.1); Partial Thromboplastin Time 80.7 Seconds (21.0-31.0)
[2018-12-28] MEDS ORDERED: PHYTONADIONE 5 MG TAB PO STA (09:39)
[2018-12-28] MEDS ORDERED: PHYTONADIONE 5 MG in SODIUM CHLORIDE 0.9% 50 ML IV SCH (10:30)
--- NOTE | 2018-12-28 10:33 | Hospitalist Progress Note ---
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 Today Outpatient labs 12/23/2018 H/H 11.9 and 36.6, W BC 9.07, platelet 226 Sodium 131, K4.6, chloride 98, CO2 19, BUN 29, creatinine 2.5, glucose 130, AG 14 TSH 3.62 Urine: Lachelle color, trace ketone, specific gravity 1.020, negative blood, protein 100, negative nitrate, negative esterase, bacteria 2650, WBC 35, uric acid crystals 1-4, granular casts 1-4 Likely secondary to dehydration Management as outlined below creatinine continues to trend up Urine continues to be suboptimal Continue bicarb drip We will get updated echocardiogram, patient has a history of systolic CHF, EF 35 to 40%, question worsening EF leading to cardiorenal syndrome Nephrology on board, appreciate recommendations (2) Esophageal cancer: Stage IV esophageal adenoCA with liver mets and retroperitoneal lymph node mets chemo q2 weeks Paclitaxel, cyramza, last dose 2 weeks ago - was scheduled today but did not receive Discussed with the oncologist in detail His current symptomatology seems to be secondary to esophageal cancer and related issues Encephalopathy, likely metabolic As per Dr. Chester's notes CT scan of the head x2 did not show any acute events Other markers for confusion like infection renal function remain unremarkable Do not think is due to paraneoplastic syndrome Discussed with the niece and updated about his current condition which may be worsening down the line. She is quite understanding and will relate to the He is likely going to multiorgan failure and the prognosis remains poor Appreciate palliative care input and recommendation Still remains lethargic today Cetirizine decreased to 5 mg p.o. daily, gabapentin also decreased Continue to monitor closely (3) Jerking movements of extremities: As per Dr. Chester's notes Noted to have occasional jerks involving the extremities Has some bilateral tremors of the upper extremities with activity No resting tremor Seems to be secondary to benign essential tremor and complicated by comorbid illness Primidone started, he is to be improving Continue to monitor (4) Pleural effusion: Small effusion x-ray Procalcitonin and lactate-normal MRSA swab ordered-negative DC antibiotics Patient noted to have erythematous rash, truncal overnight Methylprednisolone IV given Morning, patient still has erythematous rash Continue methylprednisolone 40 mg IV every 8 hours Already on Zyrtec, reduce to 5 mg at bedtime due to renal dysfunction Benadryl IV as needed Monitor (5) Coronary artery disease: No chest pain/SOB, troponin WNL Hold aspirin for now in light of supratherapeutic INR (6) Systolic CHF, chronic: Last echocardiogram 10/03/2018 revealed EF 35 to 45%, grade 1 diastolic dysfunction, global hypokinesis of LV, severely dilated left atrium, mildly dilated right atrium Check repeat echo worsening CHF resulting to cardiorenal syndrome (7) Chronic atrial fibrillation: Continue metoprolol for rate control INR more than 10 Likely secondary to antibiotic, acute renal failure Vitamin K 5 mg IV given Repeat INR tomorrow Fibrinogen level ordered Noted to have passage of blood clots after pulling on Nuñez catheter, has since stopped Continue to monitor (8) Chronic bronchitis with COPD (chronic obstructive pulmonary disease): No acute exacerbation Follows Dr. 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 Sanders upon discharge Full code Patient's Reta given an update over the phone detail, including worsening kidney function, lethargy, coagulopathy She is is agreeable comfortable with the plan of care Subjective ff up for acute renal failure seen resting in bed, not in distress, lethargic able to be awakened by verbal stimuli, opens eyes for 3 seconds then goes back to sleep appears to be trying to answer with 1-2 words shakes head when asked if he has pain, shortness of breath not able to take medications nor eat due to lethargy no other symptoms Review of Systems Review of Systems: Unobtainable due to cognitive status Physical Exam Physical Exam: General-not oriented, not in distress, breathing with no effort or accessory muscle use Head- atraumatic Eyes- PERRL, EOMI, anicteric ENT- oropharynx clear Neck- supple, no JVD, no adenopathy, no thyromegaly; carotids +2/2, no bruits appreciated Lungs- clear to auscultation bilaterally, no rales/wheezes Heart- normal rate, regular rhythm; no murmur, no gallop, no rub appreciated Abdomen- normal bowel sounds, nondistended, soft, nontender, no masses or hepatosplenomegaly Extremities- grade 1 lower leg edema, no calf tenderness; peripheral pulses intact Neuro-lethargic,not oriented ; no gross focal deficits Skin- warm & dry Results & Data Vital Signs (Past 12 Hours) Vital Signs Temp Pulse Pulse Resp BP Pulse Ox 12/28/18 10:11 53 L 98/62 L 12/28/18 09:52 36.8 C 60 20 68/62 L 96 12/28/18 00:00 63 12/27/18 23:10 36.8 C 66 20 115/60 99 Laboratory Results Laboratory Results - last 24 hr 12/27/18 12/28/18 12/28/18 18:02 07:39 07:39 WBC 18.75 H RBC 3.34 L Hgb 10.1 L Hct 29.5 L MCV 88.3 MCH 30.2 MCHC 34.2 RDW Std Deviation 59.7 H RDW Coeff of Charis 18.6 H Plt Count 107 L MPV 10.0 Immature Gran % (Auto) 0.3 Neut % (Auto) 95.8 Lymph % (Auto) 1.5 [place] % (Auto) 2.3 Eos % (Auto) 0.0 Baso % (Auto) 0.1 Immature Gran # (Auto) 0.06 H Neut # (Auto) 17.95 H Lymph # (Auto) 0.29 L [place] # (Auto) 0.44 Eos # (Auto) 0.00 Baso # (Auto) 0.01 Echinocytes 1+ Acanthocytes (Spur) 1+ PT > 90.0 H INR > 10.4 H* APTT PTT Ratio Sodium 131 L Potassium 5.8 H Chloride 105 Carbon Dioxide 15 L Anion Gap 12.0 H BUN 62 H Creatinine 2.95 H Est Cr Clr Drug Dosing 35.1 Est GFR ( Amer) 25.2 Est GFR (Non-Af Amer) 21.7 BUN/Creatinine Ratio 20.9 H Glucose 138 H Calcium 7.9 L Total Creatine Kinase 14 L 12/28/18 12/28/18 07:39 08:58 WBC RBC Hgb Hct MCV MCH MCHC RDW Std Deviation RDW Coeff of Charis Plt Count MPV Immature Gran % (Auto) Neut % (Auto) Lymph % (Auto) [place] % (Auto) Eos % (Auto) Baso % (Auto) Immature Gran # (Auto) Neut # (Auto) Lymph # (Auto) [place] # (Auto) Eos # (Auto) Baso # (Auto) Echinocytes Acanthocytes (Spur) PT > 90.0 H INR > 10.4 H* APTT 80.7 H* PTT Ratio 3.0 Sodium 129 L Potassium 5.2 H Chloride 101 Carbon Dioxide 15 L Anion Gap 13.0 H BUN 64 H Creatinine 3.14 H Est Cr Clr Drug Dosing 33.4 Est GFR ( Amer) 23.3 Est GFR (Non-Af Amer) 20.1 BUN/Creatinine Ratio 20.3 H Glucose 180 H Calcium 8.0 L Total Creatine Kinase
[2018-12-28] MEDS ORDERED: methylPREDNISolone 40 MG in SYRINGE 0 ML IV ONE (10:45)
[2018-12-28] MEDS ORDERED: DiphenhydrAMINE HCL 50 MG/ML VIAL IV STA ×2 (13:10→22:38)
[2018-12-28] MEDS ORDERED: DiphenhydrAMINE HCL 50 MG/ML VIAL ONE (13:13)
[2018-12-28] MEDS: LORazepam 0.5 MG TAB PO PRN (17:14)
[2018-12-28] MEDS: TRAMADOL HCL 50 MG TABLET PO PRN (17:14)
[2018-12-28] MEDS ORDERED: methylPREDNISolone 125 MG/2 ML VIAL IV STA (17:23)
[2018-12-28] MEDS ORDERED: methylPREDNISolone 60 MG in SYRINGE 0 ML IV STA (17:30)
[2018-12-28] MEDS ORDERED: methylPREDNISolone 40 MG in SYRINGE 0 ML IV SCH (18:00)
--- NOTE | 2018-12-28 18:07 | Nephrology Progress Note ---
Date of Service December 28, 2018 Assessment & Plan (1) DORIS (acute kidney injury): anuric ATN suspect from sepsis versus process driving rash/sepsis. DORIS attributed initially to ischemic ATN from intravascular volume depletion and chemo. Patient was not eating or drinking for a week; then on 12/26 w/ sudden creatinine worsening for no clear reason ? retention, ? tremor related/change in cognitive status << whatever is driving that. has been oliguric and now anuric. No obstructive uropathy on ultrasound. not an HD candidate. mild hyperkalemia and marked acidosis on labs this am w/ worsening edema -changed NS to bicarb gtt at 150 mL/hr >> will lower to 80 mL hourly this evening -repeat bmp at 1800 ordered; also checking lactate; CXR; hospitalist considering TTE given lower pressures -ordered low K diet -needs Daily BMP -Monitor input/output -No contrast unless lifesaving >>marked deterioration in status past 72 hrs for no clear cause >> palliative following; aware of worsening clinical status but pt remains full code. (2) Iron deficiency anemia: He has mild anemia likely due to the cancer. Monitor and transfuse as needed (3) Goals of care, counseling/discussion: not an HD candidate d/t comorbidities, clinical status Present on Admission?: Yes (4) Electrolyte abnormality: rechecking chem panel now Present on Admission?: Yes (5) Jerking movements of extremities: ? medication related Present on Admission?: Yes Subjective ongoing decline in renal function; creat up to 3.1 this am; now anuric; INR 10 today; pt on 1:1 and with apparent drug rash Review of Systems Review of Systems: Unobtainable due to cognitive status Physical Exam Constitutional: well developed, well nourished and + morbidly obese confused, babbling, incoherent, on ra Eyes: EOM intact bilaterally ENMT: Ears: no external ear abnormality Nose: no external nose abnormality Mouth: + dry oral mucous membranes Neck: no nuchal rigidity Respiratory: normal respiratory effort Auscultation: + diminished lung sounds (difficult to maneuver him for post exam) Cardiovascular: Rate/Rhythm: regular rhythm and + bradycardic Extremities: + edema (trace BLE and some dependent) Gastrointestinal (Abdomen): Inspection/Auscultation: normal bowel sounds Percussion/Palpation: abdomen soft and + ascites; abdomen nontender Musculoskeletal: Extremities: strength 5/5 throughout Skin: no rashes, warm and dry Neurologic: ding, fluent but incoherent speech, tremors less than yesterday Psychiatric: Orientation: alert, oriented to person and oriented to place Eye Contact: + fair eye contact Speech: normal rate/rhythm/volume of speech Affect: + irritable affect Genitourinary: gilman w/ no urine and large clot, small blood Results & Data Vital Signs (Past 12 Hours) Vital Signs Temp Pulse Resp BP Pulse Ox 12/28/18 10:11 53 L 98/62 L 12/28/18 09:52 36.8 C 60 20 68/62 L 96 Laboratory Results Abnormal lab results 12/27/18 12/28/18 12/28/18 Range/Units 18:02 07:39 07:39 WBC 18.75 H (4.8-10.8) K/uL RBC 3.34 L (4.7-6.1) M/uL Hgb 10.1 L (14.0-18.0) g/dL Hct 29.5 L (42-52) % RDW Std Deviation 59.7 H (36.4-46.3) fL RDW Coeff of Charis 18.6 H (11.5-14.5) % Plt Count 107 L (130-400) K/uL Immature Gran # (Auto) 0.06 H (0.00-0.02) K/uL Neut # (Auto) 17.95 H (1.4-6.5) K/uL Lymph # (Auto) 0.29 L (1.2-3.4) K/uL PT > 90.0 H (9.0-12.0) Seconds INR > 10.4 H* (0.9-1.1) APTT (21.0-31.0) Seconds Sodium 131 L (136-145) mmol/L Potassium 5.8 H (3.5-5.1) mmol/L Carbon Dioxide 15 L (21-32) mmol/L Anion Gap 12.0 H (3-11) BUN 62 H (7-18) mg/dl Creatinine 2.95 H (0.6-1.4) mg/dl BUN/Creatinine Ratio 20.9 H (10-20) Glucose 138 H (70-99) mg/dl Calcium 7.9 L (8.5-10.1) mg/dl Total Creatine Kinase 14 L (39-308) U/L 12/28/18 12/28/18 Range/Units 07:39 08:58 WBC (4.8-10.8) K/uL RBC (4.7-6.1) M/uL Hgb (14.0-18.0) g/dL Hct (42-52) % RDW Std Deviation (36.4-46.3) fL RDW Coeff of Charis (11.5-14.5) % Plt Count (130-400) K/uL Immature Gran # (Auto) (0.00-0.02) K/uL Neut # (Auto) (1.4-6.5) K/uL Lymph # (Auto) (1.2-3.4) K/uL PT > 90.0 H (9.0-12.0) Seconds INR > 10.4 H* (0.9-1.1) APTT 80.7 H* (21.0-31.0) Seconds Sodium 129 L (136-145) mmol/L Potassium 5.2 H (3.5-5.1) mmol/L Carbon Dioxide 15 L (21-32) mmol/L Anion Gap 13.0 H (3-11) BUN 64 H (7-18) mg/dl Creatinine 3.14 H (0.6-1.4) mg/dl BUN/Creatinine Ratio 20.3 H (10-20) Glucose 180 H (70-99) mg/dl Calcium 8.0 L (8.5-10.1) mg/dl Total Creatine Kinase (39-308) U/L
[2018-12-28 18:10] LABS: Fibrinogen 619 mg/dl (184-400)
[2018-12-28 18:30] LABS: BUN Creatinine Ratio 20.6 (10-20); Calcium 7.7 mg/dl (8.5-10.1); Creatinine Clr Calc Pharmacy 30.2 ml/min; Est GFR (African American) 20.7; Est GFR (Non-African American) 17.8; Potassium 4.7 mmol/L (3.5-5.1)
--- NOTE | 2018-12-28 18:35 | XRay Report ---
SINGLE VIEW CHEST CLINICAL HISTORY: Volume load. Anuria. FINDINGS: An AP, portable, upright chest radiograph is compared to study dated 12/26/2018. The examina tion is degraded by portable technique and patient rotation. A left subclavian central venous infusio n port and a single lead cardiac AICD are unchanged in position. The heart is markedly enlarged and t here is atherosclerotic calcification of the thoracic aorta. There is pulmonary vascular congestion a nd mild interstitial edema. There are layering pleural effusions with bibasilar consolidation. No pne umothorax is seen. The skeletal structures are osteopenic. There are healed rib fractures. Degenerati ve change is seen in the shoulders and thoracic spine. IMPRESSION: 1. Cardiomegaly and AICD. There is evidence of congestive failure and interstitial edema, similar to 12/26/2018. 2. Layering pleural effusions with bibasilar consolidation. Electronically signed by: Denton Mason M.D. 12/28/2018 6:34 PM
[2018-12-28 19:12] LABS: Base Excess ABG -7.6 mEq/L (-9-1.8); HCO3 ABG 16 mmol/L (19-24); Oxygen Saturation ABG 95.2 % (90-95); PCO2 ABG 27 mmHg (35-46); PO2 ABG 83 mm/Hg (80-95)
[2018-12-28 19:18] LABS: Allen Test POS (Pos)
[2018-12-28] MEDS ORDERED: ATROPINE SULFATE 0.1 MG/ML 5ML SYR IV PRN (19:43)
[2018-12-28] MEDS: MULTIVITAMIN TAB PO SCH (20:22)
[2018-12-28] MEDS: FERROUS SULFATE 325 MG TAB PO SCH (20:22)
[2018-12-28] MEDS: TAMSULOSIN HCL 0.4 MG CAP PO SCH (20:22)
[2018-12-28] MEDS: PANTOprazole 40 MG TAB PO SCH (20:23)
[2018-12-28] MEDS: CYANOCOBALAMIN 500 MCG TABLET (VITAMIN B-12) PO SCH (20:23)
[2018-12-28] MEDS: CETIRIZINE HCL 10 MG TABLET PO SCH (20:23)
[2018-12-28] MEDS: ASCORBIC ACID 500 MG TAB PO SCH (20:23)
[2018-12-28] MEDS: TIOTROPIUM BROMIDE 5 PUFF/90 MCG INH INH SCH (20:23)
[2018-12-28 20:26] LABS: BUN Creatinine Ratio 21.4 (10-20); Calcium 7.4 mg/dl (8.5-10.1); Creatinine Clr Calc Pharmacy 30.9 ml/min; Est GFR (African American) 21.3; Est GFR (Non-African American) 18.4; Magnesium 1.4 mg/dl (1.8-2.4); Potassium 4.8 mmol/L (3.5-5.1)
[2018-12-28] MEDS: MAGNESIUM SULFATE / D5W 1 GM/100 ML BAG IV SCH ×2 (21:29→22:22)
[2018-12-29] MEDS: methylPREDNISolone 60 MG in SYRINGE 0 ML IV SCH ×3 (02:12→18:18)
[2018-12-29] MEDS ORDERED: DiphenhydrAMINE HCL 50 MG/ML VIAL IV STA ×2 (04:09→08:33)
[2018-12-29 07:01] LABS: INR 1.6 (0.9-1.1); Prothrombin Time 15.9 Seconds (9.0-12.0)
--- NOTE | 2018-12-29 08:24 | Nephrology Progress Note ---
Date of Service December 29, 2018 Assessment & Plan (1) DORIS (acute kidney injury): anuric ATN suspect from sepsis versus process driving rash. DORIS attributed initially to ischemic ATN from intravascular volume depletion and chemo. Patient was not eating or drinking for a week; then on 12/26 w/ sudden creatinine worsening for no clear reason ? retention, ? tremor related/change in cognitive status << whatever is driving that. has been oliguric and now anuric x 2 days. No obstructive uropathy on ultrasound. not an HD candidate. mild hyperkalemia and marked acidosis on labs yesterday w/ worsening edema rise in creatinine has plateau'd -- may be a promising sign; chemistries acceptable for now on bic gtt; anuria is most worrisome finding for now -lower bicarb gtt at 50 mL/hr -f/u TTE given lower pressures >> EF 35% (? chronicity) -cont low K diet, though he takes little po -needs Daily BMP -Monitor input/output -No contrast unless lifesaving >> repeat abd imaging given anuria (2) Iron deficiency anemia: He has mild anemia likely due to the cancer. Monitor and transfuse as needed (3) Goals of care, counseling/discussion: not an HD candidate d/t comorbidities (metastatic cancer), clinical s tatus; code status change noted (4) Electrolyte abnormality: f/u labs from today -see above (5) Jerking movements of extremities: ? medication or malignany related -- less today Subjective remains anuric; seen on rounds about 0900; still very confused when I saw him but more alert, cooperative. hospitalist started on steroids and lowered gabapentin, zyrtec dosing. abtx off. Review of Systems Review of Systems: Unobtainable due to cognitive status Physical Exam Constitutional: well developed, well nourished and + morbidly obese on RA Eyes: EOM intact bilaterally ENMT: Ears: no external ear abnormality Nose: no external nose abnormality Mouth: + dry oral mucous membranes Neck: no nuchal rigidity Respiratory: normal respiratory effort Auscultation: + diminished lung sounds (difficult to maneuver him for post exam) Cardiovascular: Rate/Rhythm: regular rate and regular rhythm Extremities: + edema (trace BLE and some dependent) Gastrointestinal (Abdomen): Inspection/Auscultation: normal bowel sounds Percussion/Palpation: abdomen soft and + ascites; abdomen nontender Musculoskeletal: Extremities: strength 5/5 throughout Skin: + rash (full body > ? slight improvement) Psychiatric: Orientation: alert and oriented to person ongoing hyperesthesias Results & Data Vital Signs (Past 12 Hours) Vital Signs Temp Pulse Pulse Resp BP BP Pulse Ox 12/29/18 07:23 65 12/29/18 07:21 36.7 C 82 16 162/89 H 95 12/29/18 03:20 36.0 C L 59 L 18 121/73 93 12/28/18 23:09 36.5 C 55 L 20 128/77 90 12/28/18 23:02 68 Laboratory Results Abnormal lab results 12/28/18 12/28/18 12/28/18 Range/Units 17:26 17:30 17:30 WBC (4.8-10.8) K/uL RBC (4.7-6.1) M/uL Hgb (14.0-18.0) g/dL Hct (42-52) % RDW Std Deviation (36.4-46.3) fL RDW Coeff of Charis (11.5-14.5) % Plt Count (130-400) K/uL MPV (7.4-10.4) fL Immature Gran # (Auto) (0.00-0.02) K/uL Neut # (Auto) (1.4-6.5) K/uL Lymph # (Auto) (1.2-3.4) K/uL Platelet Estimate (Normal) PT (9.0-12.0) Seconds INR (0.9-1.1) Fibrinogen 619 H (184-400) mg/dl ABG pCO2 (35-46) mmHg ABG HCO3 (19-24) mmol/L ABG O2 Saturation (90-95) % Sodium 130 L (136-145) mmol/L Carbon Dioxide 20 L (21-32) mmol/L Anion Gap (3-11) BUN 72 H (7-18) mg/dl Creatinine 3.47 H D (0.6-1.4) mg/dl BUN/Creatinine Ratio 20.6 H (10-20) Glucose 203 H (70-99) mg/dl POC Glucose (70-99) Lactate 3.2 H* (0.4-2.0) mmol/L Calcium 7.7 L (8.5-10.1) mg/dl Magnesium (1.8-2.4) mg/dl 12/28/18 12/28/18 12/29/18 Range/Units 18:59 20:00 06:40 WBC (4.8-10.8) K/uL RBC (4.7-6.1) M/uL Hgb (14.0-18.0) g/dL Hct (42-52) % RDW Std Deviation (36.4-46.3) fL RDW Coeff of Charis (11.5-14.5) % Plt Count (130-400) K/uL MPV (7.4-10.4) fL Immature Gran # (Auto) (0.00-0.02) K/uL Neut # (Auto) (1.4-6.5) K/uL Lymph # (Auto) (1.2-3.4) K/uL Platelet Estimate (Normal) PT (9.0-12.0) Seconds INR (0.9-1.1) Fibrinogen (184-400) mg/dl ABG pCO2 27 L (35-46) mmHg ABG HCO3 16 L (19-24) mmol/L ABG O2 Saturation 95.2 H (90-95) % Sodium 129 L 132 L (136-145) mmol/L Carbon Dioxide 17 L 20 L (21-32) mmol/L Anion Gap 13.0 H 13.0 H (3-11) BUN 73 H 71 H (7-18) mg/dl Creatinine 3.39 H 3.41 H (0.6-1.4) mg/dl BUN/Creatinine Ratio 21.4 H 20.9 H (10-20) Glucose 196 H 155 H (70-99) mg/dl POC Glucose (70-99) Lactate (0.4-2.0) mmol/L Calcium 7.4 L 7.8 L (8.5-10.1) mg/dl Magnesium 1.4 L (1.8-2.4) mg/dl 12/29/18 12/29/18 12/29/18 Range/Units 06:40 06:43 11:14 WBC 24.80 H (4.8-10.8) K/uL RBC 3.18 L (4.7-6.1) M/uL Hgb 9.7 L (14.0-18.0) g/dL Hct 27.5 L (42-52) % RDW Std Deviation 58.3 H (36.4-46.3) fL RDW Coeff of Charis 18.5 H (11.5-14.5) % Plt Count 101 L (130-400) K/uL MPV 10.8 H (7.4-10.4) fL Immature Gran # (Auto) 0.25 H (0.00-0.02) K/uL Neut # (Auto) 23.82 H (1.4-6.5) K/uL Lymph # (Auto) 0.25 L (1.2-3.4) K/uL Platelet Estimate Decreased L (Normal) PT 15.9 H (9.0-12.0) Seconds INR 1.6 H (0.9-1.1) Fibrinogen (184-400) mg/dl ABG pCO2 (35-46) mmHg ABG HCO3 (19-24) mmol/L ABG O2 Saturation (90-95) % Sodium (136-145) mmol/L Carbon Dioxide (21-32) mmol/L Anion Gap (3-11) BUN (7-18) mg/dl Creatinine (0.6-1.4) mg/dl BUN/Creatinine Ratio (10-20) Glucose (70-99) mg/dl POC Glucose 144 H (70-99) Lactate (0.4-2.0) mmol/L Calcium (8.5-10.1) mg/dl Magnesium (1.8-2.4) mg/dl
[2018-12-29 08:39] LABS: BUN Creatinine Ratio 20.9 (10-20); Calcium 7.8 mg/dl (8.5-10.1); Creatinine Clr Calc Pharmacy 31.1 ml/min; Est GFR (African American) 21.1; Est GFR (Non-African American) 18.2; Potassium 4.7 mmol/L (3.5-5.1)
[2018-12-29] MEDS: PRIMIDONE 50 MG TAB PO SCH (08:47)
[2018-12-29] MEDS: GABAPENTIN 100 MG CAP PO SCH (08:50)
[2018-12-29] MEDS: ASPIRIN 81 MG ECTAB PO SCH (08:53)
[2018-12-29] MEDS ORDERED: DiphenhydrAMINE HCL 50 MG/ML VIAL IV PRN (08:56)
[2018-12-29] MEDS: DOCUSATE SODIUM 100 MG CAP PO SCH ×2 (09:07→20:10)
--- NOTE | 2018-12-29 09:18 | Hospitalist Progress Note ---
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 Today Outpatient labs 12/23/2018 H/H 11.9 and 36.6, W BC 9.07, platelet 226 Sodium 131, K4.6, chloride 98, CO2 19, BUN 29, creatinine 2.5, glucose 130, AG 14 TSH 3.62 Urine: Lachelle color, trace ketone, specific gravity 1.020, negative blood, protein 100, negative nitrate, negative esterase, bacteria 2650, WBC 35, uric acid crystals 1-4, granular casts 1-4 unclear etiology at this point creatinine continues to trend up Urine output poor Nephrology consulted Echo: EF 35-40%, left ventricular function moderately reduced- no change since last echo done in September Continued on bicarb drip not a good candidate for HD secondary to Stage IV Esophageal cancer prognosis guarded Nephrology on board, appreciate recommendations (2) Esophageal cancer: Stage IV esophageal adenoCA with liver mets and retroperitoneal lymph node mets chemo q2 weeks Paclitaxel, cyramza, last dose 2 weeks ago - was scheduled today but did not receive Discussed with the oncologist in detail His current symptomatology seems to be secondary to esophageal cancer and related issues Encephalopathy, likely metabolic As per Dr. Chester's notes CT scan of the head x2 did not show any acute events Other markers for confusion like infection renal function remain unremarkable Do not think is due to paraneoplastic syndrome Discussed with the niece and updated about his current condition which may be worsening down the line. She is quite understanding and will relate to the He is likely going to multiorgan failure and the prognosis remains poor Appreciate palliative care input and recommendation lethargy resolved, patient remains confused Cetirizine decreased to 5 mg p.o. daily, gabapentin also decreased Continue to monitor closely (3) Jerking movements of extremities: As per Dr. Chester's notes Noted to have occasional jerks involving the extremities Has some bilateral tremors of the upper extremities with activity No resting tremor Seems to be secondary to benign essential tremor and complicated by comorbid illness Primidone started, no jerking movements noted today Continue to monitor (4) Pleural effusion: Small effusion x-ray Procalcitonin and lactate-normal MRSA swab ordered-negative DC antibiotics Patient noted to have erythematous rash, truncal overnight Methylprednisolone IV given patient still has erythematous rash Continue methylprednisolone 40 mg IV every 8 hours Already on Zyrtec, reduce to 5 mg at bedtime due to renal dysfunction Benadryl IV as needed Monitor 12/29/18 macular erythematous rash about the same--> likely Drug reaction from Cefepime Solumedrol increased to 60mg q8h, continue to monitor response continue Zyrtec 5mg po HS PRN Benadryl will add topical steroids hopefully will see more improvement in the next 24 hours (5) Coronary artery disease: No chest pain/SOB, troponin WNL Hold aspirin for now in light of supratherapeutic INR (6) Systolic CHF, chronic: Last echocardiogram 10/03/2018 revealed EF 35 to 45%, grade 1 diastolic dysfunction, global hypokinesis of LV, severely dilated left atrium, mildly dilated right atrium repeat echo: EF remains the same 35-40% (7) Chronic atrial fibrillation: Continue metoprolol for rate control INR >10 Likely secondary to antibiotic, acute renal failure Vitamin K 5 mg IV given INR today 1.6 Fibrinogen level: elevated Noted to have passage of blood clots after pulling on Nuñez catheter, has since stopped Continue to monitor continue to hold coumadin for today monitor (8) Chronic bronchitis with COPD (chronic obstructive pulmonary disease): No acute exacerbation Follows Dr. 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 Sanders upon discharge Full code Subjective ff up for acute renal failure seen sitting up in bedside chair not in distress, appears comfortable he is fully alert and conversant today, although confused, oriented x 1 states he feels ok denies chest pain, dyspnea, abdominal pain had generalized itching this AM, relieved with Benadryl no shortness of breath, throat or lip swelling no other symptoms Review of Systems Review of Systems: All systems reviewed & are unremarkable except as noted in HPI & below Physical Exam Physical Exam: General- oriented x 1, not in distress, speaks in sentences with no effort or accessory muscle use Eyes- anicteric Neck- no JVD Lungs- clear breath sounds bilaterally, no crackles/wheezing Heart- normal rate, regular rhythm; no murmurs Abdomen- normal bowel sounds, nondistended, soft, nontender Extremities- grade 1 lower leg edema no tenderness Neuro- alert, oriented x 1; no gross focal neurologic deficits Skin- warm & dry Results & Data Vital Signs (Past 12 Hours) Vital Signs Temp Pulse Pulse Resp BP BP Pulse Ox 12/29/18 09:06 36.3 C L 74 22 124/87 97 12/29/18 07:23 65 12/29/18 07:21 36.7 C 82 16 162/89 H 95 12/29/18 03:20 36.0 C L 59 L 18 121/73 93 12/28/18 23:09 36.5 C 55 L 20 128/77 90 12/28/18 23:02 68 Laboratory Results Laboratory Results - last 24 hr 12/28/18 12/28/18 12/28/18 17:26 17:30 17:30 WBC RBC Hgb Hct MCV MCH MCHC RDW Std Deviation RDW Coeff of Charis Plt Count MPV Immature Gran % (Auto) Neut % (Auto) Lymph % (Auto) [place] % (Auto) Eos % (Auto) Baso % (Auto) Immature Gran # (Auto) Neut # (Auto) Lymph # (Auto) [place] # (Auto) Eos # (Auto) Baso # (Auto) Toxic Vacuolation Platelet Estimate Anisocytosis Echinocytes PT INR Fibrinogen 619 H ABG pH ABG pCO2 ABG pO2 ABG HCO3 ABG O2 Saturation ABG Base Excess Travis Test Barometric Pressure Oxygen Given Sodium 130 L Potassium 4.7 Chloride 100 Carbon Dioxide 20 L Anion Gap 11.0 BUN 72 H Creatinine 3.47 H D Est Cr Clr Drug Dosing 30.2 Est GFR ( Amer) 20.7 Est GFR (Non-Af Amer) 17.8 BUN/Creatinine Ratio 20.6 H Glucose 203 H POC Glucose Lactate 3.2 H* Calcium 7.7 L Magnesium TSH 12/28/18 12/28/18 12/29/18 18:59 20:00 06:40 WBC RBC Hgb Hct MCV MCH MCHC RDW Std Deviation RDW Coeff of Charis Plt Count MPV Immature Gran % (Auto) Neut % (Auto) Lymph % (Auto) [place] % (Auto) Eos % (Auto) Baso % (Auto) Immature Gran # (Auto) Neut # (Auto) Lymph # (Auto) [place] # (Auto) Eos # (Auto) Baso # (Auto) Toxic Vacuolation Platelet Estimate Anisocytosis Echinocytes PT INR Fibrinogen ABG pH 7.40 ABG pCO2 27 L ABG pO2 83 ABG HCO3 16 L ABG O2 Saturation 95.2 H ABG Base Excess -7.6 Travis Test POS Barometric Pressure 729.3 Oxygen Given ROOM AIR Sodium 129 L 132 L Potassium 4.8 4.7 Chloride 100 99 Carbon Dioxide 17 L 20 L Anion Gap 13.0 H 13.0 H BUN 73 H 71 H Creatinine 3.39 H 3.41 H Est Cr Clr Drug Dosing 30.9 31.1 Est GFR ( Amer) 21.3 21.1 Est GFR (Non-Af Amer) 18.4 18.2 BUN/Creatinine Ratio 21.4 H 20.9 H Glucose 196 H 155 H POC Glucose Lactate Calcium 7.4 L 7.8 L Magnesium 1.4 L TSH 3.160 12/29/18 12/29/18 12/29/18 06:40 06:43 11:14 WBC 24.80 H RBC 3.18 L Hgb 9.7 L Hct 27.5 L MCV 86.5 MCH 30.5 MCHC 35.3 RDW Std Deviation 58.3 H RDW Coeff of Charis 18.5 H Plt Count 101 L MPV 10.8 H Immature Gran % (Auto) 1.0 Neut % (Auto) 96.0 Lymph % (Auto) 1.0 [place] % (Auto) 1.9 Eos % (Auto) 0.0 Baso % (Auto) 0.1 Immature Gran # (Auto) 0.25 H Neut # (Auto) 23.82 H Lymph # (Auto) 0.25 L [place] # (Auto) 0.46 Eos # (Auto) 0.00 Baso # (Auto) 0.02 Toxic Vacuolation 1+ Platelet Estimate Decreased L Anisocytosis Present Echinocytes 2+ PT 15.9 H INR 1.6 H Fibrinogen ABG pH ABG pCO2 ABG pO2 ABG HCO3 ABG O2 Saturation ABG Base Excess Travis Test Barometric Pressure Oxygen Given Sodium Potassium Chloride Carbon Dioxide Anion Gap BUN Creatinine Est Cr Clr Drug Dosing Est GFR ( Amer) Est GFR (Non-Af Amer) BUN/Creatinine Ratio Glucose POC Glucose 144 H Lactate Calcium Magnesium TSH
[2018-12-29 09:22] LABS: Mean Corpuscular Hgb Conc 35.3 g/dL (32-36)
[2018-12-29 09:34] LABS: Hematocrit (blood only) 27.5 % (42-52); Hemoglobin 9.7 g/dL (14.0-18.0); Mean Corpuscular Volume 86.5 fL (80-100); RDW Coefficient of Variation 18.5 % (11.5-14.5); RDW Standard Deviation 58.3 fL (36.4-46.3); Red Blood Count 3.18 M/uL (4.7-6.1)
[2018-12-29 09:48] LABS: Mean Platelet Volume 10.8 fL (7.4-10.4); Platelet Count 101 K/uL (130-400)
[2018-12-29 09:49] LABS: Anisocytosis Present; Basophils # (auto) 0.02 K/uL (0-0.2); Basophils % (auto) 0.1 %; Echinocytes 2+; Immature Granulocytes # (auto) 0.25 K/uL (0.00-0.02); Lymphocytes # (auto) 0.25 K/uL (1.2-3.4); Monocytes # (auto) 0.46 K/uL (0.11-0.59); Monocytes % (auto) 1.9 %; Neutrophils # (auto) 23.82 K/uL (1.4-6.5); Platelet Estimate Decreased (Normal); Toxic Vacuolation 1+
[2018-12-29] MEDS: SODIUM BICARBONATE 8.4% 150 MEQ in DEXTROSE 5% 1,000 ML IV SCH (11:09)
[2018-12-29] MEDS: TRIAMCINOLONE ACET 0.5% CR 15 GM TUBE EXT SCH ×2 (12:13→20:10)
[2018-12-29] MEDS ORDERED: MICONAZOLE NITRATE POWDER 43 GM EXT PRN (12:38)
--- NOTE | 2018-12-29 15:22 | Palliative Care Progress Note ---
Date of Service December 29, 2018 Assessment & Plan (1) Goals of care, counseling/discussion: -Patient's renal function continues to worsen. His oliguria is turning into anuria. -Creatinine remains elevated at 3.41. Nephrology following. Given patient's comorbidities including esophageal cancer, not a candidate for dialysis. -Have been trying to connect with patient's for three days now. She has never answered my phone calls. I did call the secondary contact, a friend named Marcella Caceres. 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 Reta is difficult to get a hold of during the day and only comes to see the patient after 6pm when she is done working. Dr. Chester was able to speak with patient's and niece regarding poor prognosis. -Patient is more awake today, but remains confused. His drug rash has spread all over. He is disoriented at a 1:1 for safety. -Prognosis is poor, need to discuss goals with family. Possibly even transition to comfort measures depending on patient/family wishes. Dr. Alves plans to discuss with patient's today. -Palliative care will follow. (2) Esophageal cancer: (3) DORIS (acute kidney injury): (4) Jerking movements of extremities: Subjective Patient is more awake today, but still confused and disoriented. Drug rash has spread. Renal function continues to worsen. Review of Systems Review of Systems: Unobtainable due to cognitive status Physical Exam Constitutional: + ill appearing and + overweight ENMT: Mouth: + poor dentition Neck: normal visual inspection Respiratory: normal respiratory effort, lungs clear to auscultation Auscultation: + diminished lung sounds Cardiovascular: RRR, no murmur, no edema Gastrointestinal (Abdomen): Inspection/Auscultation: abdomen normal to inspection and normal bowel sounds; abdomen not distended Skin: + rash (widespread drug rash) Neurologic: awake (confused) Results & Data Vital Signs (Past 12 Hours) Vital Signs Temp Pulse Pulse Resp BP BP Pulse Ox 12/29/18 11:17 36.4 C L 71 18 107/77 99 12/29/18 09:06 36.3 C L 74 22 124/87 97 12/29/18 07:23 65 08/15/19 07:21 36.7 C 82 16 162/89 H 95 PG Care Time/CCT Total # of Minutes Spent Total Time Spent with Patient: Total time spent is greater than 50% in coordination of care (as documented) at patient's floor/unit and/or counseling patient: Time Spent Midlevel 35 minutes with >50% of the time spent at bedside with patient, attending physician and nursing staff discussing condition and plan of care.
[2018-12-29] MEDS: DiphenhydrAMINE HCL 50 MG/ML VIAL IV PRN ×2 (15:48→22:00)
[2018-12-29] MEDS: PANTOprazole 40 MG TAB PO SCH (20:07)
[2018-12-29] MEDS: MULTIVITAMIN TAB PO SCH (20:07)
[2018-12-29] MEDS: FERROUS SULFATE 325 MG TAB PO SCH (20:08)
[2018-12-29] MEDS: CETIRIZINE HCL 10 MG TABLET PO SCH (20:09)
[2018-12-29] MEDS: TAMSULOSIN HCL 0.4 MG CAP PO SCH (20:09)
[2018-12-29] MEDS: ASCORBIC ACID 500 MG TAB PO SCH (20:09)
[2018-12-29] MEDS: CYANOCOBALAMIN 500 MCG TABLET (VITAMIN B-12) PO SCH (20:10)
[2018-12-29] MEDS: TIOTROPIUM BROMIDE 5 PUFF/90 MCG INH INH SCH (20:12)
[2018-12-29] MEDS: HEPARIN SOD 5,000 UNIT/0.5 ML VIAL SQ SCH (21:07)
[2018-12-30] MEDS: LORazepam 0.5 MG TAB PO PRN (01:24)
[2018-12-30] MEDS: methylPREDNISolone 60 MG in SYRINGE 0 ML IV SCH ×2 (01:25→08:46)
[2018-12-30] MEDS: DiphenhydrAMINE HCL 50 MG/ML VIAL IV PRN (04:29)
[2018-12-30] MEDS: HEPARIN SOD 5,000 UNIT/0.5 ML VIAL SQ SCH (05:02)
[2018-12-30] MEDS ORDERED: OLANZapine 10 MG/2.1 ML SDV IM STA (05:35)
--- NOTE | 2018-12-30 05:56 | Hospitalist Progress Note ---
Date of Service December 30, 2018 Subjective Worsening agitation despite Benadryl and Ativan Rx as per RN. Hematuria noted on Nuñez cath drainage as per RN. Patient also noted to have lower abdominal discomfort as per RN. AP Delirium Rule out UTI, intra-abdominal pathology Benadryl, Ativan possibly contributory IM Zyprexa now Restraints as needed Check UA CT abdomen pelvis RE abdominal discomfort Hold Benadryl, and Ativan for now. Will relay to AM provider. Results & Data Vital Signs (Past 12 Hours) Vital Signs Temp Pulse Pulse Resp BP Pulse Ox 12/30/18 03:33 108/66 12/29/18 21:35 36.6 C 85 20 116/62 12/29/18 19:32 36.6 C 57 L 20 106/71 91 12/29/18 18:35 81
[2018-12-30 06:25] LABS: Hematocrit (blood only) 27.9 % (42-52); Hemoglobin 9.9 g/dL (14.0-18.0); Mean Corpuscular Hgb Conc 35.5 g/dL (32-36); Mean Corpuscular Volume 86.4 fL (80-100); Mean Platelet Volume 10.1 fL (7.4-10.4); Platelet Count 116 K/uL (130-400); RDW Coefficient of Variation 18.7 % (11.5-14.5); RDW Standard Deviation 58.9 fL (36.4-46.3); Red Blood Count 3.23 M/uL (4.7-6.1); White Blood Count 22.67 K/uL (4.8-10.8)
[2018-12-30 06:55] LABS: Basophils # (auto) 0.03 K/uL (0-0.2); Basophils % (auto) 0.1 %; Echinocytes 1+; Immature Granulocytes # (auto) 0.08 K/uL (0.00-0.02); Immature Granulocytes % (auto) 0.4 %; Lymphocytes # (auto) 0.44 K/uL (1.2-3.4); Lymphocytes % (auto) 1.9 %; Monocytes # (auto) 0.59 K/uL (0.11-0.59); Monocytes % (auto) 2.6 %; Neutrophils # (auto) 21.53 K/uL (1.4-6.5); Ovalocytes 1+
[2018-12-30 06:56] LABS: BUN Creatinine Ratio 22.2 (10-20); Calcium 7.8 mg/dl (8.5-10.1); Creatinine Clr Calc Pharmacy 28.8 ml/min; Est GFR (African American) 19.3; Est GFR (Non-African American) 16.6; Potassium 4.6 mmol/L (3.5-5.1)
--- NOTE | 2018-12-30 07:50 | CT Scan Report ---
CT SCAN OF THE ABDOMEN AND PELVIS WITHOUT IV CONTRAST CLINICAL HISTORY: Generalized abdominal pain. Hematuria. Esophageal cancer. COMPARISON STUDY: Abdominal CT dated 02/09/2017. PET/CT dated 12/01/2017. TECHNIQUE: CT scan of the abdomen and pelvis is performed from the lung bases to the proximal femora. Images are reviewed in the axial, sagittal, and coronal planes. IV contrast was not administered for this examination as per the referring clinician. Note that the examination was performed in suboptim al fashion without oral and IV contrast. The examination is significantly degraded by motion artifact , as well as by streak artifact from the arms which could not be elevated above the abdomen. A dose l owering technique was utilized adhering to the principles of ALARA. CT DOSE: 1604.25 mGy.cm FINDINGS: Lung bases: The heart is enlarged and without pericardial effusion. Pacemaker leads are noted. There are moderate pleural effusions with bibasilar atelectasis. Liver: Evaluation of the liver is degraded by streak and motion artifact. The unenhanced liver is nor mal in size, contour, and attenuation. There is no intrahepatic biliary ductal dilatation. Gallbladder: There are calcified gallstones. Question mild gallbladder wall thickening. Spleen: Normal in size and attenuation. Pancreas: The unenhanced pancreas is atrophic and grossly unremarkable. This is not well evaluated du e to streak and motion artifact. Adrenal glands: Unremarkable. Kidneys: Evaluation of the kidneys is significantly degraded by streak and motion artifact. The unenh anced kidneys demonstrate mild cortical atrophy and are without hydronephrosis. There are no renal ca lculi identified. There is no evidence of contour deforming renal mass lesion. Abdominal vasculature: The abdominal aorta is normal in course and caliber noting moderate to advance d atherosclerotic calcification. An infrarenal IVC filter is in place. Bowel: There is no bowel obstruction. Fecal retention is noted in the right colon. The appendix is n ot visualized. Peritoneum: There is no intraperitoneal free air or abdominal ascites. There is laxity of the ventral abdominal wall with diastases of the rectus musculature and protrusion of abdominal contents. Lymphadenopathy: None. Pelvic viscera: The bladder wall appears thickened and there is pericystic inflammatory change. The p rostate gland is diminutive. Nonspecific edema is seen in the presacral region. Skeletal structures: The skeletal structures are heterogeneously osteopenic. No lytic or blastic lesi ons are seen. Soft tissues: There is body wall edema. IMPRESSION: 1. Suboptimal examination without oral and IV contrast. The examination is also significantly comprom ised by streak and motion artifact. 2. Moderate pleural effusions with bibasilar atelectasis. 3. Question cystitis. Correlation with clinical findings and urinalysis will be required. 4. There are calcified gallstones. Question gallbladder wall thickening. This is not well assessed du e to significant streak and motion artifact. Correlate with clinical findings and liver function stud ies. If there is clinical concern for acute cholecystitis a right upper quadrant ultrasound should be considered. 5. There is laxity of the ventral abdominal wall with diastases of the rectus musculature and protrus ion of abdominal contents. 6. Body wall edema. 7. Cardiomegaly. 8. Additional findings as above. Electronically signed by: Denton Mason M.D. 12/30/2018 7:48 AM
[2018-12-30] MEDS: TRIAMCINOLONE ACET 0.5% CR 15 GM TUBE EXT SCH ×2 (08:45→21:20)
[2018-12-30] MEDS: PRIMIDONE 50 MG TAB PO SCH (08:46)
[2018-12-30] MEDS: GABAPENTIN 100 MG CAP PO SCH (09:00)
[2018-12-30] MEDS: SODIUM BICARBONATE 8.4% 150 MEQ in DEXTROSE 5% 1,000 ML IV SCH (09:01)
[2018-12-30] MEDS: DOCUSATE SODIUM 100 MG CAP PO SCH ×2 (09:02→21:18)
--- NOTE | 2018-12-30 09:55 | Palliative Care Progress Note ---
Date of Service December 30, 2018 Assessment & Plan (1) Goals of care, counseling/discussion: -Patient's renal function continues to worsen. Yesterday, his Creatinine was 3.41, now worsening to 3.68. WBC continues to increases, today 22.67. -Dr. Alves was able to speak to patients yesterday evening and with worsening kidney function, and urine output worsening, a goals of care conversation is necessary. -I called the patients and left a VM. As noted previously, she typically is not available until the later part of the evening. I would be happy to talk with her on the phone if paged to discuss goals of care. -Creatinine remains elevated at 3.41. Nephrology following. Given patient's comorbidities including esophageal cancer, not a candidate for dialysis. -Patient is more awake today, but remains confused and has bilateral mitt restraints on for safety. -Prognosis is poor, at this point, would like to focus conversation on comfort measures with comfort medication initiation. -Palliative care will follow and is available to talk and discuss goals of care with the patients when she comes to the hospital. -PPS: 20% (2) Esophageal cancer: (3) DORIS (acute kidney injury): (4) Jerking movements of extremities: Subjective Patient with worsening confusion and now requiring bilateral mitt restraints. Patient not reliable with his answers to questions, increased confusion. patient just kept saying 'What do you mean, what's that?' Review of Systems Review of Systems: Unobtainable due to cognitive status Physical Exam Constitutional: + acute distress and + ill appearing Eyes: PERRL, conjunctivae normal, anicteric sclerae ENMT: external ear and nose normal, oropharynx normal Neck: trachea midline, no thyromegaly Respiratory: Auscultation: + diminished lung sounds and + rhonchi Cardiovascular: Rate/Rhythm: regular rhythm Heart Sounds: normal S1 and normal S2 Extremities: normal capillary refill; no edema Gastrointestinal (Abdomen): normal bowel sounds, soft, nontender, no hepatosplenomegaly Psychiatric: Orientation: alert and oriented to person Insight: + poor insight Judgement: + poor judgement Lymphatic: no cervical or axillary lymphadenopathy Results & Data Vital Signs (Past 12 Hours) Vital Signs Temp Pulse Pulse Resp BP Pulse Ox 12/30/18 07:36 73 12/30/18 07:21 36.2 C L 80 20 114/79 97 12/30/18 03:33 108/66 PG Care Time/CCT Total # of Minutes Spent Total Time Spent with Patient: Total time spent is greater than 50% in coordination of care (as documented) at patient's floor/unit and/or counseling patient: 25 Time Spent Midlevel total time spent 25 minutes with > 50% of that time spent assessing the patient and symptom management
[2018-12-30 15:00] LABS: INR 1.5 (0.9-1.1); Prothrombin Time 14.8 Seconds (9.0-12.0)
[2018-12-30] MEDS ORDERED: BELLADONNA/OPIUM SUPP 60 MG SUPP PR PRN (16:55)
--- NOTE | 2018-12-30 16:57 | Discharge Summary ---
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 Patient was seen in heme/onc office today and was to undergo chemotherapy, but this was canceled secondary to abnormal labs. Patient was seen by PCP on 12/22 which he was noted he was to have a elevated creatinine at 2.1. He received 1 L IVF. He had a repeat blood work today which revealed elevated creatinine 2.5 and therefore he was referred to ED. Patient complains of LEIGH that has been ongoing for the past 2 to 3 months. He also elicits decreased appetite, decreased oral intake, decreased urinary output, dark urine appearance, intermittent dry cough. He denies any fever, chills, sweats, lightheadedness, dizziness, fall, chest pain, shortness breath at rest, palpitations, hemoptysis, nausea, vomiting, diarrhea, abdominal pain, dysuria, increased urgency or frequency with urination, hematuria, melena, hematochezia. States his last chemo was approximately 2 weeks ago. He denies any significant weight change, weight 257 today. Of significance patient is currently on a every 2 week regimen of Cyramza and Paclitaxel q 2 weeks, dose reduced 08/2018 due to chemotherapy-induced neuropathy. Recent PET/CT on 12/21/2018 revealed interval increase in size and FDG avidity of the left retroperitoneum lymph node, new right para-aortic lymph node, focus of intense activity noted posterior aspect of the bladder without definite CT correlate, heterogenous liver but no definite liver lesion identified, distal esophageal thickening. Lastly, he had bronchoscopy 09/[address] Gonsales which he was diagnosed with bronchial pneumonia, per patient was not treated with any antibiotics. Pulmonary MAC patient respiratory epithelial cells present, acute inflammatory cells, no malignant cells seen. Admission Exam Per Admitting Provider Gen: Chronically ill-appearing, male, sitting up in bed, NAD, pleasant, conversing easily and answers questions appropriately Head: Normocephalic, Atraumatic Eyes: Sclera normal, no conjunctival injection, PERRLA, EOMI ENT: Gross hearing intact, normal pharynx, mucous membranes dry Neck: supple, no adenopathy, No JVD, no bruit, Resp: Clear to auscultation b/l with exception of left lower lung base decreased breath sounds, no wheeze, rales, rhonchi. Normal insp/exp effort, no accessory muscle use, saturating well on room air CV: Bradycardic rate, irregular rhythm no murmur, rub, gallop, or ectopy Abd: +BS x 4, soft, nontender, nondistended Musculoskeletal: moves extremities active rom x 4, strength intact, good human factors specialist strength Extremities: No edema bilaterally, compression stockings in place Skin: warm, moist, no rash, mild turgor, cap refill < 2sec Neuro: Alert and oriented x 3, speech normal, good mood/affect, cran nerve 2-12 intact grossly : deferred Principal Diagnosis PRESYNCOPE LIKELY FROM HYPOTENSION, DEHYDRATION; LEFT THIGH HEMATOMA, ON COUMADIN Discharge Data Allergies Allergy/AdvReac Type Severity Reaction Status Date / Time amoxicillin Allergy Unknown RASH Verified 12/23/18 09:42 escitalopram Allergy Unknown RASH Verified 12/23/18 09:42 finasteride Allergy Unknown rash Verified 12/23/18 09:42 Penicillins Allergy Unknown RASH Verified 12/23/18 09:42 piperacillin Allergy Unknown RASH Verified 12/23/18 09:42 tazobactam Allergy Unknown RASH Verified 12/23/18 09:42 vancomycin Allergy Unknown RASH Verified 12/23/18 09:42 adhesive tape Allergy Rash Verified 12/23/18 09:42 Consultations 12/23/18 12:02 ED Decision to Admit Stat 12/23/18 13:53 Consult Nephrology Routine 12/23/18 14:06 Consult Case Management - Discharge Planning Routine 12/26/18 09:20 Consult Palliative Care Routine Ordered Studies 12/23/18 13:53 US renal/blad retro comp Urgent 12/26/18 08:51 CT head/brain wo con Routine 12/26/18 21:16 CT head/brain wo con Urgent 12/30/18 05:40 CT abd pelvis wo con Urgent Discharge Plan Discharge Items Reason For Visit: DORIS, PNA Prescriptions: No Action acetaminophen [Acetaminophen Extra Strength] 500 mg Tablet 1,000 mg PO TID PRN (Reason: Inflammation) RF: 0 lidocaine HCl 2 % jelly 1 appln TOP TID PRN (Reason: pain) Qty: 30 RF: 0 cyanocobalamin (vitamin B-12) [Vitamin B-12] 1,000 mcg Tablet 1,000 mcg PO HS RF: 0 Vitamin C 250 mg Tablet,Chewable 250 mg PO HS RF: 0 multivitamin Tablet 1 tab PO HS RF: 0 metoprolol succinate 50 mg tablet extended release 24 hr 50 mg PO BID RF: 0 tramadol 50 mg tablet 50 mg PO Q8H PRN (Reason: Pain) RF: 0 tamsulosin 0.4 mg capsule 0.4 mg PO HS RF: 0 warfarin 5 mg tablet 5 mg PO MOWEFRSA RF: 0 warfarin 5 mg tablet 2.5 mg PO SUTUTH RF: 0 omeprazole 20 mg capsule,delayed release(DR/EC) 20 mg PO HS RF: 0 aspirin 81 mg Tablet,Chewable 81 mg PO QAM RF: 0 lorazepam [Ativan] 0.5 mg Tablet 0.5 mg PO BID PRN (Reason: Anxiety) RF: 0 ondansetron 8 mg Tablet,Disintegrating 8 mg PO TID PRN (Reason: Nausea And Vomiting) RF: 0 ferrous sulfate 324 mg (65 mg iron) Tablet,Delayed Release (Dr/Ec) 324 mg PO HS RF: 0 cetirizine 10 mg tablet 10 mg PO HS RF: 0 docusate sodium [Colace] 100 mg Capsule 100 mg PO BID RF: 0 gabapentin 100 mg capsule 100 mg PO BID RF: 0 albuterol sulfate 90 mcg/actuation HFA aerosol inhaler 2 puff inhalation Q4H PRN (Reason: Shortness Of Breath Or Wheezing) RF: 0 Spiriva with HandiHaler 18 mcg capsule, w/inhalation device 18 mcg inhalation HS RF: 0 Admission Data Admit Date/Time: 12/23/18 13:27 Attending Provider: Tello Alves Admit Provider: Mars Chester Primary Care Provider: Mateus Sanders Other Providers: Vini Kahn ; Mars Chester ; Angela Tafoya Service: Telemetry Medical
[2018-12-30] MEDS: methylPREDNISolone 40 MG in SYRINGE 0 ML IV SCH (16:58)
[2018-12-30 17:19] LABS: Hematocrit (blood only) 27.6 % (42-52); Hemoglobin 9.8 g/dL (14.0-18.0)
--- NOTE | 2018-12-30 17:39 | Nephrology Progress Note ---
Date of Service December 30, 2018 Assessment & Plan (1) DORIS (acute kidney injury): anuric ATN suspect from sepsis versus process driving rash. DORIS attributed initially to ischemic ATN from intravascular volume depletion and chemo. Patient was not eating or drinking for a week; then on 12/26 w/ sudden creatinine worsening for no clear reason ? retention, ? tremor related/change in cognitive status << whatever is driving that. has been oliguric and now anuric x 2 days. No obstructive uropathy on ultrasound. not an HD candidate. mild hyperkalemia and marked acidosis on labs yesterday w/ worsening edema -- these are stable but creat cont to rise; chemistries acceptable for now on bic gtt; anuria is most worrisome finding for now -cont lower bicarb gtt at 50 mL/hr -obtained TTE given lower pressures >> EF 35% (? chronicity) -cont low K diet, though he takes little po -recommend involving urology given issues w/ gilman > does pt need CBI or other placement? -recommend consulting derm re rash -needs Daily BMP -Monitor input/output -No contrast unless lifesaving >> repeat abd imaging given anuria (2) Iron deficiency anemia: He has mild anemia likely due to the cancer. Monitor and transfuse as needed (3) Goals of care, counseling/discussion: not an HD candidate d/t comorbidities (metastatic cancer), clinical status; code status change noted (4) Electrolyte abnormality: f/u labs from today -see above (5) Jerking movements of extremities: ? medication or malignany related -- less today Subjective seen on rounds late AM; needs mitts now; remains on 1:1; soaking bedclothes repeatedly -- sweats and blisters; not able to interact reliably / consistently > denies active pain; gilman w/ clot/gross blood/ c/o pain w/ 5ML flush Review of Systems Review of Systems: Unobtainable due to cognitive status Physical Exam Constitutional: well developed, well nourished and + morbidly obese ra Eyes: EOM intact bilaterally ENMT: Ears: no external ear abnormality Nose: no external nose abnormality Mouth: + dry oral mucous membranes Neck: no nuchal rigidity Respiratory: normal respiratory effort Auscultation: + diminished lung sounds (difficult to maneuver him for post exam) Cardiovascular: Rate/Rhythm: regular rate and regular rhythm Extremities: + edema (trace BLE and some dependent) Gastrointestinal (Abdomen): Inspection/Auscultation: normal bowel sounds Percussion/Palpation: abdomen soft and + ascites; abdomen nontender Musculoskeletal: Extremities: strength 5/5 throughout Skin: + rash (full body > ? slight improvement) blister medial thighs weeping, ant naranjo, elsewhere Neurologic: ?less tremor today Psychiatric: Orientation: alert Eye Contact: + fair eye contact Affect: + irritable affect Genitourinary: gilman as above Results & Data Vital Signs (Past 12 Hours) Vital Signs Temp Pulse Pulse Pulse Resp BP Pulse Ox 12/30/18 15:07 35.6 C L 85 18 134/96 98 12/30/18 11:20 36.3 C L 75 18 121/82 93 12/30/18 07:36 73 12/30/18 07:21 36.2 C L 80 20 114/79 97 Laboratory Results Abnormal lab results 12/30/18 12/30/18 12/30/18 Range/Units 06:09 06:09 06:09 WBC 22.67 H (4.8-10.8) K/uL RBC 3.23 L (4.7-6.1) M/uL Hgb 9.9 L (14.0-18.0) g/dL Hct 27.9 L (42-52) % RDW Std Deviation 58.9 H (36.4-46.3) fL RDW Coeff of Charis 18.7 H (11.5-14.5) % Plt Count 116 L (130-400) K/uL Immature Gran # (Auto) 0.08 H (0.00-0.02) K/uL Neut # (Auto) 21.53 H (1.4-6.5) K/uL Lymph # (Auto) 0.44 L (1.2-3.4) K/uL PT (9.0-12.0) Seconds INR (0.9-1.1) Sodium 128 L (136-145) mmol/L Chloride 94 L (98-107) mmol/L Carbon Dioxide 20 L (21-32) mmol/L Anion Gap 14.0 H (3-11) BUN 82 H (7-18) mg/dl Creatinine 3.68 H (0.6-1.4) mg/dl BUN/Creatinine Ratio 22.2 H (10-20) Glucose 142 H (70-99) mg/dl Calcium 7.8 L (8.5-10.1) mg/dl Magnesium 1.7 L (1.8-2.4) mg/dl 12/30/18 12/30/18 Range/Units 14:37 17:11 WBC (4.8-10.8) K/uL RBC (4.7-6.1) M/uL Hgb 9.8 L (14.0-18.0) g/dL Hct 27.6 L (42-52) % RDW Std Deviation (36.4-46.3) fL RDW Coeff of Charis (11.5-14.5) % Plt Count (130-400) K/uL Immature Gran # (Auto) (0.00-0.02) K/uL Neut # (Auto) (1.4-6.5) K/uL Lymph # (Auto) (1.2-3.4) K/uL PT 14.8 H (9.0-12.0) Seconds INR 1.5 H (0.9-1.1) Sodium (136-145) mmol/L Chloride (98-107) mmol/L Carbon Dioxide (21-32) mmol/L Anion Gap (3-11) BUN (7-18) mg/dl Creatinine (0.6-1.4) mg/dl BUN/Creatinine Ratio (10-20) Glucose (70-99) mg/dl Calcium (8.5-10.1) mg/dl Magnesium (1.8-2.4) mg/dl
--- NOTE | 2018-12-30 19:39 | Hospitalist Progress Note ---
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 Today Outpatient labs 12/23/2018 H/H 11.9 and 36.6, W BC 9.07, platelet 226 Sodium 131, K4.6, chloride 98, CO2 19, BUN 29, creatinine 2.5, glucose 130, AG 14 TSH 3.62 Urine: Lachelle color, trace ketone, specific gravity 1.020, negative blood, protein 100, negative nitrate, negative esterase, bacteria 2650, WBC 35, uric acid crystals 1-4, granular casts 1-4 unclear etiology at this point creatinine continues to trend up Urine output still poor Nephrology consulted Echo: EF 35-40%, left ventricular function moderately reduced- no change since last echo done in September Continued on bicarb drip not a good candidate for HD secondary to Stage IV Esophageal cancer prognosis guarded Nephrology on board, appreciate recommendations (+) hematuria on Nuñez Cath repeat H&H 9- unchanged likely from heparin SC, Aspirin---> discontinued, platelet dysfunction from ARF Nuñez changed to [place] rench 20 Urologist consulted (2) Esophageal cancer: Stage IV esophageal adenoCA with liver mets and retroperitoneal lymph node mets chemo q2 weeks Paclitaxel, cyramza, last dose 2 weeks ago - was scheduled today but did not receive Discussed with the oncologist in detail His current symptomatology seems to be secondary to esophageal cancer and related issues Encephalopathy, likely metabolic As per Dr. Chester's notes CT scan of the head x2 did not show any acute events Other markers for confusion like infection renal function remain unremarkable Do not think is due to paraneoplastic syndrome Discussed with the niece and updated about his current condition which may be worsening down the line. She is quite understanding and will relate to the He is likely going to multiorgan failure and the prognosis remains poor Appreciate palliative care input and recommendation lethargy resolved, patient remains confused Cetirizine decreased to 5 mg p.o. daily, gabapentin also decreased Continue to monitor closely (3) Jerking movements of extremities: As per Dr. Chester's notes Noted to have occasional jerks involving the extremities Has some bilateral tremors of the upper extremities with activity No resting tremor Seems to be secondary to benign essential tremor and complicated by comorbid illness Primidone started, no jerking movements noted today Continue to monitor (4) Pleural effusion: Small effusion x-ray Procalcitonin and lactate-normal MRSA swab ordered-negative DC antibiotics Patient noted to have erythematous rash, truncal overnight Methylprednisolone IV given patient still has erythematous rash Continue methylprednisolone 40 mg IV every 8 hours Already on Zyrtec, reduce to 5 mg at bedtime due to renal dysfunction Benadryl IV as needed Monitor 12/30/18 macular erythematous rash --> likely Drug reaction from Cefepime Solumedrol increased to 60mg q8h improved, taper Solumedrol continue Zyrtec 5mg po HS PRN Benadryl added topical steroids hopefully will see more improvement in the next 24 hours (5) Coronary artery disease: No chest pain/SOB, troponin WNL Hold aspirin for now in light of supratherapeutic INR (6) Systolic CHF, chronic: Last echocardiogram 10/03/2018 revealed EF 35 to 45%, grade 1 diastolic dysfunction, global hypokinesis of LV, severely dilated left atrium, mildly dilated right atrium repeat echo: EF remains the same 35-40% (7) Chronic atrial fibrillation: Continue metoprolol for rate control INR >10 Likely secondary to antibiotic, acute renal failure Vitamin K 5 mg IV given INR today 1.5 Fibrinogen level: elevated Continue to monitor continue to hold coumadin for today in light of hematuria monitor (8) Chronic bronchitis with COPD (chronic obstructive pulmonary disease): No acute exacerbation Follows Dr. 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 Sanders upon discharge Full code Subjective ff up for acute renal failure seen resting in bed, alert but confused had suprapubic pain this morning, also passing blood clots per Nuñez Cath- not draining well denies itching, shortness of breath, chest pain no other symptoms Review of Systems Review of Systems: All systems reviewed & are unremarkable except as noted in HPI & below Physical Exam Physical Exam: General- oriented x 0, not in distress, speaks in sentences with no effort or accessory muscle use Eyes- anicteric Neck- no JVD Lungs- clear breath sounds bilaterally Heart- normal rate, regular rhythm; no murmurs Abdomen- normal bowel sounds, nondistended, soft, nontender Extremities- grade 1 lower leg edema, no calf tenderness Neuro- alert, oriented x 0; no gross focal neurologic deficits Skin- warm & dry; erythematous, macular rash on the face, neck, chest, upper arm , lower legs- improving small blister areas on the left groin Results & Data Vital Signs (Past 12 Hours) Vital Signs Temp Pulse Pulse Pulse Resp BP Pulse Ox 12/30/18 19:13 36.0 C L 82 18 119/69 99 12/30/18 15:07 35.6 C L 85 18 134/96 98 12/30/18 11:20 36.3 C L 75 18 121/82 93 12/30/18 07:36 73 Laboratory Results Laboratory Results - last 24 hr 12/30/18 12/30/18 12/30/18 06:09 06:09 06:09 WBC 22.67 H RBC 3.23 L Hgb 9.9 L Hct 27.9 L MCV 86.4 MCH 30.7 MCHC 35.5 RDW Std Deviation 58.9 H RDW Coeff of Charis 18.7 H Plt Count 116 L MPV 10.1 Immature Gran % (Auto) 0.4 Neut % (Auto) 95.0 Lymph % (Auto) 1.9 [place] % (Auto) 2.6 Eos % (Auto) 0.0 Baso % (Auto) 0.1 Immature Gran # (Auto) 0.08 H Neut # (Auto) 21.53 H Lymph # (Auto) 0.44 L [place] # (Auto) 0.59 Eos # (Auto) 0.00 Baso # (Auto) 0.03 Ovalocytes 1+ Echinocytes 1+ PT INR Sodium 128 L Potassium 4.6 Chloride 94 L Carbon Dioxide 20 L Anion Gap 14.0 H BUN 82 H Creatinine 3.68 H Est Cr Clr Drug Dosing 28.8 Est GFR ( Amer) 19.3 Est GFR (Non-Af Amer) 16.6 BUN/Creatinine Ratio 22.2 H Glucose 142 H Calcium 7.8 L Magnesium 1.7 L 12/30/18 12/30/18 14:37 17:11 WBC RBC Hgb 9.8 L Hct 27.6 L MCV MCH MCHC RDW Std Deviation RDW Coeff of Charis Plt Count MPV Immature Gran % (Auto) Neut % (Auto) Lymph % (Auto) [place] % (Auto) Eos % (Auto) Baso % (Auto) Immature Gran # (Auto) Neut # (Auto) Lymph # (Auto) [place] # (Auto) Eos # (Auto) Baso # (Auto) Ovalocytes Echinocytes PT 14.8 H INR 1.5 H Sodium Potassium Chloride Carbon Dioxide Anion Gap BUN Creatinine Est Cr Clr Drug Dosing Est GFR ( Amer) Est GFR (Non-Af Amer) BUN/Creatinine Ratio Glucose Calcium Magnesium
[2018-12-30] MEDS: FERROUS SULFATE 325 MG TAB PO SCH (21:19)
[2018-12-30] MEDS: TAMSULOSIN HCL 0.4 MG CAP PO SCH (21:19)
[2018-12-30] MEDS: PANTOprazole 40 MG TAB PO SCH (21:20)
[2018-12-30] MEDS: CYANOCOBALAMIN 500 MCG TABLET (VITAMIN B-12) PO SCH (21:20)
[2018-12-30] MEDS: MULTIVITAMIN TAB PO SCH (21:20)
[2018-12-30] MEDS: TIOTROPIUM BROMIDE 5 PUFF/90 MCG INH INH SCH (21:21)
[2018-12-30] MEDS: ASCORBIC ACID 500 MG TAB PO SCH (21:21)
[2018-12-30] MEDS: CETIRIZINE HCL 10 MG TABLET PO SCH (21:22)
[2018-12-30] MEDS: TRAMADOL HCL 50 MG TABLET PO PRN (23:58)
[2018-12-31] MEDS: methylPREDNISolone 40 MG in SYRINGE 0 ML IV SCH ×3 (00:23→20:48)
[2018-12-31] MEDS ORDERED: LIDOCAINE 2% JELLY 5 ML TUBE ONE (00:44)
[2018-12-31] MEDS ORDERED: Nursing to Pharmacy Communication ONE (01:47)
[2018-12-31] MEDS: SODIUM BICARBONATE 8.4% 150 MEQ in DEXTROSE 5% 1,000 ML IV SCH (02:01)
[2018-12-31] MEDS ORDERED: LIDOCAINE 2% JELLY 5 ML TUBE EXT PRN (03:04)
[2018-12-31 06:43] LABS: Appearance Urine Cloudy (Clear); Bilirubin Urine Negative (Negative); Blood Urine 3+ (Negative); Color Urine Brown; Glucose Urine UA Negative (Negative); Ketones Urine Negative (Negative); Leukocyte Esterase Urine Trace (Negative); Nitrite Urine Negative (Negative); Protein Urine 1+ (Negative); Urobilinogen Urine Negative (Negative)
[2018-12-31 06:48] LABS: Epithelial Cell Urine 0-5 /lpf (0-5); RBC Urine >30 /hpf (0-4); WBC Urine >30 /hpf (0-5)
[2018-12-31 06:48] LABS: INR 1.6 (0.9-1.1); Prothrombin Time 16.1 Seconds (9.0-12.0)
[2018-12-31 06:50] LABS: Bacteria Urine 1+ (Negative); Hyaline Casts Urine 0-5 /lpf (0-5)
[2018-12-31] MEDS: TRIAMCINOLONE ACET 0.5% CR 15 GM TUBE EXT SCH ×2 (08:56→22:03)
[2018-12-31] MEDS: DOCUSATE SODIUM 100 MG CAP PO SCH ×2 (08:56→20:58)
[2018-12-31] MEDS: GABAPENTIN 100 MG CAP PO SCH (08:57)
[2018-12-31] MEDS: PRIMIDONE 50 MG TAB PO SCH (08:58)
[2018-12-31] MEDS ORDERED: cefTRIAXone SODIUM 2,000 MG in DEXTROSE 5% 50 ML IV SCH (09:00)
[2018-12-31 09:13] LABS: Mean Corpuscular Hgb Conc 34.3 g/dL (32-36)
[2018-12-31 09:20] LABS: Hematocrit (blood only) 23.6 % (42-52); Hemoglobin 8.1 g/dL (14.0-18.0); Mean Corpuscular Volume 87.1 fL (80-100); RDW Coefficient of Variation 18.9 % (11.5-14.5); RDW Standard Deviation 59.1 fL (36.4-46.3); Red Blood Count 2.71 M/uL (4.7-6.1); White Blood Count 17.85 K/uL (4.8-10.8)
[2018-12-31 10:32] LABS: Mean Platelet Volume 11.6 fL (7.4-10.4); Platelet Count 111 K/uL (130-400)
[2018-12-31 10:33] LABS: Basophils # (auto) 0.06 K/uL (0-0.2); Basophils % (auto) 0.3 %; Echinocytes 2+; Immature Granulocytes # (auto) 0.54 K/uL (0.00-0.02); Lymphocytes # (auto) 1.27 K/uL (1.2-3.4); Lymphocytes % (auto) 7.1 %; Monocytes # (auto) 0.85 K/uL (0.11-0.59); Monocytes % (auto) 4.8 %; Neutrophils # (auto) 15.13 K/uL (1.4-6.5); Neutrophils % (auto) 84.8 %; Platelet Estimate Decreased (Normal)
[2018-12-31 13:50] LABS: BUN Creatinine Ratio 22.9 (10-20); Calcium 7.3 mg/dl (8.5-10.1); Creatinine Clr Calc Pharmacy 26.2 ml/min; Est GFR (African American) 17.7; Est GFR (Non-African American) 15.3
--- NOTE | 2018-12-31 15:08 | Hospitalist Progress Note ---
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 Today Outpatient labs 12/23/2018 H/H 11.9 and 36.6, W BC 9.07, platelet 226 Sodium 131, K4.6, chloride 98, CO2 19, BUN 29, creatinine 2.5, glucose 130, AG 14 TSH 3.62 Urine: Lachelle color, trace ketone, specific gravity 1.020, negative blood, protein 100, negative nitrate, negative esterase, bacteria 2650, WBC 35, uric acid crystals 1-4, granular casts 1-4 unclear etiology at this point creatinine continues to trend up Urine output still poor Nephrology consulted Echo: EF 35-40%, left ventricular function moderately reduced- no change since last echo done in September Continued on bicarb drip not a good candidate for HD secondary to Stage IV Esophageal cancer prognosis guarded will discuss with Nephrology (+) hematuria on Gilman Cath repeat H&H 8 likely from heparin SC, Aspirin---> discontinued, platelet dysfunction from ARF Gilman changed early this AM, appreciate Urology service recommendation Urine culture: pending (2) Esophageal cancer: Stage IV esophageal adenoCA with liver mets and retroperitoneal lymph node mets chemo q2 weeks Paclitaxel, cyramza, last dose 2 weeks ago - was scheduled today but did not receive Discussed with the oncologist in detail His current symptomatology seems to be secondary to esophageal cancer and related issues Encephalopathy, likely metabolic As per Dr. Chester's notes CT scan of the head x2 did not show any acute events Other markers for confusion like infection renal function remain unremarkable Do not think is due to paraneoplastic syndrome Discussed with the niece and updated about his current condition which may be worsening down the line. She is quite understanding and will relate to the He is likely going to multiorgan failure and the prognosis remains poor Appreciate palliative care input and recommendation lethargy resolved, patient remains confused Cetirizine decreased to 5 mg p.o. daily, gabapentin also decreased Continue to monitor closely (3) Jerking movements of extremities: As per Dr. Chester's notes Noted to have occasional jerks involving the extremities Has some bilateral tremors of the upper extremities with activity No resting tremor Seems to be secondary to benign essential tremor and complicated by comorbid illness Primidone started, no jerking movements noted today Continue to monitor (4) Pleural effusion: Small effusion x-ray Procalcitonin and lactate-normal MRSA swab ordered-negative DC antibiotics Patient noted to have erythematous rash, truncal overnight Methylprednisolone IV given patient still has erythematous rash Continue methylprednisolone 40 mg IV every 8 hours Already on Zyrtec, reduce to 5 mg at bedtime due to renal dysfunction Benadryl IV as needed Monitor 12/31/18 macular erythematous rash --> likely Drug reaction from Cefepime Solumedrol increased to 60mg q8h continues to improve, taper Solumedrol continue Zyrtec 5mg po HS PRN Benadryl added topical steroids hopefully will see more improvement in the next 24 hours (5) Coronary artery disease: No chest pain/SOB, troponin WNL Hold aspirin for now in light of hematuria (6) Systolic CHF, chronic: Last echocardiogram 10/03/2018 revealed EF 35 to 45%, grade 1 diastolic dysfunction, global hypokinesis of LV, severely dilated left atrium, mildly dilated right atrium repeat echo: EF remains the same 35-40% (7) Chronic atrial fibrillation: Continue metoprolol for rate control INR >10 Likely secondary to antibiotic, acute renal failure Vitamin K 5 mg IV given INR 1.5 Fibrinogen level: elevated Continue to monitor continue to hold coumadin for today in light of hematuria monitor (8) Chronic bronchitis with COPD (chronic obstructive pulmonary disease): No acute exacerbation Follows Dr. 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 Sanders upon discharge Full code Subjective ff up for acute renal failure seen sitting up in bed, comfortable but pleasantly confused denies dyspnea, chest pain, abdominal pain, nausea appetite is poor today gilman catheter draining better as per RN no other symptoms Review of Systems Review of Systems: All systems reviewed & are unremarkable except as noted in HPI & below Physical Exam Physical Exam: General- oriented x 0, not in distress, speaks in sentences with no effort or accessory muscle use Eyes- anicteric Neck- no JVD Lungs- mild decreased breath sounds at the bases Heart- normal rate, regular rhythm; no murmurs Abdomen- normal bowel sounds, nondistended, soft, nontender Extremities- mild pretibial edema, no calf tenderness Neuro- alert, oriented x 0; no gross focal neurologic deficits Skin- warm & dry Results & Data Vital Signs (Past 12 Hours) Vital Signs Temp Pulse Pulse Resp BP Pulse Ox 12/31/18 15:00 20 118/80 12/31/18 11:14 36.3 C L 83 18 128/89 94 12/31/18 09:45 78 12/31/18 07:20 36.4 C L 66 20 135/83 96 Laboratory Results Laboratory Results - last 24 hr 12/30/18 12/31/18 12/31/18 17:11 05:54 05:54 WBC 17.85 H RBC 2.71 L Hgb 9.8 L 8.1 L Hct 27.6 L 23.6 L MCV 87.1 MCH 29.9 MCHC 34.3 RDW Std Deviation 59.1 H RDW Coeff of Charis 18.9 H Plt Count 111 L MPV 11.6 H Immature Gran % (Auto) 3.0 Neut % (Auto) 84.8 Lymph % (Auto) 7.1 Orange % (Auto) 4.8 Eos % (Auto) 0.0 Baso % (Auto) 0.3 Immature Gran # (Auto) 0.54 H Neut # (Auto) 15.13 H Lymph # (Auto) 1.27 Orange # (Auto) 0.85 H Eos # (Auto) 0.00 Baso # (Auto) 0.06 Platelet Estimate Decreased L Echinocytes 2+ PT INR Sodium 129 L Potassium 5.0 Chloride 94 L Carbon Dioxide 25 Anion Gap 10.0 BUN 90 H Creatinine 3.94 H Est Cr Clr Drug Dosing 26.2 Est GFR ( Amer) 17.7 Est GFR (Non-Af Amer) 15.3 BUN/Creatinine Ratio 22.9 H Glucose 154 H Calcium 7.3 L Urine Color Urine Appearance Urine pH Ur Specific [place] Urine Protein Urine Glucose (UA) Urine Ketones Urine Blood Urine Nitrite Urine Bilirubin Urine Urobilinogen Ur Leukocyte Esterase Urine RBC Urine WBC Ur Epithelial Cells Urine Bacteria Hyaline Casts 12/31/18 12/31/18 06:05 06:15 WBC RBC Hgb Hct MCV MCH MCHC RDW Std Deviation RDW Coeff of Charis Plt Count MPV Immature Gran % (Auto) Neut % (Auto) Lymph % (Auto) Orange % (Auto) Eos % (Auto) Baso % (Auto) Immature Gran # (Auto) Neut # (Auto) Lymph # (Auto) [place] # (Auto) Eos # (Auto) Baso # (Auto) Platelet Estimate Echinocytes PT 16.1 H INR 1.6 H Sodium Potassium Chloride Carbon Dioxide Anion Gap BUN Creatinine Est Cr Clr Drug Dosing Est GFR ( Amer) Est GFR (Non-Af Amer) BUN/Creatinine Ratio Glucose Calcium Urine Color Brown Urine Appearance Cloudy A Urine pH 5.0 Ur Specific [place] 1.010 Urine Protein 1+ H Urine Glucose (UA) Negative Urine Ketones Negative Urine Blood 3+ H Urine Nitrite Negative Urine Bilirubin Negative Urine Urobilinogen Negative Ur Leukocyte Esterase Trace H Urine RBC >30 H Urine WBC >30 H Ur Epithelial Cells 0-5 Urine Bacteria 1+ H Hyaline Casts 0-5
[2018-12-31] MEDS: ASCORBIC ACID 500 MG TAB PO SCH (20:55)
[2018-12-31] MEDS: CYANOCOBALAMIN 500 MCG TABLET (VITAMIN B-12) PO SCH (20:56)
[2018-12-31] MEDS: CETIRIZINE HCL 10 MG TABLET PO SCH (20:56)
[2018-12-31] MEDS: TAMSULOSIN HCL 0.4 MG CAP PO SCH (20:57)
[2018-12-31] MEDS: PANTOprazole 40 MG TAB PO SCH (20:57)
[2018-12-31] MEDS: FERROUS SULFATE 325 MG TAB PO SCH (20:57)
[2018-12-31] MEDS: MULTIVITAMIN TAB PO SCH (20:57)
[2018-12-31] MEDS: TIOTROPIUM BROMIDE 5 PUFF/90 MCG INH INH SCH (22:03)
--- NOTE | 2018-12-31 23:48 | Urology Consultation ---
Date of Consultation December 31, 2018 Assessment & Plan (1) Hematuria: Gilman cath in place. Prostate likely underwent trauma. Small false passage noted. Rec irrigtating with 60cc on NS every shift. Leave gilman until more clincally stable. CT scan did not show any hydro. DORIS [facility] as opposed to obstructive. Can do void trial in 5-7 days. History of Present Illness Attending Physician: Tello Alves MD 63 y/o male with complex past med hx. Recently had trouble with gilman catheter placement. He then had hematuria. Attempts were made a placing a gilman but were unsuccessful. Large blood clots were noted. Difficulty irrigating. Urology called to manage gilman. CT scan performed. Results reviewed in chart. No mass or stone noted. Pt having more issues with confusion and currently has mittens on. Due to confusion he is unable to provide any other detailed past urologic history. Allergies Allergy/AdvReac Type Severity Reaction Status Date / Time cefepime Allergy Severe Rash Verified 12/31/18 15:01 amoxicillin Allergy Unknown RASH Verified 12/23/18 09:42 escitalopram Allergy Unknown RASH Verified 12/23/18 09:42 finasteride Allergy Unknown rash Verified 12/23/18 09:42 Penicillins Allergy Unknown RASH Verified 12/23/18 09:42 piperacillin Allergy Unknown RASH Verified 12/23/18 09:42 tazobactam Allergy Unknown RASH Verified 12/23/18 09:42 vancomycin Allergy Unknown RASH Verified 12/23/18 09:42 adhesive tape Allergy Rash Verified 12/23/18 09:42 Home Medications Home Medications Medication Instructions Recorded Confirmed Type aspirin 81 mg PO QAM 04/13/18 12/23/18 History ferrous sulfate 324 mg PO HS 04/13/18 12/23/18 History lorazepam [Ativan] 0.5 mg PO BID PRN 04/13/18 12/23/18 History metoprolol succinate 50 mg PO BID 04/13/18 12/23/18 History multivitamin 1 tab PO HS 04/13/18 12/23/18 History omeprazole 20 mg PO HS 04/13/18 12/23/18 History ondansetron 8 mg PO TID PRN 04/13/18 12/23/18 History tamsulosin 0.4 mg PO HS 04/13/18 12/23/18 History tramadol 50 mg PO Q8H PRN 04/13/18 12/23/18 History warfarin 2.5 mg PO SUTUTH 04/13/18 12/23/18 History warfarin 5 mg PO MOWEFRSA 04/13/18 12/23/18 History Vitamin C 250 mg PO HS 05/14/18 12/23/18 History acetaminophen [Acetaminophen Extra 1,000 mg PO TID PRN 05/14/18 12/23/18 History Strength] cyanocobalamin (vitamin B-12) 1,000 mcg PO HS 05/14/18 12/23/18 History [Vitamin B-12] lidocaine HCl 1 appln TOP TID PRN #30 ml 05/14/18 12/23/18 Rx albuterol sulfate 2 puff INHALATION Q4H PRN 12/23/18 12/23/18 History cetirizine 10 mg PO HS 12/23/18 12/23/18 History docusate sodium [Colace] 100 mg PO BID 12/23/18 12/23/18 History gabapentin 100 mg PO BID 12/23/18 12/23/18 History tiotropium bromide [Spiriva with 18 mcg INHALATION HS 12/23/18 12/23/18 History HandiHaler] Patient History Medical History Liver cancer (Chronic) Hypertension (Chronic) Cardiomyopathy, nonischemic (Chronic) Venous insufficiency (Chronic) Anticoagulated on warfarin (Chronic) Paroxysmal ventricular tachycardia (Chronic) BPH (benign prostatic hypertrophy) (Chronic) GERD (gastroesophageal reflux disease) (Chronic) History of pulmonary embolism (Chronic) Pulmonary hypertension (Chronic) Weight loss (Resolved) Dysphagia Diabetes mellitus, type 2 (Chronic) "diet controlled" Sleep apnea (Chronic) Obesity (BMI 30-39.9) (Resolved) Chronic atrial fibrillation (Chronic) Coronary artery disease (Chronic) Drug eruption Esophageal cancer (Resolved 02/09/17) Surgical History History of exploratory laparotomy (Chronic) "2008" Status post appendectomy (Chronic) Status post insertion of inferior vena caval filter (Chronic) "2008" Status post implantation of automatic cardioverter/defibrillator (AICD) (Chronic) "02/02/17 Dr. Rubio [facility]" Family History Sister Stroke Mother Diabetes 1.5, managed as type 2 Social History Preferred Language: Amharic Communication Ability: Effective Visual Impairment: No Limitations Hearing Ability: Normal Acute Care Nurse Practitioner Required: No Beliefs That Will Affect Care: None marital status: Current Living Situation: Spouse Other Information That Helps Us Care for You: No Feels Safe at Home: Yes Safety Concerns: Feels Safe At This Time Hx Alcohol Use: No Hx Substance Use: No Review of Systems Review of Systems: All systems reviewed & are unremarkable except as noted in HPI & below Physical Exam Constitutional: WD/WN, vitals as above Eyes: PERRL, conjunctivae normal, anicteric sclerae Neck: trachea midline, no thyromegaly Respiratory: normal respiratory effort, lungs clear to auscultation Cardiovascular: RRR, no murmur, no edema Skin: no rashes, warm and dry Neurologic: + confused Psychiatric: Orientation: alert Genitourinary: no testicular masses, no penis abnormality Results & Data Vital Signs (Past 12 Hours) Vital Signs Temp Pulse Pulse Pulse Resp BP Pulse Ox 12/31/18 23:21 86 12/31/18 23:03 36.8 C 90 20 133/89 96 12/31/18 19:49 36.4 C L 92 H 20 129/88 94 12/31/18 16:18 36.4 C L 82 12/31/18 16:15 83 12/31/18 15:00 20 118/80
[2019-01-01] MEDS: SODIUM BICARBONATE 8.4% 150 MEQ in DEXTROSE 5% 1,000 ML IV SCH (02:07)
[2019-01-01] MEDS: TRAMADOL HCL 50 MG TABLET PO PRN ×2 (06:12→17:06)
[2019-01-01 08:23] LABS: Hematocrit (blood only) 22.7 % (42-52); Hemoglobin 7.9 g/dL (14.0-18.0); Mean Corpuscular Hgb Conc 34.8 g/dL (32-36); Mean Corpuscular Volume 87.6 fL (80-100); Nucleated RBC # (auto) 0.07 K/uL (0-0); Nucleated RBC % (auto) 0.5 %; RDW Coefficient of Variation 18.9 % (11.5-14.5); RDW Standard Deviation 60.1 fL (36.4-46.3); Red Blood Count 2.59 M/uL (4.7-6.1); White Blood Count 14.23 K/uL (4.8-10.8)
[2019-01-01 08:48] LABS: Basophils # (auto) 0.03 K/uL (0-0.2); Basophils % (auto) 0.2 %; Eosinophils # (auto) 0.03 K/uL (0-0.5); Eosinophils % (auto) 0.2 %; Immature Granulocytes # (auto) 0.11 K/uL (0.00-0.02); Immature Granulocytes % (auto) 0.8 %; Lymphocytes # (auto) 2.25 K/uL (1.2-3.4); Lymphocytes % (auto) 15.8 %; Mean Platelet Volume 10.2 fL (7.4-10.4); Monocytes # (auto) 0.92 K/uL (0.11-0.59); Monocytes % (auto) 6.5 %; Neutrophils # (auto) 10.89 K/uL (1.4-6.5); Neutrophils % (auto) 76.5 %; Platelet Count 96 K/uL (130-400); Platelet Estimate Decreased (Normal); Poikilocytosis Present
[2019-01-01] MEDS: methylPREDNISolone 40 MG in SYRINGE 0 ML IV SCH (08:54)
[2019-01-01 08:56] LABS: BUN Creatinine Ratio 26.4 (10-20); Calcium 6.7 mg/dl (8.5-10.1); Creatinine Clr Calc Pharmacy 25.8 ml/min; Est GFR (African American) 17.4; Potassium 4.6 mmol/L (3.5-5.1)
[2019-01-01] MEDS: DOCUSATE SODIUM 100 MG CAP PO SCH ×2 (08:58→20:46)
[2019-01-01] MEDS: TRIAMCINOLONE ACET 0.5% CR 15 GM TUBE EXT SCH ×2 (08:58→20:37)
[2019-01-01] MEDS: GABAPENTIN 100 MG CAP PO SCH (08:58)
[2019-01-01] MEDS: PRIMIDONE 50 MG TAB PO SCH (08:58)
--- NOTE | 2019-01-01 11:17 | Hospitalist Progress Note ---
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 Today Outpatient labs 12/23/2018 H/H 11.9 and 36.6, W BC 9.07, platelet 226 Sodium 131, K4.6, chloride 98, CO2 19, BUN 29, creatinine 2.5, glucose 130, AG 14 TSH 3.62 Urine: Lachelle color, trace ketone, specific gravity 1.020, negative blood, protein 100, negative nitrate, negative esterase, bacteria 2650, WBC 35, uric acid crystals 1-4, granular casts 1-4 unclear etiology at this point creatinine continues to trend up Urine output still poor Nephrology consulted Echo: EF 35-40%, left ventricular function moderately reduced- no change since last echo done in September Continued on bicarb drip not a good candidate for HD secondary to Stage IV Esophageal cancer prognosis guarded will discuss with Nephrology discussed with (+) hematuria on Nuñez Cath repeat H&H 8 likely from heparin SC, Aspirin---> discontinued, platelet dysfunction from ARF Nuñez changed Urine culture: pending (2) Esophageal cancer: Stage IV esophageal adenoCA with liver mets and retroperitoneal lymph node mets chemo q2 weeks Paclitaxel, cyramza, last dose 2 weeks ago - was scheduled today but did not receive Discussed with the oncologist in detail His current symptomatology seems to be secondary to esophageal cancer and related issues Encephalopathy, likely metabolic As per Dr. Chester's notes CT scan of the head x2 did not show any acute events Other markers for confusion like infection renal function remain unremarkable Do not think is due to paraneoplastic syndrome Discussed with the niece and updated about his current condition which may be worsening down the line. She is quite understanding and will relate to the He is likely going to multiorgan failure and the prognosis remains poor Appreciate palliative care input and recommendation lethargy resolved, patient less confused today Cetirizine decreased to 5 mg p.o. daily, gabapentin also decreased Continue to monitor closely (3) Jerking movements of extremities: As per Dr. Chester's notes Noted to have occasional jerks involving the extremities Has some bilateral tremors of the upper extremities with activity No resting tremor Seems to be secondary to benign essential tremor and complicated by comorbid illness Primidone started, no jerking movements noted today Continue to monitor (4) Pleural effusion: Small effusion x-ray Procalcitonin and lactate-normal MRSA swab ordered-negative DC antibiotics Patient noted to have erythematous rash, truncal overnight Methylprednisolone IV given macular erythematous rash --> likely Drug reaction from Cefepime continues to improve, taper Solumedrol, change to Prednisone continue Zyrtec 5mg po HS PRN Benadryl added topical steroids (5) Coronary artery disease: No chest pain/SOB, troponin WNL Hold aspirin for now in light of hematuria (6) Systolic CHF, chronic: Last echocardiogram 10/03/2018 revealed EF 35 to 45%, grade 1 diastolic dysfunction, global hypokinesis of LV, severely dilated left atrium, mildly dilated right atrium repeat echo: EF remains the same 35-40% (7) Chronic atrial fibrillation: Continue metoprolol for rate control INR >10 Likely secondary to antibiotic, acute renal failure Vitamin K 5 mg IV given INR 1.5 Fibrinogen level: elevated Continue to monitor continue to hold coumadin in light of hematuria monitor (8) Chronic bronchitis with COPD (chronic obstructive pulmonary disease): No acute exacerbation Follows Dr. 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 Sanders upon discharge Full code Subjective ff up for acute renal failure seen resting in bed, visiting at bedside alert, oriented x 2 not in distress denies pain, chest pain, palpitations, abdominal pain, nausea reports mild dyspnea- not in distress, speaks in sentences with no effort no other symptoms Review of Systems Review of Systems: All systems reviewed & are unremarkable except as noted in HPI & below Physical Exam Physical Exam: General- oriented x 2, not in distress, speaks in sentences with no effort or accessory muscle use Eyes- anicteric Neck- no JVD Lungs- decreased BS at the bases, no wheezing/crackles Heart- normal rate, regular rhythm; no murmurs Abdomen- normal bowel sounds, nondistended, soft, nontender Extremities- mild lower leg edema, no calf tenderness Neuro- alert, oriented x 2; no gross focal neurologic deficits Skin- warm & dry; erythematous macular rash resolved Results & Data Vital Signs (Past 12 Hours) Vital Signs Temp Pulse Pulse Resp BP Pulse Ox 01/01/19 07:33 36.4 C L 86 20 120/79 93 12/31/18 23:21 86
[2019-01-01] MEDS ORDERED: SODIUM CHLORIDE 0.9% 500 ML IV SCH (18:00)
--- NOTE | 2019-01-01 18:16 | Progress Note ---
DATE: 01/01/2019 SUBJECTIVE: The patient continues to be somewhat confused. In fact, he has a one-on-one nursing sitter at this time. He is not making urine. Still has gross hematuria for which he was already seen by Urology and was felt to be Nuñez trauma. His vital signs are reasonably well. He is not eating much, not drinking. He is on a bicarb drip. OBJECTIVE: VITAL SIGNS: Most recent vital signs show a blood pressure of 118/76, 96% on room air, pulse rate 84, respiratory rate 20, afebrile. HEENT: Mucous membrane is moist. NECK: Supple. No jugular venous distention. CHEST: Bilateral clear to auscultation. Decreased breath sounds, but very poor inspiratory effort. CARDIOVASCULAR: S1 and S2, regular. ABDOMEN: Soft, nontender, obese. EXTREMITIES: Shows 1+ edema. LABORATORY TESTS: From this morning was reviewed in detail and compared to the previous days. Hemoglobin is down to 7.9, platelet count is 96,000 and WBC count 14,000. Sodium was 130, potassium 4.6, chloride 93, bicarbonate 26, BUN 105, creatinine is 4.0, glucose 161, calcium is 6.7. Ionized calcium is 0.92. ASSESSMENT AND PLAN: A 63-year-old male with advanced metastatic cancer, now has anuric acute renal failure from severe acute tubular necrosis. renal prognosis is poor and he is not a candidate for dialysis either acute or chronic. I would change the fluid to half normal saline at 50 mL per hour as the bicarbonate is now completely normal. Continue to do supportive care for acute tubular necrosis, which unfortunately is quite severe. No further workup is needed. [facility]
[2019-01-01] MEDS ORDERED: Nursing to Pharmacy Communication ONE (18:31)
[2019-01-01] MEDS: SODIUM CHLORIDE 0.9% 1000ML 1,000 ML IV SCH (18:53)
[2019-01-01] MEDS: CETIRIZINE HCL 10 MG TABLET PO SCH (20:43)
[2019-01-01] MEDS: ASCORBIC ACID 500 MG TAB PO SCH (20:45)
[2019-01-01] MEDS: MULTIVITAMIN TAB PO SCH (20:46)
[2019-01-01] MEDS: CYANOCOBALAMIN 500 MCG TABLET (VITAMIN B-12) PO SCH (20:46)
[2019-01-01] MEDS: FERROUS SULFATE 325 MG TAB PO SCH (20:47)
[2019-01-01] MEDS: TAMSULOSIN HCL 0.4 MG CAP PO SCH (20:47)
[2019-01-01] MEDS: PANTOprazole 40 MG TAB PO SCH (20:47)
[2019-01-01] MEDS: TIOTROPIUM BROMIDE 5 PUFF/90 MCG INH INH SCH (21:26)
[2019-01-02 06:41] LABS: INR 2.3 (0.9-1.1)
[2019-01-02] MEDS: DOCUSATE SODIUM 100 MG CAP PO SCH ×2 (08:39→21:12)
[2019-01-02] MEDS: GABAPENTIN 100 MG CAP PO SCH (08:39)
[2019-01-02] MEDS: PRIMIDONE 50 MG TAB PO SCH (08:40)
[2019-01-02] MEDS: TRIAMCINOLONE ACET 0.5% CR 15 GM TUBE EXT SCH ×2 (09:05→21:07)
[2019-01-02 09:49] LABS: Mean Corpuscular Hgb Conc 34.1 g/dL (32-36); Nucleated RBC # (auto) 0.14 K/uL (0-0); Nucleated RBC % (auto) 1.2 %
[2019-01-02 09:56] LABS: Hematocrit (blood only) 25.8 % (42-52); Hemoglobin 8.8 g/dL (14.0-18.0); Mean Corpuscular Volume 89.6 fL (80-100); RDW Coefficient of Variation 19.3 % (11.5-14.5); RDW Standard Deviation 61.4 fL (36.4-46.3); Red Blood Count 2.88 M/uL (4.7-6.1)
[2019-01-02 09:58] LABS: BUN Creatinine Ratio 29.5 (10-20); Calcium 6.6 mg/dl (8.5-10.1); Creatinine Clr Calc Pharmacy 25.9 ml/min; Est GFR (African American) 17.5; Est GFR (Non-African American) 15.1; Potassium 4.3 mmol/L (3.5-5.1)
[2019-01-02] MEDS: predniSONE 20 MG TAB PO SCH (10:07)
[2019-01-02 10:10] LABS: Platelet Count 80 K/uL (130-400)
[2019-01-02 10:11] LABS: Anisocytosis Present; Basophils # (auto) 0.02 K/uL (0-0.2); Basophils % (auto) 0.2 %; Eosinophils # (auto) 0.48 K/uL (0-0.5); Eosinophils % (auto) 3.9 %; Immature Granulocytes # (auto) 0.31 K/uL (0.00-0.02); Immature Granulocytes % (auto) 2.5 %; Lymphocytes # (auto) 2.17 K/uL (1.2-3.4); Lymphocytes % (auto) 17.6 %; Monocytes # (auto) 0.75 K/uL (0.11-0.59); Monocytes % (auto) 6.1 %; Neutrophils # (auto) 8.57 K/uL (1.4-6.5); Neutrophils % (auto) 69.7 %; Platelet Estimate Decreased (Normal); Tear Drop Cells 1+; Toxic Vacuolation 1+
--- NOTE | 2019-01-02 10:35 | Nephrology Progress Note ---
Date of Service January 02, 2019 Assessment & Plan (1) DORIS (acute kidney injury): anuric ATN suspect from sepsis versus process driving rash. DORIS attributed initially to ischemic ATN from intravascular volume depletion and chemo. Patient was not eating or drinking for a week; then on 12/26 w/ sudden creatinine worsening for no clear reason ? retention, ? tremor related/change in cognitive status << whatever is driving that. has been oliguric and now anuric for 6-7 days. No obstructive uropathy on ultrasound. not an HD candidate. his creatinine has for now plateau'd at about 4; chemistries acceptable for now but hypochloremic; anuria is most worrisome finding for now -cont NS given current labs at 50 mL/hr ; would not change back to bicarb just now -reasonable at this point not to check labs daily unless he begins to make more urine>> consider bmp q48-72 hrs; need to balance lab draw w/ potential need to change ivf Present on Admission?: Yes (2) Iron deficiency anemia: He has mild anemia likely due to the cancer. Monitor and transfuse as needed (3) Goals of care, counseling/discussion: not an HD candidate d/t comorbidities (metastatic cancer), clinical status; code status change noted; palliative following (4) Electrolyte abnormality: ongoing mild hypochloremia > cont NS low rate Present on Admission?: Yes Subjective seen on rounds this am about 0810; wants no breakfast, nothing to eat. denies pain or sob; states "why did you wake me up? I just got to sleep. I'm getting ready to and I just want to rest." Review of Systems Review of Systems: ROS limited by clinical condition, by generalized weakness, not willing to interact extensively. ROS as above Physical Exam Constitutional: well developed, well nourished and + morbidly obese on RA, tired Eyes: EOM intact bilaterally ENMT: Ears: no external ear abnormality Nose: no external nose abnormality Mouth: + dry oral mucous membranes Neck: no nuchal rigidity Respiratory: normal respiratory effort Auscultation: + diminished lung sounds (difficult to maneuver him for post exam) Cardiovascular: Rate/Rhythm: regular rate and regular rhythm Extremities: + edema (trace BLE and lots dependent) Gastrointestinal (Abdomen): Inspection/Auscultation: normal bowel sounds Percussion/Palpation: abdomen soft; abdomen nontender Musculoskeletal: Extremities: strength 5/5 throughout Skin: no rashes, warm and dry + rash (full body > ? slight improvement) Neurologic: generalized weakness, fluent speech Psychiatric: Orientation: alert Eye Contact: + fair eye contact Speech: normal rate/rhythm/volume of speech Affect: + irritable affect Genitourinary: gilman w/ scant blood Results & Data Vital Signs (Past 12 Hours) Vital Signs Temp Pulse Pulse Resp BP Pulse Ox 01/02/19 07:24 36.8 C 77 18 109/64 95 01/02/19 04:53 36.8 C 86 20 119/81 95 01/01/19 23:26 36.4 C L 86 20 126/95 94 01/01/19 23:08 69 Laboratory Results Abnormal lab results 01/02/19 01/02/19 01/02/19 Range/Units 06:15 06:18 06:18 WBC 12.30 H (4.8-10.8) K/uL RBC 2.88 L (4.7-6.1) M/uL Hgb 8.8 L (14.0-18.0) g/dL Hct 25.8 L (42-52) % RDW Std Deviation 61.4 H (36.4-46.3) fL RDW Coeff of Charis 19.3 H (11.5-14.5) % Plt Count 80 L (130-400) K/uL Immature Gran # (Auto) 0.31 H (0.00-0.02) K/uL Neut # (Auto) 8.57 H (1.4-6.5) K/uL Worth # (Auto) 0.75 H (0.11-0.59) K/uL Absolute Nucleated RBC 0.14 H (0-0) K/uL Platelet Estimate Decreased L (Normal) PT 22.0 H (9.0-12.0) Seconds INR 2.3 H (0.9-1.1) Sodium 131 L (136-145) mmol/L Chloride 92 L (98-107) mmol/L Anion Gap 13.0 H (3-11) BUN 118 H (7-18) mg/dl Creatinine 3.98 H (0.6-1.4) mg/dl BUN/Creatinine Ratio 29.5 H (10-20) Glucose 104 H (70-99) mg/dl Calcium 6.6 L (8.5-10.1) mg/dl
--- NOTE | 2019-01-02 13:43 | Palliative Care Progress Note ---
Date of Service January 02, 2019 Assessment & Plan (1) Goals of care, counseling/discussion: -Patient is awake today, but remains confused. Creatinine is 3.98 (4.00 yesterday, 3.94 day prior to that). Still making some urine, remains oliguric. -Spoke with Dr. Alves. He will talk with nephrology today and speak with patient's regarding goals of care. I did attempt to call a phone number left by patient's , but it rang a few times and went to busy signal. -Things seem to be plateauing (ie mental status, creatinine, urine output, alk phos, etc). However, kidneys are not improving. May be looking at patient's new baseline. -Uncertain of plan. If goal is for comfort, patient would certainly be appropriate for hospice. May need 24/7 care and I don't know if patient's could provide. May need SNF? -We will continue to follow. (2) Esophageal cancer: (3) DORIS (acute kidney injury): (4) Jerking movements of extremities: Subjective Patient is awake today, still confused. restless at times, remains a 1:1. Review of Systems Review of Systems: Unobtainable due to cognitive status Physical Exam Constitutional: + ill appearing and + overweight ENMT: Mouth: + poor dentition Neck: normal visual inspection Respiratory: normal respiratory effort, lungs clear to auscultation Auscultation: + diminished lung sounds Cardiovascular: RRR, no murmur, no edema Gastrointestinal (Abdomen): Inspection/Auscultation: abdomen normal to inspection and normal bowel sounds; abdomen not distended Neurologic: moves all extremities and awake (confused) Psychiatric: Orientation: oriented to person; + not oriented to place and + not oriented to time Results & Data Vital Signs (Past 12 Hours) Vital Signs Temp Pulse Resp BP Pulse Ox 01/02/19 12:11 36.8 C 98 H 18 124/86 98 01/02/19 07:24 36.8 C 77 18 109/64 95 01/02/19 04:53 36.8 C 86 20 119/81 95 Supervising Physician Co-Signing Physician Notes Patient seen and examined, sitter at bedside. PE: Patient appears comfortable, no acute distress HEENT: Increased temporal wasting, EOMI, hearing within normal limits Respirations: Unlabored CV: Tachycardic on exam Abdomen: Obese Neuro: Confused, calm and cooperative on exam Agree with above note, assessment and plan as per TOSHA Melissa-will continue to follow and assist with medical decision making. PG Care Time/CCT Total # of Minutes Spent Total Time Spent with Patient: Total time spent is greater than 50% in coordination of care (as documented) at patient's floor/unit and/or counseling patient: Time Spent Midlevel 35 minutes with >50% of the time spent at bedside with patient, nursing staff, and attending physician discussing plan and coordinating care.
[2019-01-02] MEDS: SODIUM CHLORIDE 0.9% 1000ML 1,000 ML IV SCH (14:12)
--- NOTE | 2019-01-02 16:11 | Hospitalist Progress Note ---
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 Today Outpatient labs 12/23/2018 H/H 11.9 and 36.6, W BC 9.07, platelet 226 Sodium 131, K4.6, chloride 98, CO2 19, BUN 29, creatinine 2.5, glucose 130, AG 14 TSH 3.62 Urine: Lachelle color, trace ketone, specific gravity 1.020, negative blood, protein 100, negative nitrate, negative esterase, bacteria 2650, WBC 35, uric acid crystals 1-4, granular casts 1-4 unclear etiology at this point creatinine continues to trend up Urine output still at ~300s Nephrology consulted Echo: EF 35-40%, left ventricular function moderately reduced- no change since last echo done in September transitioned from Bicarb drip to IV NSS not a good candidate for HD secondary to Stage IV Esophageal cancer prognosis guarded discussed with Nephrology (+) hematuria on Nuñez Cath repeat H&H 8.8 likely from heparin SC, Aspirin---> discontinued, platelet dysfunction from ARF Nuñez changed Urine culture: negative (2) Esophageal cancer: Stage IV esophageal adenoCA with liver mets and retroperitoneal lymph node mets chemo q2 weeks Paclitaxel, cyramza, last dose 2 weeks ago - was scheduled today but did not receive Discussed with the oncologist in detail His current symptomatology seems to be secondary to esophageal cancer and related issues Encephalopathy, likely metabolic As per Dr. Chester's notes CT scan of the head x2 did not show any acute events Other markers for confusion like infection renal function remain unremarkable Do not think is due to paraneoplastic syndrome Discussed with the niece and updated about his current condition which may be worsening down the line. She is quite understanding and will relate to the He is likely going to multiorgan failure and the prognosis remains poor Appreciate palliative care input and recommendation lethargy resolved, patient's mental status further improved Cetirizine decreased to 5 mg p.o. daily, gabapentin also decreased Continue to monitor closely (3) Jerking movements of extremities: As per Dr. Chester's notes Noted to have occasional jerks involving the extremities Has some bilateral tremors of the upper extremities with activity No resting tremor Seems to be secondary to benign essential tremor and complicated by comorbid illness Primidone started, no jerking movements noted today Continue to monitor (4) Pleural effusion: Small effusion x-ray Procalcitonin and lactate-normal MRSA swab ordered-negative DC antibiotics Patient noted to have erythematous rash, truncal overnight Methylprednisolone IV given macular erythematous rash --> likely Drug reaction from Cefepime continues to improve, taper Solumedrol, change to Prednisone continue Zyrtec 5mg po HS PRN Benadryl added topical steroids (5) Coronary artery disease: No chest pain/SOB, troponin WNL Hold aspirin for now in light of hematuria (6) Systolic CHF, chronic: Last echocardiogram 10/03/2018 revealed EF 35 to 45%, grade 1 diastolic dysfunction, global hypokinesis of LV, severely dilated left atrium, mildly dilated right atrium repeat echo: EF remains the same 35-40% (7) Chronic atrial fibrillation: Continue metoprolol for rate control INR >10 Likely secondary to antibiotic, acute renal failure Vitamin K 5 mg IV given INR 1.5 Fibrinogen level: elevated Continue to monitor continue to hold coumadin in light of hematuria monitor (8) Chronic bronchitis with COPD (chronic obstructive pulmonary disease): No acute exacerbation Follows Dr. 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 Sanders upon discharge Full code Subjective ff up for acute renal failure seen resting in bed, comfortable sleeping but easily awakened oriented x 2 answers most questions appropriately has mild dyspnea, no chest pain no abdominal pain, nausea no other symptoms Review of Systems Review of Systems: All systems reviewed & are unremarkable except as noted in HPI & below Physical Exam Physical Exam: General- oriented x 2, not in distress, speaks in sentences with no effort or accessory muscle use Eyes- anicteric Neck- no JVD Lungs- decreased breath sounds at the bases no wheezing Heart- normal rate, regular rhythm; no murmurs Abdomen- normal bowel sounds, nondistended, soft, nontender Extremities-mild lower leg edema, no calf tenderness Neuro- alert, oriented x 2; no gross focal neurologic deficits Skin- warm & dry Results & Data Vital Signs (Past 12 Hours) Vital Signs Temp Pulse Resp BP Pulse Ox 01/02/19 15:00 36.5 C 84 20 104/75 96 01/02/19 12:11 36.8 C 98 H 18 124/86 98 01/02/19 07:24 36.8 C 77 18 109/64 95 01/02/19 04:53 36.8 C 86 20 119/81 95
[2019-01-02] MEDS: TRAMADOL HCL 50 MG TABLET PO PRN (21:07)
[2019-01-02] MEDS: FERROUS SULFATE 325 MG TAB PO SCH (21:12)
[2019-01-02] MEDS: MULTIVITAMIN TAB PO SCH (21:12)
[2019-01-02] MEDS: TAMSULOSIN HCL 0.4 MG CAP PO SCH (21:12)
[2019-01-02] MEDS: ASCORBIC ACID 500 MG TAB PO SCH (21:12)
[2019-01-02] MEDS: CYANOCOBALAMIN 500 MCG TABLET (VITAMIN B-12) PO SCH (21:12)
[2019-01-02] MEDS: TIOTROPIUM BROMIDE 5 PUFF/90 MCG INH INH SCH (21:12)
[2019-01-02] MEDS: PANTOprazole 40 MG TAB PO SCH (21:12)
[2019-01-02] MEDS: CETIRIZINE HCL 10 MG TABLET PO SCH ×2 (21:13→21:56)
[2019-01-03 06:13] LABS: Nucleated RBC # (auto) 0.08 K/uL (0-0); Nucleated RBC % (auto) 0.6 %
[2019-01-03 06:18] LABS: Hematocrit (blood only) 24.3 % (42-52); Hemoglobin 8.5 g/dL (14.0-18.0); Mean Corpuscular Volume 88.7 fL (80-100); RDW Coefficient of Variation 19.2 % (11.5-14.5); RDW Standard Deviation 59.8 fL (36.4-46.3); Red Blood Count 2.74 M/uL (4.7-6.1); White Blood Count 13.27 K/uL (4.8-10.8)
[2019-01-03 06:47] LABS: Anisocytosis Present; Basophils # (auto) 0.02 K/uL (0-0.2); Basophils % (auto) 0.2 %; Eosinophils # (auto) 0.76 K/uL (0-0.5); Eosinophils % (auto) 5.7 %; Immature Granulocytes # (auto) 0.26 K/uL (0.00-0.02); Lymphocytes # (auto) 2.04 K/uL (1.2-3.4); Lymphocytes % (auto) 15.4 %; Mean Platelet Volume 10.3 fL (7.4-10.4); Monocytes # (auto) 0.56 K/uL (0.11-0.59); Monocytes % (auto) 4.2 %; Neutrophils # (auto) 9.63 K/uL (1.4-6.5); Neutrophils % (auto) 72.5 %; Platelet Count 75 K/uL (130-400); Platelet Estimate Decreased (Normal); Schistocytes Occasional; Tear Drop Cells 1+
[2019-01-03 06:50] LABS: BUN Creatinine Ratio 29.8 (10-20); Calcium 6.4 mg/dl (8.5-10.1); Creatinine Clr Calc Pharmacy 25.1 ml/min; Est GFR (African American) 17.4; Potassium 4.6 mmol/L (3.5-5.1)
[2019-01-03] MEDS: predniSONE 20 MG TAB PO SCH (09:11)
[2019-01-03] MEDS: PRIMIDONE 50 MG TAB PO SCH (09:11)
[2019-01-03] MEDS: GABAPENTIN 100 MG CAP PO SCH (09:11)
[2019-01-03] MEDS: TRIAMCINOLONE ACET 0.5% CR 15 GM TUBE EXT SCH ×2 (09:12→20:52)
[2019-01-03] MEDS: DOCUSATE SODIUM 100 MG CAP PO SCH ×2 (09:14→20:52)
[2019-01-03] MEDS: SODIUM CHLORIDE 0.9% 1000ML 1,000 ML IV SCH (09:50)
--- NOTE | 2019-01-03 11:21 | Palliative Care Progress Note ---
Date of Service January 03, 2019 Assessment & Plan (1) Goals of care, counseling/discussion: -After multiple discussions with patient, his Reta, case management and provider, plan is for comfort/hospice care upon discharge from hospital. This is in accordance with patient's wishes. -Uncertain if patient's can provide 24/7 care for patient at home as she still works cleaning houses during the day. -Planning for meeting tomorrow morning at 1030 with patient's and rehabilitation caseworker, palliative care will attend as well. Will discuss options for hospice care: home vs SNF vs home with private duty caregivers. -Patient does not currently have any symptom management needs or other needs that would qualify him for [facility] hospice. -POLST form completed 01/02. -Palliative care team will follow as needed. (2) Esophageal cancer: (3) DORIS (acute kidney injury): (4) Jerking movements of extremities: Subjective Patient continues to be awake and mostly oriented today. Still states he wants to go home and be comfortable. Review of Systems Review of Systems: Denies pain, SOB, N/V. Physical Exam Constitutional: + ill appearing and + overweight ENMT: Mouth: + poor dentition Neck: normal visual inspection Respiratory: normal respiratory effort, lungs clear to auscultation Cardiovascular: RRR, no murmur, no edema Gastrointestinal (Abdomen): Inspection/Auscultation: abdomen normal to inspection and normal bowel sounds; abdomen not distended Neurologic: moves all extremities and awake Psychiatric: Orientation: oriented to person; + not oriented to place and + not oriented to time Results & Data Vital Signs (Past 12 Hours) Vital Signs Temp Pulse Resp BP Pulse Ox 01/03/19 07:09 36.6 C 73 20 109/78 92 01/03/19 04:00 36.6 C 85 20 119/84 97 01/02/19 23:57 36.6 C 82 20 120/79 97 Time Spent Midlevel 35 minutes with >50% of the time spent at bedside with patient and IDT discussing POC.
--- NOTE | 2019-01-03 17:24 | Hospitalist Progress Note ---
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 Today Outpatient labs 12/23/2018 H/H 11.9 and 36.6, W BC 9.07, platelet 226 Sodium 131, K4.6, chloride 98, CO2 19, BUN 29, creatinine 2.5, glucose 130, AG 14 TSH 3.62 Urine: Lachelle color, trace ketone, specific gravity 1.020, negative blood, protein 100, negative nitrate, negative esterase, bacteria 2650, WBC 35, uric acid crystals 1-4, granular casts 1-4 unclear etiology at this point creatinine still at ~4 Urine output still at ~300s Nephrology consulted Echo: EF 35-40%, left ventricular function moderately reduced- no change since last echo done in September transitioned from Bicarb drip to IV NSS not a good candidate for HD secondary to Stage IV Esophageal cancer prognosis guarded discussed with Nephrology On January 02, 2019, patient and his decided to transition to palliative care, with ultimate goal of home hospice Palliative Care service also had discussion with him Discussed at length and in detail with him, continue with present medications, vital signs, discontinue obtaining blood work Case management consulted-arranging home with hospice (+) hematuria on Nuñez Cath repeat H&H 8.5 likely from heparin SC, Aspirin---> discontinued, platelet dysfunction from ARF Nuñez changed Urine culture: negative (2) Esophageal cancer: Stage IV esophageal adenoCA with liver mets and retroperitoneal lymph node mets chemo q2 weeks Paclitaxel, cyramza, last dose 2 weeks ago - was scheduled today but did not receive Discussed with the oncologist in detail His current symptomatology seems to be secondary to esophageal cancer and related issues Encephalopathy, likely metabolic As per Dr. Chester's notes CT scan of the head x2 did not show any acute events Other markers for confusion like infection renal function remain unremarkable Do not think is due to paraneoplastic syndrome Discussed with the niece and updated about his current condition which may be worsening down the line. She is quite understanding and will relate to the He is likely going to multiorgan failure and the prognosis remains poor Appreciate palliative care input and recommendation lethargy resolved, patient's mental status further improved Cetirizine decreased to 5 mg p.o. daily, gabapentin also decreased Continue to monitor closely (3) Jerking movements of extremities: As per Dr. Chester's notes Noted to have occasional jerks involving the extremities Has some bilateral tremors of the upper extremities with activity No resting tremor Seems to be secondary to benign essential tremor and complicated by comorbid illness Primidone started, no jerking movements noted today Continue to monitor (4) Pleural effusion: Small effusion x-ray Procalcitonin and lactate-normal MRSA swab ordered-negative DC antibiotics Patient noted to have erythematous rash, truncal overnight Methylprednisolone IV given macular erythematous rash --> likely Drug reaction from Cefepime continues to improve, taper Solumedrol, change to Prednisone taper continue Zyrtec 5mg po HS PRN Benadryl added topical steroids (5) Coronary artery disease: No chest pain/SOB, troponin WNL Hold aspirin for now in light of hematuria (6) Systolic CHF, chronic: Last echocardiogram 10/03/2018 revealed EF 35 to 45%, grade 1 diastolic dysfunction, global hypokinesis of LV, severely dilated left atrium, mildly dilated right atrium repeat echo: EF remains the same 35-40% (7) Chronic atrial fibrillation: Continue metoprolol for rate control INR >10 Likely secondary to antibiotic, acute renal failure Vitamin K 5 mg IV given INR 1.5 Fibrinogen level: elevated Continue to monitor continue to hold coumadin in light of hematuria and low Plt of 75k monitor (8) Chronic bronchitis with COPD (chronic obstructive pulmonary disease): No acute exacerbation Follows Dr. 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 Sanders upon discharge Full code Subjective ff up for acute renal failure seen resting in bed, comfortable conversant, pleasant states he feels fine overall denies chest pain, dyspnea, palpitations, dizziness No abdominal pain no nausea no vomiting Denies other symptoms Review of Systems Review of Systems: All systems reviewed & are unremarkable except as noted in HPI & below Physical Exam Physical Exam: General- oriented x 3, not in distress, speaks in sentences with no effort or accessory muscle use Eyes- anicteric Neck- no JVD Lungs-decreased presence bilaterally, no crackles, no wheezing, good air entry bilaterally Heart- normal rate, irregularly irregular rhythm; no murmurs Abdomen- normal bowel sounds, nondistended, soft, nontender Extremities-trace pretibial edema, no calf tenderness Neuro- alert, oriented x 3; no gross focal neurologic deficits Skin- warm & dry Results & Data Vital Signs (Past 12 Hours) Vital Signs Temp Pulse Pulse Resp BP BP Pulse Ox 01/03/19 15:33 81 01/03/19 15:27 36.4 C L 81 20 127/87 97 01/03/19 12:00 36.3 C L 67 18 135/83 97 01/03/19 11:26 95 H 01/03/19 07:09 36.6 C 73 20 109/78 92 Laboratory Results Laboratory Results - last 24 hr 01/03/19 01/03/19 05:31 05:31 WBC 13.27 H RBC 2.74 L Hgb 8.5 L Hct 24.3 L MCV 88.7 MCH 31.0 MCHC 35.0 RDW Std Deviation 59.8 H RDW Coeff of Charis 19.2 H Plt Count 75 L MPV 10.3 Immature Gran % (Auto) 2.0 Neut % (Auto) 72.5 Lymph % (Auto) 15.4 Glynn % (Auto) 4.2 Eos % (Auto) 5.7 Baso % (Auto) 0.2 Immature Gran # (Auto) 0.26 H Neut # (Auto) 9.63 H Lymph # (Auto) 2.04 Glynn # (Auto) 0.56 Eos # (Auto) 0.76 H Baso # (Auto) 0.02 Absolute Nucleated RBC 0.08 H Nucleated RBC % (auto) 0.6 Platelet Estimate Decreased L Anisocytosis Present Tear Drop Cells 1+ Schistocytes Occasional Sodium 130 L Potassium 4.6 Chloride 92 L Carbon Dioxide 24 Anion Gap 14.0 H BUN 119 H Creatinine 4.01 H Est Cr Clr Drug Dosing 25.1 Est GFR ( Amer) 17.4 Est GFR (Non-Af Amer) 15.0 BUN/Creatinine Ratio 29.8 H Glucose 102 H Calcium 6.4 L
[2019-01-03] MEDS: TAMSULOSIN HCL 0.4 MG CAP PO SCH (20:52)
[2019-01-03] MEDS: FERROUS SULFATE 325 MG TAB PO SCH (20:52)
[2019-01-03] MEDS: PANTOprazole 40 MG TAB PO SCH (20:53)
[2019-01-03] MEDS: CYANOCOBALAMIN 500 MCG TABLET (VITAMIN B-12) PO SCH (20:53)
[2019-01-03] MEDS: ASCORBIC ACID 500 MG TAB PO SCH (20:53)
[2019-01-03] MEDS: MULTIVITAMIN TAB PO SCH (20:53)
[2019-01-03] MEDS: TIOTROPIUM BROMIDE 5 PUFF/90 MCG INH INH SCH (20:53)
[2019-01-03] MEDS: CETIRIZINE HCL 10 MG TABLET PO SCH (20:54)
[2019-01-04] MEDS: SODIUM CHLORIDE 0.9% 1000ML 1,000 ML IV SCH (05:03)
[2019-01-04] MEDS: TRIAMCINOLONE ACET 0.5% CR 15 GM TUBE EXT SCH ×2 (08:44→20:37)
[2019-01-04] MEDS: GABAPENTIN 100 MG CAP PO SCH (08:44)
[2019-01-04] MEDS: predniSONE 20 MG TAB PO SCH (08:44)
[2019-01-04] MEDS: PRIMIDONE 50 MG TAB PO SCH (08:44)
[2019-01-04] MEDS: DOCUSATE SODIUM 100 MG CAP PO SCH ×2 (08:48→20:40)
--- NOTE | 2019-01-04 11:11 | Palliative Care Progress Note ---
Date of Service January 04, 2019 Assessment & Plan (1) Goals of care, counseling/discussion: -Family meeting planned for today with Case Management, patient, Palliative Care, and patient's , Reta. -Yesterday, plan was to transition to comfort measures only/Hospice. -Lengthy discussion held, patient and would like to try Hospice at home. Reta stated that she has a brother, a niece who is local who can help provide care at home, along with Hospice. -They are very strong in their jorge and she is reaching out to have a few [employer] members provide companionship visits at home too. 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 -A friend has had positive experience with [facility] and would like a referral placed which case management did and they will be able to meet with Reta and patient today at 1330. -Patient has IV fluids infusing at 50mL/hour, which will be discontinued prior to discharge. -Additionally, patient gilman catheter can remain in place for when he returns home; patient and would like this. -Discussed patient's prognosis and time frame of life expectancy, anticipate a week to two weeks based on his worsening kidney function. -Patient does have an ICD. Communication order placed to for [employer] to deactivate ICD and all of its internal settings prior to discharge; Discussed with Hospitalist, family and Mateus from [employer]. -Patient would require all equipment to be delivered, so anticipating a discharge for tomorrow, 01/05 -POLST form completed 01/02. -Palliative care team will follow as needed. -PPS: 30% (2) Esophageal cancer: (3) DORIS (acute kidney injury): (4) Jerking movements of extremities: Subjective Patient awake and oriented today. Patient denies any pain today. Patient states he is ready to go home, but does not want to be a burden on his , Reta. Review of Systems Review of Systems: Denies chest pain, SOB, N/V/D. Constitutional: + weakness Physical Exam Constitutional: + ill appearing and comfortable Eyes: PERRL, conjunctivae normal, anicteric sclerae ENMT: external ear and nose normal, oropharynx normal Neck: trachea midline, no thyromegaly Respiratory: Auscultation: + diminished lung sounds and + rhonchi Cardiovascular: Rate/Rhythm: regular rhythm Heart Sounds: normal S1 and normal S2 Extremities: normal capillary refill; no edema Gastrointestinal (Abdomen): normal bowel sounds, soft, nontender, no hepatosplenomegaly Skin: normal turgor, + crusts and + dry skin Psychiatric: Orientation: alert and oriented to person Insight: + poor insight Judgement: + poor judgement Genitourinary: gilman catheter in situ with very dark tea-colored urine. Continues to have U.O. Lymphatic: no cervical or axillary lymphadenopathy Results & Data Vital Signs (Past 12 Hours) Vital Signs Temp Pulse Pulse Resp BP BP Pulse Ox 01/04/19 11:07 36.6 C 79 18 112/81 96 01/04/19 07:08 36.8 C 78 17 119/87 89 L 01/04/19 03:33 36.8 C 92 H 20 132/72 90 01/04/19 00:56 78 01/03/19 23:47 36.7 C 74 20 139/91 97 PG Care Time/CCT Total # of Minutes Spent Total Time Spent with Patient: Total time spent is greater than 50% in coordination of care (as documented) at patient's floor/unit and/or counseling patient: 45 Prolonged Care Time Prolonged Care Time: Yes Total Prolonged Care Time: 45 Time Spent Midlevel Total time spent 45 minutes with > 50% of that time spent assessing the patient, and being involved for a family meeting discussing goals of care and logistical planning.
--- NOTE | 2019-01-04 15:29 | Hospitalist Progress Note ---
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 Outpatient labs 12/23/2018 H/H 11.9 and 36.6, W BC 9.07, platelet 226 Sodium 131, K4.6, chloride 98, CO2 19, BUN 29, creatinine 2.5, glucose 130, AG 14 TSH 3.62 Urine: Lachelle color, trace ketone, specific gravity 1.020, negative blood, protein 100, negative nitrate, negative esterase, bacteria 2650, WBC 35, uric acid crystals 1-4, granular casts 1-4 DORIS is likely secondary to ischemic ATN from intravascular volume depletion and contributed by chemotherapy and sepsis Appreciate nephrology input and recommendation Did not have any improvement of his kidney function since admission Prognosis remains grave Appreciate palliative care input and recommendation Likely be discharged Home with hospice tomorrow Has Nuñez catheter (+) hematuria on Nuñez Cath Nuñez changed Urine culture: negative We will keep Nuñez on discharge (2) Esophageal cancer: Stage IV esophageal adenoCA with liver mets and retroperitoneal lymph node mets chemo q2 weeks Paclitaxel, cyramza, last dose 2 weeks ago - was scheduled today but did not receive Discussed with the oncologist in detail His current symptomatology seems to be secondary to esophageal cancer and related issues No further treatment as per oncologist And his prognosis remains very poor Encephalopathy, likely metabolic As per Dr. Chester's notes CT scan of the head x2 did not show any acute events Other markers for confusion like infection renal function remain unremarkable Do not think is due to paraneoplastic syndrome Discussed with the niece and updated about his current condition which may be worsening down the line. She is quite understanding and will relate to the He is likely going to multiorgan failure and the prognosis remains poor Appreciate palliative care input and recommendation (3) Jerking movements of extremities: Noted to have occasional jerks involving the extremities Has some bilateral tremors of the upper extremities with activity No resting tremor Seems to be secondary to benign essential tremor and complicated by comorbid illness Primidone started, no jerking movements noted today Continue to monitor No more jerking movement noted as of today 01/04 (4) Pleural effusion: Small effusion x-ray Procalcitonin and lactate-normal MRSA swab ordered-negative DC antibiotics Patient noted to have erythematous rash, truncal overnight Methylprednisolone IV given macular erythematous rash --> likely Drug reaction from Cefepime continues to improve, taper Solumedrol, change to Prednisone taper continue Zyrtec 5mg po HS PRN Benadryl added topical steroids No further issues (5) Coronary artery disease: No chest pain/SOB, troponin WNL Hold aspirin for now in light of hematuria (6) Systolic CHF, chronic: Last echocardiogram 10/03/2018 revealed EF 35 to 45%, grade 1 diastolic dysfunction, global hypokinesis of LV, severely dilated left atrium, mildly dilated right atrium repeat echo: EF remains the same 35-40% Has AICD placed Will get the defibrillator part switch stop before discharge Discussed with the patient (7) Chronic atrial fibrillation: Continue metoprolol for rate control INR >10 Likely secondary to antibiotic, acute renal failure Vitamin K 5 mg IV given INR 1.5 Fibrinogen level: elevated Coumadin has been discontinued due to hematuria and bleeding risk (8) Chronic bronchitis with COPD (chronic obstructive pulmonary disease): No acute exacerbation Follows Dr. 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 Sanders upon discharge DNR/DNI Appreciate palliative care input and recommendation Discharge home with hospice tomorrow Subjective 12/23 The patient was seen and examined in the emergency room on the day of admission He was admitted with DORIS likely secondary to dehydration and could be contributed by use of chemotherapeutic agent Denies any significant symptoms except weakness 12/24 Patient was seen and examined in medical unit With complaints of generalized weakness but denies any other symptoms Denies any shortness of breath and/or palpitation and no bloating 12/25 The patient was seen and examined in medical telemetry unit He has been complaining of occasional shakes of the extremities which get worse with intentional movement no rest tremor Remains generally weak and lethargic 12/26 The patient was seen and examined in medical telemetry unit He has been generally weak and lethargic Still complains to have occasional jerks involving the upper extremities Otherwise mentally seems to be clear 12/27 The patient was seen and examined in medical telemetry unit This condition has been deteriorating with increasing confusion and drowsiness Abnormal movements of the upper extremities and the body have been worsening to Kidney function is getting worse as well with less urine output Discussed with Niece and she is very understanding Care was provided to Dr. Alves From 12/28 to 01/03 01/04 The patient was seen and examined in presence of the He has been much better today Communicating normally and denies any significant symptoms Apparently he is kidney function has deteriorated a lot and he will be going home with home hospice tomorrow He has accepted his current medical condition and management plan Review of Systems Review of Systems: All systems reviewed and are unremarkable except as noted below Constitutional: + fatigue and + weakness Respiratory: + dyspnea on exertion (Which has been chronic) Musculoskeletal: No acute arthritis in any of the joints Neurologic: + generalized weakness Extremely weak and immediately going to sleep after a short conversation Physical Exam Physical Exam: Lying in bed comfortably Constitutional: well developed and well nourished; no acute distress and not ill appearing Eyes: PERRL, conjunctivae normal, anicteric sclerae ENMT: external ear and nose normal, oropharynx normal Neck: trachea midline, no thyromegaly Respiratory: normal respiratory effort Auscultation: + diminished lung sounds and + crackles (Left lung base) Cardiovascular: Rate/Rhythm: regular rate and regular rhythm Gastrointestinal (Abdomen): Inspection/Auscultation: abdomen normal to inspection Percussion/Palpation: abdomen soft Neurologic: moves all extremities Motor/Sensory: + tremor (Resolved) Psychiatric: Affect: + depressed affect and + anxious affect Lymphatic: no cervical or axillary lymphadenopathy Results & Data Vital Signs (Past 12 Hours) Vital Signs Temp Pulse Resp BP BP Pulse Ox 01/04/19 14:55 36.8 C 105 H 20 107/84 96 01/04/19 11:07 36.6 C 79 18 112/81 96 01/04/19 07:08 36.8 C 78 17 119/87 89 L 01/04/19 03:33 36.8 C 92 H 20 132/72 90 Medications Administered Current Inpatient Medications Acetaminophen (Tylenol) 650 mg PO Q4H PRN PRN Reason: Pain or Fever Stop: 01/22/19 14:05 Last Admin: 12/29/18 23:42 Dose: 650 mg Documented by: Albuterol (Duoneb) 3 ml NEB Q2H PRN PRN Reason: Shortness Of Breath Or Wheezing Stop: 01/22/19 14:29 Ascorbic Acid (Vitamin C) 250 mg PO [facility] Stop: 01/22/19 20:59 Last Admin: 01/03/19 20:53 Dose: 250 mg Documented by: Aspirin (Ecotrin Ectab) [facility] Stop: 01/23/19 08:59 Last Admin: 12/29/18 08:53 Dose: 81 mg Documented by: Atropine Sulfate (Atropine Sulfate) 0.5 mg IV Q3M PRN PRN Reason: symptomatic bradycardia Stop: 01/27/19 19:42 Belladonna Alkaloids/Opium (B & O Adult) 60 mg MI Q6H PRN PRN Reason: Bladder pain Stop: 01/13/19 16:54 Last Admin: 12/30/18 17:21 Dose: 60 mg Documented by: Cetirizine HCl (Zyrtec) 5 mg PO [facility] Stop: 01/27/19 20:59 Last Admin: 01/03/19 20:54 Dose: 5 mg Documented by: Cyanocobalamin (Vitamin B-12) 1,000 mcg PO [facility] Stop: 01/22/19 20:59 Last Admin: 01/03/19 20:53 Dose: 1,000 mcg Documented by: Docusate Sodium (Colace) 100 mg PO BID [facility] Stop: 01/22/19 20:59 Last Admin: 01/04/19 08:48 Dose: 100 mg Documented by: Ferrous Sulfate (Feosol) 325 mg PO [facility] Stop: 01/22/19 20:59 Last Admin: 01/03/19 20:52 Dose: 325 mg Documented by: Gabapentin (Neurontin) 100 mg PO [facility] Stop: 01/28/19 08:59 Last Admin: 01/04/19 08:44 Dose: 100 mg Documented by: Heparin Sodium (Porcine) (Heparin Sod 100 Unit/Ml Flush) 5 ml FLUSH PRN PRN PRN Reason: Flush Stop: 01/24/19 01:44 Sodium Chloride (Nss 1000ml) 1,000 mls @ 50 mls/hr IV .Q20H [facility] Stop: 01/31/19 18:44 Last Admin: 01/04/19 05:03 Dose: 50 mls/hr Documented by: Lidocaine HCl (Xylocaine Jely 2%) 0 ml EXT PRN PRN PRN Reason: CATH INSERTION Stop: 01/30/19 03:03 Metoprolol Succinate (Toprol Xl) 50 mg PO BID [facility] Stop: 01/22/19 20:59 Last Admin: 12/28/18 20:23 Dose: Not Given Documented by: Miconazole Nitrate (Desenex) 1 appln EXT PRN PRN PRN Reason: Affected Skin Folds Stop: 01/28/19 12:37 Multivitamins (Multivitamin Tab) 1 tab PO HS [facility] Stop: 01/22/19 20:59 Last Admin: 01/03/19 20:53 Dose: 1 tab Documented by: Nitroglycerin (Nitrostat) 0.4 mg SL UD PRN PRN Reason: Chest Pain Stop: 01/22/19 14:05 Ondansetron HCl (Zofran) 4 mg IV Q6H PRN PRN Reason: Nausea Stop: 01/22/19 14:05 Last Admin: 12/25/18 05:30 Dose: 4 mg Documented by: Pantoprazole Sodium (Protonix) 40 mg PO HS [facility]; Protocol Stop: 01/22/19 20:59 Last Admin: 01/03/19 20:53 Dose: 40 mg Documented by: Polyethylene Glycol (Miralax Powder Packet) 17 gm PO DAILY PRN PRN Reason: Constipation Stop: 01/22/19 14:05 Last Admin: 01/04/19 08:43 Dose: 17 gm Documented by: Prednisone (Prednisone) 20 mg PO DAILY [facility] Stop: 02/03/19 08:59 Last Admin: 01/04/19 08:44 Dose: 20 mg Documented by: Primidone (Primidone) 50 mg PO DAILY [facility] Stop: 01/24/19 11:14 Last Admin: 01/04/19 08:44 Dose: 50 mg Documented by: Tamsulosin HCl (Flomax) 0.4 mg PO HS [facility] Stop: 01/22/19 20:59 Last Admin: 01/03/19 20:52 Dose: 0.4 mg Documented by: Tiotropium Leslie (Spiriva) 1 puffs INH HS [facility] Stop: 01/22/19 20:59 Last Admin: 01/03/19 20:53 Dose: 1 puffs Documented by: Tramadol HCl (Ultram) 50 mg PO Q8H PRN PRN Reason: Pain Stop: 01/22/19 14:05 Last Admin: 01/02/19 21:07 Dose: 50 mg Documented by: Triamcinolone Acetonide (Kenalog 0.5%) 1 appln EXT BID [facility] Stop: 01/28/19 11:59 Last Admin: 01/04/19 08:44 Dose: 1 appln Documented by:
[2019-01-04] MEDS: FERROUS SULFATE 325 MG TAB PO SCH (20:35)
[2019-01-04] MEDS: CETIRIZINE HCL 10 MG TABLET PO SCH (20:35)
[2019-01-04] MEDS: TAMSULOSIN HCL 0.4 MG CAP PO SCH (20:35)
[2019-01-04] MEDS: PANTOprazole 40 MG TAB PO SCH (20:36)
[2019-01-04] MEDS: ASCORBIC ACID 500 MG TAB PO SCH (20:36)
[2019-01-04] MEDS: MULTIVITAMIN TAB PO SCH (20:36)
[2019-01-04] MEDS: CYANOCOBALAMIN 500 MCG TABLET (VITAMIN B-12) PO SCH (20:36)
[2019-01-04] MEDS: TIOTROPIUM BROMIDE 5 PUFF/90 MCG INH INH SCH (20:37)
[2019-01-05] MEDS: TRIAMCINOLONE ACET 0.5% CR 15 GM TUBE EXT SCH (08:44)
[2019-01-05] MEDS: GABAPENTIN 100 MG CAP PO SCH ×2 (08:44→09:22)
[2019-01-05] MEDS: PRIMIDONE 50 MG TAB PO SCH ×2 (08:45→09:22)
[2019-01-05] MEDS: predniSONE 20 MG TAB PO SCH ×2 (08:45→09:22)
[2019-01-05] MEDS: DOCUSATE SODIUM 100 MG CAP PO SCH (09:24)
--- NOTE | 2019-01-05 13:07 | Hospitalist Progress Note ---
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 Outpatient labs 12/23/2018 H/H 11.9 and 36.6, W BC 9.07, platelet 226 Sodium 131, K4.6, chloride 98, CO2 19, BUN 29, creatinine 2.5, glucose 130, AG 14 TSH 3.62 Urine: Lachelle color, trace ketone, specific gravity 1.020, negative blood, protein 100, negative nitrate, negative esterase, bacteria 2650, WBC 35, uric acid crystals 1-4, granular casts 1-4 DORIS is likely secondary to ischemic ATN from intravascular volume depletion and contributed by chemotherapy and sepsis Appreciate nephrology input and recommendation Did not have any improvement of his kidney function since admission Prognosis remains grave Appreciate palliative care input and recommendation Will be discharged today home with home hospice Has Nuñez catheter (+) hematuria on Nuñez Cath Nuñez changed Urine culture: negative We will keep Nuñez on discharge (2) Esophageal cancer: Stage IV esophageal adenoCA with liver mets and retroperitoneal lymph node mets chemo q2 weeks Paclitaxel, cyramza, last dose 2 weeks ago - was scheduled today but did not receive Discussed with the oncologist in detail His current symptomatology seems to be secondary to esophageal cancer and related issues No further treatment as per oncologist And his prognosis remains very poor Encephalopathy, likely metabolic As per Dr. Chester's notes CT scan of the head x2 did not show any acute events Other markers for confusion like infection renal function remain unremarkable Do not think is due to paraneoplastic syndrome Discussed with the niece and updated about his current condition which may be worsening down the line. She is quite understanding and will relate to the He is likely going to multiorgan failure and the prognosis remains poor Appreciate palliative care input and recommendation To be improved as of today (3) Jerking movements of extremities: Noted to have occasional jerks involving the extremities Has some bilateral tremors of the upper extremities with activity No resting tremor Seems to be secondary to benign essential tremor and complicated by comorbid illness Primidone started, no jerking movements noted today Continue to monitor No more jerking movement noted as of today 01/04 (4) Pleural effusion: Small effusion x-ray Procalcitonin and lactate-normal MRSA swab ordered-negative DC antibiotics Patient noted to have erythematous rash, truncal overnight Methylprednisolone IV given macular erythematous rash --> likely Drug reaction from Cefepime continues to improve, taper Solumedrol, change to Prednisone taper continue Zyrtec 5mg po HS PRN Benadryl added topical steroids No further issues (5) Coronary artery disease: No chest pain/SOB, troponin WNL Hold aspirin for now in light of hematuria (6) Systolic CHF, chronic: Last echocardiogram 10/03/2018 revealed EF 35 to 45%, grade 1 diastolic dysfunction, global hypokinesis of LV, severely dilated left atrium, mildly di lated right atrium repeat echo: EF remains the same 35-40% Has AICD placed Will get the defibrillator part switch stop before discharge Discussed with the patient (7) Chronic atrial fibrillation: Continue metoprolol for rate control INR >10 Likely secondary to antibiotic, acute renal failure Vitamin K 5 mg IV given INR 1.5 Fibrinogen level: elevated Coumadin has been discontinued due to hematuria and bleeding risk (8) Chronic bronchitis with COPD (chronic obstructive pulmonary disease): No acute exacerbation Follows Dr. 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 Sanders upon discharge DNR/DNI Appreciate palliative care input and recommendation Discharge home with hospice tomorrow Subjective 12/23 The patient was seen and examined in the emergency room on the day of admission He was admitted with DORIS likely secondary to dehydration and could be contributed by use of chemotherapeutic agent Denies any significant symptoms except weakness 12/24 Patient was seen and examined in medical unit With complaints of generalized weakness but denies any other symptoms Denies any shortness of breath and/or palpitation and no bloating 12/25 The patient was seen and examined in medical telemetry unit He has been complaining of occasional shakes of the extremities which get worse with intentional movement no rest tremor Remains generally weak and lethargic 12/26 The patient was seen and examined in medical telemetry unit He has been generally weak and lethargic Still complains to have occasional jerks involving the upper extremities Otherwise mentally seems to be clear 12/27 The patient was seen and examined in medical telemetry unit This condition has been deteriorating with increasing confusion and drowsiness Abnormal movements of the upper extremities and the body have been worsening to Kidney function is getting worse as well with less urine output Discussed with Niece and she is very understanding Care was provided to Dr. Alves From 12/28 to 01/03 01/04 The patient was seen and examined in presence of the He has been much better today Communicating normally and denies any significant symptoms Apparently he is kidney function has deteriorated a lot and he will be going home with home hospice tomorrow He has accepted his current medical condition and management plan 01/05 The patient was seen and examined in medical unit He has been a little drowsy today but denies any pain and/or shortness of breath He is aware that he will be going home today with home hospice Denies any significant symptoms Review of Systems Review of Systems: All systems reviewed and are unremarkable except as noted below Constitutional: + fatigue, + weakness and + anorexia Respiratory: no dyspnea (At rest) Genitourinary: + difficulty urinating and + decreased urination (Does not want any Unñez catheter at this time) Musculoskeletal: No acute arthritis in any of the joints Neurologic: + generalized weakness Extremely weak and immediately going to sleep after a short conversation, pleasantly confused Physical Exam Physical Exam: Lying in bed,very lethargic Constitutional: well developed, well nourished, + altered mental status and cooperative; no acute distress and not ill appearing Eyes: PERRL, conjunctivae normal, anicteric sclerae ENMT: external ear and nose normal, oropharynx normal Neck: trachea midline, no thyromegaly Respiratory: normal respiratory effort Auscultation: + diminished lung sounds and + crackles (Left lung base) Cardiovascular: Rate/Rhythm: regular rate and regular rhythm Gastrointestinal (Abdomen): Inspection/Auscultation: abdomen normal to inspection Percussion/Palpation: abdomen soft Neurologic: moves all extremities Speech / Cognition: + abnormal speech (Due to drowsiness) Motor/Sensory: + tremor (Resolved) Psychiatric: Affect: + depressed affect and + anxious affect Lymphatic: no cervical or axillary lymphadenopathy Results & Data Vital Signs (Past 12 Hours) Vital Signs Temp Pulse Resp BP Pulse Ox 01/05/19 06:55 36.5 C 83 20 125/74 97
[2019-01-05] MEDS: TRAMADOL HCL 50 MG TABLET PO PRN (14:28)
--- NOTE | 2019-01-06 08:06 | Discharge Summary ---
Date of Service January 06, 2019 Admission HPI Per Admitting Provider Chief Complaint: Referred by hematology/oncologist Dr. 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 Patient was seen in heme/onc office today and was to undergo chemotherapy, but this was canceled secondary to abnormal labs. Patient was seen by PCP on 12/22 which he was noted he was to have a elevated creatinine at 2.1. He received 1 L IVF. He had a repeat blood work today which revealed elevated creatinine 2.5 and therefore he was referred to ED. Patient complains of LEIGH that has been ongoing for the past 2 to 3 months. He also elicits decreased appetite, decreased oral intake, decreased urinary output, dark urine appearance, intermittent dry cough. He denies any fever, chills, sweats, lightheadedness, dizziness, fall, chest pain, shortness breath at rest, palpitations, hemoptysis, nausea, vomiting, diarrhea, abdominal pain, dysuria, increased urgency or frequency with urination, hematuria, melena, hematochezia. States his last chemo was approximately 2 weeks ago. He denies any significant weight change, weight 257 today. Of significance patient is currently on a every 2 week regimen of Cyramza and Paclitaxel q 2 weeks, dose reduced 08/2018 due to chemotherapy-induced neuropathy. Recent PET/CT on 12/21/2018 revealed interval increase in size and FDG avidity of the left retroperitoneum lymph node, new right para-aortic lymph node, focus of intense activity noted posterior aspect of the bladder without definite CT correlate, heterogenous liver but no definite liver lesion identified, distal esophageal thickening. Lastly, he had bronchoscopy 09/[address] Gonsales which he was diagnosed with bronchial pneumonia, per patient was not treated with any antibiotics. Pulmonary MAC patient respiratory epithelial cells present, acute inflammatory cells, no malignant cells see Admission Exam Per Admitting Provider Physical Exam: Gen: Chronically ill-appearing, male, sitting up in bed, NAD, pleasant, conversing easily and answers questions appropriately Head: Normocephalic, Atraumatic Eyes: Sclera normal, no conjunctival injection, PERRLA, EOMI ENT: Gross hearing intact, normal pharynx, mucous membranes dry Neck: supple, no adenopathy, No JVD, no bruit, Resp: Clear to auscultation b/l with exception of left lower lung base decreased breath sounds, no wheeze, rales, rhonchi. Normal insp/exp effort, no accessory muscle use, saturating well on room air CV: Bradycardic rate, irregular rhythm no murmur, rub, gallop, or ectopy Abd: +BS x 4, soft, nontender, nondistended Musculoskeletal: moves extremities active rom x 4, strength intact, good pantographer strength Extremities: No edema bilaterally, compression stockings in place Skin: warm, moist, no rash, mild turgor, cap refill < 2sec Neuro: Alert and oriented x 3, speech normal, good mood/affect, cran nerve 2-12 intact grossly : deferred Principal Diagnosis DORIS-progressive, end-stage esophageal cancer, metabolic encephalopathy-improved on discharge, systolic CHF with AICD in situ-defibrillator was deactivated Discharge Exam Constitutional well developed, well nourished, + altered mental status and cooperative; no acute distress and not ill appearing Eyes PERRL, conjunctivae normal, anicteric sclerae ENMT external ear and nose normal, oropharynx normal Neck trachea midline, no thyromegaly Respiratory normal respiratory effort Auscultation: + diminished lung sounds and + crackles (Left lung base) Cardiovascular Rate/Rhythm: regular rate and regular rhythm Gastrointestinal (Abdomen) Inspection/Auscultation: abdomen normal to inspection Percussion/Palpation: abdomen soft Neurologic moves all extremities Speech / Cognition: + abnormal speech (Due to drowsiness) Motor/Sensory: + tremor (Resolved) Psychiatric Affect: + depressed affect and + anxious affect Lymphatic no cervical or axillary lymphadenopathy Discharge Data Allergies Allergy/AdvReac Type Severity Reaction Status Date / Time cefepime Allergy Severe Rash Verified 12/31/18 15:01 amoxicillin Allergy Unknown RASH Verified 12/23/18 09:42 escitalopram Allergy Unknown RASH Verified 12/23/18 09:42 finasteride Allergy Unknown rash Verified 12/23/18 09:42 Penicillins Allergy Unknown RASH Verified 12/23/18 09:42 piperacillin Allergy Unknown RASH Verified 12/23/18 09:42 tazobactam Allergy Unknown RASH Verified 12/23/18 09:42 vancomycin Allergy Unknown RASH Verified 12/23/18 09:42 adhesive tape Allergy Rash Verified 12/23/18 09:42 Consultations 12/23/18 12:02 ED Decision to Admit Stat 12/23/18 13:53 Consult Nephrology Routine 12/23/18 14:06 Consult Case Management - Discharge Planning Routine 12/26/18 09:20 Consult Palliative Care Routine 12/30/18 22:14 Consult Urology Routine Ordered Studies 12/23/18 13:53 US renal/blad retro comp Urgent 12/26/18 08:51 CT head/brain wo con Routine 12/26/18 21:16 CT head/brain wo con Urgent 12/30/18 05:40 CT abd pelvis wo con Urgent Hospital Course (1) DORIS (acute kidney injury): This is a 63-year-old male who has a significant PMH of CAD, chronic systolic CHF EF 35 to 40%, chronic atrial fibrillation on warfarin, 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 Outpatient labs 12/23/2018 H/H 11.9 and 36.6, W BC 9.07, platelet 226 Sodium 131, K4.6, chloride 98, CO2 19, BUN 29, creatinine 2.5, glucose 130, AG 14 TSH 3.62 Urine: Lachelle color, trace ketone, specific gravity 1.020, negative blood, protein 100, negative nitrate, negative esterase, bacteria 2650, WBC 35, uric acid crystals 1-4, granular casts 1-4 DORIS is likely secondary to ischemic ATN from intravascular volume depletion and contributed by chemotherapy and sepsis Appreciate nephrology input and recommendation Did not have any improvement of his kidney function since admission Prognosis remains grave Appreciate palliative care input and recommendation Will be discharged today home with home hospice Has Nuñez catheter (+) hematuria on Nuñez Cath Nuñez changed Urine culture: negative We will keep Nuñez on discharge (2) Esophageal cancer: Stage IV esophageal adenoCA with liver mets and retroperitoneal lymph node mets chemo q2 weeks Paclitaxel, cyramza, last dose 2 weeks ago - was scheduled today but did not receive Discussed with the oncologist in detail His current symptomatology seems to be secondary to esophageal cancer and related issues No further treatment as per oncologist And his prognosis remains very poor Encephalopathy, likely metabolic As per Dr. Chester's notes CT scan of the head x2 did not show any acute events Other markers for confusion like infection renal function remain unremarkable Do not think is due to paraneoplastic syndrome Discussed with the niece and updated about his current condition which may be worsening down the line. She is quite understanding and will relate to the He is likely going to multiorgan failure and the prognosis remains poor Appreciate palliative care input and recommendation To be improved as of today (3) Jerking movements of extremities: Noted to have occasional jerks involving the extremities Has some bilateral tremors of the upper extremities with activity No resting tremor Seems to be secondary to benign essential tremor and complicated by comorbid illness Primidone started, no jerking movements noted today Continue to monitor No more jerking movement noted as of today 01/04 (4) Pleural effusion: Small effusion x-ray Procalcitonin and lactate-normal MRSA swab ordered-negative DC antibiotics Patient noted to have erythematous rash, truncal overnight Methylprednisolone IV given macular erythematous rash --> likely Drug reaction from Cefepime continues to improve, taper Solumedrol, change to Prednisone taper continue Zyrtec 5mg po HS PRN Benadryl added topical steroids No further issues (5) Coronary artery disease: No chest pain/SOB, troponin WNL Hold aspirin for now in light of hematuria (6) Systolic CHF, chronic: Last echocardiogram 10/03/2018 revealed EF 35 to 45%, grade 1 diastolic dysfunction, global hypokinesis of LV, severely dilated left atrium, mildly dilated right atrium repeat echo: EF remains the same 35-40% Has AICD placed Will get the defibrillator part switch stop before discharge Discussed with the patient (7) Chronic atrial fibrillation: Continue metoprolol for rate control INR >10 Likely secondary to antibiotic, acute renal failure Vitamin K 5 mg IV given INR 1.5 Fibrinogen level: elevated Coumadin has been discontinued due to hematuria and bleeding risk (8) Chronic bronchitis with COPD (chronic obstructive pulmonary disease): No acute exacerbation Follows Dr. Gonsales Had bronchoscopy 10/02, negative for malignant cells, acute inflammatory cells with pulmonary MAC patient epithelial cell Continue tiotropium, nebs prn (9) BPH (benign prostatic hypertrophy): Continue Flomax (10) GERD (gastroesophageal reflux disease): Continue PPI (11) Iron deficiency anemia: Continue iron supplements (12) Smokeless tobacco use: Encouraged tobacco cessation Patient declined nicotine patch Uses approximately 1 can/week (13) DVT prophylaxis: hx of DVT/PE INR more than 10, Coumadin held Heparin SC discontinued in light of hematuria Disposition: Home with hospice nurse on board Follow-up: PCP Dr. Sanders upon discharge DNR/DNI Appreciate palliative care input and recommendation Discharge home with hospice tomorrow Total Time Total Time Spent Total Time Spent (In Minutes): 40 minutes Total Time Includes: Examination of the Patient, Discharge Planning, Medication Reconciliation and Communication With Other Providers Discharge Plan Discharge Items Patient Disposition: Hospice - Home Reason For Visit: DORIS, PNA Discharge Diagnosis: DORIS-progressive, end-stage esophageal cancer, metabolic encephalopathy-improved on discharge, systolic CHF with AICD in situ- defibrillator was deactivated Condition: Critical Discharge Goals: Decrease discomfort Activity: As commented below Activity Comment: Mostly bedbound and as per hospice care Non-emergency contact: Primary Care Provider Call non-emergency contact if: you have any medication questions and your symptoms worsen Follow-up/Referrals: Mateus Sanders, [Primary Care Provider] - (Appointment with the primary care provider as per hospice) Diet: Heart Healthy Diet Texture: Dental soft (bite-sized) Addtl Provider Instructions: Symptomatic management as per hospice care Please take precaution to avoid fall and aspiration Prescriptions: New primidone 50 mg Tablet 50 mg PO DAILY 10 Days Qty: 10 RF: 0 prednisone 20 mg Tablet 20 mg PO DAILY 30 Days Qty: 30 RF: 0 Continued acetaminophen [Acetaminophen Extra Strength] 500 mg Tablet 1,000 mg PO TID PRN (Reason: Inflammation) RF: 0 lidocaine HCl 2 % jelly 1 appln TOP TID PRN (Reason: pain) Qty: 30 RF: 0 multivitamin Tablet 1 tab PO HS RF: 0 tramadol 50 mg tablet 50 mg PO Q8H PRN (Reason: Pain) RF: 0 tamsulosin 0.4 mg capsule 0.4 mg PO HS RF: 0 omeprazole 20 mg capsule,delayed release(DR/EC) 20 mg PO HS RF: 0 lorazepam [Ativan] 0.5 mg Tablet 0.5 mg PO BID PRN (Reason: Anxiety) RF: 0 ondansetron 8 mg Tablet,Disintegrating 8 mg PO TID PRN (Reason: Nausea And Vomiting) RF: 0 docusate sodium [Colace] 100 mg Capsule 100 mg PO BID RF: 0 gabapentin 100 mg capsule 100 mg PO BID RF: 0 albuterol sulfate 90 mcg/actuation HFA aerosol inhaler 2 puff inhalation Q4H PRN (Reason: Shortness Of Breath Or Wheezing) RF: 0 Spiriva with HandiHaler 18 mcg capsule, w/inhalation device 18 mcg inhalation HS RF: 0 Discontinued cyanocobalamin (vitamin B-12) [Vitamin B-12] 1,000 mcg Tablet 1,000 mcg PO HS RF: 0 Vitamin C 250 mg Tablet,Chewable 250 mg PO HS RF: 0 metoprolol succinate 50 mg tablet extended release 24 hr 50 mg PO BID RF: 0 warfarin 5 mg tablet 5 mg PO MOWEFRSA RF: 0 warfarin 5 mg tablet 2.5 mg PO SUTUTH RF: 0 aspirin 81 mg Tablet,Chewable 81 mg PO QAM RF: 0 ferrous sulfate 324 mg (65 mg iron) Tablet,Delayed Release (Dr/Ec) 324 mg PO HS RF: 0 cetirizine 10 mg tablet 10 mg PO HS RF: 0 Stand-Alone Forms: [facility] Discharge Orders: Discharge Order (Routine); Ordered 01/05/19 Ordered By: Mars Chester Admission Data Admit Date/Time: 12/23/18 13:27 Attending Provider: Mars Chester Admit Provider: Mars Chester Primary Care Provider: Mateus Sanders Other Providers: Tello Alves ; Mars Chester ; Vini Kahn Susan H ; Clements, Thomas Service: Telemetry Medical Other Interventions: Discharge Summary Assessment (RN) Last Done: 01/05/19 13:46 DC Date/Time DO NOT enter until pt leaves facility: 01/05/19 16:26
== END 2019-01-05 16:26 | disposition hospice, home (50) | DRG 682 ==
LOC: ED 08:50 → SUATTDRO 13:27 → 2W 13:27